=== PATIENT | male | born 1970 | race Caucasian/White ===

== ENCOUNTER 2021-07-30 01:37 | Day surgery (SDC) | payer OTHER, SELFPAY ==
[2021-07-29 14:03] VITALS: BMI 30.5
[2021-07-30 09:37] VITALS: BP 119/86; PULSE 75; RESP 18; TEMP 36.1; O2SAT 94; BMI 30.9
[2021-07-30 09:46] LABS: Basophils Absolute Auto 0.1 K/mm3 (0.0-0.1); Basophils Percent Auto 0.4 % (0.2-1.2); Eosinophils Absolute Auto 0.2 K/mm3 (0-0.3); Hematocrit 49.7 % (42.0-52.0); Hemoglobin 16.5 g/dL (14.0-18.0); Immature Granulocyte Absolute 0.06 K/mm3 (0.00-0.031); Immature Granulocyte Percent A 0.4 % (0-0.5); Lymphocytes Absolute Auto 2.46 K/mm3 (0.9-3.2); Lymphocytes Percent Auto 15.3 % (18.3-44.2); Mean Corpuscular HGB Conc 33.2 g/dl (32-36); Mean Corpuscular Hemoglobin 31.3 pg (26-34); Mean Corpuscular Volume 94.1 fl (80-100); Mean Platelet Volume 9.3 fl (7.4-10.4); Monocytes Absolute Auto 0.8 K/mm3 (0.1-0.6); Neutrophils Absolute Auto 12.5 K/mm3 (1.3-6.7); Neutrophils Percent Auto 77.9 % (45.5-73.1); Platelet Count Result 327 k/mm3 (150-375); Red Blood Count 5.28 M/mm3 (4.6-6.20); White Blood Count 16.1 K/mm3 (4.5-10.0)
[2021-07-30 10:17] LABS: Anion Gap 7 mmol/L (8-16); Blood Urea Nitrogen 12 mg/dL (9-20); Calcium 9.3 mg/dL (8.4-10.2); Carbon Dioxide 28 mmol/L (22-30); Chloride 106 mmol/L (98-107); Estimated CRCL calculation 108 ml/min; Estimated Glomerular Filt Rate > 60; Glucose 95 mg/dL (65-110); Potassium 4.7 mmol/L (3.4-5.0); Sodium 141 mmol/L (137-145)
--- NOTE | 2021-07-30 10:38 | WPDMODSED ---
Moderate Sedation Note-Pt Data Patient Data Diagnosis: permanent pacemaker at [facility] Present Complaint: none Procedure to be performed/Plan: pacemaker generator change Allergies Allergy/AdvReac Type Severity Reaction Status Date / Time No Known Allergies Allergy Verified 07/29/21 13:55 Home Medications Medication Instructions Recorded Confirmed Type aspirin 81 mg chewable tablet 81 mg PO DAILY 11/26/19 07/29/21 History cyclobenzaprine 10 mg tablet 10 mg PO BID PRN tablet 11/26/19 07/29/21 History hydrocodone 10 mg-acetaminophen 1 tablet PO Q8H PRN 11/26/19 07/29/21 History 325 mg tablet duloxetine 60 mg PO DAILY 07/29/21 07/30/21 History folic acid 0.8 mg PO EVERY OTHER DAY 07/29/21 07/29/21 History pregabalin 150 mg PO BID 07/29/21 07/29/21 History ropinirole 0.5 mg PO HS 07/29/21 07/29/21 History rosuvastatin 20 mg PO DAILY 07/29/21 07/29/21 History diclofenac sodium 75 mg PO DAILY 07/30/21 07/30/21 History Sedation/Anesthesia: No previous sedation/anesthesia problems (including family history). [facility] Past Medical History Medical History (Updated 11/26/19 @ 15:43 by Hannah Davis CMA) Arthritis Chronic mental illness Myocardial infarct Family History Family History (Updated 05/01/19 @ 14:12 by DOCTOR UNKNOWN) Father Malignant neoplasm of prostate Sibling Family history of malignant neoplasm of breast Mother Family history of malignant neoplasm of breast in first degree relative Family history of type 2 diabetes mellitus Social History Social History Smoking status: Current every day smoker Tobacco type: cigarettes Additional smoking assessment comments: has smoked for 38 years 2PPD Alcohol intake: never Living arrangements: alone Spiritual care concerns: No Mod Sed Physical Exam Physical Exam Pre Procedural Exam: Normal: Nose, Neck, Throat, Airway, Lungs, Heart Size, Heart Rate, Heart Rhythm, Neuro Exam and Extremities and Variation: Appearance ( overweight white male no apparent distress) Hours since solid foods: 12 Hours since liquid intake: 12 Mallampati Classification: class II Internal Medicine - PN: Obj Da Vital Signs Vital Signs: Vital Signs - 24 hr 07/30/21 09:37 Temperature 36.1 C L Pulse Rate 75 Respiratory Rate 18 Blood Pressure 119/86 Pulse Oximetry 94 Labs CBC & Chem 7: 07/30/21 09:28 07/30/21 09:25 Labs: Laboratory Results - last 24 hr 07/30/21 07/30/21 09:25 09:28 WBC 16.1 H RBC 5.28 Hgb 16.5 Hct 49.7 MCV 94.1 MCH 31.3 MCHC 33.2 RDW 13.0 Plt Count 327 MPV 9.3 Immature Gran % (Auto) 0.4 Neut % (Auto) 77.9 H Lymph % (Auto) 15.3 L [place] % (Auto) 5.0 Eos % (Auto) 1.0 Baso % (Auto) 0.4 Lymph # (Auto) 2.46 [place] # (Auto) 0.8 H Eos # (Auto) 0.2 Baso # (Auto) 0.1 Abs Immat Gran (auto) 0.06 H Absolute Neuts (auto) 12.5 H Absolute Nucleated RBC 0.0 Nucleated RBC % 0.0 Sodium 141 Potassium 4.7 Chloride 106 Carbon Dioxide 28 Anion Gap 7 L BUN 12 Creatinine 0.90 Estim Creat Clear Calc 108 Estimated GFR > 60 Glucose 95 Calcium 9.3 ASA Classification/Sedation ASA Classification/Sedation ASA Class: II Emergent: No Risks: Risks, benefits and alternatives explained and patient/family accepted plan for sedation. Patient re-evaluated immediately prior to sedation.
--- NOTE | 2021-07-30 11:22 | P.PCNCC_ITS ---
Cardiac Cath Procedure Note Date of procedure:: 07/30/21 Performing physician:: Maxim Plascencia MD Indication:: Permanently implanted pacemaker at [facility] Brief clinical history:: this is a 51-year-old man with coronary disease who had evidence of high-grade AV block 11 years ago following myocardial infarction. A permanent dual-chamber pacemaker was placed at that time which is now at [facility]. Admitted electively for generator change procedure Procedure Procedure performed:: explant depleted pulse generator implant new pacemaker pulse generator Sedation/Medication given:: fentanyl 50 mg Versed 2 mg case start time 10:55 a.m. case end time 11:19 a.m. sedation provided by Anisa Reinoso RN, trained observer Access site:: chronic left subclavian pocket Estimated blood loss:: minimal Procedure note:: patient was brought to the cardiac catheterization lab in the postabsorptive state the left anterior chest wall was prepped and draped in the sterile fashion in the region of the chronically implanted pacemaker device. He received intravenous Ancef prior to the procedure for antibiotic prophylaxis. 1% lidocaine was infiltrated above the pocket and his plasma blade was then used to incise the skin and provide cutaneous hemostasis. The PlasmaBlade was used to dissect the subcutaneous tissue down to the level of the fibrous pocket. This fibrous pocket was then opened with the Metzenbaum scissors and the pacemaker device was removed was visually intact and unremarkable in appearance along with the attached leads. The pacemaker device was disconnected from leads using the torque wrench and the new device detailed below was connected to the chronically implanted leads. The pocket was irrigated with Ancef infused saline. After this the new device in the chronic leads were placed back into the pocket. The pocket was closed in layers using 3-0 Vicryl in interrupted fashion for the subcutaneous tissue and 4-0 Vicryl in a running subcuticular fashion for the skin. The wound was dressed with an Aquacel dressing. The procedure was uncomplicated and well tolerated. Patient was brought to the holding area for recovery were postop analgesic and antibiotics will be ordered. Findings:: The explanted device is a Next 1 [employer] dual-chamber pacemaker [id number] serial number [id number]. device was originally implanted June 02, 2010 the new implanted device is pleasant time to pick dual-chamber pacemaker model ACCOLADE EMELINA PHAN IS-1. serial number [id number]. device is programmed in DDDR mode lower rate limit 60 upper rate limit 130 av delay 220/390 milliseconds. The chronically implanted atrial is a Guidant DEXTRUS IS-1 Bi Positive Fix 53cm , serial number [id number]. originally implanted June 02, 2010. P-waves sensed at 1.0 mV threshold 1.5 volts at 0.4 millisecond pacing impedance 656. The chronically implanted ventricular lead is a Guidant DEXTRUS IS-1 Bi Positive Fix 60cm. serial number [id number]. originally implanted June 02, 2010. R-waves are sensed at 7.8 mV threshold 1.0 volt at 0.4 millisecond pacing impedance 584. Conclusion:: 1. Successful uncomplicated explantation of permanent dual- chamber depleted pulse generator 2. successful implantation of new permanent dual-chamber pulse generator Maxim Plascencia MD [facility]
[2021-07-30 11:35] VITALS: BP 120/78; PULSE 72; RESP 19; TEMP 36.2; O2SAT 99
[2021-07-30 11:45] VITALS: BP 112/76; PULSE 63; RESP 14; O2SAT 96
[2021-07-30 12:00] VITALS: BP 107/65; PULSE 69; RESP 14; O2SAT 100
[2021-07-30 12:15] VITALS: BP 113/78; PULSE 63; RESP 12; O2SAT 100
[2021-07-30 12:45] VITALS: BP 121/73; PULSE 70; RESP 16; O2SAT 100
--- NOTE | 2021-07-30 13:06 | SUR.PHASEII ---
1300 D/C instructions reviewed with patient, questions answered and he verbalizes understanding. IV d/c'd, cath intact, pressure applied, no bleeding noted. Pts prescription called into his pharmacy d/t RX transmission unavailable and f/u 1 week office visit made with office. Pt transported to [facility] via wheelchair where his girlfriend drove him home in private vehicle.
== END 2021-07-30 13:05 | disposition home or self-care (01) ==
PROVIDERS: PCP Emergency Medicine; Visit Provider Specialist
PROC: 0JPT0PZ Removal of Cardiac Rhythm Related Device from Trunk Subcutaneous Tissue and Fascia, Open Approach (ICD-10-PCS; CPT 33228; principal; 2021-07-30 10:00)
DX: Z45.010 Encounter for checking and testing of cardiac pacemaker pulse generator [battery] (principal); I25.2 Old myocardial infarction; F17.210 Nicotine dependence, cigarettes, uncomplicated
CPT/HCPCS: 33228; 36415; 80048; 85025; C1785; J0690; J1644; J2250; J3010; J7040

== ENCOUNTER 2021-11-15 06:44 | Emergency (ER) | payer OTHER, SELFPAY ==
--- NOTE | ~2021-11-15 | XR_ITS ---
EXAMINATION: XR hip LT 2V w AP pelvis DATE: 11/15/2021 08:58 INDICATION: Pelvic pain. TECHNIQUE: An anteroposterior view of the pelvis and 2 views of left hip were obtained. COMPARISON: Pelvis radiograph 06/05/2014 FINDINGS: There are old healed fractures of the right superior and inferior pubic rami and left sacra l ala. There is plate and screw fixation of the sacrum and left sacroiliac joint. No acute fracture. There is mild osteoarthritis of the hips. There is severe lumbar spondylosis. IMPRESSION: 1. Mild osteoarthritis of the hips. Reviewed, dictated and finalized at location A. R MAKE UP CLERK
--- NOTE | ~2021-11-15 | XR_ITS ---
EXAMINATION: XR lumbar spine 2-3V DATE: 11/15/2021 08:58 INDICATION: Nontraumatic low back pain. TECHNIQUE: 3 views of lumbar spine were obtained. COMPARISON: Lumbar spine radiographs 06/05/2014 FINDINGS: There is 8 degrees dextrocurvature of thoracolumbar spine. L5 is a transitional segment. Th ere is 3 mm anterolisthesis of L3 on L4. Vertebral body heights are normal. There is mildly decreased disc height at L1-L2, moderately decreased disc height at L2-L3, and severely decreased disc height at L3-L4 and L4-L5 with endplate remodeling. There is severe facet joint osteoarthritis in lower lumb ar spine. There is plate and screw fixation of sacrum and left sacroiliac joint. IMPRESSION: 1. Severe lumbar spondylosis, worsened from 06/05/2014. Reviewed, dictated and finalized at location A. NG TRIMMER
[2021-11-15 07:27] VITALS: BP 166/144; PULSE 72; RESP 23; TEMP 36.6; O2SAT 98
--- NOTE | 2021-11-15 08:56 | ED.BACK ---
HPI - Back Pain/Injury General Chief Complaint: Back Pain/Injury Stated Complaint: left hip and back pain x 4 days. Time Seen by Provider: 11/15/21 08:02 Source: patient Mode of arrival: ambulatory History of Present Illness HPI Narrative: Patient drove himself to the emergency room complaining of left lower back pain and left hip pain that started on the last few days patient on hydrocodone without any significant improvement. History of lower back surgery 2001. Patient denies any trauma or new physical activity. Patient denies patient denies bowel dysfunction, bladder dysfunction, altered sensation, focal weakness, or saddle numbness, patient denies any fever, chills, or urinary symptoms Related Data Home Medications Medication Instructions Recorded Confirmed aspirin 81 mg chewable tablet 81 mg PO DAILY 11/26/19 07/29/21 cyclobenzaprine 10 mg tablet 10 mg PO BID PRN tablet 11/26/19 07/29/21 duloxetine 60 mg PO DAILY 07/29/21 07/30/21 folic acid 0.8 mg PO EVERY OTHER DAY 07/29/21 07/29/21 pregabalin 150 mg PO BID 07/29/21 07/29/21 ropinirole 0.5 mg PO HS 07/29/21 07/29/21 rosuvastatin 20 mg PO DAILY 07/29/21 07/29/21 diclofenac sodium 75 mg PO DAILY 07/30/21 07/30/21 hydrocodone-acetaminophen 1 tablet PO TID PRN 11/15/21 Allergies Allergy/AdvReac Type Severity Reaction Status Date / Time No Known Allergies Allergy Verified 11/15/21 06:49 Review of Systems Review of Systems: CONSTITUTIONAL: Denies fever, chills, or sweats. EYES: Denies visual changes, redness, or discharge. ENT: Denies rhinorrhea, congestion, sore throat, or otalgia. CARDIOVASCULAR: Denies chest pain, palpitations, or edema. RESPIRATORY: Denies cough or dyspnea. GASTROINTESTINAL: Denies abdominal pain, nausea, vomiting, or diarrhea. GENITOURINARY: Denies dysuria or hematuria. SKIN: Denies rash or itching. MUSCULOSKELETAL: Denies back pain, joint pain, or myalgia. NEUROLOGIC: Denies headache, numbness, or weakness. PSYCHIATRIC: Denies anxiety or depression. [facility] Past Medical History Medical History Arthritis Chronic mental illness Myocardial infarct Family History Family History Father Malignant neoplasm of prostate Sibling Family history of malignant neoplasm of breast Mother Family history of malignant neoplasm of breast in first degree relative Family history of type 2 diabetes mellitus Social History Social History Smoking status: Current every day smoker Tobacco type: cigarettes Additional smoking assessment comments: has smoked for 38 years 2PPD Alcohol intake: never Spiritual care concerns: No Exam Narrative: General appearance: Well-developed, well-nourished Skin: Normal color Head: Normocephalic, nontraumatic Eyes: Clear conjunctiva ENT: Oropharynx normal, ears normal, nose normal Neck: Supple, nontender Chest and respiratory: Airway patent, no respiratory distress, no accessory muscle use Heart: Regular rate/rhythm Abdomen: Soft, nontender, no organomegaly, quiet bowel sounds Vascular: Normal peripheral pulses, normal capillary refill. Musculoskeletal: Diffuse tenderness across lower back, slight limited range of motion of left hip because of pain, old surgical scar on the left lower back Neurologic: Alert and oriented ?3, CUSTOMER QUALITY ENGINEER is normal as tested, no gross motor deficit Course Course Emergency Course: Stable Vital Signs Vital signs: Vital Signs Temperature 36.6 C 11/15/21 07:27 Pulse Rate 72 11/15/21 07:27 Respiratory Rate 23 H 11/15/21 07:27 Blood Pressure 166/14
[2021-11-15 09:12] VITALS: BP 136/97; PULSE 76; RESP 18; O2SAT 100
[2021-11-15] MEDS: diazePAM (*CRX) 5 MG TABLET PO (09:18)
[2021-11-15] MEDS: ONDANSETRON HCL ODT 4 MG TABLET PO (09:18)
[2021-11-15] MEDS: HYDROmorphone HCL INJ (*CRX) 1 MG/ML SYR IM (09:19)
[2021-11-15 09:30] VITALS: BP 136/87; PULSE 87; RESP 18; O2SAT 100
== END 2021-11-15 09:30 | disposition home or self-care (01) ==
PROVIDERS: Emergency Provider Emergency Medicine; PCP Emergency Medicine
DX: M54.50 Low back pain, unspecified (principal); I25.2 Old myocardial infarction; F17.210 Nicotine dependence, cigarettes, uncomplicated; M47.816 Spondylosis without myelopathy or radiculopathy, lumbar region; M16.0 Bilateral primary osteoarthritis of hip; Z79.82 Long term (current) use of aspirin
CPT/HCPCS: 72100; 73502; 96372; 99284; A9270; J1170

== ENCOUNTER 2022-11-11 00:03 | Day surgery (SDC) | payer OTHER, SELFPAY ==
[2022-11-03 08:59] VITALS: BMI 29.7
[2022-11-11 09:41] VITALS: BP 139/84; PULSE 97; RESP 22; TEMP 36.4; O2SAT 98
[2022-11-11] MEDS: LACTATED RINGERS 1,000 ML 150 ML IV CONT (09:50)
--- NOTE | 2022-11-11 09:56 | WPDANESEPPF ---
Anes - Initial Pre Proc Eval Procedure: Operation Date: 11/11/22 10:45 Proposed Procedures p Esophagogastroduodenoscopy EGD - Ravinder Goodman MD Date/Time: 11/11/22 09:56 Surgeon: Ravinder Goodman MD Pre Op Diagnosis: esophagitis Patient Data Age: 52 Gender: M Height: 1.85 m Weight: 100.4 kg Last Vital Signs Temp 97.6 F 11/11/22 09:41 Pulse 97 11/11/22 09:41 Resp 22 H 11/11/22 09:41 BP 139/84 11/11/22 09:41 Pulse Ox 98 11/11/22 09:41 O2 Del Method Room Air 11/11/22 09:41 Allergies Allergy/AdvReac Type Severity Reaction Status Date / Time No Known Allergies Allergy Verified 11/11/22 09:39 Home Medications Medication Instructions Recorded Confirmed Type aspirin 81 mg chewable tablet 81 mg PO DAILY 11/26/19 11/11/22 History (Elba Chewable Low Dose Aspirin) cyclobenzaprine 10 mg tablet 10 mg PO BID PRN Muscle Spasm 11/26/19 11/11/22 History pregabalin 150 mg capsule 150 mg PO BID 07/29/21 11/11/22 History rosuvastatin 20 mg tablet 20 mg PO DAILY 07/29/21 11/11/22 History diclofenac sodium 75 mg 75 mg PO DAILY 07/30/21 11/11/22 History tablet,delayed release hydrocodone 10 mg-acetaminophen 1 tablet PO TID PRN Back Pain 11/15/21 11/11/22 History 325 mg tablet omeprazole 20 mg capsule,delayed 20 mg PO DAILY 11/03/22 11/11/22 History release Patient hx anesthesia problems: none Family hx anesthesia problems: none Results Review: All pre-operative results and documents have been reviewed as part of the pre-operative evaluation. [facility] Past Medical History Medical History Arthritis Chronic mental illness Myocardial infarct Family History Family History Father Malignant neoplasm of prostate Sibling Family history of malignant neoplasm of breast Mother Family history of malignant neoplasm of breast in first degree relative Family history of type 2 diabetes mellitus Social History Social History Smoking packs per day: 1.5 Smoking cigarettes per day: 30.0 Years smoked: 39 Smoking pack-years: 58.50 Smoking status: Current every day smoker Tobacco type: cigarettes Additional smoking assessment comments: has smoked for 38 years 2PPD Alcohol intake: never Substance use: current Substance use type: marijuana Last use: Daily Living arrangements: alone Spiritual care concerns: No Anes - Eval Final PreProcedure Day of Procedure 11/11/22 09:56 Patient weight: obese Heart: regular rate and rhythm Lungs: clear to auscultation Airway: Mallampati scale class II Neurological: alert and oriented Last oral intake: >/= 8 hours ASA classification: III Emergent: no Anesthetic plan: proceed Anesthesia type and monitoring: general GIVS and standard monitoring Results Review: All pre-operative results and documents have been reviewed as part of the pre-operative evaluation. Informed Consent: The patient's anesthetic plan and its attendant risks and benefits were discussed with the patient/family/POA. Questions were solicited and answers provided to the satisfaction of the patient/family/POA.
--- NOTE | 2022-11-11 10:12 | PM.HPGS ---
History of Present Illness History of Present Illness Consent: Risks, benefits, and alternatives have been discussed and questions answered. Patient agrees to proceed with procedure. Chief complaint: esophagitis Narrative: Arash Bernardo is a 52 year old male with gerd symptom, CT Scan showed distal esophagitis then started on omeprazole and doing quite well now, never had egd Review of Systems Constitutional: Constitutional: Denies headache(s) and Denies weakness Eyes: Eyes: Denies blurry vision ENT: Reports Normal hearing present, Denies headache(s) and Denies neck pain Cardiovascular: Cardiovascular: Denies chest pain and Denies dyspnea Respiratory: Respiratory: Denies dyspnea Gastrointestinal: Gastrointestinal: Reports no additional gastrointestinal complaints Genitourinary: Genitourinary: Denies dysuria Musculoskeletal: Musculoskeletal: Denies neck pain Integumentary/Breasts: Skin/Breast: Denies dry skin Neurologic: Reports Normal hearing present, Denies headache(s) and Denies weakness Psychiatric: Psychiatric: Denies anxiety Endocrine: Endocrine: Denies change in body appearance Hematologic/Lymphatic: Hematologic/Lymphatic: Denies easy bleeding Allergic/Immunologic: Allergic/Immunologic: Denies urticaria PMFSH Past Medical History Medical History (Updated 11/11/22 @ 10:13 by Ravinder Goodman MD) Arthritis Chronic mental illness GERD (gastroesophageal reflux disease) Myocardial infarct Family History Family History Father Malignant neoplasm of prostate Sibling Family history of malignant neoplasm of breast Mother Family history of malignant neoplasm of breast in first degree relative Family history of type 2 diabetes mellitus Social History Social History Smoking packs per day: 1.5 Smoking cigarettes per day: 30.0 Years smoked: 39 Smoking pack-years: 58.50 Smoking status: Current every day smoker Tobacco type: cigarettes Additional smoking assessment comments: has smoked for 38 years 2PPD Alcohol intake: never Substance use: current Substance use type: marijuana Last use: Daily Living arrangements: alone Spiritual care concerns: No Meds Home Medications and Allergies Home Medications Medication Instructions Recorded Confirmed Type aspirin 81 mg chewable tablet 81 mg PO DAILY 11/26/19 11/11/22 History (Elba Chewable Low Dose Aspirin) cyclobenzaprine 10 mg tablet 10 mg PO BID PRN Muscle Spasm 11/26/19 11/11/22 History pregabalin 150 mg capsule 150 mg PO BID 07/29/21 11/11/22 History rosuvastatin 20 mg tablet 20 mg PO DAILY 07/29/21 11/11/22 History diclofenac sodium 75 mg 75 mg PO DAILY 07/30/21 11/11/22 History tablet,delayed release hydrocodone 10 mg-acetaminophen 1 tablet PO TID PRN Back Pain 11/15/21 11/11/22 History 325 mg tablet omeprazole 20 mg capsule,delayed 20 mg PO DAILY 11/03/22 11/11/22 History release Allergies Allergy/AdvReac Type Severity Reaction Status Date / Time No Known Allergies Allergy Verified 11/11/22 09:39 Vital Signs Vital Signs - 24 hr 11/11/22 09:41 Temperature 97.6 F Pulse Rate 97 Respiratory Rate 22 H Blood Pressure 139/84 Pulse Oximetry 98 Oxygen Delivery Room Air Exam Const: General: comfortable and no acute distress HENMT: Face/Nose/Sinus: Normal nares present Eyes: General: appearance normal, both eyes and all related structures Neck: Neck: no JVD Resp: Auscultation: clear to auscultation bilaterally Cardio: Rate: regular rate Rhythm: regular rhythm GI: Inspection: non-distended GI Palp: Yes Soft to palpation Skin: General skin exam: normal color Neuro: General: gait normal Speech: normal speech Extrem: General: normal to inspection Psych: Mental Status: mental status grossly normal Assessment and Plan Assessment and plan (1) GERD (g
[2022-11-11 10:28] VITALS: BP 116/84; PULSE 87; RESP 19; O2SAT 96
[2022-11-11 10:38] VITALS: BP 114/83; PULSE 90; RESP 19; O2SAT 96
[2022-11-11 10:48] VITALS: BP 122/76; PULSE 78
== END 2022-11-11 11:04 | disposition home or self-care (01) ==
PROVIDERS: PCP Emergency Medicine; Visit Provider Internal Medicine Gastroenterology
PROC: 0DJ08ZZ Inspection of Upper Intestinal Tract, Via Natural or Artificial Opening Endoscopic (ICD-10-PCS; CPT 43235; principal; 2022-11-11 10:45)
DX: K21.9 Gastro-esophageal reflux disease without esophagitis (principal); D13.0 Benign neoplasm of esophagus; I25.2 Old myocardial infarction; F17.210 Nicotine dependence, cigarettes, uncomplicated
CPT/HCPCS: 43239; 43251; 88305; J2704; J7120

== ENCOUNTER 2023-01-14 12:31 | Observation (INO) | payer OTHER, SELFPAY ==
[2023-01-14] VITALS (13 sets, daily range): BP systolic 94–126; BP diastolic 59–79; PULSE 78–97; RESP 14–22; TEMP 36.3–36.9; O2SAT 90–100
--- NOTE | ~2023-01-14 | CT_ITS ---
EXAMINATION: CTA chest PE protocol DATE: 01/14/2023 13:54 ZIGZAG STITCHER INDICATION: Rule out pulmonary embolism. TECHNIQUE: Computed tomographic angiography (CTA) of the chest was performed with 100 mL Omnipaque-35 0 intravenous contrast. The dose-length product was 803.45 mGy-cm. Maximum intensity projection 3D-re constructions of the aorta and other arteries were constructed by the technologist on a separate work station. Automated exposure control and iterative reconstruction technique were employed. COMPARISON: Chest dated 01/14/2023. FINDINGS: Study is technically adequate. There is a weblike filling defect in right lower lobe subseg mental pulmonary artery, consistent with pulmonary embolism, likely chronic. There is mediastinal and bilateral hilar lymphadenopathy. No significant pleural or pericardial effusion. Cardiomegaly. The u pper abdomen is unremarkable. No evidence for aortic aneurysm or dissection. There is emphysema. Ther e are patchy groundglass opacities in both lungs, suspicious for pneumonia. No endobronchial lesions. IMPRESSION: 1. Weblike filling defect in right lower lobe subsegmental pulmonary artery,, consistent with pulmona ry embolism, possibly chronic. 2: Patchy bilateral groundglass opacities, suspicious for pneumonia. 3: Mediastinal and bilateral hilar lymphadenopathy, likely reactive. 4: Emphysema. Reviewed, dictated and finalized at location A. AG STITCHER IMPRESSION: 1. Weblike filling defect in right lower lobe subsegmental pulmonary artery,, c onsistent with pulmonary embolism, possibly chronic. 2: Patchy bilateral groundglass opacities, suspicious for pneumonia. 3: Mediastinal and bilateral hilar lymphadenopathy, likely reactive. 4: Emphysema.
--- NOTE | ~2023-01-14 | XR_ITS ---
XR chest 1V portable 01/14/2023 12:58 Indication: Weakness Procedure: AP portable chest Comparison: 01/06/2011 Findings: Heart size upper normal. There is mild interstitial edema. No pleural effusion or pneumotho rax. Pacemaker leads in expected position. Impression: 1: Mild interstitial edema. Reviewed, dictated and finalized at location A. CE AUTOMATION TECHNICIAN Impression: 1: Mild interstitial edema.
--- NOTE | ~2023-01-14 | US_ITS ---
EXAMINATION:US venous doppler LE BI INDICATION:Pulmonary embolism TECHNIQUE: Multiple grayscale, color flow and Doppler images of the right and left lower extremity de ep venous systems were obtained and reviewed. COMPARISON:No prior studies for comparison. FINDINGS: The common femoral, superficial femoral and popliteal veins demonstrate normal respiratory variation, augmentation and compressibility. Color flow is also seen within the posterior tibial, pe roneal, greater saphenous and profunda veins. IMPRESSION: 1: No lower extremity deep venous thrombosis. Reviewed, dictated and finalized at location A. RANCE CLAIMS SPECIALIST
--- NOTE | 2023-01-14 12:33 | ECG_ITS ---
Measurements Intervals [place] Rate: 83 P: 47 MA: 179 QRS: 35 QRSD: 84 T: 61 QT: 375 QTc: 443 Interpretive Statements SINUS RHYTHM BASELINE ARTIFACT LOW QRS VOLTAGE IN PRECORDIAL LEADS BORDERLINE ECG NO PREVIOUS ECG AVAILABLE FOR COMPARISON Electronically Signed On 01-14-2023 16:56:35 SCREW CUTTER by Clayton Acuna M.D.
--- NOTE | 2023-01-14 12:39 | ED.WEAKNESS ---
HPI - Weakness General Chief complaint: Weakness Stated complaint: weakness Time Seen by Provider: 01/14/23 12:36 Source: patient and EMS Mode of arrival: EMS Limitations: no limitations History of Present Illness HPI Narrative: 52 years old white male was working in the garage, went inside the house suddenly developed shortness of breath, chest pain, lightheadedness, feeling like going to pass out, burning sensation in the epigastric and chest area, did not feel well lasted for 20 minutes, called 911, patient had his morning meds , did not eat his breakfast prior to arrival, history of coronary stents on aspirin and hyperlipidemia, history of tobacco use and marijuana use. Currently patient feeling pain-free, initially chest pain was 4 out of 10. He denies any aggravating or relieving factors. Related Data Home Medications Medication Instructions Recorded Confirmed aspirin 81 mg chewable tablet 81 mg PO DAILY 11/26/19 11/11/22 (Elba Chewable Low Dose Aspirin) cyclobenzaprine 10 mg tablet 10 mg PO BID PRN Muscle Spasm 11/26/19 11/11/22 pregabalin 150 mg capsule 150 mg PO BID 07/29/21 11/11/22 rosuvastatin 20 mg tablet 20 mg PO DAILY 07/29/21 11/11/22 diclofenac sodium 75 mg 75 mg PO DAILY 07/30/21 11/11/22 tablet,delayed release hydrocodone 10 mg-acetaminophen 1 tablet PO TID PRN Back Pain 11/15/21 11/11/22 325 mg tablet omeprazole 20 mg capsule,delayed 20 mg PO DAILY 11/03/22 11/11/22 release Allergies Allergy/AdvReac Type Severity Reaction Status Date / Time No Known Allergies Allergy Verified 12/21/22 14:52 Review of Systems Review of Systems: All systems reviewed & are unremarkable except as noted in HPI and below PMFSH Past Medical History Medical History (Updated 01/14/23 @ 14:40 by Yoel Springer MD) Arthritis Chronic back pain Chronic mental illness Depression GERD (gastroesophageal reflux disease) Hyperlipidemia Myocardial infarct Pacemaker Surgical History Surgical History (Updated 01/14/23 @ 14:29 by Jennifer Gerber NP) H/O heart artery stent H/O knee surgery H/O pelvic surgery History of back surgery History of hip surgery Family History Family History Father Malignant neoplasm of prostate Sibling Family history of malignant neoplasm of breast Mother Family history of malignant neoplasm of breast in first degree relative Family history of type 2 diabetes mellitus Social History Social History (Updated 01/14/23 @ 14:31 by Jennifer Gerber NP) Social History: no children. no alcohol. unemployed Smoking packs per day: 1.5 Smoking cigarettes per day: 30.0 Years smoked: 39 Smoking pack-years: 58.50 Smoking status: Current every day smoker Tobacco type: cigarettes Additional smoking assessment comments: has smoked for 38 years 2PPD Alcohol intake: never Substance use: current Substance use type: marijuana Last use: Daily Living arrangements: alone Spiritual care concerns: No Exam Narrative: General appearance: Well-developed, well-nourished Skin: Normal color Head: Normocephalic, nontraumatic Eyes: Clear conjunctiva ENT: Oropharynx normal, ears normal, nose normal Neck: Supple, nontender Chest and respiratory: Airway patent, no respiratory distress, no accessory muscle use Heart: Regular rate/rhythm Abdomen: Soft, nontender, no organomegaly, quiet bowel sounds Vascular: Normal peripheral pulses, normal capillary refill. Musculoskeletal: Normal range of motion, nontender back Neurologic: Alert and oriented ?3, MANAGER LANDSCAPE is normal as tested, no gross motor deficit Course Reevaluation(s) Reeval
[2023-01-14 12:45] LABS: Basophils Percent Auto 0.3 % (0.2-1.2); Eosinophils Absolute Auto 0.1 K/mm3 (0-0.3); Hematocrit 43.3 % (42.0-52.0); Hemoglobin 14.4 g/dL (14.0-18.0); Immature Granulocyte Absolute 0.05 K/mm3 (0.00-0.031); Immature Granulocyte Percent A 0.4 % (0-0.5); Lymphocytes Absolute Auto 1.79 K/mm3 (0.9-3.2); Lymphocytes Percent Auto 14.3 % (18.3-44.2); Mean Corpuscular HGB Conc 33.3 g/dl (32-36); Mean Corpuscular Hemoglobin 31.8 pg (26-34); Mean Corpuscular Volume 95.6 fl (80-100); Mean Platelet Volume 9.5 fl (7.4-10.4); Monocytes Absolute Auto 0.5 K/mm3 (0.1-0.6); Monocytes Percent Auto 3.7 % (2.6-8.5); Neutrophils Absolute Auto 10.1 K/mm3 (1.3-6.7); Neutrophils Percent Auto 80.3 % (45.5-73.1); Platelet Count Result 267 k/mm3 (150-375); Red Blood Count 4.53 M/mm3 (4.6-6.20); Red Cell Distribution Width 13.1 % (11.5-14.5); White Blood Count 12.6 K/mm3 (4.5-10.0)
[2023-01-14 12:58] LABS: Alanine Aminotransferase 24 U/L (6-50); Albumin Level 3.8 g/dL (3.5-5.1); Alkaline Phosphatase 60 U/L (38-126); Anion Gap 5 mmol/L (8-16); Aspartate Amino Transferase 27 U/L (17-59); Bilirubin,Total 0.5 mg/dL (0.2-1.3); Blood Urea Nitrogen 16 mg/dL (9-20); Calcium 7.8 mg/dL (8.4-10.2); Carbon Dioxide 25 mmol/L (22-30); Chloride 107 mmol/L (98-107); Estimated CRCL calculation 116 ml/min; Estimated Glomerular Filt Rate > 60; Glucose 124 mg/dL (65-110); Lipase 294 U/L (23-300); Potassium 4.3 mmol/L (3.4-5.0); Sodium 137 mmol/L (137-145)
[2023-01-14 12:59] LABS: Partial Thromboplastin Time 20.3 SECONDS (22.3-36.8); Prothrombin Time 12.8 Seconds (11.1-14.7)
[2023-01-14 13:02] LABS: Magnesium 1.9 mg/dL (1.6-2.3)
[2023-01-14 13:09] LABS: NT Pro B Type Natriuretic Pept < 20 pg/mL (19.9-100); Troponin I < 0.012 ng/mL (0.000-0.034)
[2023-01-14 13:14] LABS: D Dimer 0.52 ug/mL (<0.48)
[2023-01-14] MEDS: SODIUM CHLORIDE 0.9% IV 1,000 ML 999 ML IV CONT (13:27)
[2023-01-14 14:11] LABS: SARS-CoV-2 RNA PCR Negative
--- NOTE | 2023-01-14 14:26 | PM.IMHP ---
H&P: HPI History of Present Illness Date/Time: 01/14/23 14:26 Chief Complaint: Weakness Narrative: This is a 52-year-old male patient who has had a history of a coronary artery disease with a stent. The patient stated he is been unemployed and living a sedentary life. However today he had been working out in his garage and went inside of his home and suddenly developed a deep chest pain, lightheadedness, shortness of breath and presyncopal episode. The patient stated he felt a burning cessation is epigastric and chest area. This lasted approximately 20 minutes and then he called 911. It the patient stated that he did take his morning medications and he had not eaten his breakfast. He has a history of marijuana use and smoking tobacco. The patient was pain-free upon arrival to the emergency room. The patient stated that he also felt nauseated. He also felt some tingling to the left side of his hand dizzy lightheaded nauseated felt like passing out . EKG was sinus rhythm. White count 12.6. D-dimer 0.52 troponin nonreactive x2. Chest x-ray mild interstitial edema. Chest CTA read as the following1. Weblike filling defect in right lower lobe subsegmental pulmonary artery,, consistent with pulmonary embolism, possibly chronic. 2:? Patchy bilateral groundglass opacities, suspicious for pneumonia. 3:? Mediastinal and bilateral hilar lymphadenopathy, likely reactive. 4:? Emphysema. The patient was given IV fluids, subcu Lovenox, Rocephin, and azithromycin. The patient is being admitted to observation status on the date of service of 01/14/2020 Review of Systems Review of Systems: See HPI All systems reviewed & are unremarkable except as noted in HPI and below Constitutional: Constitutional: Reports as per HPI and Reports no additional constitutional complaints Eyes: Eyes: Reports as per HPI and Reports no additional eye complaints ENT: Reports system reviewed and no additional complaints, except as documented and Reports Normal hearing present Cardiovascular: Cardiovascular: Reports no additional cardiovascular complaints Respiratory: Respiratory: Reports no additional respiratory complaints and Reports no additional respiratory complaints Gastrointestinal: Gastrointestinal: Reports as per HPI and Reports no additional gastrointestinal complaints Musculoskeletal: Musculoskeletal: Reports no additional musculoskeletal complaints Integumentary/Breasts: Skin/Breast: Reports system reviewed and no additional complaints, except as docu and Reports as per HPI Neurologic: Reports system reviewed and no additional complaints, except as documented, Reports as per HPI and Reports Normal hearing present Psychiatric: Psychiatric: Reports no additional psychiatric complaints and Reports as per HPI Endocrine: Endocrine: Reports no additional endocrine complaints Hematologic/Lymphatic: Hematologic/Lymphatic: Reports no additional hematologic/lymphatic complaints Allergic/Immunologic: Allergic/Immunologic: Reports no additional allergic/immunologic complaints [facility] Past Medical History Medical History Arthritis Chronic back pain Chronic mental illness Depression GERD (gastroesophageal reflux disease) Hyperlipidemia Myocardial infarct Pacemaker Surgical History Surgical History H/O heart artery stent H/O knee surgery H/O pelvic surgery History of back surgery History of hip surgery Family History Family History Father Malignant neoplasm of prostate Sibling Family history of malignant neoplasm of breast Mother Family history of malignant neoplasm of breast in first degree relative Family history of type 2 diabetes mellitus Social History Social History (Updated 01/14/23 @ 20:47 by Jennfier Gerber NP) Social History: He is and has no children. He denie
[2023-01-14] MEDS: ENOXAPARIN 100 MG/ML SYRINGE SUB-Q (15:15)
--- NOTE | 2023-01-14 16:02 | ADMGEN ---
This patient, Arash Bernardo, was admitted to IMU Room 232-01 at 1601. Patient/family oriented to hospital policies and general routines including ID bracelet, bed and alarms, visiting hours, pain management, procedures, bathroom and other care routines, personal items, smoking policy, room service/diet, and visiting hours. Information on how to activate the Rapid Response Team has been discussed. Patient/Family are encouraged to report perceived risks to care and to ask questions if they do not understand what they are told or what they should do.
[2023-01-14 17:50] LABS: Troponin I < 0.012 ng/mL (0.000-0.034)
[2023-01-14] MEDS: ACETAMINOPHEN 325 MG TABLET 650 MG PO (20:50)
[2023-01-14 20:56] LABS: Troponin I < 0.012 ng/mL (0.000-0.034)
[2023-01-14] MEDS: HYDROcodone/acetaminophen (*CRX) 10-325 MG TABLET 1 TAB PO (20:58)
[2023-01-14] MEDS: PREGABALIN (*CRX) 75 MG CAPSULE 150 MG PO (21:58)
[2023-01-15] VITALS (8 sets, daily range): BP systolic 105–117; BP diastolic 60–71; PULSE 62–86; RESP 20; TEMP 36.4–36.7; O2SAT 98–100
[2023-01-15 05:23] LABS: Basophils Percent Auto 0.2 % (0.2-1.2); Eosinophils Absolute Auto 0.2 K/mm3 (0-0.3); Eosinophils Percent Auto 1.6 % (0-4.4); Hematocrit 41.3 % (42.0-52.0); Hemoglobin 13.8 g/dL (14.0-18.0); Immature Granulocyte Absolute 0.02 K/mm3 (0.00-0.031); Immature Granulocyte Percent A 0.2 % (0-0.5); Lymphocytes Absolute Auto 2.42 K/mm3 (0.9-3.2); Lymphocytes Percent Auto 26.5 % (18.3-44.2); Mean Corpuscular HGB Conc 33.4 g/dl (32-36); Mean Corpuscular Hemoglobin 31.9 pg (26-34); Mean Corpuscular Volume 95.4 fl (80-100); Mean Platelet Volume 9.5 fl (7.4-10.4); Monocytes Absolute Auto 0.5 K/mm3 (0.1-0.6); Monocytes Percent Auto 5.2 % (2.6-8.5); Neutrophils Percent Auto 66.3 % (45.5-73.1); Platelet Count Result 251 k/mm3 (150-375); Red Blood Count 4.33 M/mm3 (4.6-6.20); Red Cell Distribution Width 13.2 % (11.5-14.5); White Blood Count 9.1 K/mm3 (4.5-10.0)
[2023-01-15 05:33] LABS: Alanine Aminotransferase 21 U/L (6-50); Albumin Level 3.5 g/dL (3.5-5.1); Alkaline Phosphatase 61 U/L (38-126); Anion Gap 2 mmol/L (8-16); Aspartate Amino Transferase 22 U/L (17-59); Bilirubin,Total 0.3 mg/dL (0.2-1.3); Blood Urea Nitrogen 14 mg/dL (9-20); Calcium 7.9 mg/dL (8.4-10.2); Carbon Dioxide 27 mmol/L (22-30); Chloride 110 mmol/L (98-107); Estimated CRCL calculation 104 ml/min; Estimated Glomerular Filt Rate > 60; Glucose 101 mg/dL (65-110); Potassium 4.2 mmol/L (3.4-5.0); Sodium 139 mmol/L (137-145)
[2023-01-15 05:40] LABS: Lactic Acid Reflex 0.9 mmol/L (0.7-2.0)
[2023-01-15] MEDS: ENOXAPARIN 120 MG/0.8 ML SYRINGE 105 MG SUB-Q (06:46)
[2023-01-15] MEDS: HYDROcodone/acetaminophen (*CRX) 10-325 MG TABLET 1 TAB PO (06:54)
[2023-01-15] MEDS: CYCLOBENZAPRINE HCL 10 MG TABLET PO (06:57)
--- NOTE | 2023-01-15 09:09 | PM.IMPN ---
Progress Note: A&P Assessment and Plan (1) Pulmonary embolism: Code(s): I26.99 - Other pulmonary embolism without acute cor pulmonale Status: Acute Assessment and Plan: -the patient is on subcu Lovenox. -will do an echo that is not done yet and venous Dopplers shows no DVT. The patient states that he lives a pretty sedentary life. patient wishes to go home today against medical advice. riskes of AMA are explained to patient, including but not limited to sudden , acute reparatory failure and heart failure change to Eliquis po (2) Pneumonia: Code(s): J18.9 - Pneumonia, unspecified organism Status: Acute Assessment and Plan: Sputum and blood cultures are pending -the patient was stated on azithromycin and Rocephin as per community-acquired antibiotic stewardship (3) Chest pain: Code(s): R07.9 - Chest pain, unspecified Status: Acute Assessment and Plan: -troponin levels are nonreactive x2. -the patient was found have pneumonia and also PE. Continue to trend cardiac enzymes echo pending He has a history of coronary artery disease and continue with aspirin Continue with Crestor (4) Depression: Code(s): F32.A - Depression, unspecified Status: Acute Assessment and Plan: Continue with current treatment (5) Chronic back pain: Code(s): M54.9 - Dorsalgia, unspecified; G89.29 - Other chronic pain Status: Acute Assessment and Plan: Continue with muscle relaxant Holding diclofenac is the patient is on Lovenox now. (6) Hyperlipidemia: Code(s): E78.5 - Hyperlipidemia, unspecified Status: Acute Assessment and Plan: Continue with Crestor (7) GERD (gastroesophageal reflux disease): Code(s): K21.9 - Gastro-esophageal reflux disease without esophagitis Status: Acute Assessment and Plan: Pepcid IV Subjective Date/time seen: 01/15/23 09:09 Interval history: I saw and examined patient today. Patient denies chest pain, shortness of breath. Venous Doppler shows no DVT, echocardiogram is pending. Patient is afebrile, hemodynamically stable. Exam Narrative: GENERAL: Pleasant, in no acute distress. Well-nourished. - EYES: EOMI. Anicteric. - HENT: Moist mucous membranes. - LUNGS: Clear to auscultation bilaterally, no wheezing, rhonchi, or rales. - CARDIOVASCULAR: Regular rate and rhythm. No murmur. No JVD. - ABDOMEN: Soft, non-tender and non-distended. No palpable masses. - EXTREMITIES: No edema. Peripheral pulses 2+. Non-tender. - NEUROLOGIC: No focal neurological deficits. CN II-XII grossly intact. - PSYCHIATRIC: Awake, Alert and oriented x 3. Appropriate mood and affect. - SKIN: No rashes or lesions. Warm. - LYMPH: No cervical lymphadenopathy. Objective Data Vital Signs Vital Signs: Vital Signs - 24 hr 01/14/23 12:29 01/14/23 12:59 01/14/23 12:41 Temperature 98.3 F 98.4 F Pulse Rate 84 81 Respiratory Rate 22 H Blood Pressure 97/66 L Pulse Oximetry 100 Oxygen Delivery 01/14/23 12:42 01/14/23 12:45 01/14/23 12:46 Temperature Pulse Rate 84 84 84 Respiratory Rate 14 17 Blood Pressure 101/66 Pulse Oximetry 97 95 90 Oxygen Delivery 01/14/23 13:27 01/14/23 14:55 01/14/23 15:47 Temperature Pulse Rate 81 86 81 Respiratory Rate 15 18 18 Blood Pressure 94/79 L 99/70 L 104/64 Pulse Oximetry 94 97 97 Oxygen Delivery 01/14/23 18:00 01/14/23 16:00 01/14/23 20:00 Temperature 97.4 F L Pulse Rate 95 81 Respiratory Rate 20 Blood Pressure 126/61 Pulse Oximetry 100 Oxygen Delivery Room Air 01/14/23 20:00 01/14/23 22:00 01/14/23 20:00 Temperature Pulse Rate 82 78 97 Respiratory Rate Blood Pressure Pulse Oximetry Oxygen Delivery Room Air 01/14/23 23:35 01/15/23 00:00 01/15/23 00:00 Temperature 97.8 F Pulse Rate 90 86 Respiratory Rate 20 Blood Pressure 109/59 L Pulse Oximetry 99 Oxygen Del
--- NOTE | 2023-01-15 10:24 | PM.DS ---
DS: Admitting Diagnosis Discharge Date today Admitting Diagnosis chest pain DS: Discharge Diagnosis Discharge Diagnosis (1) Pulmonary embolism: Code(s): I26.99 - Other pulmonary embolism without acute cor pulmonale Status: Acute (2) Chest pain: Code(s): R07.9 - Chest pain, unspecified Status: Acute (3) Pneumonia: Code(s): J18.9 - Pneumonia, unspecified organism Status: Acute DS: Summary Hospital Course Reason for hospitalization: acute PE Hospital Course: This is a 52-year-old male patient who has had a history of a coronary artery disease with a stent.? The patient stated he is been unemployed and living a sedentary life.? However today he had been working out in his garage and went inside of his home and suddenly developed a deep chest pain, lightheadedness, shortness of breath and presyncopal episode.? The patient stated he felt a burning cessation is epigastric and chest area.? This lasted approximately 20 minutes and then he called 911.? It the patient stated that he did take his morning medications and he had not eaten his breakfast.? He has a history of marijuana use and smoking tobacco.? The patient was pain-free upon arrival to the emergency room.? The patient stated that he also felt nauseated.? He also felt some tingling to the left side of his hand dizzy lightheaded nauseated felt like passing out .? EKG was sinus rhythm.? White count 12.6.? D-dimer 0.52 troponin nonreactive x2.? Chest x-ray mild interstitial edema.? Chest CTA read as the following1. Weblike filling defect in right lower lobe subsegmental pulmonary artery,, consistent with pulmonary embolism, possibly chronic. 2:? Patchy bilateral groundglass opacities, suspicious for pneumonia. 3:? Mediastinal and bilateral hilar lymphadenopathy, likely reactive. 4:? Emphysema. during hospitalization, patient received Lovenox at therapeutic dose, azithromycin ceftriaxone for pneumonia. venous Doppler shows no DVT, echocardiogram as ordered, not done. patient wishes to go home today against the medical advice. I have explained the risks of AMA to the patients, including but not limited to sudden , respiratory failure, heart failure. patient understands the risk, still wan to home AMA. I have requested patient to see cc primary care doctor tomorrow Monday. will give patient one dose of Lovenox, I prescribe Eliquis po with 3 month supply, and ask pt to get the med today and take one tab in the evening. I also advice pt not return to work before see his PCP for evaluation now pt is afeb, hemodynamically stable Time Spent with Patient Time attestation: Total time spent providing and/or coordinating discharge services: DS: Data Data Completed and Pending Labs on day of discharge: Labs from last 24 hours 01/15/23 01/15/23 01/15/23 05:02 05:02 05:02 WBC RBC Hgb Hct MCV MCH MCHC RDW Plt Count MPV Immature Gran % (Auto) Neut % (Auto) Lymph % (Auto) [place] % (Auto) Eos % (Auto) Baso % (Auto) Lymph # (Auto) [place] # (Auto) Eos # (Auto) Baso # (Auto) Abs Immat Gran (auto) Absolute Neuts (auto) Absolute Nucleated RBC Nucleated RBC % PT INR APTT D-Dimer Sodium 139 Potassium 4.2 Chloride 110 H Carbon Dioxide 27 Anion Gap 2 L BUN 14 Creatinine 0.90 Estim Creat Clear Calc 104 Estimated GFR > 60 Glucose 101 Lactic Acid 0.9 Calcium 7.9 L Magnesium 2.0 Total Bilirubin 0.3 AST 22 ALT 21 Alkaline Phosphatase 61 Troponin I NT-Pro-B Natriuret Pep Total Protein 6.0 L Albumin 3.5 Lipase TSH (Reflex) 1.430 SARS-CoV-2 RNA (RT-PCR) 01/15/23 01/14/23 01/14/23 05:02 20:27 17:12 WBC 9.1 RBC 4.33 L Hgb 13.8 L Hct 41.3 L MCV 95.4 MCH 31.9 MCHC 33.4 RDW 13.2 Plt Count 251 MPV 9.5 Immature Gran % (Auto) 0.2 Abby
[2023-01-15] MEDS: FOLIC ACID 0.4 MG TABLET PO (10:56)
[2023-01-15] MEDS: ROSUVASTATIN 10 MG TABLET 20 MG PO (10:56)
[2023-01-15] MEDS: FAMOTIDINE 20 MG/2 ML VIAL IV PUSH (10:56)
[2023-01-15] MEDS: ASPIRIN 81 MG CHEWABLE TABLET PO (11:02)
[2023-01-15] MEDS: PREGABALIN (*CRX) 75 MG CAPSULE 150 MG PO (11:02)
== END 2023-01-15 14:50 | disposition left against medical advice (07) ==
LOC: ANHED 14:40 → ANHIMU 15:27
PROVIDERS: Nurse Practitioner; Admitting Provider Hospitalist; Emergency Provider Emergency Medicine; PCP Emergency Medicine; Visit Provider Hospitalist
DX: I26.99 Other pulmonary embolism without acute cor pulmonale (principal); J18.9 Pneumonia, unspecified organism; R07.9 Chest pain, unspecified; R06.02 Shortness of breath; R42 Dizziness and giddiness; Z79.82 Long term (current) use of aspirin; E78.5 Hyperlipidemia, unspecified; K21.9 Gastro-esophageal reflux disease without esophagitis; Z95.0 Presence of cardiac pacemaker; F17.210 Nicotine dependence, cigarettes, uncomplicated; I25.10 Atherosclerotic heart disease of native coronary artery without angina pectoris; F32.A Depression, unspecified; M54.9 Dorsalgia, unspecified; G89.29 Other chronic pain; Z20.822 Contact with and (suspected) exposure to COVID-19
CPT/HCPCS: 36415; 71045; 71275; 80053; 83605; 83690; 83735; 83880; 84443; 84484; 85025; 85380; 85610; 85730; 87040; 93005; 93970; 96360; 96361; 96365; 96366; 96367; 96372; 96375; 99284; 99291; A9270; G0378; G0379; J0456; J0696; J1650; J7030; Q9967; U0003; U0005

== ENCOUNTER 2023-01-24 12:12 | Outpatient (CLI) | payer OTHER, SELFPAY ==
--- NOTE | ~2023-01-24 | XR_ITS ---
XR chest 2V 01/24/2023 12:29 Indication: Pneumonia. History of blood clots. Procedure: PA and lateral views of the chest Comparison: Comparison to multiple prior studies sequentially, with oldest reviewed study dated 05/2010. Findings: Heart size normal. Pacemaker leads in expected position. No focal air space disease, pulmon anh edema, pleural effusion or suspected pneumothorax. Impression: 1: No acute cardiopulmonary disease. Reviewed, dictated and finalized at location L. UM TESTER CANS Impression: 1: No acute cardiopulmonary disease.
== END 2023-01-24 12:13 | disposition home or self-care (01) ==
PROVIDERS: PCP Emergency Medicine; Visit Provider Emergency Medicine
DX: J18.9 Pneumonia, unspecified organism (principal)
CPT/HCPCS: 71046

== ENCOUNTER 2023-08-19 12:07 | Emergency (ER) | payer OTHER, SELFPAY ==
[2023-08-19] VITALS (29 sets, daily range): BP systolic 91–151; BP diastolic 61–120; PULSE 74–100; RESP 16–23; TEMP 35.6–37.1; O2SAT 90–99
--- NOTE | ~2023-08-19 | XR_ITS ---
XR chest 1V portable 08/19/2023 12:48 Indication: Near syncope and dizziness Procedure: AP portable chest Comparison: Comparison to multiple prior studies sequentially, with oldest reviewed study dated 01/24. Findings: Heart size normal. Pacemaker leads in expected position. No focal air space disease, pulmon anh edema, pleural effusion or suspected pneumothorax. No acute osseous abnormality. Impression: 1: No acute cardiopulmonary disease. Reviewed, dictated and finalized at location A. Impression: 1: No acute cardiopulmonary disease.
--- NOTE | ~2023-08-19 | CT_ITS ---
EXAMINATION: CT BRAIN W/O DATE: 08/19/2023 12:48 INDICATION: Near syncope TECHNIQUE: Computed tomography (CT) of the head was performed without intravenous contrast. The dose- length product was 681.00 mGy-cm. Automated exposure control and iterative reconstruction technique w ere employed. COMPARISON: CT dated 10/31/2015 FINDINGS: Normal brain parenchymal volume for age. Normal kebede-white differentiation. No acute intrac ranial hemorrhage, infarction, mass or mass effect. No ventriculomegaly or midline shift. Midline sagittal images demonstrate a normal corpus callosum, c raniovertebral junction and sella turcica. Basilar cisterns are patent. The left maxillary sinus is not well-developed with mucosal thickening. Mastoids are pneumatized. IMPRESSION: 1. No acute intracranial abnormality. Reviewed, dictated and finalized at location A.
--- NOTE | 2023-08-19 12:10 | ECG_ITS ---
Measurements Intervals [place] Rate: 82 P: 40 NC: 171 QRS: 33 QRSD: 102 T: 59 QT: 378 QTc: 443 Interpretive Statements SINUS RHYTHM INCOMPLETE RIGHT BUNDLE BRANCH BLOCK LOW QRS VOLTAGE IN PRECORDIAL LEADS BORDERLINE ECG COMPARISON TO PRIOR ECG 01-14-23 12:39 NO SIGNIFICANT CHANGES Electronically Signed On 08-21-2023 6:37:57 CDT by Willam Ronquillo D.O.
--- NOTE | 2023-08-19 12:23 | ED.DIZZY ---
HPI - Dizziness General Chief Complaint: Syncope Stated Complaint: feeling faint Time Seen by Provider: 08/19/23 12:10 Source: patient Mode of arrival: ambulatory History of Present Illness HPI Narrative: 53-year-old male with history of CAD, s/p stent on Eliquis presents to the emergency room due to feeling dizzy, like he is going to pass out. This has happened before a couple months ago. Today, patient was sitting outside on a porch talking with friends when he experienced sudden sensation of lightheadedness, feeling like he is going to pass out, sweating profusely. He denied any spinning sensation. Smokes 1 and half pack cigarettes a day and some marijuana but no other drugs. No alcohol. Denied chest pain or shortness of breath. MD elicited complaint: lightheadedness and near syncope Pertinent past history: other (CAD) Onset (ago): minute(s) Timing: sudden onset Severity: moderate Description: lightheadedness and near-syncope Context: at rest History of similar symptoms: Yes Exacerbating factors: nothing Relieving factors: nothing Associated symptoms: diaphoresis Related Data Home Medications Medication Instructions Recorded Confirmed aspirin 81 mg chewable tablet 81 mg PO DAILY 11/26/19 01/14/23 ([place] Chewable Low Dose Aspirin) cyclobenzaprine 10 mg tablet 10 mg PO BID PRN Muscle Spasm 11/26/19 01/14/23 pregabalin 150 mg capsule 150 mg PO BID 07/29/21 01/14/23 rosuvastatin 20 mg tablet 20 mg PO DAILY 07/29/21 01/14/23 diclofenac sodium 75 mg 75 mg PO DAILY 07/30/21 01/14/23 tablet,delayed release hydrocodone 10 mg-acetaminophen 1 tablet PO TID PRN Back Pain 11/15/21 01/14/23 325 mg tablet folic acid 400 mcg tablet 0.4 mg PO DAILY 01/14/23 01/14/23 Allergies Allergy/AdvReac Type Severity Reaction Status Date / Time No Known Allergies Allergy Verified 01/14/23 14:56 Review of Systems Constitutional: Constitutional: Reports as per HPI and Reports no additional constitutional complaints Eyes: Eyes: Reports as per HPI and Reports no additional eye complaints ENT: Reports system reviewed and no additional complaints, except as documented and Reports as per HPI Cardiovascular: Cardiovascular: Reports as per HPI and Reports no additional cardiovascular complaints Respiratory: Respiratory: Reports as per HPI and Reports no additional respiratory complaints Gastrointestinal: Gastrointestinal: Reports as per HPI and Reports no additional gastrointestinal complaints Genitourinary: Genitourinary: Reports as per HPI Musculoskeletal: Musculoskeletal: Reports no additional musculoskeletal complaints and Reports as per HPI Integumentary/Breasts: Skin/Breast: Reports system reviewed and no additional complaints, except as docu and Reports as per HPI Neurologic: Reports system reviewed and no additional complaints, except as documented and Reports as per HPI Psychiatric: Psychiatric: Reports no additional psychiatric complaints and Reports as per HPI Endocrine: Endocrine: Reports no additional endocrine complaints and Reports as per HPI Hematologic/Lymphatic: Hematologic/Lymphatic: Reports no additional hematologic/lymphatic complaints and Reports as per HPI Allergic/Immunologic: Allergic/Immunologic: Reports no additional allergic/immunologic complaints and Reports as per HPI PMFSH Past Medical History Medical History Arthritis Chronic back pain Chronic mental illness Depression GERD (gastroesophageal reflux disease) Hyperlipidemia Myocardial infarct Pacemaker Surgical History Surgical History H/O heart artery stent H/O knee surgery H/O pelvic surgery History of back surgery History of hip surgery Family History Family History Father Malignant neoplasm of prostate Sibling Family history of malignant neoplasm of breast Mother
[2023-08-19 12:30] LABS: Basophils Absolute Auto 0.06 K/mm3 (0.00-0.10); Basophils Percent Auto 0.4 % (0.0-1.0); Eosinophils Absolute Auto 0.16 K/mm3 (0.02-0.50); Hemoglobin 14.4 g/dL (14.0-18.0); Immature Granulocyte Percent A 0.6 % (0.0-0.0); Lymphocytes Percent Auto 13.1 % (18.0-42.0); Mean Corpuscular HGB Conc 33.5 g/dL (32.0-36.0); Mean Corpuscular Hemoglobin 31.4 pg (27.0-31.0); Mean Corpuscular Volume 93.7 fL (78.0-102.0); Mean Platelet Volume 9.3 fl (8.7-11.0); Monocytes Absolute Auto 0.61 K/mm3 (0.10-0.90); Monocytes Percent Auto 3.8 % (2.0-11.0); Neutrophils Percent Auto 81.1 % (50.0-70.0); Platelet Count Result 311 K/mm3 (150-420); Red Blood Count 4.59 M/mm3 (4.70-6.10); Red Cell Distribution Width 12.3 % (11.6-14.4)
[2023-08-19 12:43] LABS: Alanine Aminotransferase 28 U/L (16-63); Albumin Level 3.6 g/dL (3.4-5.0); Alkaline Phosphatase 82 U/L (46-116); Anion Gap 12 mmol/L (8-16); Aspartate Amino Transferase 14 U/L (15-37); Bilirubin,Total 0.2 mg/dL (0.00-1.00); Blood Urea Nitrogen 16 mg/dL (7-18); Calcium 8.8 mg/dL (8.5-10.1); Carbon Dioxide 25 mmol/L (21-32); Chloride 106 mmol/L (98-108); Estimated CRCL calculation 80 ml/min; Estimated Glomerular Filt Rate > 60; Glucose 129 mg/dL (70-99); Osmolality Calculated 299 mOsm/kg (285-295); Potassium 3.5 mmol/L (3.5-5.1); Sodium 143 mmol/L (136-145); Total Protein 6.3 g/dL (6.4-8.2)
[2023-08-19 12:47] LABS: Ethanol < 3 mg/dL (0-6)
[2023-08-19 12:52] LABS: NT Pro B Type Natriuretic Pept 16 pg/mL (0-125); Troponin I 4.9 ng/L (0.00-60.4)
[2023-08-19] MEDS: SODIUM CHLORIDE 0.9% IV 1,000 ML 999 ML IV CONT (14:50)
[2023-08-19 15:47] LABS: Influenza A QL RT-PCR Negative (Negative); Influenza B QL RT-PCR Negative (Negative); RSV RNA, RT-PCR Negative (Negative); SARS-CoV-2 RNA PCR Negative (Negative)
[2023-08-19 15:55] LABS: Appearance Urine Clear (Clear); Bilirubin Urine Negative (Negative); Blood Urine Negative (Negative); Color Urine Yellow (Yellow); Glucose Urine UA Negative (Negative); Ketones Urine Negative (Negative); Leukocyte Esterase Ur Negative LEU/UL (Negative); Nitrate Urine Negative (Negative); Protein Urine Negative (Negative); Specific Grav Ur 1.025 (1.010-1.020); Urobilinogen Urine 0.2 mg/dL (0.2-1.0)
[2023-08-19 16:00] LABS: Add Urine Microscopic? NO
[2023-08-19 16:02] LABS: Amphetamine Screen Urine Negative (Negative); Barbiturate Screen Urine Negative (Negative); Benzodiazepines Screen Urine Negative (Negative); Cannabinoid Screen Urine Positive (Negative); Cocaine Screen Urine Negative (Negative); Methadone Screen Urine Negative (Negative); Opiate Screen Urine Positive (Negative); Phencyclidine Screen Urine Negative (Negative)
== END 2023-08-19 16:19 | disposition home or self-care (01) ==
PROVIDERS: Emergency Provider Emergency Medicine; PCP Emergency Medicine
DX: R55 Syncope and collapse (principal); E86.0 Dehydration; I25.10 Atherosclerotic heart disease of native coronary artery without angina pectoris; I25.2 Old myocardial infarction; E78.5 Hyperlipidemia, unspecified; F17.210 Nicotine dependence, cigarettes, uncomplicated; Z79.01 Long term (current) use of anticoagulants; Z20.822 Contact with and (suspected) exposure to COVID-19
CPT/HCPCS: 36415; 70450; 71045; 80053; 80307; 81003; 83880; 84484; 85025; 87637; 93005; 96360; 99284; J7030

== ENCOUNTER 2024-01-03 08:22 | Outpatient (CLI) | payer OTHER, SELFPAY ==
--- NOTE | ~2024-01-03 | CT_ITS ---
CT Scan of the Chest without Contrast: Clinical Indication: Lung cancer screening, personal history of nicotine dependence Technique: Contiguous sections were acquired throughout the chest without intravenous contrast. Dose reduction technique was used on this scan by utilizing automated exposure control and iterative recon struction technique. The dose-length product (DLP) was 201.65 mGy-cm. Findings: There is no evidence of any significant mediastinal, hilar or axillary lymphadenopathy. The mediastin al soft tissues appear normal. There is no evidence of pleural or pericardial effusion. The lungs are clear. No pulmonary nodules or infiltrates are noted. Images through the upper abdomen reveal no abnormalities. Impression: Lung RADS 1: Negative. 12 month follow-up screening CT advised. Reviewed, dictated and finalized at location . HOUSE OPERATOR Impression: Lung RADS 1: Negative. 12 month follow-up screening CT advised.
== END 2024-01-03 08:23 | disposition home or self-care (01) ==
PROVIDERS: PCP Emergency Medicine; Visit Provider Emergency Medicine
DX: Z12.2 Encounter for screening for malignant neoplasm of respiratory organs (principal); Z87.891 Personal history of nicotine dependence
CPT/HCPCS: 71271

== ENCOUNTER 2024-03-20 20:41 | Emergency (ER) | payer OTHER, SELFPAY ==
[2024-03-20 20:43] VITALS: BP 122/77; PULSE 72; RESP 15; TEMP 36.8; O2SAT 100
--- NOTE | 2024-03-20 21:28 | PC.NURSE ---
Pt ambulated to the desk and stated hey I'm feeling better I'm gonna get out of here Pt then ambulated out of the ED.
== END 2024-03-20 21:44 | disposition left against medical advice (07) ==
LOC: ANHED 21:35
PROVIDERS: PCP Emergency Medicine
DX: R10.9 Unspecified abdominal pain (principal)
CPT/HCPCS: 99199

== ENCOUNTER 2024-07-09 10:48 | Emergency (ER) | payer OTHER, SELFPAY ==
--- NOTE | ~2024-07-09 | CT_ITS ---
CT abdomen pelvis wo con Ordering provider: Dustin Rodriguez MD History: 54 years Male with . R back/flank pain w/ dark urine. . Comparison: None. Technique: CT abdomen and pelvis without IV and without oral contrast. Automated exposure control and iterative reconstruction technique were employed. The dose-length product was 754.65 mGy-cm. Findings: VISUALIZED LOWER CHEST: Dependent atelectatic changes. UPPER ABDOMINAL ORGANS: Liver: Normal. Gallbladder: Normal. Spleen: Normal. Stomach/duodenum: Normal. Pancreas: Normal. Adrenals: Normal. Kidneys: 3 mm stone is seen in the right upper ureter with mild right hydronephrotic changes. PELVIC ORGANS: The bladder is normal. BOWEL AND MESENTERY: Colon: Mild sigmoid diverticulosis without diverticulitis. Fecal material is seen in the right side o f the colon. Normal appendix. Small Bowel: Normal. No obstruction. Peritoneum/mesentery: No free air or free fluid. No mesenteric lymphadenopathy. RETROPERITONEUM: Mild atheromatous disease of the abdominal aorta. No retroperitoneal lymphadenopat hy. MUSCULOSKELETAL: Superficial soft tissues: Bilateral fat containing inguinal hernias. Small fat-containing umbilical h ernia. Otherwise, The superficial soft tissues are normal. Bones: Age appropriate degenerative changes of the spine. Postoperative changes in the sacrum. Old no nhealed fracture in the right superior and inferior pubic rami. Mild S-shaped scoliosis. IMPRESSION: 1. Stone in the right upper ureter with mild right hydronephrotic changes. 2. Constipation. 3. Bilateral fat containing inguinal hernias. Small fat-containing umbilical hernia. 4. Old nonhealed fractures in the right superior and inferior pubic rami. Reviewed, dictated and finalized at location [facility]. IMPRESSION: 1. Stone in the right upper ureter with mild right hydronephrotic changes. 2. Constipation. 3. Bilateral fat containing inguinal hernias. Small fat-containing umbilical h ernia. 4. Old nonhealed fractures in the right superior and inferior pubic rami.
[2024-07-09 10:50] VITALS: BP 126/74; PULSE 87; RESP 14; TEMP 36.5; O2SAT 98
[2024-07-09 11:32] VITALS: BP 105/76; PULSE 81; RESP 16; O2SAT 96
[2024-07-09 11:45] LABS: Basophils Percent Auto 0.4 % (0.2-1.2); Eosinophils Absolute Auto 0.2 K/mm3 (0-0.3); Eosinophils Percent Auto 1.8 % (0-4.4); Hematocrit 44.1 % (42.0-52.0); Immature Granulocyte Absolute 0.02 K/mm3 (0.00-0.031); Immature Granulocyte Percent A 0.2 % (0-0.5); Lymphocytes Absolute Auto 1.95 K/mm3 (0.9-3.2); Lymphocytes Percent Auto 19.8 % (18.3-44.2); Mean Corpuscular Hemoglobin 31.8 pg (26-34); Mean Corpuscular Volume 93.6 fl (80-100); Mean Platelet Volume 9.5 fl (7.4-10.4); Monocytes Absolute Auto 0.5 K/mm3 (0.1-0.6); Monocytes Percent Auto 5.2 % (2.6-8.5); Neutrophils Absolute Auto 7.2 K/mm3 (1.3-6.7); Neutrophils Percent Auto 72.6 % (45.5-73.1); Platelet Count Result 294 k/mm3 (150-375); Red Blood Count 4.71 M/mm3 (4.6-6.20); Red Cell Distribution Width 12.5 % (11.5-14.5); White Blood Count 9.9 K/mm3 (4.5-10.0)
[2024-07-09 12:00] LABS: Alanine Aminotransferase 25 U/L (6-50); Albumin Level 4.1 g/dL (3.5-5.1); Alkaline Phosphatase 61 U/L (38-126); Anion Gap 7 mmol/L (4-12); Aspartate Amino Transferase 42 U/L (17-59); Bilirubin,Total 0.4 mg/dL (0.2-1.3); Blood Urea Nitrogen 13 mg/dL (9-20); Calcium 8.7 mg/dL (8.4-10.2); Carbon Dioxide 26 mmol/L (22-30); Chloride 105 mmol/L (98-107); Estimated CRCL calculation 106 ml/min; Estimated Glomerular Filt Rate > 60; Glucose 117 mg/dL (65-110); Lipase 820 U/L (23-300); Potassium 3.7 mmol/L (3.4-5.0); Sodium 138 mmol/L (137-145)
--- NOTE | 2024-07-09 12:20 | ED.GENADULT ---
HPI - General Adult General Chief complaint: Urogenital-Male Stated complaint: hematuria Time Seen by Provider: 07/09/24 11:57 History of Present Illness HPI narrative: 54-year-old male on Eliquis presenting dark urine. Patient said he woke up and used the bathroom and thought that his urine was darker than usual. However he did not turn the lights on in the bathroom he was unsure. He then came in today because he developed some pain in his right lower back. Patient has a history of chronic back pain although he says this is different because i hurts when he pushes on the paralumbar muscles. The back pain has since resolved. patient was then told to come to the emergency room by his boss. Patient is denying dysuria urgency or frequency. No history of kidney stones. No lower extremity weakness. No fevers chills nausea vomiting diarrhea. Last bowel movement was earlier today. Patient is on Eliquis for a PE. Related Data Home Medications Medication Instructions Recorded Confirmed aspirin 81 mg chewable tablet 81 mg PO DAILY 11/26/19 01/14/23 (Elba Chewable Low Dose Aspirin) cyclobenzaprine 10 mg tablet 10 mg PO BID PRN Muscle Spasm 11/26/19 01/14/23 pregabalin 150 mg capsule 150 mg PO BID 07/29/21 01/14/23 rosuvastatin 20 mg tablet 20 mg PO DAILY 07/29/21 01/14/23 diclofenac sodium 75 mg 75 mg PO DAILY 07/30/21 01/14/23 tablet,delayed release hydrocodone 10 mg-acetaminophen 1 tablet PO TID PRN Back Pain 11/15/21 01/14/23 325 mg tablet folic acid 400 mcg tablet 0.4 mg PO DAILY 01/14/23 01/14/23 Allergies Allergy/AdvReac Type Severity Reaction Status Date / Time No Known Allergies Allergy Verified 01/14/23 14:56 [facility] Past Medical History Medical History Arthritis Chronic back pain Chronic mental illness Depression GERD (gastroesophageal reflux disease) Hyperlipidemia Myocardial infarct Pacemaker Surgical History Surgical History H/O heart artery stent H/O knee surgery H/O pelvic surgery History of back surgery History of hip surgery Family History Family History Father Malignant neoplasm of prostate Sibling Family history of malignant neoplasm of breast Mother Family history of malignant neoplasm of breast in first degree relative Family history of type 2 diabetes mellitus Social History Social History (Updated 01/14/23 @ 20:47 by Jennifer Gerber NP) Social History: He is and has no children. He denies alcohol. He is unemployed. He continues to smoke daily. -code status full code Smoking packs per day: 2 Smoking cigarettes per day: 40.0 Years smoked: 40 Smoking pack-years: 80.00 Smoking status: Current every day smoker Tobacco type: cigarettes Additional smoking assessment comments: has smoked for 38 years 2PPD Alcohol intake: current Substance use: never Substance use type: marijuana Last use: Daily Lack of Transportation: No Lack of Food: Never True Current Housing: I Have Housing Concerned About Future Housing: Decline to Answer Difficulty Paying Gas/Electric Bills: Decline to Answer Difficulty Paying for Meds: Decline to Answer Currently Unemployed: Decline to Answer Education: Decline to Answer Difficulty w/ Childcare or Family Care: Decline to Answer Living arrangements: alone Spiritual care concerns: No Exam Narrative: APPEARANCE: No apparent distress. Patient is lying comfortably in bed Head: atraumatic. EYES: EOMI, NOSE: Atraumatic NECK: Trachea midline RESPIRATORY: No increased rate of breathing clear to auscultation CARDIOVASCULAR: RRR, ABDOMINAL: Non-distended soft nontender no guarding rebound no CVA tenderness MUSCULOSKELETAl: No obvious deformities no tenderness along the spine or paraspinal muscles. NEURO: Alert. Moving 4/4 extremities
[2024-07-09] MEDS: SODIUM CHLORIDE 0.9% IV 2,000 ML 999 ML IV CONT (12:58)
[2024-07-09 13:02] VITALS: BP 108/76; PULSE 73; RESP 16; O2SAT 97
[2024-07-09 14:00] LABS: Bacteria Urine None Seen /hpf; Need Manual Microscopic Reviewed; Non Pathogenic Casts 0-2; RBC Urine >100 /hpf (0-2); Squamous Epithelial Cell Urine None Seen /hpf (Few)
[2024-07-09 14:01] LABS: Add Urine Microscopic? YES; Amorphous Sediment Urine Moderate; Appearance Urine Turbid (Clear); Bilirubin Urine 1+ (Negative); Blood Urine 3+ (Negative); Color Urine Orange (Yellow); Glucose Urine UA Negative (Negative); Ketones Urine Negative (Negative); Leukocyte Esterase Ur 1+ LEU/UL (Negative); Nitrate Urine Negative (Negative); Protein Urine 2+ mg/dL (Negative); Specific Grav Ur 1.019 (1.001-1.035); pH Urine 5.5 (5.0-9.0)
[2024-07-09 14:23] VITALS: BP 131/75; PULSE 63; RESP 16; TEMP 36.8; O2SAT 100
[2024-07-09 14:41] VITALS: BP 114/89; PULSE 66; RESP 19; O2SAT 100
== END 2024-07-09 14:42 | disposition home or self-care (01) ==
PROVIDERS: Emergency Medicine; Emergency Provider Emergency Medicine; PCP Emergency Medicine
DX: N20.0 Calculus of kidney (principal); I25.2 Old myocardial infarction; E78.5 Hyperlipidemia, unspecified; K21.9 Gastro-esophageal reflux disease without esophagitis; M19.90 Unspecified osteoarthritis, unspecified site; F17.210 Nicotine dependence, cigarettes, uncomplicated; Z95.0 Presence of cardiac pacemaker; Z95.5 Presence of coronary angioplasty implant and graft; Z86.711 Personal history of pulmonary embolism; Z79.01 Long term (current) use of anticoagulants; Z79.82 Long term (current) use of aspirin; K59.00 Constipation, unspecified; K40.20 Bilateral inguinal hernia, without obstruction or gangrene, not specified as recurrent
CPT/HCPCS: 36415; 74176; 80053; 81001; 83690; 85025; 87086; 96361; 96365; 99284; J0696; J7030

== ENCOUNTER 2024-08-07 01:21 | Day surgery (SDC) | payer OTHER, SELFPAY ==
[2024-07-31 12:06] VITALS: BMI 30.1
--- NOTE | 2024-08-02 13:00 | PC.NURSE ---
Spoke with patient regarding medication ELIQUIS. Pt. verbalizes understanding that the last dose of ELIQUIS is to be taken on 08/04/2024 and the Endoscopist will instruct them when to restart after the procedure.
[2024-08-07 06:08] VITALS: BP 139/75; PULSE 97; RESP 18; TEMP 36.5; O2SAT 98; BMI 27.9
[2024-08-07] MEDS: LACTATED RINGERS 1,000 ML 150 ML IV CONT (06:39)
--- NOTE | 2024-08-07 07:22 | PM.HPGS ---
History of Present Illness History of Present Illness Consent: Risks, benefits, and alternatives have been discussed and questions answered. Patient agrees to proceed with procedure. Chief complaint: Colon Polyp Narrative: Arash Bernardo is a 54 year old male with colon polyp 5 years ago Review of Systems Review of Systems: All systems reviewed & are unremarkable except as noted in HPI and below PMFSH Past Medical History Medical History (Updated 08/07/24 @ 07:22 by Ravinder Goodman MD) Arthritis Chronic back pain Chronic mental illness Colon polyp Depression GERD (gastroesophageal reflux disease) Hyperlipidemia Myocardial infarct Pacemaker Surgical History Surgical History H/O heart artery stent H/O knee surgery H/O pelvic surgery History of back surgery History of hip surgery Family History Family History Father Malignant neoplasm of prostate Sibling Family history of malignant neoplasm of breast Mother Family history of malignant neoplasm of breast in first degree relative Family history of type 2 diabetes mellitus Social History Social History (Updated 01/14/23 @ 20:47 by Jennifer Gerber NP) Social History: He is and has no children. He denies alcohol. He is unemployed. He continues to smoke daily. -code status full code Smoking packs per day: 2 Smoking cigarettes per day: 40.0 Years smoked: 40 Smoking pack-years: 80.00 Smoking status: Current every day smoker Tobacco type: cigarettes Additional smoking assessment comments: has smoked for 38 years 2PPD Alcohol intake: current Substance use: current Substance use type: marijuana Other substance usage details: SOCIALLY Last use: Daily Lack of Transportation: No Lack of Food: Never True Current Housing: I Have Housing Concerned About Future Housing: Decline to Answer Difficulty Paying Gas/Electric Bills: Decline to Answer Difficulty Paying for Meds: Decline to Answer Currently Unemployed: Decline to Answer Education: Decline to Answer Difficulty w/ Childcare or Family Care: Decline to Answer Living arrangements: with family Spiritual care concerns: No Meds Home Medications and Allergies Home Medications Medication Instructions Recorded Confirmed Type aspirin 81 mg chewable tablet 81 mg PO DAILY 11/26/19 08/07/24 History (Elba Chewable Low Dose Aspirin) cyclobenzaprine 10 mg tablet 10 mg PO BID PRN Muscle Spasm 11/26/19 08/07/24 History pregabalin 150 mg capsule 150 mg PO BID 07/29/21 08/07/24 History rosuvastatin 20 mg tablet 20 mg PO DAILY 07/29/21 08/07/24 History diclofenac sodium 75 mg 75 mg PO DAILY 07/30/21 08/07/24 History tablet,delayed release hydrocodone 10 mg-acetaminophen 1 tablet PO TID PRN Back Pain 11/15/21 08/07/24 History 325 mg tablet apixaban 5 mg (74 tabs) tablets in 5 mg PO BID #60 ea 01/15/23 08/07/24 Rx a dose pack (Blume Distillation DVT-PE Treat 30D Start) ferrous sulfate 325 mg (65 mg 325 mg PO DAILY 07/31/24 08/07/24 History iron) tablet (iron) Allergies Allergy/AdvReac Type Severity Reaction Status Date / Time No Known Allergies Allergy Verified 08/07/24 06:26 Vital Signs Vital Signs - 24 hr 08/07/24 06:08 Temperature 97.7 F Pulse Rate 97 Respiratory Rate 18 Blood Pressure 139/75 Pulse Oximetry 98 Oxygen Delivery Room Air Exam Const: General: comfortable and no acute distress HENMT: Face/Nose/Sinus: Normal nares present Eyes: General: appearance normal, both eyes and all related structures Neck: Neck: no JVD Resp: Auscultation: clear to auscultation bilaterally Cardio: Rate: regular rate Rhythm: regular rhythm GI: Inspection: non-distended GI Palp: Yes Soft to palpation Skin: General skin exam: normal color Neuro: General: gait normal Speech: normal speech Extrem: Ge
--- NOTE | 2024-08-07 07:25 | WPDANESEPPF ---
Anes - Initial Pre Proc Eval Procedure: Operation Date: 08/07/24 07:30 Proposed Procedures p Colonoscopy - Ravinder Goodman MD Date/Time: 08/07/24 07:25 Surgeon: Ravinder Goodman MD Pre Op Diagnosis: Colon Polyp Patient Data Age: 54 Gender: M Height: 1.85 m Weight: 96 kg Last Vital Signs Temp 97.7 F 08/07/24 06:08 Pulse 97 08/07/24 06:08 Resp 18 08/07/24 06:08 BP 139/75 08/07/24 06:08 Pulse Ox 98 08/07/24 06:08 O2 Del Method Room Air 08/07/24 06:08 Allergies Allergy/AdvReac Type Severity Reaction Status Date / Time No Known Allergies Allergy Verified 08/07/24 06:26 Home Medications Medication Instructions Recorded Confirmed Type aspirin 81 mg chewable tablet 81 mg PO DAILY 11/26/19 08/07/24 History (Elba Chewable Low Dose Aspirin) cyclobenzaprine 10 mg tablet 10 mg PO BID PRN Muscle Spasm 11/26/19 08/07/24 History pregabalin 150 mg capsule 150 mg PO BID 07/29/21 08/07/24 History rosuvastatin 20 mg tablet 20 mg PO DAILY 07/29/21 08/07/24 History diclofenac sodium 75 mg 75 mg PO DAILY 07/30/21 08/07/24 History tablet,delayed release hydrocodone 10 mg-acetaminophen 1 tablet PO TID PRN Back Pain 11/15/21 08/07/24 History 325 mg tablet apixaban 5 mg (74 tabs) tablets in 5 mg PO BID #60 ea 01/15/23 08/07/24 Rx a dose pack (Eliquis DVT-PE Treat 30D Start) ferrous sulfate 325 mg (65 mg 325 mg PO DAILY 07/31/24 08/07/24 History iron) tablet (iron) Patient hx anesthesia problems: none Family hx anesthesia problems: none Results Review: All pre-operative results and documents have been reviewed as part of the pre-operative evaluation. [facility] Past Medical History Medical History (Updated 08/07/24 @ 07:22 by Ravinder Goodman MD) Arthritis Chronic back pain Chronic mental illness Colon polyp Depression GERD (gastroesophageal reflux disease) Hyperlipidemia Myocardial infarct Pacemaker Surgical History Surgical History H/O heart artery stent H/O knee surgery H/O pelvic surgery History of back surgery History of hip surgery Family History Family History Father Malignant neoplasm of prostate Sibling Family history of malignant neoplasm of breast Mother Family history of malignant neoplasm of breast in first degree relative Family history of type 2 diabetes mellitus Social History Social History (Updated 01/14/23 @ 20:47 by Jennifer Gerber NP) Social History: He is and has no children. He denies alcohol. He is unemployed. He continues to smoke daily. -code status full code Smoking packs per day: 2 Smoking cigarettes per day: 40.0 Years smoked: 40 Smoking pack-years: 80.00 Smoking status: Current every day smoker Tobacco type: cigarettes Additional smoking assessment comments: has smoked for 38 years 2PPD Alcohol intake: current Substance use: current Substance use type: marijuana Other substance usage details: SOCIALLY Last use: Daily Lack of Transportation: No Lack of Food: Never True Current Housing: I Have Housing Concerned About Future Housing: Decline to Answer Difficulty Paying Gas/Electric Bills: Decline to Answer Difficulty Paying for Meds: Decline to Answer Currently Unemployed: Decline to Answer Education: Decline to Answer Difficulty w/ Childcare or Family Care: Decline to Answer Living arrangements: with family Spiritual care concerns: No Anes - Eval Final PreProcedure Day of Procedure 08/07/24 07:25 Patient weight: normal Heart: regular rate and rhythm Lungs: clear to auscultation Airway: Mallampati scale class II Neurological: alert and oriented Last oral intake: >/= 8 hours ASA classification: III Emergent: no Anesthetic plan: proceed Anesthesia type and monitoring: general GIVS and standard monitoring Res
[2024-08-07 07:42] VITALS: BP 103/67; PULSE 90; RESP 19; O2SAT 92
[2024-08-07 07:52] VITALS: BP 108/71; PULSE 78; RESP 19; O2SAT 92
[2024-08-07 08:02] VITALS: BP 109/74; PULSE 75; RESP 22; O2SAT 98
== END 2024-08-07 08:12 | disposition home or self-care (01) ==
PROVIDERS: PCP Emergency Medicine; Visit Provider Internal Medicine Gastroenterology
PROC: 0DJD8ZZ Inspection of Lower Intestinal Tract, Via Natural or Artificial Opening Endoscopic (ICD-10-PCS; CPT 45378; principal; 2024-08-07 07:30)
DX: Z12.11 Encounter for screening for malignant neoplasm of colon (principal); K57.30 Diverticulosis of large intestine without perforation or abscess without bleeding; K64.8 Other hemorrhoids; Z86.010 Personal history of colon polyps; E78.5 Hyperlipidemia, unspecified; I25.2 Old myocardial infarction; F32.A Depression, unspecified; Z95.0 Presence of cardiac pacemaker; Z95.5 Presence of coronary angioplasty implant and graft; F17.210 Nicotine dependence, cigarettes, uncomplicated; F12.90 Cannabis use, unspecified, uncomplicated; Z79.82 Long term (current) use of aspirin; Z79.01 Long term (current) use of anticoagulants
CPT/HCPCS: 45378; J2001; J2704; J7120

== ENCOUNTER 2024-09-15 09:04 | Emergency (ER) | payer OTHER, SELFPAY ==
--- NOTE | ~2024-09-15 | CT_ITS ---
Non-contrast CT scan of the Abdomen and Pelvis Clinical indication: Elevated lipase, hematuria Technique: 2.5 mm axial scans were obtained through the abdomen and pelvis without intravenous or or al contrast. Dose reduction technique was used on this scan by utilizing automated exposure control a nd iterative reconstruction technique. The dose-length product (DLP) was 694.73 mGy-cm. COMPARISON: 07/09/2024 Findings: Images through the lung bases reveal no abnormalities. 3 mm nonobstructing right renal stone noted. No left renal stones seen. The liver, spleen, pancreas, gallbladder, and adrenals appear normal. There is no aortic aneurysm. There is no evidence of bowel obstruction. Images through the pelvis were performed. There is no evidence of ascites or lymphadenopathy. Urinary bladder unremarkable. No pelvic mass seen. Degenerative spondylosis of lumbar spine noted. Small fat -containing right inguinal hernia noted. Impression: 3 mm nonobstructing right renal stone. Small fat-containing right inguinal hernia. Reviewed, dictated and finalized at [facility]. Impression: 3 mm nonobstructing right renal stone. Small fat-containing right inguinal hernia.
[2024-09-15 09:06] VITALS: BP 138/90; PULSE 76; RESP 16; TEMP 36.8; O2SAT 100
--- NOTE | 2024-09-15 09:13 | ED.GENADULT ---
HPI - General Adult General Chief complaint: Abdominal Pain Stated complaint: RIGHT flank Time Seen by Provider: 09/15/24 09:05 History of Present Illness HPI narrative: 54-year-old male presents emergency department for evaluation for right flank pain. Patient does have prior history of kidney stones and states this pain does feel similar. Present 1 month ago patient did have a 3 mm stone on the right side, patient is unsure if he actually passed the stone on his own. Pain had gone away but did restart yesterday. Patient did take some medication for pain control at home. Patient declined any additional medications for pain control here. Related Data Home Medications Medication Instructions Recorded Confirmed aspirin 81 mg chewable tablet 81 mg PO DAILY 11/26/19 08/07/24 (Elba Chewable Low Dose Aspirin) cyclobenzaprine 10 mg tablet 10 mg PO BID PRN Muscle Spasm 11/26/19 08/07/24 pregabalin 150 mg capsule 150 mg PO BID 07/29/21 08/07/24 rosuvastatin 20 mg tablet 20 mg PO DAILY 07/29/21 08/07/24 diclofenac sodium 75 mg 75 mg PO DAILY 07/30/21 08/07/24 tablet,delayed release hydrocodone 10 mg-acetaminophen 1 tablet PO TID PRN Back Pain 11/15/21 08/07/24 325 mg tablet ferrous sulfate 325 mg (65 mg 325 mg PO DAILY 07/31/24 08/07/24 iron) tablet (iron) Allergies Allergy/AdvReac Type Severity Reaction Status Date / Time No Known Allergies Allergy Verified 09/15/24 09:16 Review of Systems Review of Systems: All systems reviewed & are unremarkable except as noted in HPI and below PMFSH Past Medical History Medical History (Updated 09/15/24 @ 12:25 by Kip Hurt MD) Arthritis Chronic back pain Chronic mental illness Colon polyp Depression GERD (gastroesophageal reflux disease) Hyperlipidemia Myocardial infarct Pacemaker Surgical History Surgical History H/O heart artery stent H/O knee surgery H/O pelvic surgery History of back surgery History of hip surgery Family History Family History Father Malignant neoplasm of prostate Sibling Family history of malignant neoplasm of breast Mother Family history of malignant neoplasm of breast in first degree relative Family history of type 2 diabetes mellitus Social History Social History (Updated 01/14/23 @ 20:47 by Jennifer Gerber NP) Social History: He is and has no children. He denies alcohol. He is unemployed. He continues to smoke daily. -code status full code Smoking packs per day: 2 Smoking cigarettes per day: 40.0 Years smoked: 40 Smoking pack-years: 80.00 Smoking status: Current every day smoker Tobacco type: cigarettes Additional smoking assessment comments: has smoked for 38 years 2PPD Alcohol intake: current Substance use: current Substance use type: marijuana Other substance usage details: SOCIALLY Last use: Daily Lack of Transportation: No Lack of Food: Never True Current Housing: I Have Housing Concerned About Future Housing: Decline to Answer Difficulty Paying Gas/Electric Bills: Decline to Answer Difficulty Paying for Meds: Decline to Answer Currently Unemployed: Decline to Answer Education: Decline to Answer Difficulty w/ Childcare or Family Care: Decline to Answer Living arrangements: with family Spiritual care concerns: No Exam Narrative: APPEARANCE: Comfortable-appearing HEAD: normocephalic, atraumatic. EYES: PERRLA/EOMI, conjunctivae clear. NOSE: Normal no drainage EARS:TMS clear with good light reflex. THROAT: Pharynx clear, no exudate. NECK: Supple. No adenopathy, no masses. RESPIRATORY: Airway patent, respirations nonlabored. Clear to auscultation bilaterally, no rales, rhonchi, wheezing. CARDIOVASCULAR: Regular rate and rhythm without murmurs rubs or gallops. ABDOMINAL: Right CVA tenderness to palpation MUSCULOSKELETAL: Moves all ext
[2024-09-15 09:19] LABS: Basophils Absolute Auto 0.1 K/mm3 (0.0-0.1); Basophils Percent Auto 0.5 % (0.2-1.2); Eosinophils Absolute Auto 0.2 K/mm3 (0-0.3); Eosinophils Percent Auto 1.4 % (0-4.4); Hemoglobin 16.1 g/dL (14.0-18.0); Immature Granulocyte Absolute 0.03 K/mm3 (0.00-0.031); Immature Granulocyte Percent A 0.3 % (0-0.5); Lymphocytes Absolute Auto 2.77 K/mm3 (0.9-3.2); Lymphocytes Percent Auto 26.4 % (18.3-44.2); Mean Corpuscular HGB Conc 33.5 g/dl (32-36); Mean Corpuscular Hemoglobin 32.1 pg (26-34); Mean Corpuscular Volume 95.6 fl (80-100); Mean Platelet Volume 9.5 fl (7.4-10.4); Monocytes Absolute Auto 0.6 K/mm3 (0.1-0.6); Monocytes Percent Auto 5.8 % (2.6-8.5); Neutrophils Absolute Auto 6.9 K/mm3 (1.3-6.7); Neutrophils Percent Auto 65.6 % (45.5-73.1); Platelet Count Result 322 k/mm3 (150-375); Red Blood Count 5.02 M/mm3 (4.6-6.20); Red Cell Distribution Width 12.7 % (11.5-14.5); White Blood Count 10.5 K/mm3 (4.5-10.0)
[2024-09-15 09:32] LABS: Alanine Aminotransferase 25 U/L (6-50); Albumin Level 4.6 g/dL (3.5-5.1); Alkaline Phosphatase 77 U/L (38-126); Anion Gap 8 mmol/L (4-12); Aspartate Amino Transferase 34 U/L (17-59); Bilirubin,Total 0.4 mg/dL (0.2-1.3); Blood Urea Nitrogen 11 mg/dL (9-20); Calcium 9.2 mg/dL (8.4-10.2); Carbon Dioxide 30 mmol/L (22-30); Chloride 105 mmol/L (98-107); Estimated CRCL calculation 83 ml/min; Estimated Glomerular Filt Rate > 60; Glucose 100 mg/dL (65-110); Lipase 1085 U/L (23-300); Potassium 3.9 mmol/L (3.4-5.0); Sodium 143 mmol/L (137-145)
[2024-09-15 09:57] VITALS: BP 107/53; PULSE 77; RESP 15; O2SAT 100
[2024-09-15 10:01] LABS: Add Urine Microscopic? NO; Appearance Urine Clear (Clear); Bacteria Urine None Seen /hpf; Bilirubin Urine Negative (Negative); Blood Urine Non-Hemolyzed Trace (Negative); Color Urine Yellow (Yellow); Glucose Urine UA Negative (Negative); Ketones Urine Trace mg/dL (Negative); Leukocyte Esterase Ur Negative LEU/UL (Negative); Nitrate Urine Negative (Negative); Non Pathogenic Casts 0-2; Protein Urine Negative (Negative); Squamous Epithelial Cell Urine None Seen /hpf (Few); WBC Urine 0-5 /hpf (0-3); pH Urine 5.5 (5.0-9.0)
[2024-09-15] MEDS: HYDROmorphone HCL INJ (*CRX) 1 MG/ML SYR 0.5 MG IV PUSH (10:15)
== END 2024-09-15 12:40 | disposition home or self-care (01) ==
PROVIDERS: Emergency Provider Emergency Medicine; PCP Emergency Medicine
DX: K85.90 Acute pancreatitis without necrosis or infection, unspecified (principal); I25.2 Old myocardial infarction; E78.5 Hyperlipidemia, unspecified; K21.9 Gastro-esophageal reflux disease without esophagitis; M19.90 Unspecified osteoarthritis, unspecified site; F17.210 Nicotine dependence, cigarettes, uncomplicated; Z95.0 Presence of cardiac pacemaker; Z95.5 Presence of coronary angioplasty implant and graft; Z86.0100 Personal history of colon polyps, unspecified; Z87.442 Personal history of urinary calculi; Z79.82 Long term (current) use of aspirin; Z79.899 Other long term (current) drug therapy; Z79.01 Long term (current) use of anticoagulants; K40.90 Unilateral inguinal hernia, without obstruction or gangrene, not specified as recurrent; N20.0 Calculus of kidney
CPT/HCPCS: 36415; 74176; 80053; 81003; 83690; 85025; 96374; 99284; J1171

== ENCOUNTER 2025-01-23 09:49 | Outpatient (CLI) | payer OTHER, SELFPAY | END 2025-01-23 09:50 | disposition home or self-care (01) | PROVIDERS: PCP Emergency Medicine; Visit Provider Emergency Medicine | DX: Z12.2 Encounter for screening for malignant neoplasm of respiratory organs (principal); Z87.891 Personal history of nicotine dependence | CPT/HCPCS: 71271 ==

== ENCOUNTER 2025-02-21 11:41 | Emergency (ER) | payer OTHER, SELFPAY ==
--- NOTE | ~2025-02-21 | CT_ITS ---
EXAMINATION: CT abdomen pelvis wo con DATE: 02/21/2025 14:12 INDICATION: Ureteral stone TECHNIQUE: Computed tomography (CT) of the abdomen and pelvis was performed without intravenous contr ast. The dose-length product was 323.12 mGy-cm. Automated exposure control and iterative reconstructi on technique were employed. Automated exposure control and iterative reconstruction technique were em ployed. COMPARISON: CT dated 09/15/2024. FINDINGS: There is patchy bilateral lower lobe groundglass opacification, atelectasis versus pneumoni a. Heart size normal. Small hiatal hernia. There are chronic fracture deformities of the right superi or and inferior pubic rami with incomplete osseous union. There are bilateral hydroceles. Colonic div erticulosis without evidence for diverticulitis. Normal appendix. Gallbladder is present. The liver, spleen, pancreas, adrenal glands and kidneys are unremarkable. Gallbladder is present. No hydronephrosis. No renal stones. There is a proximal right ureteral stone measuring 5 mm. Gallbladder is present. Nonobstructive bowel gas pattern. There are surgical changes consistent with fusion haris g the posterior aspect of the left sacroiliac joint. IMPRESSION: 1. Proximal right ureteral stone at the L3 level without significant hydronephrosis. 2: Patchy bilateral lower lobe groundglass opacification, atelectasis versus pneumonia. Reviewed, dictated and finalized at location A. IMPRESSION: 1. Proximal right ureteral stone at the L3 level without significant hydronephr osis. 2: Patchy bilateral lower lobe groundglass opacification, atelectasis versus p neumonia.
[2025-02-21 11:47] VITALS: BP 122/79; PULSE 91; RESP 20; TEMP 36.4; O2SAT 97
--- OUTSIDE RECORDS SUMMARY | 2025-02-21 12:30 | XMS_ITS | Clinical Summary ---
Author Organization [facility] [address] Address [address] [place] [address] Care Team Providers Care Prison Officer Name Role Phone Sachin Jefferson MD Primary Care Provider [phone] Allergies No known active allergies Medications HYDROcodone-iris taminophen (NORCO) 10-325 mg per tabletIndicatio ns:Pain Take 1 tablet by mouth every 6 (six) hours as needed for pain Active cyclobenzaprine (FLEXERIL) 10 mg tablet Take 1 tablet (10 mg total) by mouth 2 (two) times a day as needed 12/17/[address] (VOLTAREN) 75 mg EC tablet Take 1 tablet (75 mg total) by mouth 2 (two) times a day 12/11/2019 Active pregabalin (LYRICA) 150 mg capsule Take 1 capsule (150 mg total) by mouth 2 (two) times a day 07/15/2021 Active rosuvastatin (CRESTOR) 20 mg tablet Take 1 tablet (20 mg total) by mouth daily 07/16/2021 Active folic acid (FOLVITE) 400 mcg tablet Take 1 tablet (400 mcg total) by mouth every other day 09/11/2020 Active aspirin 81 mg enteric coated tablet Take 1 tablet (81 mg total) by mouth daily Active nitroglycerin (Nitrostat) 0.[address] 1 tablet (0.4 mg total) under the tongue every 5 (five) minutes as needed for chest pain 25 tablet 3 07/20/2021 Active apixaban (ELIQUIS) 5 mg tablet Take 1 tablet (5 mg total) by mouth 01/17/2023 Active Active Problems Problem Noted Date Diagnosed Date Ganglion cyst of wrist, left 08/08/2022 Ganglion cyst of volar aspect of left wrist 07/28 Visit for wound check 08/06/2021 Mixed hyperlipidemia 11/17/2017 Sick sinus syndrome 11/17/2017 Tobacco use 11/17/2017 Sleep apnea 11/17/2017 Hyperlipidemia 11/17/2017 Coronary artery disease invo lving [place] coronary artery of [place]al[place] heart without angina pectoris 11/08/2017 History of coronary artery stent placement 11/08 Presence of cardiac pacemaker 11/08/2017 Overview (07/30/2021): [employer] Live Shuttle Dual Pacemaker-Accolade. Dx; SSS, AVB. Gen change 07/30/2021-Thais, chronic leads 06/02/2010. Latitude remote monitoring. Cervicalgia 11/02/2016 Pain in shoulder 11/02/2016 Arthralgia of hip 11/02/2016 Anaclitic depression 11/02/2016 Chronic pain due to trauma 11/02/2016 Chronic low back pain 11/02/2016 Muscle pain 11/02/2016 Joint pain 11/02/2016 Pain of lower extremity 08/17/2016 Osteoarthritis of cervical spine 04/13/2016 Thoracic back pain 04/13/2016 Pain of left lower extremity 04/13/2016 Notalgia 04/13/2016 Lumbago 04/13/2016 Resolved Problems Problem Noted Date Diagnosed Date Resolved Date Complete heart block (CMS/HCC) 11/08/2017 07/20/2021 Encounters Date Type Department Care Team Description 02/12/2025 7:30 AM CDT Ancillary Procedure [facility] Card[facility] [address] [facility] [address] [place] [phone] Presence of cardiac pacemaker; Sick sinus syndrome (HCC); Complete heart block (HCC) 12/30/2024 8:15 AM INTERVENTION ANALYST Office Visit [facility] Cardiology [address] [facility] [address] [place] [phone] Maxim Plascencia MD History of coronary artery stent placement (Primary Dx); Coronary artery disease involving nondalton coronary artery of nondalton heart without angina pectoris; Presence of cardiac pacemaker; Sick sinus syndrome (HCC) from Last 3 Months Immunizations Immunization Administration Dates Next Due Influenza, Trivalent, Preservative Free, Intramu scular 07/28/2015 Surgical History Surgery Date Site/Laterality Comments OTHER SURGICAL HISTORY Bck OR's OTHER SURGICAL HISTORY Pelvic Fx - Pinning Medical History Medical History Date Comments AV block Coronary artery disease Social History Tobacco Use Types Packs/Day Years Used Date Smoking Tobacco: Every Day Cigarettes Smokeless Tobacco: Never Tobacco Cessation:Ready to Q uit: Not Asked; Counseling Given: Not Answered Comments:Smoking History Packs/day: 1 Packs Alcohol Use Standard Drinks/Week Comments No 0 (1 standard drink = 0.6 oz pur e alcohol) Sex and Gender Information Value Date Recorded Sex Assigned at Not on file Legal Sex Male 1:56 AM INTERVENTION ANALYST Gender Identity Not on file Sexual Orientation Not on file Obstetrics History Last Filed Vital Signs Vital Sign Reading Time Taken Comments Blood Pressure 112/78 12/30/2024 8:07 AM INTERVENTION ANALYST Pulse 83 12/30/2024 8:07 AM INTERVENTION ANALYST Temperature - - Respiratory Rate - - Oxygen Saturation 96% 12/30/2024 8:07 AM INTERVENTION ANALYST Inhaled Oxygen Concentration - - Weight 101.2 kg (223 lb) 12/30/2024 8:07 AM INTERVENTION ANALYST Height 185.4 cm (6' 1 ) 12/30/2024 8:07 AM INTERVENTION ANALYST Body Mass Index 29.42 12/30/2024 8:07 AM INTERVENTION ANALYST Plan of Treatment Health Maintenance Due Date Last Done Comments Colon Cancer Screening-Colonoscopy 1969 Depression Screening 1969 Hepatitis C Screening 1969 Prostate Cancer Screening-PSA 1969 DTaP/Tdap/Td Vaccine (1 - Tdap) 1980 Hepatitis B Screening 1987 Regular Well Visit/Exam 18-64 1987 Zoster Vaccine (1 of 2) 2019 Pneumococcal vaccine <65 (2 of 2 - PPSV23) 12/17/2019 10/22/2019 Covid-19 Vaccine (3 - 2023-2 5 season) 2024 03/01/2021, 02/07/2021 Influenza Vaccine (#1) 2024 , 10/22/2019, 09/07/2018, Additional history exists Medical Devices Implanted Type Area Database Reporting Consultant Device Identifier Shelf Expiration Date Model / Serial / Lot Pacemaker-2009 Implanted:0 05/2010 (Quantity not on file) Pacemaker Chest [employer]ear [employer] SSS, AVB ALTRUA [id number] / [id number] / Procedures Procedure Name Priority Date/Time Associated Diagnosis Comments DEVICE CHECK - REMOTE Routine 02/12/2025 11:48 AM CDT Presence of cardiac pacemaker Sick sinus syndrome (HCC) Complete heart block (HCC) from Last 3 Months Results * DEVICE CHECK - REMOTE (02/12/2025 11:48 AM CDT) Anatomical Region Laterality Modality Other Narrative 02/14/2025 8:40 AM CDT Puryear Live Shuttle Dual Pacemaker. Dx; SSS, AVB. Gen change 07/30/2021-Thais, chronic leads 06/02/2010. Latitude remote monitoring. Routine DDD Pacemaker Remote. Transmission attached. Battery status: Ok, 5.5 years remaining battery life to SHANNAN. Stable lead impedances, pacing and sensing thresholds. Presenting rhythm: AP-VS. AP-3%, CARE TEAM COORDINATOR SCHEDULER-0 %. 65 AT/AF episodes noted since 05/09/2025, longest episode was 2 minutes in duration, IEGM's demonstrates far field over sensing of the ventricular channel. AF [place] 0 %. 86 Ventricular high rate episodes detected since 05/09/2024, IEGM's demonstrates ST-SVT, longest episode 5 minutes, at 160-170 bpm. Medications: Eliquis, aspirin 81 mg. See scanned report. Office pacemaker follow up: 6 months. Latitude remote f/u 05/14/2025. Mayra Marrero, STEPHIE Maxim Plascencia MD CV CARDIAC SERVICES PROC EDURES Final Result from Last 3 Months Insurance [facility] [address] WORKERS COMPENSATION GENERIC Care Teams Prison Officer Relationship Specialty Start Date End Date Sachin Jefferson MD PCP - General 02/24/17
--- OUTSIDE RECORDS SUMMARY | 2025-02-21 12:30 | XMS_ITS | Referral Summary ---
Author Organization [facility] [address] [place] [address] Address [address] [facility] [address] [place] [address] Care Team Providers Care Perch Machine Inspector Name Role Phone Sachin Jefferson MD Primary Care Provider [phone] Encounters Date Type Department Care Team Description 02/12/2025 7:30 AM CDT Ancillary Procedure [facility] Cardiology [address] [place] [address] [place] [phone] Presence of cardiac pacemaker; Sick sinus syndrome (HCC); Complete heart block (HCC) 12/30/2024 8:15 AM COMMUNITY DEVELOPMENT COORDINATOR Office Visit [facility] Medical [facility] Cardiology [address] [place] [address] [address] [place] [address] Maxim Plascencia MD History of coronary artery stent placement (Primary Dx); Coronary artery disease involving [place] coronary artery of [place] heart without angina pectoris; Presence of cardiac pacemaker; Sick sinus syndrome (HCC) from Last 3 Months Allergies No known active allergies Medications HYDROcodone-iris [...] Hyperlipidemia 11/17/2017 Coronary artery disease invo lving [place] coronary artery of [place] heart without angina pectoris 11/08/2017 History of coronary artery stent placement 11/08 Presence of cardiac pacemaker 11/08/2017 Overview (07/30/2021): [employer] Sci Dual Pacemaker-Accolade. Dx; SSS, AVB. Gen change 07/30/2021-Fleissner, chronic leads 06/02/2010. Latitude remote monitoring. Cervicalgia [...] Date Complete heart block (CMS/HCC) 11/08/2017 07/20/2021 Immunizations Immunization Administration Dates Next Due Influenza, Trivalent, Preservative Free, Intramu scular 07/28/2015 Social History Tobacco Use Types Packs/Day Years [...] on file Legal Sex Male 1:56 AM COMMUNITY DEVELOPMENT COORDINATOR Gender Identity Not on file Sexual Orientation Not on file Last Filed Vital Signs Vital Sign Reading Time Taken Comments Blood Pressure 112/78 12/30/2024 8:07 AM COMMUNITY DEVELOPMENT COORDINATOR Pulse 83 12/30/2024 8:07 AM COMMUNITY DEVELOPMENT COORDINATOR Temperature - - Respiratory Rate - - Oxygen Saturation 96% 12/30/2024 8:07 AM COMMUNITY DEVELOPMENT COORDINATOR Inhaled Oxygen Concentration - - Weight 101.2 kg (223 lb) 12/30/2024 8:07 AM COMMUNITY DEVELOPMENT COORDINATOR Height 185.4 cm (6' 1 ) 12/30/2024 8:07 AM COMMUNITY DEVELOPMENT COORDINATOR Body Mass Index 29.42 12/30/2024 8:07 AM COMMUNITY DEVELOPMENT COORDINATOR Plan of Treatment Not on file Medical Devices Implanted Type Area Property Management Intern Device Identifier Shelf Expiration Date Model / Serial / Lot Pacemaker-2009 Implanted:0 05/2010 (Quantity not on file) Pacemaker Chest [employer] SSS, AVB ALTRUA [id number] / [id number] / Procedures Procedure Name Priority Date/Time Associated Diagnosis Comments DEVICE CHECK - REMOTE Routine 02/12/2025 11:48 AM CDT Presence of cardiac pacemaker Sick sinus syndrome (HCC) Complete heart block (HCC) from Last 3 Months Results * DEVICE CHECK - REMOTE (02/12/2025 11:48 AM CDT) Anatomical Region Laterality Modality Other Narrative 02/14/2025 8:40 AM CDT ClariFI Dual Pacemaker. Dx; SSS, AVB. Gen change 07/30/2021-Thais, chronic leads 06/02/2010. Latitude remote monitoring. Routine DDD Pacemaker Remote. Transmission attached. Battery status: Ok, 5.5 years remaining battery life to SHANNAN. Stable lead impedances, pacing and sensing thresholds. Presenting rhythm: AP-VS. AP-3%, COCOA MILLING MACHINE OPERATOR-0 %. 65 AT/AF episodes noted since 05/09/2025, longest episode was 2 minutes in duration, IEGM's demonstrates far field over sensing of the ventricular channel. AF [place] 0 %. 86 Ventricular high rate episodes detected since 05/09/2024, IEGM's demonstrates ST-SVT, longest episode 5 minutes, at 160-170 bpm. Medications: Eliquis, aspirin 81 mg. See scanned report. Office pacemaker follow up: 6 months. Latitude remote f/u 05/14/2025. Mayra Marrero RN Maxim Plascencia MD CV CARDIAC SERVICES PROC EDURES Final Result from Last [address] [place] [id number] WORKERS COMPENSATION GENERIC Care Teams Perch Machine Inspector Relationship Specialty Start Date End Date Sachin Jefferson MD PCP - General 02/24/17
--- OUTSIDE RECORDS SUMMARY | 2025-02-21 12:30 | XMS_ITS | Encounter Summary ---
Author Organization [facility] Address [address] [place] [address] Phone Care Team Providers Care Lathe Operator Contact Lens Name Role Phone Sachin Jefferson Primary Care Provider [phone] Bals Levy MD Unavailable [phone] Kayden Louie PAC Unavailable [phone] Encounter Details Date Type Department Care Team (Late st Contact Info) Description 11/01/2024 Telephone [facility] [address] [place] [address] Blas Levy MD [address] [address] Social History Tobacco Use Types Packs/Day Years Used Date Smoking Tobacco: Every Day Cigarettes 1.5 35 Smokeless Tobacco: Never Comments:1-2 packes per day Alcohol Use Standard Drinks/Week Comments Not Currently 0 (1 standard drink = 0.6 oz pur e alcohol) PHQ-2 Answer Date Recorded Total Score - Questions 1-9 0 05/28 Sex and Gender Information Value Date Recorded Sex Assigned at Not on file Legal Sex Male 9:12 AM CDT Gender Identity Not on file Sexual Orientation Not on file documented as of this encounter Functional Status * Question Answer Date of Assessment Author Little interest or pleasure in doing things Not at all 11/01/2024 10:02 AM Rianna Emery LPN Feeling down, depressed, or hopeless Not at all 11/01/2024 10:02 AM Rianna Emery LPN * Over the past 2 weeks, how often have you been bothered by any of the following problems? Question Answer Date of Assessment Author Patient Health Questionnaire-2 Score 0 11/01/2024 10:02 AM HEALTH INSPECTOR FOOD Divine Conley LPN documented as of this encounter Miscellaneous Notes * Telephone Encounter - Amina Sanches - 11/01/2024 10:49 AM CST FYI: Patient came to the window after his 11/01/24 visit and told me to cancel his lab today and future appts and walked away with no reason/explanation. TH INSPECTOR FOOD documented in this encounter Plan of Treatment Not on file documented as of this encounter Visit Diagnoses Not on filedocumented in this encounter Additional Health Concerns Assessment Noted Time PHQ-9 Depression Total Score: 19 08/20/ 021 10:44 AM CDT documented as of this encounter Care Teams Lathe Operator Contact Lens Relationship Specialty Start Date End Date Sachin Jefferson [address] [place] [address] PCP - General Family Medicine 05/13/21 Blas Levy MD [address] [place] [phone] Consulting Physician Oncology 05/13/21 Kayden Louie PAC #[address] [address] Physician Family Practice Doctor Orthopaedic Surgery 01/30/25 documented as of this encounter
--- OUTSIDE RECORDS SUMMARY | 2025-02-21 12:30 | XMS_ITS | Clinical Summary ---
Author Organization [facility] Address [address] [address] Care Team Providers Care Steam Pan Sponger Name Role Phone Sachin Jefferson MD Primary Care Provider Source Comments [facility],non-owned Affiliates and Associated Physician Practices is amultiple site organization consisting of ambulatory clinics and hospital sitesin [place]. This disclosure is being madepursuant to the Care Everywhere program and may not contain all information available regarding this patient. Last updated 18.[facility] Allergies No known active allergies Medications * Be aware that medications may not be up to date on this document. Alwaysverify current medications with the patient. Medication Sig Dispensed Refills Start Date End Date Status HYDROcodone-acetamino phen (NORCO) 10-325 MG tablet Take 1 (one) tablet by mouth as directed Active rOPINIRole (REQUIP) 0.5 MG tablet Take 1 (one) tablet by mouth at bedtime 11/25/2018 Active aspirin EC (ECOTRIN) 81 MG tablet Take 1 (one) tablet by mouth once daily Active folic acid 400 MCG tablet Take 1 (one) tablet by mouth every 2 days 09/11/2020 Active nitroGLYCERIN (NITROSTAT) 0.4 MG tablet Dissolve 1 (one) tablet under the tongue every 5 minutes as needed for Angina (x3) 07/20/2021 Active rosuvastatin (CRESTOR) 20 MG tablet Take 1 (one) tablet by mouth once daily 07/16/2021 Active omeprazole (PriLOSEC) 20 MG capsule Take 1 (one) capsule by mouth daily before breakfast 09/29/2022 Active Eliquis 5 MG tablet Take 1 (one) tablet by mouth 2 times daily 01/17/2023 Active cyclobenzaprine (Flexeril) 10 MG tablet Take 1 (one) tablet by mouth 07/28/2022 Active DULoxetine (Cymbalta) 60 MG capsule Take 1 (one) capsule by mouth every 24 hours 05/26/2022 Active famotidine (Pepcid) 40 MG tablet Take 1 (one) tablet by mouth once daily 11/24/2022 Active pregabalin (Lyrica) 150 MG capsule Take 1 (one) capsule by mouth every 12 hours 05/26/2022 Active sildenafil (Viagra) 50 MG tablet Take 1 (one) tablet by mouth once daily 03/01/2022 Active diclofenac sodium EC (Voltaren) 75 MG tablet Take 1 (one) tablet by mouth once daily 11/24/2022 Active famotidine (Pepcid) 40 MG tablet Take 1 (one) tablet by mouth once daily 11/24/2022 Active sildenafil (Viagra) 100 MG tablet TAKE 1 TABLET BY MOUTH ONCE DAILY NEEDED ABOUT 1 HOUR BEFORE SEXUAL ACTIVITY MAX 1/24 HOURS 08/17/2023 Active Active Problems Problem Noted Date Diagnosed Date 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 Dx; SSS, AVB. DOI 06/02/2010. Declines remote monitoring. Office pacemaker checks Q6 mo. Presence of cardiac pacemaker 11/08/2017 Overview (09/03/2021): [place] Sci Dual Pacemaker-Accolade. Dx; SSS, AVB. Gen change 07/30/2021-Fleissner, chronic leads 06/02/2010. Latitude remote monitoring. Anaclitic depression 11/02/2016 Arthralgia of hip 11/02/2016 Cervicalgia 11/02/2016 Chronic pain due to trauma 11/02/2016 Joint pain 11/02/2016 Muscle pain 11/02/2016 Pain in shoulder 11/02/2016 Chronic low back pain 11/02/2016 Osteoarthritis of cervical spine 04/13/2016 Pain of left lower extremity 04/13/2016 Lumbago 04/13/2016 Notalgia 04/13/2016 Thoracic back pain 04/13/2016 Chronic pain disorder 12/29/2015 Mixed hyperlipidemia 12/29/2015 Immunizations Name Administration Dates Next Due FLU VACCINE QUAD IIV4 SPLIT 0.25 ML IM 5 FLU VACCINE TRI IIV3 SPLIT PF IM (FLUVIRIN) 11/28,07/28/2015 INFLUENZA VACCINE, CELL CULT URE, QUADR. (FLUCELVAX QUADRIVALENT; 6MO+) (CCIIV4) 10/04/2016 INFLUENZA VACCINE, QUADR. (F LUZONE; FLULAVAL; FLUARIX; AFLURIA QUADRIVALENT; 6MO+), 0.5 ML (IIV4) 10/22/2019,09/07/2018 Pneumococcal Pcv13 Conj 10/22/2019 iNFLUENZA VACCINE, RECOM-REYES, QUADR. (FLUBLOCK QUADRIVALENT; 18Y+) (RIV4) 09/28/2020 Social History Tobacco Use Types Packs/Day Years Used Date Smoking Tobacco: Every Day Cigarettes 2 42.2 Started: 1982 Smokeless Tobacco: Never Sex and Gender Information Value Date Recorded Sex Assigned at Not on file Gender Identity Not on file Sexual Orientation Not on file Last Filed Vital Signs Vital Sign Reading Time Taken Comments Blood Pressure 107/84 01/24/2023 10:25 AM TESTER ROCKET ENGINE Pulse 96 01/24/2023 10:25 AM TESTER ROCKET ENGINE Temperature - - Respiratory Rate 16 09/11/2023 3:16 PM CDT Oxygen Saturation 96% 09/11/2023 3:16 PM CDT Inhaled Oxygen Concentration - - Weight 103.9 kg (229 lb) 12/20/2018 11:56 AM TESTER ROCKET ENGINE Height 185.4 cm (6' 1 ) 12/20/2018 11:56 AM TESTER ROCKET ENGINE Body Mass Index 30.21 12/20/2018 11:56 AM TESTER ROCKET ENGINE Plan of Treatment Health Maintenance Due Date Last Done Comments COLOGUARD (AGES 45-75) - COLON CA SCREENING 1969 COLON MONITORING 1969 COLONOSCOPY - COLON CA SCREENING 1969 CT COLONOGRAPHY - COLON CA SCREENING 1969 Colorectal Cancer Screening 1969 FIT - COLON CA SCREENING 1969 FLEX SIG - COLON CA SCREENING 1969 HIV SCREENING 1984 HEPATITIS C SCREENING 05/03/1987 DTAP/TDAP/TD VACCINES (1 - Tdap) 1988 HEPATITIS B VACCINE (1 of 3 - 19+ 3-dose series) 1988 ZOSTER VACCINE (1 of 2) 2019 PNEUMOCOCCAL VACCINE 50+ (2 of 2 - PPSV23) 12/17/2019 10/22/2019 PNEUMOCOCCAL VACCINE (2 of 2 - PPSV23) 12/17/2019 10/22/2019 COVID-19 VACCINE (3 - season) 2024 03/01/2021, 02/07/2021 INFLUENZA VACCINE (#1) 2024 , 10/22/2019, 09/07/2018, Additional history exists DEPRESSION SCREENING 11/27/2024 HIB VACCINE Aged Out No longer eligi ble based on patient's age to complete this topic HPV VACCINE Aged Out No longer eligi ble based on patient's age to complete this topic MENINGOCOCCAL (Group B) VACCINE SHARED DECISION-MAKING Aged Out No longer eligible based on patient's age to complete this topic MENINGOCOCCAL GROUPS A/C/Y/W VACCINE Aged Out No longer eligible based on patient's age to complete this topic Care Teams Steam Pan Sponger Relationship Specialty Start Date End Date Sachin Jefferson MD PCP - General 12/20/18
--- OUTSIDE RECORDS SUMMARY | 2025-02-21 12:30 | XMS_ITS | Continuity of Care Document ---
Author Organization [facility] Address [address] [place] [address] Phone Care Team Providers Care Supervisor [employer] Name Role Phone Sachin Jefferson MD Unavailable Unavailable Allergies, Adverse Reactions, Alerts Substance Reaction Status Criticality No Known Allergies Active No Inform ation Medications Medication Instructions Dosage Effective Dates (start - stop) Status Comments hydrocodone 10 mg-acetaminophen 325 mg tablet take 1 by Oral route 3 times every day as needed 1 - Active PRN for pain ,avoid driving or operate machines Lyrica 150 mg capsule take 1 capsule by oral route 2 times every day 150 MG - Active avoid driving or operate machines diclofenac sodium 75 mg tablet,delayed release take 1 tablet by oral route every day as needed 75 MG - Active PRN for pain Eliquis 5 mg tablet take 1 tablet by oral route 2 times every day 5 MG - Active sildenafil 100 mg tablet take 1 tablet by oral route every day as needed approximately 1 hour before sexual activity as needed 100 MG - Active take one orally about one hour before activity, max 1/24 hours cyclobenzaprine 10 mg tablet take 1 tablet by oral route 2 times every day as needed 10 MG - Active avoid drivin g or oeprate machines rosuvastatin 20 mg tablet take 1 tablet by oral route every day 20 MG - Active Procedures Procedure Date OFFICE/OUTPATIENT VISIT, EST OFFICE/OUTPATIENT VISIT, EST OFFICE/OUTPATIENT VISIT, EST OFFICE/OUTPATIENT VISIT, EST OFFICE/OUTPATIENT VISIT, EST OFFICE/OUTPATIENT VISIT, EST OFFICE/OUTPATIENT VISIT, EST OFFICE/OUTPATIENT VISIT, EST OFFICE/OUTPATIENT VISIT, EST OFFICE/OUTPATIENT VISIT, EST OFFICE/OUTPATIENT VISIT, EST OFFICE/OUTPATIENT VISIT, EST OFFICE/OUTPATIENT VISIT, EST OFFICE/OUTPATIENT VISIT, EST OFFICE/OUTPATIENT VISIT, EST OFFICE/OUTPATIENT VISIT, EST OFFICE/OUTPATIENT VISIT, EST OFFICE/OUTPATIENT VISIT, EST OFFICE/OUTPATIENT VISIT, EST PREV VISIT, EST, AGE 40-64 OFFICE/OUTPATIENT VISIT, EST OFFICE/OUTPATIENT VISIT, EST OFFICE/OUTPATIENT VISIT, EST OFFICE/OUTPATIENT VISIT, EST OFFICE/OUTPATIENT VISIT, EST OFFICE/OUTPATIENT VISIT, EST OFFICE/OUTPATIENT VISIT, EST OFFICE/OUTPATIENT VISIT, EST OFFICE/OUTPATIENT VISIT, EST OFFICE/OUTPATIENT VISIT, EST OFFICE/OUTPATIENT VISIT, EST OFFICE/OUTPATIENT VISIT, EST OFFICE/OUTPATIENT VISIT, EST OFFICE/OUTPATIENT VISIT, EST PREV VISIT, EST, AGE 40-64 OFFICE/OUTPATIENT VISIT, EST OFFICE/OUTPATIENT VISIT, EST OFFICE/OUTPATIENT VISIT, EST OFFICE/OUTPATIENT VISIT, EST OFFICE/OUTPATIENT VISIT, EST OFFICE/OUTPATIENT VISIT, EST OFFICE/OUTPATIENT VISIT, EST OFFICE/OUTPATIENT VISIT, EST OFFICE/OUTPATIENT VISIT, EST OFFICE/OUTPATIENT VISIT, EST OFFICE/OUTPATIENT VISIT, EST OFFICE/OUTPATIENT VISIT, EST PREV VISIT, EST, AGE 40-64 OFFICE/OUTPATIENT VISIT, EST OFFICE/OUTPATIENT VISIT, EST OFFICE/OUTPATIENT VISIT, EST OFFICE/OUTPATIENT VISIT, EST OFFICE/OUTPATIENT VISIT, EST OFFICE/OUTPATIENT VISIT, EST OFFICE/OUTPATIENT VISIT, EST OFFICE/OUTPATIENT VISIT, EST OFFICE/OUTPATIENT VISIT, EST OFFICE/OUTPATIENT VISIT, EST OFFICE/OUTPATIENT VISIT, EST OFFICE/OUTPATIENT VISIT, EST OFFICE/OUTPATIENT VISIT, EST OFFICE/OUTPATIENT VISIT, EST PREV VISIT, EST, AGE 40-64 OFFICE/OUTPATIENT VISIT, EST OFFICE/OUTPATIENT VISIT, EST OFFICE/OUTPATIENT VISIT, EST OFFICE/OUTPATIENT VISIT, EST OFFICE/OUTPATIENT VISIT, EST OFFICE/OUTPATIENT VISIT, EST OFFICE/OUTPATIENT VISIT, EST OFFICE/OUTPATIENT VISIT, EST OFFICE/OUTPATIENT VISIT, EST OFFICE/OUTPATIENT VISIT, EST OFFICE/OUTPATIENT VISIT, EST OFFICE/OUTPATIENT VISIT, EST OFFICE/OUTPATIENT VISIT, EST OFFICE/OUTPATIENT VISIT, EST PREV VISIT, EST, AGE 40-64 OFFICE/OUTPATIENT VISIT, EST OFFICE/OUTPATIENT VISIT, EST OFFICE/OUTPATIENT VISIT, EST OFFICE/OUTPATIENT VISIT, EST OFFICE/OUTPATIENT VISIT, EST OFFICE/OUTPATIENT VISIT, EST OFFICE/OUTPATIENT VISIT, EST OFFICE/OUTPATIENT VISIT, EST OFFICE/OUTPATIENT VISIT, EST OFFICE/OUTPATIENT VISIT, EST OFFICE/OUTPATIENT VISIT, EST OFFICE/OUTPATIENT VISIT, EST OFFICE/OUTPATIENT VISIT, EST PREV VISIT, EST, AGE 40-64 OFFICE/OUTPATIENT VISIT, EST OFFICE/OUTPATIENT VISIT, EST OFFICE/OUTPATIENT VISIT, EST OFFICE/OUTPATIENT VISIT, EST OFFICE/OUTPATIENT VISIT, EST OFFICE/OUTPATIENT VISIT, EST OFFICE/OUTPATIENT VISIT, EST OFFICE/OUTPATIENT VISIT, EST OFFICE/OUTPATIENT VISIT, EST OFFICE/OUTPATIENT VISIT, EST OFFICE/OUTPATIENT VISIT, EST OFFICE/OUTPATIENT VISIT, EST OFFICE/OUTPATIENT VISIT, EST OFFICE/OUTPATIENT VISIT, EST PREV VISIT, EST, AGE 40-64 OFFICE/OUTPATIENT VISIT, EST OFFICE/OUTPATIENT VISIT, EST OFFICE/OUTPATIENT VISIT, EST OFFICE/OUTPATIENT VISIT, EST OFFICE/OUTPATIENT VISIT, EST OFFICE/OUTPATIENT VISIT, EST OFFICE/OUTPATIENT VISIT, EST OFFICE/OUTPATIENT VISIT, EST OFFICE/OUTPATIENT VISIT, EST OFFICE/OUTPATIENT VISIT, EST OFFICE/OUTPATIENT VISIT, EST OFFICE/OUTPATIENT VISIT, EST OFFICE/OUTPATIENT VISIT, EST OFFICE/OUTPATIENT VISIT, EST PREV VISIT, NEW, AGE 40-64 Advance Directives Directive Yes / No Effective Date File Name No Information Encounters Encounter Description Practice Location Reason(s) For Visit Diagnoses Date Provider Providers Copied on Encounter OFFICE/OUTPA TIENT VISIT, [facility], [address], [address], [place] tel:[phone] [facility] Medicine pain (chief complaint) bruising1 (chief complaint) Chronic pain syndromePain in right kneePersonal history of nicotine dependenceSpontaneo us ecchymoses Jan- 5 Ronny Stephenson. [address], [place], [place], [address] , [place]. tel:[phone] OFFICE/OUTPA TIENT VISIT, EST [facility], [address], [place], [place], [address], [place] [phone] [facility] pain (chief complaint) hematurai1 (chief complaint) knee pain1 (chief complaint) Asymptomatic microscopic hematuriaChronic pain syndromePersonal history of nicotine dependencePain in right knee 5 Jefferson Sachin. [address], [place], [place], [address] , [place]. tel:[phone] OFFICE/OUTPA TIENT VISIT, [facility], [address], [place], [place], [address], [place] [phone] [facility] PE (chief complaint) pain (chief complaint) hematuria1 (chief complaint) Asymptomatic microscopic hematuriaChronic pain syndromeAcute lung embolism 5 Ronny Stephenson. [address], [place], [place], [address] , [place]. [phone] OFFICE/OUTPA TIENT VISIT, [facility], [address], [place], [place], [address], [place] tel:[phone] [facility] kcl (chief complaint) hematuria1 (chief complaint) pancreatit is1 (chief complaint) pain (chief complaint) ED (chief complaint) HLP (chief complaint) Acute pancreatitis without necrosisAsymptomati c microscopic hematuriaChronic pain syndromeHyperkalemi aMixed hyperlipidemiaMale erectile dysfunction, unspecified 4 Jefferson Sachin. [address], [place], [place], [address] , [place]. tel:[phone] OFFICE/OUTPA TIENT VISIT, [facility], [address], [place], [place], [address], [place] tel:[phone] [facility] flank pain1 (chief complaint) hematuria1 (chief complaint) back pain1 (chief complaint) Asymptomatic microscopic hematuriaChronic pain syndromeAcute pancreatitis without necrosisKidney stoneInguinal hernia 4 Ronny Stephenson. [address], [place], [place], [address] , [place]. tel:[phone] OFFICE/OUTPA TIENT VISIT, [facility], [address], [place], [place], [address], [place] tel:[phone] [facility] pain (chief complaint) Chronic pain syndrome 4 Ronny Turner [address], [place], [place], [address] , [place]. tel:[phone] OFFICE/OUTPA TIENT VISIT, [facility], [address], [place], [place], [address], [place] tel:[phone] [facility] pain (chief complaint) colon (chief complaint) Chronic pain syndromeDiverticulo sis of large intestine w/o perforation w/o bleeding 4 Ronny Turner [address], [place], [place], [address] , [place]. tel:[phone] OFFICE/OUTPA TIENT VISIT, [facility], [address], [place], [place], [address], [place] tel:[phone] [facility] renal stone1 (chief complaint) pain (chief complaint) HLP (chief complaint) Chronic pain syndromeMixed hyperlipidemiaCalcu amanda of kidneyAsymptomatic microscopic hematuria 4 Ronny Turner [address], [place], [place], [address] , [place]. tel:[phone] OFFICE/OUTPA TIENT VISIT, [facility], [address], [place], [place], [address], [place] tel:[phone] [facility] pain (chief complaint) Chronic pain syndrome 4 Ronny Stephenson. [address], [place], [place], [address] , [place]. tel:[phone] OFFICE/OUTPA TIENT VISIT, [facility], [address], [place], [place], [address], [place] tel:[phone] [facility] back pain1 (chief complaint) blood (chief complaint) PE (chief complaint) Occult blood in stoolAcute lung embolismChronic pain syndrome 4 Ronny Stephenson. [address], [place], [place], [address] , [place]. tel:[phone] OFFICE/OUTPA TIENT VISIT, [facility], [address], [place], [place], [address], [place] tel:[phone] [facility] blood in stool1 (chief complaint) pain (chief complaint) Occult blood in stoolPolyp of colonLumbago with sciatica, left side March- 4 Ronny Stephenson. [address], [place], [place], [address] , [place]. tel:[phone] OFFICE/OUTPA TIENT VISIT, [facility], [address], [place], [place], [address], [place] tel:[phone] [facility] pain (chief complaint) right flank pain1 (chief complaint) Lumbago with sciatica, left sideAbdominal pain 4 Ronny Stephenson. [address], [place], [place], [address] , [place]. tel:[phone] OFFICE/OUTPA TIENT VISIT, [facility], [address], [place], [place], [address], [place] tel:[phone] [facility] PE (chief complaint) pain (chief complaint) polyp1 (chief complaint) Chronic pain syndromeAcute lung embolismPolyp of colon Jan- 4 Ronny Stephenson. [address], [place], [place], [address] , [place]. tel:[phone] OFFICE/OUTPA TIENT VISIT, [facility], [address], [place], [place], [address], [place] tel:[phone] [facility] pain (chief complaint) tobacco1 (chief complaint) knee pain1 (chief complaint) Chronic pain syndromeTobacco usePain in right knee Fe 4 Jefferson Sachin. [address], [place], [place], [address] , [place]. tel:[phone] OFFICE/OUTPA TIENT VISIT, [facility], [address], [place], [place], [address], [place] tel:[phone] [facility] pain (chief complaint) PE (chief complaint) tobacco1 (chief complaint) Chronic pain syndromeAcute lung embolismTobacco use 4 Jefferson Sachin. [address], [place], [place], [address] , [place]. tel:[phone] OFFICE/OUTPA TIENT VISIT, [facility], [address], [place], [place], [address], [place] tel:[phone] [facility] pain (chief complaint) Chronic pain syndrome 3 Jefferson Sachin. [address], [place], [place], [address] , [place]. tel:[phone] OFFICE/OUTPA TIENT VISIT, [facility], [address], [place], [place], [address], [place] tel:[phone] [facility] pain (chief complaint) Chronic pain syndrome 3 Ronny Stephenson. [address], [place], [place], [address] , [place]. tel:[phone] OFFICE/OUTPA TIENT VISIT, [facility], [address], [place], [place], [address], [place] tel:[phone] [facility] HLP (chief complaint) pain1 (chief complaint) Chronic pain syndromeMixed hyperlipidemia 3 Jefferson Sachin. [address], [place], [place], [address] , [place]. tel:[phone] OFFICE/OUTPA TIENT VISIT, [facility], [address], [place], [place], [address], [place] tel:[phone] [facility] Medicine presyncope 1 (chief complaint) Syncope and collapseLeukocytosi sHypotension Jul- 3 Ronny Turner [address], [place], [place], [address] , [place]. tel:[phone] PREV VISIT, EST, AGE 40-64 [facility], [address], [place], [place], [address], [place] tel:[phone] [facility] physical (chief complaint) Encounter for general adult medical examination without abnormal findings Jul- 3 Ronny Stephenson. [address], [place], [place], [address] , [place]. tel:[phone] OFFICE/OUTPA TIENT VISIT, [facility], [address], [place], [place], [address], [place] tel:[phone] [facility] pain (chief complaint) syncope1 (chief complaint) ear1 (chief complaint) Chronic pain syndromeSyncope and collapseOtalgia, left ear 3 Ronny Turner [address], [place], [place], [address] , [place]. tel:[phone] OFFICE/OUTPA TIENT VISIT, EST [facility], [address], [place], [place], [address], [place] tel:[phone] [facility] pain (chief complaint) Chronic pain syndrome 3 Ronny Turner [address], [place], [place], [address] , [place]. tel:[phone] OFFICE/OUTPA TIENT VISIT, EST [facility], [address], [place], [place], [address], [place] tel:[phone] [facility] Medicine pain (chief complaint) anxiety1 (chief complaint) PE (chief complaint) allergy1 (chief complaint) Generalized Anxiety DisorderChronic pain syndromeAcute lung embolismAllergic rhinitis due to pollen 3 Ronny Stephenson. [address], [place], [place], [address] , [place]. tel:[phone] OFFICE/OUTPA TIENT VISIT, [facility], [address], [place], [place], [address], [place] tel:[phone] [facility] pain (chief complaint) anxiety1 (chief complaint) Chronic pain syndromeGeneralized Anxiety Disorder 3 Ronny Stephenson. [address], [place], [place], [address] , [place]. tel:[phone] OFFICE/OUTPA TIENT VISIT, [facility], [address], [place], [place], [address], [place] tel:[phone] [facility] pain (chief complaint) GERD1 (chief complaint) colon polyp1 (chief complaint) GERD w/o esophagitisPolyp of colonChronic pain syndrome 3 Ronny Stephenson. [address], [place], [place], [address] , [place]. tel:[phone] OFFICE/OUTPA TIENT VISIT, [facility], [address], [place], [place], [address], [place] tel:[phone] [facility] PE (chief complaint) pneumonia1 (chief complaint) pain (chief complaint) ear1 (chief complaint) PneumoniaAcute lung embolismChronic pain syndromeOtitis media, unspecified, left ear 3 Ronny Stephenson. [address], [place], [place], [address] , [place]. tel:[phone] OFFICE/OUTPA TIENT VISIT, [facility], [address], [place], [place], [address], [place] tel:[phone] [facility] garrett (chief complaint) PE (chief complaint) pneumonia1 (chief complaint) Acute lung embolismPneumoniaCh ronic pain syndrome Feb 3 Ronny Stephenson. [address], [place], [place], [address] , [place]. tel:[phone] OFFICE/OUTPA TIENT VISIT, [facility], [address], [place], [place], [address], [place] tel:[phone] [facility] PE (chief complaint) Acute lung embolism 3 Ronny Stephenson. [address], [place], [place], [address] , [place]. tel:[phone] OFFICE/OUTPA TIENT VISIT, [facility], [address], [place], [place], [address], [place] tel:[phone] [facility] pain (chief complaint) GERD1 (chief complaint) Chronic pain syndromeGERD w/o esophagitis 3 Ronny Stephenson. [address], [place], [place], [address] , [place]. [phone] OFFICE/OUTPA TIENT VISIT, [facility], [address], [place], [place], [address], [place] tel:[phone] [facility] COVID (chief complaint) Viral infection 3 Ronny Stephenson. [address], [place], [place], [address] , [place]. tel:[phone] OFFICE/OUTPA TIENT VISIT, [facility], [address], [place], [place], [address], [place] tel:[phone] [facility] pain (chief complaint) GERD1 (chief complaint) ED (chief complaint) GERD w/o esophagitisMale erectile dysfunction, unspecifiedChronic pain syndrome 2 Ronny Stephenson. [address], [place], [place], [address] , [place]. [phone] OFFICE/OUTPA TIENT VISIT, [facility], [address], [place], [place], [address], [place] tel:[phone] [facility] GERD1 (chief complaint) pain (chief complaint) HLP (chief complaint) anxiety1 (chief complaint) Chronic pain syndromeEsophagitis Mixed hyperlipidemiaGener alized Anxiety DisorderLateral epicondylitis, left elbow Oct- 2 Ronny Stephenson. [address], [place], [place], [address] , [place]. tel:[phone] OFFICE/OUTPA TIENT VISIT, EST [facility], [address], [place], [place], [address], [place] tel:[phone] [facility] Medicine pain (chief complaint) GERD1 (chief complaint) elbow pain1 (chief complaint) Chronic pain syndromeEsophagitis Lateral epicondylitis, left elbow Sep- 2 Ronny Stephenson. [address], [place], [place], [address] , [place]. tel:[phone] OFFICE/OUTPA TIENT VISIT, EST [facility], [address], [place], [place], [address], [place] tel:[phone] [facility] Medicine pain (chief complaint) ganglion cyst1 (chief complaint) GERD1 (chief complaint) GERD w/o esophagitisChronic pain syndromeGanglion, left wristTobacco use 2 Ronny Stephenson. [address], [place], [place], [address] , [place]. tel:[phone] PREV VISIT, EST, AGE 40-64 [facility], [address], [place], [place], [address], [place] tel:[phone] [facility] Medicine physical (chief complaint) Encounter for general adult medical examination without abnormal findings Jul-0 2 Ronny Stephenson. [address], [place], [place], [address] , [place]. tel:[phone] OFFICE/OUTPA TIENT VISIT, EST [facility], [address], [place], [place], [address], [place] tel:[phone] [facility] Medicine ganglion cyst1 (chief complaint) pain (chief complaint) Ganglion, left wristChronic pain syndrome 2 Ronny Stephenson. [address], [place], [place], [address] , [place]. tel:[phone] OFFICE/OUTPA TIENT VISIT, [facility], [address], [place], [place], [address], [place] tel:[phone] [facility] pain (chief complaint) anxiety1 (chief complaint) Chronic pain syndromeGeneralized Anxiety Disorder 2 Ronny Stephenson. [address], [place], [place], [address] , [place]. tel:[phone] OFFICE/OUTPA TIENT VISIT, [facility], [address], [place], [place], [address], [place] tel:[phone] [facility] pain (chief complaint) HLP (chief complaint) Chronic pain syndromeHyperlipide js 2 Ronny Stephenson. [address], [place], [place], [address] , [place]. tel:[phone] OFFICE/OUTPA TIENT VISIT, [facility], [address], [place], [place], [address], [place] tel:[phone] [facility] pain (chief complaint) Chronic pain syndrome 2 Ronny Stephenson. [address], [place], [place], [address] , [place]. tel:[phone] OFFICE/OUTPA TIENT VISIT, [facility], [address], [place], [place], [address], [place] tel:[phone] [facility] pain (chief complaint) lung nodule1 (chief complaint) ED (chief complaint) Chronic pain syndromePain in right kneeMale erectile dysfunction, unspecifiedSolitary lung nodule 2 Ronny Stephenson. [address], [place], [place], [address] , [place]. tel:[phone] OFFICE/OUTPA TIENT VISIT, [facility], [address], [place], [place], [address], [place] tel:[phone] [facility] pain (chief complaint) tobacco1 (chief complaint) tobacco1 (chief complaint) Chronic pain syndromeTobacco use 2 Ronny Stephenson. [address], [place], [place], [address] , [place]. tel:[phone] OFFICE/OUTPA TIENT VISIT, [facility], [address], [place], [place], [address], [place] tel:[phone] [facility] pain (chief complaint) RLS (chief complaint) Chronic pain syndromeRestless legs syndrome 2 Jefferson Sachin. [address], [place], [place], [address] , [place]. tel:[phone] OFFICE/OUTPA TIENT VISIT, [facility], [address], [place], [place], [address], [place] tel:[phone] [facility] pain1 (chief complaint) Chronic pain syndromeOther spondylosis, lumbar region 2 Jefferson Sachin. [address], [place], [address] , [place]. tel:[phone] OFFICE/OUTPA TIENT VISIT, [facility], [address], [place], [place], [address], [place] tel:[phone] [facility] pain (chief complaint) Chronic pain syndrome 1 Ronny Stephenson. [address], [place], [place], [address] , [place]. tel:[phone] OFFICE/OUTPA TIENT VISIT, [facility], [address], [place], [place], [address], [place] tel:[phone] [facility] pain (chief complaint) folate1 (chief complaint) Folate deficiencyChronic pain syndrome 1 Ronny Sachin. [address], [place], [place], [address] , [place]. tel:[phone] OFFICE/OUTPA TIENT VISIT, [facility], [address], [place], [place], [address], tel:[phone] [facility] pain (chief complaint) Chronic pain syndromePain in right knee 1 Ronny Turner [address], [place], [place], [address] , [place]. [phone] OFFICE/OUTPA TIENT VISIT, EST [facility], [address], [place], [place], [address], [place] tel:[phone] [facility] pain (chief complaint) HLP (chief complaint) M protein (chief complaint) Chronic pain syndromeMonoclonal gammopathyHyperlipi demiaPain in right knee Jul- 1 Ronny Turner [address], [place], [place], [address] , [place]. tel:[phone] PREV VISIT, EST, AGE 40-64 [facility], [address] [place], [address], [place] tel:[phone] [facility] physical (chief complaint) Encounter for general adult medical examination without abnormal findings 1 Ronny Turner [address], [place], [place], [address] , [place]. tel:[phone] OFFICE/OUTPA TIENT VISIT, [facility], [address] [place], [address], [place] tel:[phone] [facility] pain (chief complaint) M protein1 (chief complaint) Chronic pain syndromeMonoclonal gammopathy 1 oRnny Turner [address], [place], [place], [address] , [place]. tel:[phone] OFFICE/OUTPA TIENT VISIT, [facility], [address] [place], [address], [place] tel:[phone] [facility] HLP (chief complaint) pain (chief complaint) glucose1 (chief complaint) M spike1 (chief complaint) Monoclonal gammopathyChronic pain syndromeHyperlipide miaTobacco useHyperglycemia Julio- 0-202 1 Ronny Stephenson. [address], [place], [place], [address] , [place]. tel:[phone] OFFICE/OUTPA TIENT VISIT, [facility], [address], [place], [place], [address], [place] tel:[phone] [facility] pain (chief complaint) globulin1 (chief complaint) HLP (chief complaint) BPH1 (chief complaint) Chronic pain syndromeTobacco useAbnormality of globulinBPH w/o lower urinary tract symptomHyperlipidem ia 1 Ronny Stephenson. [address], [place], [place], [address] , [place]. tel:[phone] OFFICE/OUTPA TIENT VISIT, [facility], [address], [place], [place], [address], [place] tel:[phone] [facility] pain (chief complaint) HLP (chief complaint) anxiety1 (chief complaint) tobacco1 (chief complaint) Chronic pain syndromeGeneralized Anxiety DisorderHyperlipide miaTobacco use 1 Ronny Stephenson. [address], [place], [place], [address] , [place]. tel:[phone] OFFICE/OUTPA TIENT VISIT, [facility], [address] [address], [place], [place], [address], [place] tel:[phone] [facility] pain (chief complaint) Lumbago with sciatica, left sideNeuropathy 1 Ronny Stephenson. [address], [address], [place], [place], [address] , [place]. tel:[phone] OFFICE/OUTPA TIENT VISIT, [facility], [address], [place], [place], [address], [place] tel:[phone] [facility] pain (chief complaint) Lumbago with sciatica, left side Fe 1 Ronny Stephenson. [address], [address], [place], [place], [address] , [place]. tel:[phone] OFFICE/OUTPA TIENT VISIT, [facility], [address], [place], [place], [address], [place] tel:[phone] [facility] anxiety1 (chief complaint) pain (chief complaint) RLS (chief complaint) Chronic pain syndromeGeneralized Anxiety DisorderRestless legs syndrome 1 Ronny Stephenson. [address], [place], [place], [address] , [place]. tel:[phone] OFFICE/OUTPA TIENT VISIT, [facility], [address], [place], [address], [place] tel:[phone] [facility] pain (chief complaint) Chronic pain syndrome 0 Ronny Stephenson. [address], [address], [place], [place], [address] , [place]. tel:[phone] OFFICE/OUTPA TIENT VISIT, [facility], [address], [place], [place], [address], [place] tel:[phone] [facility] pain (chief complaint) ED (chief complaint) Chronic pain syndromeMale erectile dysfunction, unspecified 0 Ronny Stephenson. [address], [address], [place], [place], [address] , [place]. tel:[phone] OFFICE/OUTPA TIENT VISIT, [facility], [address], [place], [place], [address], [place] tel:[phone] [facility] folate1 (chief complaint) globulin1 (chief complaint) HLP (chief complaint) anxiety1 (chief complaint) Generalized Anxiety DisorderFolate deficiencyHyperlipi demiaAbnormality of globulinChronic pain syndrome 0 Ronny Stephenson. [address], [address], [place], [place], [address] , [place]. [phone] OFFICE/OUTPA TIENT VISIT, [facility], [address], [place], [place], [address], [place] tel:[phone] [facility] HLP (chief complaint) folate (chief complaint) Anxiety 1 (chief complaint) Chronic pain (chief complaint) HyperlipidemiaFolat e deficiencyChronic pain syndromeGeneralized Anxiety Disorder 0 Ronny Turner [address], [place], [place], [address] , [place]. tel:[phone] OFFICE/OUTPA TIENT VISIT, [facility], [address], [place], [place], [address], [place] tel:[phone] [facility] pain (chief complaint) Chronic pain syndrome 0 Ronny Turner [address], [place], [place], [address] , [place]. tel:[phone] OFFICE/OUTPA TIENT VISIT, [facility], [address], [place], [place], [address], [place] tel:[phone] [facility] HLP (chief complaint) pain (chief complaint) HyperlipidemiaChron ic pain syndrome 0 Ronny Turner [address], [place], [place], [address] , [place]. tel:[phone] OFFICE/OUTPA TIENT VISIT, [facility], [address], [place], [place], [address], [place] tel:[phone] [facility] folate1 (chief complaint) HLP (chief complaint) a1c (chief complaint) pain (chief complaint) Folate deficiencyHyperlipi demiaHyperglycemiaC hronic pain syndromeFamily history of malignant neoplasm of prostate 0 Ronny Turner [address], [place], [place], [address] , [place]. tel:[phone] PREV VISIT, EST, AGE 40-64 [facility], [address], [place], [place], [address], [place] tel:[phone] [facility] physical (chief complaint) Encntr for general adult medical exam w/o abnormal findings 0 Ronny Stephenson. [address], [place], [place], [address] , [place]. tel:[phone] OFFICE/OUTPA TIENT VISIT, [facility], [address], [place], [place], [address], [place] tel:[phone] [facility] pain (chief complaint) anxiety1 (chief complaint) Chronic pain syndromeGeneralized Anxiety Disorder 0 Ronny Stephenson. [address], [place], [place], [address] , [place]. [phone] OFFICE/OUTPA TIENT VISIT, [facility], [address], [place], [place], [address], [place] tel:[phone] [facility] physical (chief complaint) Chronic pain syndrome 0 Ronny Stephenson. [address], [place], [place], [address] , [place]. tel:[phone] Referring Provider: Renetta Stokes [address], [place], [place], [address]. tel:[phone] OFFICE/OUTPA TIENT VISIT, [facility], [address], [place], [place], [address], [place] tel:[phone] [facility] pain (chief complaint) anxiety1 (chief complaint) ED (chief complaint) RLS (chief complaint) Generalized Anxiety DisorderMale erectile dysfunction, unspecifiedChronic pain syndromeRestless legs syndrome Fe 0 Ronny Stephenson. [address], [place], [place], [address] , [place]. tel:[phone] Referring Provider: Renetta Stokes [address], [place], [place], [address]. tel:[phone] OFFICE/OUTPA TIENT VISIT, [facility], [address], [place], [place], [address], [place] tel:[phone] [facility] pain1 (chief complaint) polyp1 (chief complaint) anxiety1 (chief complaint) Polyp of colonChronic pain syndromeGeneralized Anxiety DisorderPresence of cardiac pacemaker 0 Ronny Stephenson. [address], [place], [place], [address] , [place]. [phone] Referring Provider: Renetta Stokes [address], [place], [place], [address]. tel:[phone] OFFICE/OUTPA TIENT VISIT, [facility], [address], [place], [place], [address], [place] tel:[phone] [facility] chronic pain (chief complaint) polyp (chief complaint) Chronic pain syndromePolyp of colon 9 Ronny Stephenson. [address], [place], [place], [address] , [place]. [phone] Referring Provider: Renetta Stokes [address], [place], [place], [address]. tel:[phone] OFFICE/OUTPA TIENT VISIT, [facility], [address], [place], [place], [address], [place] tel:[phone] [facility] chronic pain1 (chief complaint) Chronic pain syndrome 9 Ronny Stephenson. [address], [place], [place], [address] , [place]. [phone] Referring Provider: Renetat Stokes [address], [place], [place], [address]. tel:[phone] OFFICE/OUTPA TIENT VISIT, [facility], [address], [place], [place], [address], [place] tel:[phone] [facility] chronic pain1 (chief complaint) ED (chief complaint) Chronic pain syndromeMale erectile dysfunction, unspecified 9 Ronny Stephenson. [address], [place], [place], [address] , [place]. [phone] Referring Provider: Renetta Stokes [address], [place], [place], [address]. tel:[phone] OFFICE/OUTPA TIENT VISIT, [facility], [address], [place], [place], [address], [place] tel:[phone] [facility] pain1 (chief complaint) Chronic pain syndrome Sep- 9 Ronny Turner [address], [place], [place], [address] , [place]. tel:[phone] OFFICE/OUTPA TIENT VISIT, [facility], [address], [place], [place], [address], [place] tel:[phone] [facility] chronic pain (chief complaint) PAD (chief complaint) screening1 (chief complaint) Chronic pain syndromePeripheral vascular disease, unspecifiedEncounte r for screening for malignant neoplasm of prostateEncounter for screening for malignant neoplasm of colon 9 Ronny Turner [address], [place], [place], [address] , [place]. tel:[phone] OFFICE/OUTPA TIENT VISIT, [facility], [address], [place], [place], [address], [place] tel:[phone] [facility] chronic pain1 (chief complaint) PAD (chief complaint) nevus1 (chief complaint) anxiety1 (chief complaint) Nevus, non-neoplasticPerip heral vascular disease, unspecifiedChronic pain syndromeGeneralized Anxiety Disorder 9 Ronny Turner [address], [place], [place], [address] , [place]. tel:[phone] Referring Provider: Renetta [address], [place], [place], [address]. tel:[phone] OFFICE/OUTPA TIENT VISIT, [facility], [address], [place], [place], [address], [place] tel:[phone] [facility] chronic pain (chief complaint) tobacco (chief complaint) Peripheral vascular disease, unspecifiedChronic pain syndrome 9 Ronny Turner [address], [place], [place], [address] , [place]. [phone] OFFICE/OUTPA TIENT VISIT, EST [facility], [address], [place], [place], [address], [place] [phone] [facility] leg pain1 (chief complaint) chronic pain1 (chief complaint) tobacco1 (chief complaint) Lumbago with sciatica, left sidePeripheral vascular disease, unspecifiedTobacco use Julio-0 9 Ronny Stpehenson. [address], [place], [place], [address] , [place]. tel:[phone] Referring Provider: Renetta Stokes [address], [place], [place], [address]. tel:[phone] OFFICE/OUTPA TIENT VISIT, [facility], [address], [place], [place], [address], [place] [phone] [facility] back pain1 (chief complaint) ed (chief complaint) chronic pain1 (chief complaint) Chronic pain syndromeMale erectile dysfunction, unspecifiedTobacco useSpinal stenosis, lumbar region with neurogenic claudication March-0 9 Ronny Turner [address], [place], [place], [address] , [place]. tel:[phone] OFFICE/OUTPA TIENT VISIT, [facility], [address], [place], [place], [address], [place] tel:[phone] [facility] glucose1 (chief complaint) folate (chief complaint) chronic pain1 (chief complaint) HyperglycemiaFolate deficiencyHyperlipi demiaChronic pain syndrome Feb-0 9 Ronny Turner [address], [place], [place], [address] , [place]. [phone] Referring Provider: Renetta Stokes [address], [place], [place], [address]. tel:[phone] PREV VISIT, EST, AGE 40-64 [facility], [address], [place], [place], [address], [place] tel:[phone] [facility] Physical (chief complaint) Encounter for general adult medical exam w abnormal findingsRestless legs syndromeChronic pain syndrome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Hyperlipide js 9 Ronny Stephenson. [address], [place], [place], [address] , [place]. [phone] OFFICE/OUTPA TIENT VISIT, [facility], [address], [place], [place], [address], [place] tel:[phone] [facility] chronic pain1 (chief complaint) restless (chief complaint) Chronic pain syndromeRestless legs syndrome 9 Ronny Stephenson. [address], [place], [place], [address] , [place]. [phone] OFFICE/OUTPA TIENT VISIT, [facility], [address], [place], [place], [address], [place] tel:[phone] [facility] chronic pain1 (chief complaint) Chronic pain syndrome 9 Ronny Stephenson. [address], [place], [place], [address] , [place]. [phone] OFFICE/OUTPA TIENT VISIT, [facility], [address], [place], [place], [address], [place] tel:[phone] [facility] chronic pain (chief complaint) knee pain1 (chief complaint) ED (chief complaint) Chronic pain syndromePain in right kneeMale erectile dysfunction, unspecified 8 Ronny Stephenson. [address], [place], [place], [address] , [place]. [phone] Referring Provider: Sachin Jefferson, [address], [place], [place], [address]. tel:[phone] OFFICE/OUTPA TIENT VISIT, [facility], [address], [place], [place], [address], [place] tel:[phone] [facility] chronic pain (chief complaint) thumb1 (chief complaint) Chronic pain syndromeParesthesia of skin 8 Ronny Stephenson. [address], [place], [place], [address] , [place]. tel:[phone] Referring Provider: Renetta Stokes [address], [place], [place], [address]. tel:[phone] OFFICE/OUTPA TIENT VISIT, [facility], [address], [place], [place], [address], [place] tel:[phone] [facility] chronic pain1 (chief complaint) thumb numbness1 (chief complaint) Chronic pain syndromeParesthesia of skin 8 Ronny Stephenson. [address], [place], [place], [address] , [place]. [phone] Referring Provider: Renetta Stokes [address], [place], [place], [address]. tel:[phone] OFFICE/OUTPA TIENT VISIT, [facility], [address], [place], [place], [address], [place] tel:[phone] [facility] RLS (chief complaint) chronic pain (chief complaint) Chronic pain syndromeRestless legs syndrome 8 Ronny Stephenson. [address], [place], [place], [address] , [place]. [phone] Referring Provider: Renetta Stokes [address], [place], [place], [address]. tel:[phone] OFFICE/OUTPA TIENT VISIT, [facility], [address], [place], [place], [address], [place] tel:[phone] [facility] chronic pain (chief complaint) tobacco1 (chief complaint) Chronic pain syndromeTobacco use 8 Ronny Stephenson. [address], [place], [place], [address] , [place]. [phone] Referring Provider: Sachin Jefferson, [address], [place], [place], [address]. tel:[phone] OFFICE/OUTPA TIENT VISIT, [facility], [address], [place], [place], [address], [place] tel:[phone] [facility] chronic pain (chief complaint) ED1 (chief complaint) anxiety1 (chief complaint) tobacco1 (chief complaint) Chronic pain syndromeMale erectile dysfunction, unspecifiedGenerali zed Anxiety DisorderTobacco useFamily history of malignant neoplasm of prostate 8 Ronny Stephenson. [address], [place], [place], [address] , [place]. tel:[phone] Referring Provider: Sachin Jefferson [address], [place], [place], [address]. tel:[phone] OFFICE/OUTPA TIENT VISIT, [facility], [address], [place], [place], [address], [place] tel:[phone] [facility] HLP (chief complaint) leukocytos is1 (chief complaint) chronic pain (chief complaint) HyperlipidemiaLeuko cytosisChronic pain syndromePain in right knee 8 Ronny Turner [address], [place], [place], [address] , [place]. tel:[phone] Referring Provider: Renetta [address], [place], [place], [address]. tel:[phone] OFFICE/OUTPA TIENT VISIT, [facility], [address], [place], [place], [address], [place] tel:[phone] [facility] chronic pain1 (chief complaint) wbc1 (chief complaint) HLP (chief complaint) Body mass index (BMI) 29.0-29.9, adultChronic pain syndromeLeukocytosi sHyperlipidemia 8 Ronny Turner [address], [place], [place], [address] , [place]. tel:[phone] Referring Provider: Renetta Stokes [address], [place], [place], [address]. tel:[phone] OFFICE/OUTPA TIENT VISIT, EST [facility], [address], [place], [place], [address], [place] tel:[phone] [facility] chronic pain1 (chief complaint) knee pain1 (chief complaint) Chronic pain syndromePain in right knee Feb- 8 Ronny Stephenson. [address], [place], [place], [address] , [place]. tel:[phone] Referring Provider: Renetta Stokes [address], [place], [place], [address]. tel:[phone] OFFICE/OUTPA TIENT VISIT, [facility], [address], [place], [place], [address], [place] tel:[phone] [facility] chronic pain (chief complaint) knee pain1 (chief complaint) Pain in right kneeChronic pain syndrome 8 Ronny Stephenson. [address], [place], [place], [address] , [place]. tel:[phone] Referring Provider: Renetta [address], [place], [place], [address]. tel:[phone] PREV VISIT, EST, AGE 40-64 [facility], [address], [place], [place], [address], [place] tel:[phone] [facility] physical (chief complaint) Encounter for general adult medical exam w abnormal findings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Pain in right kneeRestless legs syndrome 8 Ronny Stephenson. [address], [place], [place], [address] , [place]. tel:[phone] Referring Provider: Renetta Stokes [address], [place], [place], [address]. tel:[phone] OFFICE/OUTPA TIENT VISIT, [facility], [address], [place], [place], [address], [place] tel:[phone] [facility] sick (chief complaint) Acute pharyngitis, unspecifiedAcute upper respiratory infection, unspecified 8 Ronny Turner [address], [place], [place], [address] , [place]. tel:[phone] OFFICE/OUTPA TIENT VISIT, [facility], [address], [place], [place], [address], [place] tel:[phone] [facility] ED (chief complaint) HLP (chief complaint) chrnoic pain1 (chief complaint) knee pani1 (chief complaint) 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Chronic pain syndromePain in right kneeMale erectile dysfunction, unspecified 8 Ronny Jackson [address], [place], [place], [address] , [place]. tel:[phone] Referring Provider: Renetta Stokes [address], [place], [place], [address]. tel:[phone] OFFICE/OUTPA TIENT VISIT, [facility], [address], [place], [place], [address], [place] tel:[phone] [facility] CAD (chief complaint) back pain1 (chief complaint) 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Chronic pain syndrome 7 Ronny Jackson [address], [place], [place], [address] , [place]. tel:[phone] Referring Provider: Renetta Stokes [address], [place], [place], [address]. tel:[phone] OFFICE/OUTPA TIENT VISIT, [facility], [address], [place], [place], [address], [place] tel:[phone] [facility] restless leg1 (chief complaint) chronic pain1 (chief complaint) insomnia1 (chief complaint) knee pain1 (chief complaint) Periodic limb movement disorderInsomniaChr onic pain syndromePain in right knee 7 Jefferson Sachin. [address], [place], [place], [address] , [place]. tel:[phone] Referring Provider: Renetta Stokes [address], [place], [place], [address]. tel:[phone] OFFICE/OUTPA TIENT VISIT, [facility], [address], [place], [place], [address], [place] tel:[phone] [facility] insomnia1 (chief complaint) chronic pain (chief complaint) depression 1 (chief complaint) Periodic limb movement disorderGeneralized Anxiety DisorderChronic pain syndromeInsomnia Aug- 7 Ronny Stephenson. [address], [place], [place], [address] , [place]. tel:[phone] OFFICE/OUTPA TIENT VISIT, [facility], [address], [place], [place], [address], [place] tel:[phone] [facility] chornic pain (chief complaint) Chronic pain syndrome Jul- 7 Ronny Stephenson. [address], [place], [place], [address] , [place]. tel:[phone] Referring Provider: Renetta [address], [place], [place], [address]. tel:[phone] OFFICE/OUTPA TIENT VISIT, [facility], [address], [place], [place], [address], [place] tel:[phone] [facility] HLP (chief complaint) wbc (chief complaint) ED (chief complaint) chronic pain (chief complaint) HyperlipidemiaMale erectile dysfunction, unspecifiedChronic pain syndromeLeukocytosi s 7 Ronny Stephenson. [address], [place], [place], [address] , [place]. tel:[phone] Referring Provider: Renetta Stokes [address], [place], [place], [address]. tel:[phone] OFFICE/OUTPA TIENT VISIT, [facility], [address], [place], [place], [address], [place] tel:[phone] [facility] limb (chief complaint) chronic pain1 (chief complaint) HLP (chief complaint) anxiety1 (chief complaint) Periodic limb movement disorderHyperlipide miaChronic pain syndromeGeneralized Anxiety Disorder 7 Ronny Stephenson. [address], [place], [place], [address] , [place]. [phone] Referring Provider: Sachin Jefferson, [address], [place], [place], [address]. tel:[phone] OFFICE/OUTPA TIENT VISIT, [facility], [address], [place], [place], [address], [place] tel:[phone] [facility] back pain1 (chief complaint) eD1 (chief complaint) HLP (chief complaint) insomani1 (chief complaint) HyperlipidemiaMale erectile dysfunction, unspecifiedSleep apneaChronic pain syndrome 7 Ronny Stephenson. [address], [place], [place], [address] , [place]. tel:[phone] Referring Provider: Renetta Stokes [address], [place], [place], [address]. tel:[phone] OFFICE/OUTPA TIENT VISIT, [facility], [address], [place], [place], [address], [place] [phone] [facility] HLP (chief complaint) back pain1 (chief complaint) ED (chief complaint) Mixed hyperlipidemiaChron ic pain syndromeMale erectile dysfunction, unspecified 7 Ronny Stephenson. [address], [place], [place], [address] , [place]. [phone] Referring Provider: Renetta Stokes [address], [place], [place], [address]. tel:[phone] OFFICE/OUTPA TIENT VISIT, [facility], [address], [place], [place], [address], [place] tel:[phone] [facility] chronic pain (chief complaint) ED1 (chief complaint) blood in stool (chief complaint) HLP (chief complaint) Male erectile dysfunction, unspecifiedChronic pain syndromeMixed hyperlipidemia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 7 Ronny Stephenson. [address], [place], [address] , [place]. [phone] Referring Provider: Renetta Stokes [address], [place], [place], [address]. tel:[phone] OFFICE/OUTPA TIENT VISIT, [facility], [address], [place], [place], [address], [place] tel:[phone] [facility] Medicine chronic pain1 (chief complaint) ED1 (chief complaint) ear pain1 (chief complaint) Actinic keratosisChronic pain syndromeMale erectile dysfunction, unspecifiedSick sinus syndrome 0 7 Ronny Turner [address], [place], [place], [address] , [place]. tel:[phone] Referring Provider: Renetta Stokes [address], [place], [place], [address]. tel:[phone] OFFICE/OUTPA TIENT VISIT, [facility], [address], [place], [place], [address], [place] tel:[phone] [facility] Medicine HLP (chief complaint) chronic pain1 (chief complaint) ED1 (chief complaint) tobacco1 (chief complaint) 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Chronic pain syndromeHyperlipide miaTobacco use 7 Ronny Turner [address], [place], [address] , [place]. [phone] Referring Provider: Renetta [address], [place], [place], [address]. tel:[phone] PREV VISIT, EST, AGE 40-64 [facility], [address], [place], [place], [address], [place] tel:[phone] [facility] Medicine Physical (chief complaint) Encounter for general adult medical exam w abnormal findingsHyperlipide miaChronic pain syndrome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 7 Ronny Stephenson. [address], [place], [place], [address] , [place]. [phone] Referring Provider: Renetta Stokes [address], [place], [place], [address]. tel:[phone] OFFICE/OUTPA TIENT VISIT, [facility], [address], [place], [place], [address], [place] [phone] [facility] chronic pain (chief complaint) Chronic pain syndrome 7 Ronny Turner [address], [place], [place], [address] , [place]. [phone] Referring Provider: Renetta [address], [place], [place], [address]. tel:[phone] OFFICE/OUTPA TIENT VISIT, [facility], [address], [place], [place], [address], [place] tel:[phone] [facility] chronic pain (chief complaint) HLP (chief complaint) tobacco (chief complaint) anxiety1 (chief complaint) Mixed hyperlipidemiaChron ic pain syndromeTobacco useGeneralized Anxiety Disorder 6 Ronny Turner [address], [place], [place], [address] , [place]. [phone] Referring Provider: Renetta Stokes [address], [place], [place], [address]. tel:[phone] OFFICE/OUTPA TIENT VISIT, [facility], [address] A, [place], [place], [address], [place] tel:[phone] [facility] chronic pain1 (chief complaint) HLP (chief complaint) HyperlipidemiaChron ic pain syndrome 6 Ronny Stephenson. [address], [address], [place], [place], [address] , [place]. tel:[phone] Referring Provider: Sachin Jefferson, [address], [place], [place], [address]. tel:[phone] OFFICE/OUTPA TIENT VISIT, [facility], [address], [place], [place], [address], [place] tel:[phone] [facility] chronic pain (chief complaint) anxiety1 (chief complaint) Chronic pain syndromeDepression Aug-2 0-201 6 Ronny Stephenson. [address], [address], [place], [place], [address] , [place]. tel:[phone] Referring Provider: Renetta Stokes [address], [place], [place], [address]. tel:[phone] OFFICE/OUTPA TIENT VISIT, [facility], [address], [place], [place], [address], [place] tel:[phone] [facility] chronic pain (chief complaint) HLP (chief complaint) marijauna (chief complaint) HyperlipidemiaCanna bis abuse, uncomplicatedChroni c pain syndrome Sep-2 2-201 6 Ronny Stephenson. [address], [address], [place], [place], [address] , [place]. tel:[phone] Referring Provider: Renetta Stokes [address], [place], [place], [address]. tel:[phone] OFFICE/OUTPA TIENT VISIT, [facility], [address], [place], [address], [place] tel:[phone] [facility] chronic pain (chief complaint) anxiety1 (chief complaint) Chronic pain syndromeDepression Jun-2 4201 6 Ronny Stephenson. [address], [address], [place], [place], [address] , [place]. tel:[phone] Referring Provider: Sachin Jefferson, [address], [place], [place], [address]. tel:[phone] OFFICE/OUTPA TIENT VISIT, [facility], [address], [place], [address], [place] tel:[phone] [facility] chronic pain (chief complaint) depression 1 (chief complaint) DepressionChronic pain syndromeCannabis abuse, uncomplicated 6 Ronny Stephenson. [address], [place], [place], [address] , [place]. tel:[phone] Referring Provider: Renetta Stokes [address], [place], [place], [address]. tel:[phone] OFFICE/OUTPA TIENT VISIT, [facility], [address], [place], [address], [place] tel:[phone] [facility] chronic pain (chief complaint) HLP (chief complaint) depression (chief complaint) depression 1 (chief complaint) HyperlipidemiaChron ic pain syndromeDepression 6 Ronny Turner [address], [place], [address] , [place]. tel:[phone] Referring Provider: Ren[address], [place], [address]. tel:[phone] OFFICE/OUTPA TIENT VISIT, [facility], [address], [place], [address], [place] tel:[phone] [facility] chronic pain1 (chief complaint) CervicalgiaChronic pain syndrome 6 Ronny Turner [address], [address], [place], [place], [address] , [place]. tel:[phone] Referring Provider: Renetta [address], [place], [place], [address]. tel:[phone] OFFICE/OUTPA TIENT VISIT, [facility], [address], [place], [place], [address], [place] tel:[phone] [facility] chronic pain (chief complaint) HLP (chief complaint) Chronic pain syndromeHyperlipide js 6 Ronny Turner [address], [place], [place], [address] , [place]. tel:[phone] Referring Provider: Renetta Stokes [address], [place], [place], [address]. tel:[phone] OFFICE/OUTPA TIENT VISIT, [facility], [address], [place], [address], [place] tel:[phone] [facility] neck pain1 (chief complaint) HLP (chief complaint) back pain1 (chief complaint) Mixed hyperlipidemiaCervi calgiaLumbago with sciatica, left side Jan-2 6 Ronny Stephenson. [address], [place], [place], [address] , [place]. tel:[phone] Referring Provider: Renetta Stokes [address], [place], [place], [address]. tel:[phone] OFFICE/OUTPA TIENT VISIT, [facility], [address], [place], [place], [address], [place] tel:[phone] [facility] chronic pain (chief complaint) HLP (chief complaint) Chronic pain syndromeMixed hyperlipidemia Jan-0 6 Ronny Stephenson. [address], [place], [place], [address] , [place]. [phone] Referring Provider: Renetta Stokes [address], [place], [address]. tel:[phone] OFFICE/OUTPA TIENT VISIT, [facility], [address], [place], [address], [place] tel:[phone] [facility] chronic pain (chief complaint) HLP1 (chief complaint) low D (chief complaint) CAD1 (chief complaint) Mixed hyperlipidemiaChron ic pain syndromeVitamin D deficiency, unspecified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 0 6 Ronny Stephenson. [address], [place], [place], [address] , [place]. [phone] Referring Provider: Renetta Stokes [address], [place], [place], [address]. tel:[phone] PREV VISIT, NEW, AGE 40-64 [facility], [address], [place], [place], [address], [place] tel:[phone] [facility] Physical1 (chief complaint) Encntr for general adult medical exam w/o abnormal findings 6 Ronny Stephenson. [address], [place], [place], [address] , [place]. tel:[phone] Referring Provider: Sachin Jefferson, [address], [place], [place], [address]. tel:[phone] Family History Family Member Type Diagnosis Age At Onset Mother Problem (finding) Cancer, breast Sister Problem (finding) Cancer, breast Father Problem (finding) Cancer, prostate Mother Problem (finding) Diabetes mellitus type 2 Payers Payer name Insurance type Covered green party ID Yary alcala(s) [facility] [id number] Social History Type Description Quantity Date Captured Comments Alcohol Use Details Caffeine Use Details Unknown Tobacco Use Status Heavy cigarette smok er (20-39 cigs/day) Smoking Status Heavy tobacco smoker Sex Male Vital Signs Date / Time: Height Weight BMI Pulse Rate Blood Pressure Temperature Respiratory Rate Body Surface Area Head Circumference BMI percentile Pulse Ox Inhaled Ox 9:16 AM 73.00 in 223.20 lbs 29.4 5 kg/m eter (2) 76 /min 120/60 mm[Hg] 97.6 F 16 /min Chief Complaint And Reason For Visit From encounter dated '02/03/2025 09:05'. pain (chief complaint). Description: Pt has chronic neck and back and knee pain. Pt denies any lossof bladder control. Pt c/o persistent left sciatica and left leg burning and paresthesia. Pt is on norco and diclofenac and lyrica which is helping . Pt denies any saddle area paresthesia. Pt also saw knee doctor and he received injections. Pt was told that he needs knee replacement. bruising1 (chief complaint). Description: Pt notices some bruising plantar surface of left big and 4th toe for several weeks. Pt denies any numbness and tingling or any pain. he denies any claudication or swelling or trauma Plan Of Treatment Date Type Action Status Goal Tobacco cessation counseling completed Goal Tobacco cessation counseling completed Goal Special diet education compl eted Goal Tobacco cessation counseling completed Goal Special diet education compl eted Goal Tobacco cessation counseling completed Goal Special diet education compl eted Goal Special diet education compl eted Goal Tobacco cessation counseling completed Goal Tobacco cessation counseling completed Goal Special diet education compl eted Goal Tobacco cessation counseling completed Goal Special diet education compl eted Goal Special diet education compl eted Goal Tobacco cessation counseling completed Goal Tobacco cessation counseling completed Goal Special diet education compl eted Goal Tobacco cessation counseling completed Goal Special diet education compl eted Goal Tobacco cessation counseling completed Goal Special diet education compl eted Goal Tobacco cessation counseling completed Goal Special diet education compl eted Goal Special diet education compl eted Goal Tobacco cessation counseling completed Goal Tobacco cessation counseling completed Goal Special diet education compl eted Goal Special diet education compl eted Goal Tobacco cessation counseling completed Goal Special diet education compl eted Goal Special diet education compl eted Goal Prescribed dietary intake co mpleted Goal Prescribed dietary intake co mpleted Goal Special diet education compl eted Goal Special diet education compl eted Goal Prescribed dietary intake co mpleted Goal Special diet education compl eted Goal Special diet education compl eted Referral Ordered: Orthopedic Surgery (related to Pain in right knee) ordered Referral Ordered: Referrals: Orthopedic Surgery. Evaluate and treat ordered Referral Ordered: MRI LUMBAR SPINE W/O DYE ordered Referral Ordered: Physical Therapy (related to Lumbago with sciatica, left side) ordered Referral Ordered: Hematology (related to Acute lung embolism) ordered Referral Referred To: Maxwell HARPER, Jose Goff S [facility]
[address] [place], [place], [address] Ordered: Referrals: Jose Arreola MD. Evaluate and treat ordered Referral Ordered: UPPER GI ENDOSCOPY, BIOPSY ordered Referral Referred To: Xiao Webb MD [facility]
[address] [place], [place], [address] Ordered: Referrals: Xiao Webb MD. Evaluate and treat ordered Referral Ordered: Dontrell Fowler -[facility] : Orthopaedic Surgery (related to Pain in right knee) ordered Referral Ordered: Dontrell Fowler -[facility] : Orthopaedic Surgery (related to Pain in right knee) ordered Referral Ordered: Hematology (related to Monoclonal gammopathy) ordered Referral Ordered: Referrals: Hematology. Evaluate and treat ordered Referral Ordered: CT THORAX W/O DYE ordered Referral Ordered: COLONOSCOPY AND BIOPSY ordered Referral Ordered: Jed Kennedy -[facility] : Surgery (related to Nevus, non-neoplastic) ordered Referral Referred To: Jed Kennedy [address] [place], [place] [id number] Ordered: Referrals: [facility] : Surgery. Jed Kennedy. Evaluate and treat ordered Referral Ordered: Physical Therapy (related to Lumbago with sciatica, left side) ordered Referral Ordered: Willam Godfrey -[facility] : Internal Medicine : Cardiovascular Disease (related to Peripheral vascular disease, unspecified) ordered Referral Referred To: Willam Godfrey [address] [place], [place] [id number] Ordered: Referrals: [facility] : Internal Medicine : Cardiovascular Disease. Willam Godfrey. Evaluate and treat ordered Referral Referred To: Physical Therapy Ordered: Referrals: Physical Therapy. Evaluate and treat ordered Referral Ordered: US ARTERIAL DOPPLER ordered Referral Ordered: Dontrell Fowler -[facility] : Orthopaedic Surgery (related to Pain in right knee) ordered Referral Referred To: Dontrell Fowler [address] [place] [phone] Ordered: Referrals: [facility] : Orthopaedic Surgery. Dontrell Fowler. Evaluate and treat ordered Referral Ordered: CHEST X-RAY PA/LAT TWO-VIEWS ordered Referral Ordered: Dontrell Fowler (related to Pain in right knee) ordered Referral Referred To: Dontrell Fowler [address] [place] [phone] Ordered: Referrals: Dontrell Fowler. Evaluate and treat ordered Referral Ordered: XIAO CHAU (related to 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) ordered Referral Referred To: XIAO CHAU [id number] [facility] [address], [place], [phone] Ordered: Referrals: XIAO CHAU. Evaluate and treat ordered Referral Ordered: KNEE XRAY, 3 VIEW Right ordered Referral Ordered: Mayo Allison (related to Pain in right knee) ordered Referral Referred To: Mayo Allison 4 [facility] [address] [place], [place] [id number] Ordered: Referrals: Mayo Allison. Evaluate and treat ordered Referral Ordered: SLEEP STUDY, ATTENDED ordered Referral Ordered: Jed Kennedy (related to Actinic keratosis) ordered Referral Referred To: Jed Kennedy [address] [place], [id number] Ordered: Referrals: Jed Kennedy. Evaluate and treat ordered Referral Ordered: Pain Medicine (related to Chronic pain syndrome) ordered Referral Ordered: Referrals: Pain Medicine. Evaluate and treat ordered Referral Ordered: Neurosurgery (related to Cervicalgia) ordered Referral Ordered: CT LUMBAR SPINE W/O DYE ordered Referral Ordered: Referrals: Neurosurgery. Evaluate and treat ordered Referral Ordered: CT NECK SPINE W/O DYE ordered Appointment Arash Bernardo BOOKED History Of Present Illness Encounter Date Complaint History Of Prese nt Illness pain Pt has chronic n tirso and back and knee pain. Pt denies any loss of bladder control. Pt c/o persistent left sciatica and left leg burning and paresthesia. Pt is on norco and diclofenac and lyrica which is helping . Pt denies any saddle area paresthesia. Pt also saw knee doctor and he received injections. Pt was told that he needs knee replacement. bruising1 Pt notices some bruising plantar surface of left big and 4th toe for several weeks. Pt denies any numbness and tingling or any pain. he denies any claudication or swelling or trauma pain Pt has chronic n tirso and back and knee pain. Pt denies any loss of bladder control. Pt c/o persistent left sciatica and left leg burning and paresthesia. Pt is on norco and diclofenac and lyrica which is helping . Pt denies any saddle area paresthesia. hematurai1 Pt denies any bl ood in urine or any flank pain. His repeat UA is normal knee pain1 Pt has chronic r ight knee pain due to degenerative change .Pt had steroid injection right knee in the past. [place] Pt denies any recent injury Pt denies any knee swelling Pt c/o persistent right knee pain PE Pt has history o f PE and he is on eliquis and he needs refill He denies any bleeding hematuria1 Pt has persisten t hematuria with right flank pain Pt has right side renal stone Pt denies any urinary symptoms. Pt has not seen blood in urine. Pt denies any urinary symptoms. Pt denies any flank pain. pain Pt has chronic n tirso and back and knee pain. Pt denies any loss of bladder control. Pt c/o persistent left sciatica and left leg burning and paresthesia. Pt is on norco and diclofenac and lyrica which is helping . Pt denies any saddle area paresthesia. pain Pt has chronic n tirso and back and knee pain. Pt denies any loss of bladder control. Pt c/o persistent left sciatica and left leg burning and paresthesia. Pt is on norco and diclofenac and lyrica which is helping . Pt denies any saddle area paresthesia. HLP Pt has HLP Pt ta kes crestor and his lipid profile is ok Pt denies any myalgia kcl Pt has mildly el evated KCL Pt denies any chest pain or sob hematuria1 Pt has persisten t hematuria with right flank pain Pt has right side renal stone Pt denies any urinary symptoms pancreatitis1 Pt has history o f mild pancreatitis even though without any left upper quadrant pain or nausea, vomiting his lipase is down to 200s from over 1000. ED Pt has ED pt jyotsna es sildenafil PRn and doing ok. hematuria1 Pt has asymptoma tic hematuria. Pt denies any urinary symptoms flank pain1 Pt c/o acute rig ht flank pain for several weeks and he went to ER 4 weeks ago and he had CT done which showed 3 mm nonobstructive right renal stone and small fat containing right inguinal hernia. Pt denies any fever, chill, nausea, vomiting, diarrhea, right inguinal pain or bulge. Interestingly his lipase was elevated. Pt denies any abdominal pain. Pt does have persistent right flank pain back pain1 Pt has chronic n tirso and back and knee pain. Pt denies any loss of bladder control. Pt c/o persistent left sciatica and left leg burning and paresthesia. Pt is on norco and diclofenac and lyrica which is helping . Pt denies any saddle area paresthesia. pain Pt has chronic n tirso and back and knee pain. Pt denies any loss of bladder control. Pt c/o persistent left sciatica and left leg burning and paresthesia. Pt is on norco and diclofenac and lyrica which is helping . Pt denies any saddle area paresthesia. pain Pt has chronic n tirso and back and knee pain. Pt denies any loss of bladder control. Pt c/o persistent left sciatica and left leg burning and paresthesia. Pt is on norco and diclofenac and lyrica which is helping . Pt denies any saddle area paresthesia. Pt states that he notices worsening low back pain with sciatica and leg neuropathy for two months Pt denies any injury. Pt c/o left thigh burning which has been worse as well, especially after he stand for a while Pt denies any leg weakness. Pt does have foraminal stenosis and DDD on previous CT. Pt failed recent PT which did help some. MRI denied by insurance. He restarted diclofenac which is helping somewhat colon pt had colonosco py done recently which showed diverticulosis and internal hemorrhoid. Pt denies any Gi bleeding renal stone1 Pt has right nghia al stone with hematuria. Pt went to ER due to flank pain. Pt had CT which showed right ureter renal stone. Pt was given flomax and his right flank pain resolved. pt no longer notices blood in urine . HLP Pt has HLP Pt ariane schmid. Pt needs refilled. pain Pt has chronic n tirso and back and knee pain. Pt denies any loss of bladder control. Pt c/o persistent left sciatica and left leg burning and paresthesia. Pt is on norco and diclofenac and lyrica which is helping . Pt denies any saddle area paresthesia. Pt states that he notices worsening low back pain with sciatica and leg neuropathy for two months Pt denies any injury. Pt c/o left thigh burning which has been worse as well, especially after he stand for a while Pt denies any leg weakness. Pt does have foraminal stenosis and DDD on previous CT. Pt failed recent PT which did help some. MRI denied by insurance. He restarted diclofenac which is helping somewhat pain Pt has chronic n tirso and back and knee pain. Pt denies any loss of bladder control. Pt c/o persistent left sciatica and left leg burning and paresthesia. Pt is on norco and diclofenac and lyrica which is helping . Pt denies any saddle area paresthesia. Pt states that he notices worsening low back pain with sciatica and leg neuropathy for two months Pt denies any injury. Pt c/o left thigh burning which has been worse as well, especially after he stand for a while Pt denies any leg weakness. Pt does have foraminal stenosis and DDD on previous CT. Pt failed recent PT which did help some. MRI denied by insurance. He restarted diclofenac which is helping somewhat PE Pt has history o f PE and he was seen by hematology and was told that he needs eliquis indefinitely Pt needs eliquis refilled. Pt denies any chest pain or sob back pain1 Pt has chronic n tirso and back and knee pain. Pt denies any loss of bladder control. Pt c/o persistent left sciatica and left leg burning and paresthesia. Pt is on norco and diclofenac and lyrica which is helping . Pt denies any saddle area paresthesia. Pt states that he notices worsening low back pain with sciatica and leg neuropathy for two months Pt denies any injury. Pt c/o left thigh burning which has been worse as well, especially after he stand for a while Pt denies any leg weakness. Pt does have foraminal stenosis and DDD on previous CT. Pt failed recent PT which did help some. MRI denied by insurance. he has not been taking diclofenac and his pain is worse blood Pt states that b lood in stool resolved. pt does have colonoscopy scheduled in 2 months blood in stool1 Pt c/o intermitt ent bright red blood mixed with stool x 4 days. Pt denies any abd pain. Pt had colonoscopy 2018 with hyperplastic polyp and he was recommended for repeat colonoscopy 2023. Pt denies any dark stool. pt denies any GERD. Pt pain Pt has chronic n tirso and back and knee pain. Pt denies any loss of bladder control. Pt c/o persistent left sciatica and left leg burning and paresthesia. Pt is on norco and diclofenac and lyrica which is helping . Pt denies any saddle area paresthesia. Pt states that he notices worsening low back pain with sciatica and leg neuropathy for two months Pt denies any injury. Pt c/o left thigh burning which has been worse as well, especially after he stand for a while Pt denies any leg weakness. Pt does have foraminal stenosis and DDD on previous CT. Pt started physical therapy 4 weeks ago but has not helped so much pain Pt has chronic n tirso and back and knee pain. Pt denies any loss of bladder control. Pt c/o persistent left sciatica and left leg burning and paresthesia. Pt is on norco and diclofenac and lyrica which is helping . Pt denies any saddle area paresthesia. Pt states that he notices worsening low back pain with sciatica and leg neuropathy for one week Pt denies any injury. Pt c/o left thigh burning which has been worse as well, especially after he stand for a while Pt denies any leg weakness. Pt does have foraminal stenosis and DDD on previous CT right flank pain1 Pt also c/o ri ght flank pain for one week. Pt denies any injury Pt denies any urinary symptoms Pt states that it lasted x 3 days then resolved. PE Pt has history o f PE and DVT and his java manager told him that he need to be on eliquis indefinitely. Pt states that he needs eliquis PA again. He has not had eliquis for several days Pt denies any leg pain or sob or chest garrett polyp1 Pt had colonosco py done 2018 which showed hyperplastic polyp Pt denies any Gi issue pain Pt has chronic n tirso and back and knee pain. Pt denies any loss of bladder control. Pt c/o persistent left sciatica and left leg burning and paresthesia. Pt is on norco and diclofenac and lyrica which is helping . Pt denies any saddle area paresthesia. Pt states that he notices worsening low back pain with sciatica and leg neuropathy for one week Pt denies any injury pain Pt has chronic n tirso and back and knee pain. Pt denies any loss of bladder control. Pt c/o persistent left sciatica and left leg burning and paresthesia. Pt is on norco and diclofenac and lyrica which is helping . Pt denies any saddle area paresthesia. Pt states that he notices worsening low back pain with sciatica and leg neuropathy for one week Pt denies any injury knee pain1 Pt has chronic b ilateral knee pain P has arthritis Pt is seeing ortho and he had injection last year which did help until recently Pt denies any knee swelling, redness or warmth tobacco1 Pt has 40 pack y ear tobacco Pt denies any hemoptysis, sob or cough Pt had normal LDCT pain Pt has chronic n tirso and back and knee pain. Pt denies any worsening pain Pt denies any loss of bladder control. Pt c/o persistent left sciatica and left leg burning and paresthesia. Pt is on norco and diclofenac and lyrica which is helping . Pt denies any saddle area paresthesia. PE Pt has history o f PE and he was seen by hematology and was told that he needs eliquis indefinitely Pt needs eliquis refilled. Pt denies any chest pain or sob tobacco1 Pt has 36 pack y ear tobacco pt denies any hemoptysis, sob or cough Pt needs LDCT pain Pt has chronic n tirso and back and knee pain. Pt denies any worsening pain Pt denies any loss of bladder control. Pt c/o persistent left sciatica and left leg burning and paresthesia. Pt is on norco and diclofenac and lyrica which is helping . Pt denies any saddle area paresthesia. pain Pt has chronic n tirso and back and knee pain. Pt denies any worsening pain Pt denies any loss of bladder control. Pt c/o persistent left sciatica and left leg burning and paresthesia. Pt is on norco and diclofenac and lyrica which is helping . Pt denies any saddle area paresthesia. HLP Pt has HLP pt ariane Schmid and his lipid profile is ok .Pt denies any myalgia pain1 Pt has chronic n tirso and back and knee pain. Pt denies any worsening pain Pt denies any loss of bladder control. Pt c/o persistent left sciatica and left leg burning and paresthesia. Pt is on norco and diclofenac and lyrica which is helping . Pt denies any saddle area paresthesia. presyncope1 Pt had another e pisode of presyncope episode 3 days ago. He was sitting around talking to his friend when he felt acute onset of dizziness, about to faint, disoriented, mild nausea, diffuse sweaty. He denies any chest pain or palpitation. Pt states that symptoms lasted 30 mins before he felt better. Pt denies any alcohol consumption Pt denies any dehydration Pt denies any headache .Pt denies any vision issue. Pt had similar episode several months ago. Pt went to Er and he had negative EKG, troponin, chest x ray head Ct, and his lab showed leukocytosis only. Pt denies any chest pain. Pt denies any syncope. Pt denies any chest pain or diaphoresis. His glucose was normal also. physical Pt needs annual physical pt has HLP Pt takes crestor Pt denies any myalgia Pt has chronic back and neck pain Pt takes norco and flexeril and lyrica and diclofenac .Pt doing ok Pt has history of PE and he is on eliquis indefinitely per hematology Pt has pace maker and is being manged by cardiology. Pt has ED Pt takes sildenafil but 50 mg has not helped. Pt denies any other complaints pain Pt has chronic n tirso and back and knee pain. Pt denies any worsening pain Pt denies any loss of bladder control. Pt c/o persistent left sciatica and left leg burning and paresthesia. Pt is on norco and diclofenac and lyrica which is helping . Pt denies any saddle area paresthesia. syncope1 pt was working i n the heat and he notices mild dizziness and pre syncope episodes and mild sweaty recently .Pt had several episodes. pt denies any chest pain or sob Pt denies any headache pt drank some water and got in the shade and he felt better. Pt denies any actual syncope. Pt denies any orthostasis ear1 Pt c/o intermitt ent left ear cleo and stuffy feeling and muffled feeling for several weeks. Pt denies any drainage Pt denies any right ear issue. Pt denies any sinus congestion. Pt denies any sore throat pain Pt has chronic n tirso and back and knee pain. Pt denies any worsening pain Pt denies any loss of bladder control. Pt c/o persistent left sciatica and left leg burning and paresthesia. Pt is on norco and diclofenac and lyrica which is helping . Pt denies any saddle area paresthesia. pain Pt has chronic n tirso and back and knee pain. Pt denies any worsening pain Pt denies any loss of bladder control. Pt c/o persistent left sciatica and left leg burning and paresthesia. Pt is on norco and diclofenac and lyrica which is helping . Pt denies any saddle area paresthesia. anxiety1 Pt has chronic a nxiety and depression Pt states that he tried cymbalta last month and it messes with his head so he has not been taking it. Pt thought cymbalta was a new med from last month? Pt is not sure if he has been taking cymbalta for the past two years Pt states that he does not really feel anxious or depressed. Pt denies any suicidal or homicidal thought pt denies any crying spells PE Pt has history o f PE. Pt is on eliquis Pt saw hematology last month and he was told that he needs to be on eliquis life long. Pt denies any bleeding allergy1 Pt notices some clear phlegm and some sinus congestion for several weeks Pt denies any cough or sob .Pt denies any sneezing. Pt denies any chest pain or sob or fever pain Pt has chronic n tirso and back and knee pain. Pt denies any worsening pain Pt denies any loss of bladder control. Pt c/o persistent left sciatica and left leg burning and paresthesia. Pt is on norco and diclofenac and lyrica which is helping . Pt denies any saddle area paresthesia. Pt needs norco and lyrica refilled anxiety1 Pt has chronic a nxiety nd depression Pt takes cymbalta and doing ok Pt denies any suicidal or homicidal thought Pt denies any crying spells GERD1 Pt has history o f GERD Pt had benign EGD. Pt denies any GERD and he is off pepcid. Pt denies any abd pain colon polyp1 Pt has history o f colon polyp, ,which was hyperplastic. Pt denies any lower gi issue . pain Pt has chronic n tirso and back and knee pain. Pt denies any worsening pain Pt denies any loss of bladder control. Pt c/o persistent left sciatica and left leg burning and paresthesia. Pt is on norco and diclofenac and lyrica which is helping . Pt denies any saddle area paresthesia. Pt needs norco refill pain Pt has chronic n tirso and back and knee pain. Pt denies any worsening pain Pt denies any loss of bladder control. Pt c/o persistent left sciatica and left leg burning and paresthesia. Pt is on norco and diclofenac and lyrica which is helping . Pt denies any saddle area paresthesia. Pt needs norco refill ear1 pt c/o intermitt ent left ear clogging for several weeks. pt denies any pain or drainage Pt notices mild muffling on left side Pt denies any sinus issue or sore throat PE Pt has PE recent ly .Pt denies any chest pain or sob Pt is on eliquis now Pt saw hematology and was told to continue eliquis. pneumonia1 Pt denies any ch est pain or sob or cough He had repeat chest x ray which was normal PE pt has acute PE recently Pt is on eliquis now Pt denies any chest pain or sob. pneumonia1 Pt has pneumonia recently Pt finished [facility]. Pt denies any cough, hemoptysis, sob garrett Pt has chronic n tirso and back and knee pain. Pt denies any worsening pain Pt denies any loss of bladder control. Pt c/o persistent left sciatica and left leg burning and paresthesia. Pt is on norco and diclofenac and lyrica which is helping . Pt denies any saddle area paresthesia. Pt needs norco refill PE Pt felt acute on set of sob, chest pain, about to faint 3 days ago while at home and he went to ER by ambulance Pt had CTA done which showed acute PE and ? pneumonia and COPD Pt had negative venous duplex doppler study Pt was started on lovenox in hospital. Pt supposes to do cardiac echo but he left AMA. Pt has not started eliquis but his insurance does not cover it so he is currently not on any blood thinner Pt denies any chest pain or sob or presyncope now Pt denies any fever, chest pain or sob. Pt denies any calf pain. GERD1 Pt has not had a ny GERD and he had not had the need to use pepcid at all recently pain Pt has chronic n tirso and back and knee pain. Pt denies any worsening pain Pt denies any loss of bladder control. Pt c/o persistent left sciatica and left leg burning and paresthesia. Pt is on norco and diclofenac and lyrica which is helping . Pt denies any saddle area paresthesia. Pt needs norco refill COVID Pt c/o mild sore throat , headache, sinus congestion, dry cough since 3 days ago. Pt tested positive for COVID yesterday. Pt denies any fever or sob. Pt received two COVID vaccine without boosters. Pt overall feels ok. GERD1 Pt had completel y benign EGD and biopsy Pt has mild GERD occasionally Pt is on omeprazole ED Pt has ED. Pt calvin s good libido Pt denies any poor libido. Pt needs sildenafil refilled pain Pt has chronic n tirso and back and knee pain. Pt denies any worsening pain Pt denies any loss of bladder control. Pt c/o persistent left sciatica and left leg burning and paresthesia. Pt is on norco and diclofenac and lyrica which is helping . Pt denies any saddle area paresthesia. Pt needs norco refill GERD1 Pt has GERD with out dysphagia. Pt had abnormal CT imaging about esophagus and he has destinee for EGD in two weeks pain Pt has chronic n tirso and back and knee pain. Pt denies any worsening pain Pt denies any loss of bladder control. Pt c/o persistent left sciatica and left leg burning and paresthesia. Pt is on norco and diclofenac and lyrica which is helping . Pt denies any saddle area paresthesia. Pt needs norco and lyrica refilled HLP Pt has HLP. Pt t eloisa josefinarayray. Pt denies any myalgia. His lipid profile is ok anxiety1 Pt has chronic a nxiety and depression Pt takes cymbalta and doing ok. Pt denies any suicidal or homicidal thought. Pt denies any crying spells pain Pt has chronic n tirso and back and knee pain. Pt denies any worsening pain Pt denies any loss of bladder control. Pt c/o persistent left sciatica and left leg burning and paresthesia. Pt is on norco and diclofenac and lyrica which is helping . Pt denies any saddle area paresthesia. Pt needs norco refilled. elbow pain1 Pt c/o left late ral elbow pain for several months Pt denies any injury. Pt notices mild swelling left lateral elbow Pt denies any radiation to left forearm or any neuropathy symptoms. Pt states that trying to pick things up hurts worse GERD1 pt has chronic G ERD. Ct showed distal esophageal thickening. Pt started omeprazole last month which is helping Pt denies any nausea, vomiting pain Pt has chronic n tirso and back and knee pain. Pt denies any worsening pain Pt denies any loss of bladder control. Pt c/o persistent left sciatica and left leg burning and paresthesia. Pt is on norco and diclofenac and lyrica which is helping . Pt denies any saddle area paresthesia. Pt needs norco refilled. ganglion cyst1 Pt has left radi al wrist ganglion cyst chronically .pt saw hand specialist and he wants to hold off surgery for now. He states that cyst is getting smaller and he denies any pain GERD1 pt had chest CT done recently and showed something wrong with esophagus and he supposes to set up for EGD? Pt denies any dysphagia, nausea, vomiting, appetite loss, weight loss/ pt does have intermittent GERD. Pt denies any abd pain physical Pt needs annual physical. pt has chronic neck and back pain Pt denies any worsening pain Pt denies any loss of bladder control. Pt has mild sciatica and leg numbness. pt denies any saddle area paresthesia. Pt takes norco and lyrica and doing ok Pt failed NSAID and ultram. Pt has RLS. Pt doing ok with requip. Pt has anxiety and depression Pt doing ok with cymbalta Pt denies any suicidal or homicidal thought Pt denies any crying spells. Pt has sick sinus syndrome and CAD with stent and he is seeing cardiology and he has pack maker pt denies any chest pain or palpitation. Pt denies any other complaints ganglion cyst1 Pt notices a swo llen and tender nodule left wrist area for several weeks. Pt denies any injury. Pt denies any numbness or tinging of left hand. pain Pt has chronic n tirso and back and knee pain. Pt denies any worsening pain Pt denies any loss of bladder control. Pt c/o persistent left sciatica and left leg burning and paresthesia. Pt is on norco and diclofenac and lyrica which is helping . Pt denies any saddle area paresthesia. Pt needs norco refilled. pain Pt has chronic n tirso and back and knee pain. Pt denies any worsening pain Pt denies any loss of bladder control. Pt c/o persistent left sciatica and left leg burning and paresthesia. Pt is on norco and diclofenac and lyrica which is helping . Pt denies any saddle area paresthesia. Pt needs norco and diclofenac refilled. anxiety1 Pt has chronic a nxiety and depression Pt takes cymbalta and doing ok Pt denies any suicidal or homicidal thought .Pt denies any crying spells. pain Pt has chronic n tirso and back and knee pain. Pt denies any worsening pain Pt denies any loss of bladder control. Pt c/o persistent left sciatica and left leg burning and paresthesia. Pt is on norco and diclofenac and lyrica which is helping . Pt denies any saddle area paresthesia. Pt needs norco and diclofenac refilled. HLP Pt has HLP Pt ariane schmid .Pt denies any myalgia. His lipid profile is ok pain Pt has chronic n tirso and back and knee pain. Pt denies any worsening pain Pt denies any loss of bladder control. Pt c/o persistent left sciatica and left leg burning and paresthesia. Pt is on norco and diclofenac and lyrica which is helping . Pt denies any saddle area paresthesia. Pt states that his right knee is bothering him more lately and he wants referral to go back to ortho for injection .Pt had right knee injection 3-4 months ago. Pt denies any knee swelling, redness or warmth ,pt denies any injury. Pt states that he has not heard from [facility] yet lung nodule1 Pt had chest CT done which showed benign lung nodule recently by hematology. Pt denies any hemoptysis, sob or cough. Pt still smoking ED Pt has ED. Pt ta kes sildenafil PRN pt needs refill. Pt denies any chest pain with sex Pt denies any prolonged erection. Pt denies any testicular pain or nodule or atrophy. Pt has good libido pain Pt has chronic n tirso and back and knee pain. Pt denies any worsening pain Pt denies any loss of bladder control. Pt c/o persistent left sciatica and left leg burning and paresthesia. Pt is on norco and diclofenac and lyrica which is helping . Pt denies any saddle area paresthesia. Pt states that his right knee is bothering him more lately and he wants referral to go back to ortho for injection .Pt had right knee injection 3-4 months ago. Pt denies any knee swelling, redness or warmth ,pt denies any injury pain Pt has chronic n tirso and back and knee pain. Pt denies any worsening pain Pt denies any loss of bladder control. Pt c/o persistent left sciatica and left leg burning and paresthesia. Pt is on norco and diclofenac and lyrica which is helping . Pt denies any saddle area paresthesia tobacco1 tobacco1 Pt has 35 pack y ear tobacco Pt denies any chest pain or sob or cough or hemoptysis. hematology did a chest CT for him for lung CA screening. RLS Pt has history o f RLS Pt states that his symptoms resolved and he weaned himself requip long time ago and he is doing ok without requip pain Pt has chronic n tirso and back and knee pain. Pt denies any worsening pain Pt denies any loss of bladder control. Pt c/o persistent left sciatica and left leg burning and paresthesia. Pt is on norco and diclofenac and lyrica which is helping . Pt denies any saddle area paresthesia pain1 Pt has chronic n tirso and back and knee pain. Pt denies any worsening pain Pt denies any loss of bladder control. Pt c/o persistent left sciatica and left leg burning and paresthesia. Pt is on norco and diclofenac and lyrica which is helping . Pt saw ortho and he had injection left knee which only helped slightly. Pt denies any redness or warmth. Pt denies any saddle area paresthesia. Pt went to Er for back pain recently and x ray showed severe spondylosis. Pt denies any saddle area paresthesia. Pt also takes lyrica and diclofenac Pt states that back pain has been worse lately. Pt denies any injury. pain Pt has chronic n tirso and back and knee pain. Pt denies any worsening pain Pt denies any loss of bladder control. Pt c/o persistent left sciatica and left leg burning and paresthesia. Pt is on norco and diclofenac and lyrica which is helping . Pt saw ortho and he had injection left knee which only helped slightly. Pt denies any redness or warmth. Pt denies any saddle area paresthesia folate1 Pt has low folat e. Pt has been taking folate OTC . pain Pt has chronic n tirso and back and knee pain pt denies any worsening pain Pt denies any loss of bladder control. Pt c/o persistent left sciatica and left leg burning and paresthesia. Pt is on norco and diclofenac and lyrica which is helping . Pt saw ortho and he had injection left knee which only helped slightly. Pt denies any redness or warmth pain Pt has chronic n tirso and back and knee pain pt denies any worsening pain Pt denies any loss of bladder control. Pt c/o persistent left sciatica and left leg burning and paresthesia. Pt is on norco and diclofenac and lyrica which is helping .Pt states that his right knee pain is getting worse Pt denies any knee redness or warmth. Pt denies any injury. Pt saw ortho and had injections and he is doing better. HLP Pt has HLP Pt ta vazquez crestor .Pt denies any myalgia. his lipid profile is ok pain Pt has chronic n tirso and back and knee pain pt denies any worsening pain Pt denies any loss of bladder control. Pt c/o persistent left sciatica and left leg burning and paresthesia. Pt is on norco and diclofenac and lyrica which is helping .Pt states that his right knee pain is getting worse Pt denies any knee redness or warmth. Pt denies any injury M protein Pt has M spike p rotein. Pt is seeing hematology and he had some lab done and was told ok physical Pt needs annual physical. pt has chronic neck and back pain Pt denies any worsening pain Pt denies any loss of bladder control. Pt has mild sciatica and leg numbness. Pt takes norco and lyrica and doing ok Pt failed NSAID and ultram. Pt has RLS. Pt doing ok with requip. Pt has anxiety and depression Pt doing ok with cymbalta Pt denies any suicidal or homicidal thought Pt denies any crying spells. Pt has sick sinus syndrome and CAD with stent and he is seeing cardiology and he has pack maker pt denies any chest pain or palpitation. Pt denies any other complaints Pt needs sildenafil refilled. Pt denies any chest pain with sex. Pt has HLP. Pt takes crestor .Pt denies any myalgia pain Pt has chronic n tirso and back and knee pain pt denies any worsening pain Pt denies any loss of bladder control. Pt c/o persistent left sciatica and left leg burning and paresthesia. Pt is on norco and diclofenac and lyrica which is helping . Pt also notices bilateral hip pain from his back radiating down his leg as well recently Pt denies any saddle paresthesia M protein1 Pt saw hematolog y and is being worked up for M spike protein. pain Pt has chronic n tirso and back and knee pain pt denies any worsening pain Pt denies any loss of bladder control. Pt c/o persistent left sciatica and left leg burning and paresthesia. Pt is on norco and diclofenac and lyrica which is helping Pt takes flexeril as well. Pt states that his left leg burning feeling are improving with lyrica 150 mg BID M spike1 Pt has history o f low total protein and low globulin, which resolved now but SPEP showed poorly defined band possible M spike on SPEP. glucose1 Pt has borderlin e high glucose Pt denies any polyuria ,polydipsia HLP Pt has HLP Pt ariane schmid. Pt denies any myalgia. His lipid profile is ok globulin Pt has low total protein and low globulin. Pt denies any infection pain Pt has chronic n tirso and back and knee pain pt denies any worsening pain Pt denies any loss of bladder control. Pt c/o persistent left sciatica and left leg burning and paresthesia. Pt is on norco and diclofenac and lyrica which is helping Pt takes flexeril as well. Pt states that his left leg burning feeling are improving with lyrica but still is very bothersome Pt also has right leg paresthesia but not as bad. HLP Pt has HLP .Pt delmy schmid. Pt denies any myalgia BPH Pt has family hi story of prostate CA Pt denies any urinary symptoms. HLP Pt has HLP, Pt t eloisa schmid Pt denies any myalgia anxiety Pt has chronic a nxiety and depression Pt takes cymbalta and doing ok Pt denies any suicidal or homicidal thought Pt denies any crying spells tobacco1 pt has 35 pack y ear tobacco Pt denies any hemoptysis, ,sob or cough. pain Pt has chronic n tirso and back and knee pain pt denies any worsening pain Pt denies any loss of bladder control. Pt c/o persistent left sciatica and left leg burning and paresthesia. Pt is on norco and diclofenac and neurontin. Pt takes flexeril as well. Pt states that his left leg burning feeling are getting worse. Pt also has right leg paresthesia but not as bad. Pt states that insurance did not cover for lyrica. Pt denies any injury pain Pt has chronic n tirso and back and knee pain pt denies any worsening pain Pt denies any loss of bladder control. Pt c/o persistent left sciatica and left leg burning and paresthesia. Pt is on norco and diclofenac and neurontin. Pt takes flexeril as well. pain Pt has chronic n tirso and back and knee pain pt denies any worsening pain Pt denies any loss of bladder control. Pt doing ok with norco and diclofenac and neurontin. Pt takes flexeril and doing ok. Pt notices mild burning sensation lately radiating from his low back area. Pt denies any loss of bladder control RLS Pt has RLS Pt ta kes requip and doing ok Pt denies any worsening symptoms anxiety1 Pt has chronic a nxiety and depression Pt takes cymbalta and doing ok Pt denies any suicidal or homicidal thought .Pt denies any crying spells pain Pt has chronic n tirso and back and knee pain pt denies any worsening pain Pt denies any loss of bladder control. Pt doing ok with norco and diclofenac and neurontin. Pt takes flexeril and doing ok pain Pt has chronic n tirso and back and knee pain pt denies any worsening pain Pt denies any loss of bladder control. Pt doing ok with norco and diclofenac and neurontin ED Pt has ED. Pt de nies any testicular pain or atrophy .Pt doing ok with sildenafil. PRN Pt denies any chest pain with sex pain Pt has chronic n tirso and back and knee pain pt denies any worsening pain Pt denies any loss of bladder control. Pt doing ok with norco and diclofenac and neurontin folate1 Pt has low folat e. Pt denies any neuropathy symptoms. globulin1 Pt has low total protein and low globulin Pt denies any infection HLP Pt has HLP. Pt h as been taking crestor and his lipid profile is at goal now .Pt denies any myalgia anxiety1 Pt has chronic a nxiety and depression Pt takes cymbalta. Pt states that his mom recently and he is having more anxiety and depression Pt denies any suicidal or homicidal thought .Pt denies any crying spells HLP Patient has hype rlipidemia. Patient takes Crestor. Patient denies any myalgia. folate Patient has low folate. Patient has been taking folate supplement and eating more green vegetables. 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 Patient denies any suicidal homicidal thoughts. Patient denies any crying spells. Patient takes Cymbalta and doing okay. Patient noticed more motivation. Patient denies any hopelessness. Chronic pain Pt has chronic n tirso and back pain due to DDD Pt denies any worsening pain. PT failed NSAID and ultram Pt takes norco PRN for pain and doing ok. Pt has mild sciatica and let leg numbness. Pt takes norco PRn and neurontin for pain and doing ok. Pt denies any loss of bladder or bowel control. Pt also takes diclofenac as well. pain Pt has chronic n tirso and back pain due to DDD Pt denies any worsening pain. PT failed NSAID and ultram Pt takes norco PRN for pain and doing ok. Pt has mild sciatica and let leg numbness. Pt denies any worsening symptoms. Pt takes norco PRn and neurontin for pain and doing ok. Pt denies any loss of bladder or bowel control. Pt also takes diclofenac as well HLP Pt has HLP Pt ta kes crestor. Pt denies any myalgia pain Pt has chronic n tirso and back pain due to DDD Pt denies any worsening pain. PT failed NSAID and ultram Pt takes norco PRN for pain and doing ok. Pt has mild sciatica and let leg numbness. Pt denies any worsening symptoms. Pt takes norco PRn and neurontin for pain and doing ok. Pt denies any loss of bladder or bowel control folate1 Patient has low folate acid level. Patient does not eat any green vegetables. HLP Patient has trevor nary artery disease. Patient has stent. Patient take Lipitor 80 mg daily for years. His cholesterol not at goal. Patient denies any chest pain. a1c Patient denies a ny polyuria polydipsia. Patient has history of slightly high glucose. His current glucose is normal. His A1c is very high. pain Pt has chronic n tirso and back pain due to DDD Pt denies any worsening pain. PT failed NSAID and ultram Pt takes norco PRN for pain and doing ok. Pt has mild sciatica and let numbness. Pt denies any worsening symptoms. Pt takes norco PRn for pain and doing ok. Pt denies any loss of bladder or bowel control physical Pt needs annual physical. pt has chronic neck and back pain Pt denies any worsening pain Pt denies any loss of bladder control. Pt has mild sciatica and leg numbness. Pt takes norco and neurontin and doing ok Pt failed NSAID and ultram. Pt has RLS. Pt doing ok with requip. Pt has anxiety and depression Pt doing ok with cymbalta Pt denies any suicidal or homicidal thought Pt denies any crying spells. Pt has sick sinus syndrome and CAD with stent and he is seeing cardiology and he has pack maker pt denies any chest pain or palpitation. Pt denies any other complaints pain Pt has chronic n tirso and back pain due to DDD Pt denies any worsening pain. PT failed NSAID and ultram Pt takes norco PRN for pain and doing ok. Pt has mild sciatica and let numbness. Pt denies any worsening symptoms. Pt takes norco PRn for pain and doing ok. Pt denies any loss of bladder or bowel control anxiety1 Pt has anxiety a nd depression and neuropathy pt doing ok with cymbalta. pt denies any suicidal or homicidal thought. Pt denies any crying spells physical Pt has chronic n tirso and back pain due to DDD Pt denies any worsening pain. PT failed NSAID and ultram Pt takes norco PRN for pain and doing ok. Pt has mild sciatica and let numbness. Pt denies any worsening symptoms. Pt takes norco PRn for pain and doing ok. Pt denies any loss of bladder or bowel control pain Pt has chronic n tirso and back pain due to DDD Pt denies any worsening pain. PT failed NSAID and ultram Pt takes norco PRN for pain and doing ok. Pt has mild sciatica and let numbness. Pt denies any worsening symptoms. Pt takes norco PRn for pain and doing ok. Pt denies any loss of bladder or bowel control anxiety1 Pt has anxiety a nd depression Pt takes Cymbalta and doing ok. pt denies any suicidal or homicidal thought. pt denies any crying spells. ED Pt has ED Pt has good libido pt takes sildenafil and needs refill Pt denies any chest pain with sex RLS Pt has RLs. pt d oing ok with requip Pt has normal iron anxiety1 Pt has chronic a nxiety and depression Pt told me he has not seen psychiatrist for long time and he has not been on cymbalta or wellbutrin for long time Pt states that he has been doing ok until recently. He has been doing through a lot of stress at home Pt feels irritable and anxious again Pt feels mildly depressed Pt denies any suicidal or homicidal thought. kPt denies any crying spells. Pt states that his mom has lung Ca to the bone and he feels stressed. pain1 Pt has chronic n tirso and back pain due to DDD Pt denies any worsening pain. PT failed NSAID and ultram Pt takes norco PRN for pain and doing ok. Pt has mild sciatica and let numbness. Pt denies any worsening symptoms. Pt takes norco PRn for pain and doing ok polyp1 Pt has colon odessa yp Pt just saw his GI and was told to repeat colonoscopy in 5 years Pt not sure about the type of polyp chronic pain Pt has chronic n tirso and back pain due to DDD Pt denies any worsening pain. PT failed NSAID and ultram Pt takes norco PRN for pain and doing ok. Pt has mild sciatica and let numbness. Pt denies any worsening symptoms polyp Pt had colonosco py done which showed colon polyp and ? diverticulosis. Pt has follow up [place] next week to find out about nature of polyp chronic pain1 Pt has chronic n tirso and back pain due to DDD Pt denies any worsening pain. PT failed NSAID and ultram Pt takes norco PRN for pain and doing ok. Pt has mild sciatica and let numbness. Pt denies any worsening symptoms ED Pt takes viagra PRn and doing ok. Pt denies any prolonged erection, chest pain, with viagra during sex chronic pain1 Pt has chronic n tirso and back pain due to DDD Pt denies any worsening pain. PT failed NSAID and ultram Pt takes norco PRN for pain and doing ok. Pt has mild sciatica and let numbness. Pt denies any worsening symptoms pain1 Pt has chronic n tirso and back pain due to DDD Pt denies any worsening pain. PT failed NSAID and ultram Pt takes norco PRN for pain and doing ok. Pt has mild sciatica and let numbness. Pt denies any worsening symptoms chronic pain Pt has chronic n tirso and back pain due to DDD Pt denies any worsening pain. PT failed NSAID and ultram Pt takes norco PRN for pain and doing ok. Pt has mild sciatica and let numbness. Pt denies any worsening symptoms PAD Pt has mild left PAD but no active symptoms. Pt denies any claudication Pt states that the numbness and pain is improving with neurontin Pt also seen cardiology recently. Pt is on ASA and on lipitor screening1 Pt denies any ur inary difficulty or hesitancy. Pt denies any urgency or frequency Pt denies any GI issue chronic pain1 Pt has chronic l ow back pain Pt has knee garrett. Pt sees ortho for injection. Pt denies any worsening pain, Pt has mild sciatica and leg numbness Pt denies any loss of bladder control PAD Pt has mild pad and CAd, Pt jut seen dr godfrey. Pt denies any chest pain. Pt takes ASA daily nevus1 Pt c/o itching a nd scabby lesion right lateral upper arm for one month anxiety1 Pt has chronic a nxiety and depression, pt takes cymbalta and wellbutrin Pt denies any suicidal or homicidal thought Pt denies any crying spells ,Pt sees psychiatry. Pt kinza feeling hopelessness. chronic pain Pt has chronic l ow back pain with left sciatica and mild left leg numbness and tingling .Pt has minimal PAD Pt states that PT and neurontin helped his symptoms. Pt denies any loss of bladder control. tobacco Pt was not able to quit smoking while on patch, Pt stopped the patch Pt denies any hemoptysis, sob or cough chronic pain1 Pt has chronic n tirso and low back pain due to DDD Pt has left sciatica pt denies any loss of bladder control. pt denies any numbness both legs Pt failed NSAID and ultram. Pt does have disc disease L5/S1 tobacco1 Pt smokes about 1.5 PPD. Pt denies any hemoptysis, cough or sob leg pain1 Pt c/o left scia [place] and persistent left leg burning type of pain, worse with ambulation Pt also has left sciatica symptoms Pt denies any loss of bladder control. Pt states that neurontin is not really helping. Arterial doppler showed minimal arterial occlusive disease left lower leg ed Pt has ED Pt wan ts to sildenafil, which is cheaper. Pt doing ok with viagra. Pt denies any chest pain with sex chronic pain1 Pt has chronic n tirso and back pain due to DDD. Pt has chronic low back pain with left side sciatica but the left anterior thigh burning seems worse, especially with physical activity pt denies any loss of bladder control back pain1 Pt has chronic l ow back pain pt notices left sciatica and burning sensation left anterior thigh for several weeks. Pt denies any calf pain or posterior thigh pain Pt notices more pain with walking pt denies any recent travel or bedrest. Pt denies any loss of bladder control. Pt denies any chest pain or sob folate Pt has low folat e. Pt does not eat a lot of green vegetable chronic pain1 Pt has chronic n tirso and back pain pt has mild sciatica pt has mild leg numbness Pt denies any loss of bladder c control pt denies any worsening symptoms glucose1 Pt has mildly hi gh glucose Pt denies any polyuria, polydipsia. pt does drinks soda and eat junk food Physical PT needs annual physical. pt has chronic anxiety and depression. Pt sees psychiatrist Pt is on cymbalta and he just got started on wellbutrin also. Pt denies any suicidal or homicidal thought. Pt denies any crying spells. Pt feels that his mood is better. Pt has chronic neck and back pain Pt takes norco PRN for pain. Pt failed NSAID Pt has RLS. pt takes requip and doing ok Pt has HLP. Pt takes lipitor. Pt denies any myalgia pt has CAD with stent. Pt sees cardiology. Pt just seen cardiology recently and was told everything is fine now. Pt denies any chest pain chronic pain1 Pt has chronic n tirso and back pain due to DDD. Pt denies any worsening pain. Pt denies any loss of bladder control. Pt has mild sciatica and leg numbness. restless Pt has restless leg. Pt takes requip and doing ok. Pt denies any paresthesia chronic pain1 Pt has chronic n tirso and back pain Pt has DDD Pt denies any worsening pain. Pt denies any loss of bladder control. Pt failed NSAID and ultram ED Pt has ED pt jyotsna es viagra. pt doing ok. Pt denies any chest pain with viagra. knee pain1 Pt has chronic r ight knee pain. pt told me he never heard from [facility] ortho. Pt states that he feels that his right knee hurts worse with activity. Pt denies any swelling. pt denies any redness or warmth chronic pain Pt has chronic n tirso and back pain due to DDD. pt denies any worsening pain. Pt denies any loss of bladder control. Pt denies any numbness and he is off neurontin. chronic pain Pt has chronic n tirso and back pain due to severe DDD pt failed NSAID and ultram. Pt takes norco PRN for pain and doing ok. Pt denies any worsening pain thumb1 Patient stated t hat left thumb pain and numbness resolved with steroid splint. thumb numbness1 Pt c/o numbness left thumb for 1-2 months. Pt denies waking up at night with symptoms. Pt c/o tingling feeling left thumb only. Pt denies any weakness. Pt denies any radiation of issue to left elbow and left forearm. Pt denies any injury, Pt takes diclofenac PRN only chronic pain1 Pt has chronic n tirso and low back pain Pt has DDD pt also c/o radiation of pain from left shoulder area. Pt denies any radiculopathy. pt seen neurosurgery and pain management and nobody offered any improvement RLS Pt takes requip only PRn and doing ok at night Pt denies any numbness or tingling or pain chronic pain Pt has chronic n tirso and back pain pt takes norco PRn for pain. Pt failed NSAID and ultram Pt doing ok currently. Pt has mild sciatica and leg numbness but not worse. Pt denies any loss of bladder control. Pt denies any radiculopathy chronic pain Pt has chronic n tirso and back pain Pt has DDD Pt was seen by neurosurgery and pain management in the past but nothing was done due to his insurance and also the nature of his DDD. Pt takes norco and flexeril and diclofenac. Pt states that he still has a lot of neck and back pain. Pt denies any loss of bladder control tobacco1 Pt smokes 1 ppd. pt denies any sob His chest x ray si normal chronic pain Pt has chronic n tirso and back pain due to DDD Pt failed NSAID and pain management pt denies any worsening pain. Pt has mild sciatica and leg numbness. Pt denies any injury Pt has 7/10 pain. Pt takes norco prn for pain ED1 Pt has ED Pt has good libido. Pt doing well with viagra. Pt denies any chest pain with sex. anxiety1 Pt has chronic a nxiety and depression. Pt takes cymbalta and doing ok. pt denies any suicidal or homicidal thought. Pt sees psychiatrist Pt denies any crying spells tobacco1 Pt smokes one pa ck per day for over 30 years. pt denies any sob. pt does not have any plan to quit smoking HLP Pt takes lipitor . His TG is borderline. his lipid is ok pt denies any myalgia leukocytosis1 Resolved on lab Pt denies any fever, chill chronic pain Pt has chronic n tirso and back pain pt has knee pain. pt states that diclofenac helped. Pt still has not heard from ortho chronic pain1 pt has chronic n tirso and back pain due to DDD. Pt states that his neck pain has been worsening. . Pt denies any injury. Pt denies any radiculopathy wbc1 Pt has history o f mild high WBC. Pt denies any fever or recurrent infection HLP Pt takes 80 mg l ipitor. pt does have CAD with stent. pt is seeing cardiology. He denies any myalgia chronic pain1 Pt has chronic n tirso and back pain Pt denies any worsening pain Pt denies any loss of bladder control. pt has 7/10 pain knee pain1 Pt has right kne e pain Pt still has not heard from [facility], Pt denies any injury or knee swelling knee pain1 Pt has not heard from [facility] about his knee pain. Pt denies any swelling or any redness. chronic pain Pt has chronic n tirso and back pain Pt denies any worsening pain. pt denies any loss of bladder control. Pt takes norco and flexeril PRn and doing ok physical Pt needs annual physical pt has chronic neck and back pain pt takes norco and flexeril PRn for pain Pt is nonsurgical. Pt failed NSID. Pt also has chronic right knee pain, which is worse lately. Pt denies any knee injury or any redness or warmth or swelling. Pt has arthritis. Pt supposes to see ortho but they dont take her insruance anymore. Pt has chronic anxziety and depression Pt takes cymbalta and doing ok. Pt denies any suicidal or homicidal thought. Pt denies any cring spells. Pt has restless syndrome. Pt doing ok with requip. sick Pt c/o sore thro at, sinus headache, productive coughing with yellow phlegm for one week. Pt denies any fever. Pt has mild nonblood diarrhea Pt denies any nausea, and vomiting. pt dnies any sick contact. Pt denies any recent travel. pt denies any dysphagia. ED Pt has ED. Pt calvin s been taking viagra PRN which working ok Pt denies any testciular pain or atrophy or nodule HLP Pt has HLP. Pt t akes lipitor Pt just got incrased to 80 mg by cardiology. Pt denies any chest pain. Pt has CAd with stent. Pt has pace maker. His cardiology no longer takes his insurance chrnoic pain1 Pt has chornic n tirso and back pain Pt takes norco PRN for pain and doing ok Pt denies any worsening pain knee pani1 Pt has chronic r ight knee pain Pt supposes to see ortho but they dont take his insurance anymore. Pt denies any injury. Pt has pain daliy CAD Pt has CAD with stent and pace maker. pt sees cardiology. pt was told lipitor is not good enough and he was switched to a different statin but insruance does not cover it. Pt denies any chest apin back pain1 Pt has chronic b ack and neck apin. pt takes norco PRN for pain Pt denies any wrosening pain pt denies any loss of bladder control restless leg1 Pt has restless leg. Pt takes requip and doing ok chronic pain1 Pt has chronic n tirso and low back pain. Pt denies any worsening pain. Pt denies any loss of bladder control. Pt has 7/10 pain daily insomnia1 Pt has insomnia. Pt takse vistaril and doing ok knee pain1 Pt has chronic r ight knee pain. Pt has right knee injury when he was 16. He had right knee surgery back then. pt denies any new injury. Pt has intermittent right knee pain Pt notices mild swelling sometimes. insomnia1 Pt has chronic i nsmonia. Pt recently had inconclusive sleep study. Pt has limb movement disorder. Pt states that he has difficulty keeps his leg steady at night. Pt feels some vague tingling both leg at night chronic pain Pt has chronic n tirso and back pain. Pt denies any worsening pain. Pt denies any loss of bladder control. Pt takes norco for garrett PRN depression1 Pt has chronic a nxiety and depression. Pt is on cymbalta now. Pt is off zoloft. Pt denies any suicidal or homcidial thought. Pt sees psychiatrist. Pt has not noticed much difference with cymbalta. chornic pain Pt has chornic n tirso and low back pain due to DDD. Pt failed NSAID. Pt takes norco PRN for pain and doing ok. Pt takes flexeril PRN also. Pt denies any worsneing pain,. Pt denies any loss of bladder control HLP Pt takes lipitor and his lipid profile is normal. Pt denies any myalgia. Pt is on low fat and low carb diet wbc Pt has mild elev ated WBC Pt denies any fever, or illness ED P states that vi agra doing well. Pt denies any chset pain or any dizziness. chronic pain pt has chronic n tirso and back pain. Pt denies any worsening pain. Pt denies any l oss of bladder control. Pt has 7/10 pain. Pt failed NSAID. Pt failed pain managment and PT anxiety1 Pt has chronic a nxiety and depression Pt is seeing pschiatrist pt is on zoloft now. Pt is off effexor. Pt denies any suicial or homicidal thought limb Pt has insomnia and also extensive limb movement at night Pt states that vistaril does help him sleep but he has diffuse limb movement at night. His sleep study is not conclusive due to poor sleep. Pt feels tired in AM and during the day chronic pain1 Pt has chronic n tirso and back pain. PT denies anyw orsening pain Pt denies any loss of bladder control. Pt denies any worsening pain Pt takes norco and fleeril and doign ok. HLP Pt has been on l ipitor for two months Pt denies any myalgia. Pt is on low fat diet back pain1 Pt has chronic l ow back and neck pain Pt takes norco and flexeril PRN for apin. Pt doing ok with norco. Pt is not surgical candidate Pt has sciatica and leg numbness Pt denies any loss of bladder control eD1 Pt did not get s cript for viagra last time. he needs it printed out again HLP Pt tolerating li pitor ok Pt denies any myalgia insomani1 Pt has insomnia Pt has diffilcuty falling asleep Pt states that he has extensive leg movement at night and he keeps waking up at night. He sometimes snores. Pt states that he wakes up in the morning feelign very tired Pt denies stop breasthing at night back pain1 Pt has chronic n tirso and back pain. Pt denies any worsening pain. Pt denies any loss of bladder control ED Pt states that romario iraheta could not afford viagra from [employer], which cost more than $500 for 9 pills. HLP Pt has been taki ng zocor 40 mg but his cholesterol is still high. Pt denies any myalgia. Pt is on low fat and low carb diet HLP Pt has mild HLP. Pt has pace maker. Pt denies any chest pain. He has CAD .He does not use nitrate. He is on zocor 40 mg daily chronic pain Pt has chronic n tirso and back pain. PT denies any worsening pain. Pt denies any loss of bladder control. Pt takes nroco for pain along with flexeril and doing ok ED1 Pt has ED. Pt calvin s good libido. Pt denies any testicular pain or nodule. Pt is cleared for ED med by cardiology Pt deniies any chest pain blood in stool Additional infor mation: Pt notices bright red blood with stool for one week about 3 weeks ago, and resolved. Pt denies any abd pain or recurrent blood. chronic pain1 Pt has chornic n tirso and back pain Pt has 7-8/10 pain pt was denied by pain management pt has DDD and he is not surgical candidate Pt also seen neurosurgery in the past Pt takes norco and fleeril Pt failed NSAID Pt states that his pain is decently controlled. ED1 Pt has ED Pt has CAD with sick sinus syndrome with AV blocking requiring dual chamber pace maker. Pt denies any chest pain Pt told me cardiology told him it is ok to use ED meds. ear pain1 Pt notices a spo t on right earlobe for several weeks and it is painful pt denies any bleeding HLP Pt has HLP Pt calvin s been taking zocor Pt denies any myalgia. Pt is not very compliant with low fat diet chronic pain1 Pt has chronic n tirso and back pain. Pt denies any worsening pain. Pt deneis any loss of bladder control. Pt has 7/10 pain Pt canot get any help from pain management. Pt was told he is not candidate for injection ED1 Pt c/o ED Pt has good libido. Pt denies any testicular pain or nodule tobacco1 Pt still smokes about one pack per day Pt denies any SOB Physical Pt needs annual physical pt has chronic anxiety and depression Pt takes effexor but he still feels depressed. Pt denies any suicidal or homicdial thought Pt denies anycring spells. Pt feels depressed due to chronic pain and the fact that no specialist willing to do anything for him. Neurosrugery told him no surgery and pain management told him no injections so he is just basically having severe neck and back pain at this point with mild relieve from pain meds. Pt also has HLP and he takes zocor and denies any myalgia Pt has CAD with stent and pace maker and he is on zocor now. Pt is off altace and coreg and plavix per pt. Pt denies any chest pain. Pt denies any other complaints chronic pain Pt has chronic n tirso and back pain Pt denies any worsening pain. Pt denies any loss of bowel or bladder control. pt is seeing pain management but no injection planned and new pain management does not want to see him since he already seeing a pain managemnt. Pt has 7/10 pain daily. Pt does not know what to do chronic pain Pt has chronic n tirso and back pain. pt denies any worsening pain. Pt is taking norco for pain. Pt has 7/10 pain daily. pt is seeing neurosurgery who wanted to do injections but he is getting the run around from his neurosurgery and pain management. He still has not gotten the injection yet. HLP Pt takes zocor a nd he denies any myalgia. Pt is on low fat and low carb diet tobacco Pt has more than 30 pack year history of smoking. Pt denies any chest pain or SOB anxiety1 Pt has chronic a nxiety and depression. Pt takes effeoxr and doing ok. Pit denies any suicidal or homicidal thought. Pt denies any crying spells. Pt is seeing psychiatrist chronic pain1 Pt has chornic l ow back and neck pain. Pt failed PT. Pt is waiting for insurance approval for injection by neurosurgery. Pt has 7/10 pain. Pt denies any worsening pain. Pt denies any loss of bowel or bladder ocntrol HLP Pt has HLP. Pt t akes zocor and doing ok. Pt denies any myalgia. chronic pain Pt has chronic n tirso and back apin. Pt has 7./10 pain. Pt failed PT and NSAID. Pt is on norco for pain. Pt is under the care of neurosurgery who wants to do injection but his insurance denied the procedure. pt is very frustrated and he is working with insurance and neurosurery for appealing the decision. Pt denies any loss of bowel or bladder conrol. Pt states that his pain is not well controlled. anxiety1 Pt has chornic a nxiety and depression. Pt takes effexor and he sees psychiatrist now. Pt is on effoxr. Pt still feels unhappy. Pt is frustrated over his chronic neck and back pain. Pt denies any suicidal or homicidal thought chronic pain Pt has chronic n tirso and back pain pt denies any worsening pain. Pt denies any loss of bowel or bladder control. Pt already had PT and he just saw neurosrugery yesereay and is in the process of getting epidural approved from [employer]. Pt has 8/10 neck and back apin . Pt c/o left sciatica and left leg numbness. HLP Pt has HLP. P ariane kes zocor. Pt denie any myalgia. pt is on on low fat and low carb diet marijauna Pt smokes pancho yaa several times per month to help control his pain and anxiety. 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 pt has anger issue. Pt seen the psychiatrist and he was actually told to increase effexor to 150 mg daily. Pt states that it is helping controlling his anger but he stilll has bad mood allthe time. Pt denies any suicidal or homicidal thought chronic pain Pt has chronic n tirso and ack pain. Pt has 8/10 pain. pt is doing PT now Pt is seeing neurosrugery who wants to do injection for now. Pt still has pain but he is doing decently at this point depression1 Pt has chronic d epression Pt denies any suicidal or homicdialt hought. Cymblata is not coverred by his insurance. Pt has appointment with psychiatrist next month chronic pain Pt has chronic n tirso and back pain Pt notices left radiculopathy intermittently Pt denies any sciatica pT is doing PT now Pt is waiting to get his shot approved by insurance Pt has 7/10 pain daily Pt takes norco and flexeril PRN for pain. Pt failed NSIAD depression depression1 Pt has chronic a nxiety and depression. Pt denies any suicidal or homicidal thought. Pt feels depressed due to his pain. Pt uanbel to work due to pain and he is struggling financially. chronic pain Pt has chornic a nd severe neck and back pain. Pt had myelogram and he seen the neurosurgery and he supposes to get back injections but his insurance denied it and he supposes to do PT first Pt already had PT and failed it. Pt denies any wrosening pain HLP Pt has HLP Pt ariane pierre pt denies any myalgia. Pt is on low fat and low carb diet chronic pain1 Pt has chronic n tirso and back apin. Pt just seen neurosurgery and will have myelogram done soon. Pt failed PT in the past. Pt is taking norco and flexeril for pain and doing ok. Pt denies any worsening pain HLP Pt has been taki ng zocor. Pt denies any myalgia. Pt has been trying low fat and low carb diet. His lipid profile is normal now chronic pain Pt has chronic n tirso and back pain. Pt had lumbar Ct done which showed DDD with stenosis. Pt has DDD around neck. Pt c/o radiculopathy and sciatica. Pt denies any worsening pain. Pt denies any loss of bowel or bladder control. Pt has appointment with neurosurgery next month neck pain1 Pt has chronic n tirso pain. Pt c/o left radiculopathy. pt denies any numnbess. pt has 7/10 pain daily. Pt has sharp pain. takes norco for pain. Pt basically hurts all the time HLP Pt has HLP. Pt t eloisa zocor. Pt denies any myalgia. back pain1 Pt has chronic l ow back pain daily around 8/10. Pt c./o left sciatica and some left leg numnbess. Pt denies any loss of bowel or bladder control. HLP Pt has HLP. Pt t eloisa zocor and doing ok. Pt denies any myalgia chronic pain Pt has chronic n tirso and back apin. Pt takes norco for pain. Pt denies any wrosenign pain. Pt has not done CT of neck yet. Pt has radiculopathy on left side and some left upper arm numbness HLP1 Pt has HLP Pt is not eating healthy low D Pt has low D Pt denies any history of fracture CAD1 Pt has CAD with stent. Pt has pacer maker due to cardiomyopathy. Pt denies any acute chest pain now chronic pain Pt has chronic s evere neck and low back pain. Pt denies any worsening pain. pt states that norco only partially helps. Pt states that he has 6-7/10 pain daily Pt has sharp pain. Pt c/o sciatica. Pt c/o leg numnbess Pt c/o bilateral radiculopathy and hand numbness. . PPt denies any loss of bowel or bladder control Physical1 Pt needs annual physical. Pt has chronic neck and back pain. Pt states that he used to take norco but his previous MD stopped giving to him. Apparently he did not take as much as he was prescibed and urine drug screen did not show hydrocodone so his previous MD will not give to him anymore. Pt was told to find new MD by his previous MD. Pt states that he has chronic neck and low back pain. Pt c/o burning feeling around the neck area. Pt c/o bilateral radiculopathy. Pt also has sciatica and numnbess both legs. Pt denies any other complaitns. Pt needs pain control. Pt has CAD and he has pace maker. Pt sees cardiology. Pt takes baby ASA dailyi. Pt denies any miquel pain Instructions Date Instruction Additional Infor gregor Special diet education Related t o Body mass index (BMI) 30.0-30.9, adult Quit smoking Related to Chron ic pain syndrome Special diet education Related t o Body mass index (BMI) 30.0-30.9, adult Increase physical activity Relat ed to Chronic pain syndrome Weight management Related to Chr onic pain syndrome Special diet education Related t o Body mass index (BMI) 29.0-29.9, adult Increase physical activity Relat ed to Chronic pain syndrome Quit smoking Related to Chron ic pain syndrome Weight management Related to Chr onic pain syndrome Special diet education Related t o Body mass index (BMI) 29.0-29.9, adult Quit smoking Related to Chron ic pain syndrome Special diet education Related t o Body mass index (BMI) 30.0-30.9, adult Special diet education Related t o Body mass index (BMI) 29.0-29.9, adult Quit smoking Related to Nevus , non-neoplastic Special diet education Related t o Body mass index (BMI) 29.0-29.9, adult Take medication as instructed. R elated to Peripheral vascular disease, unspecified Special diet education Related t o Body mass index (BMI) 29.0-29.9, adult Take medication as instructed. R elated to Peripheral vascular disease, unspecified Special diet education Related t o Body mass index (BMI) 30.0-30.9, adult Weight management Related to Lum bago with sciatica, left side Increase physical activity Relat ed to Lumbago with sciatica, left side Quit smoking Related to Lumba go with sciatica, left side Special diet education Related t o Body mass index (BMI) 30.0-30.9, adult Quit smoking Related to Folat e deficiency Special diet education Related t o Body mass index (BMI) 30.0-30.9, adult Quit smoking Related to Encou nter for general adult medical exam w abnormal findings Special diet education Related t o Body mass index (BMI) 30.0-30.9, adult Special diet education Related t o Body mass index (BMI) 30.0-30.9, adult Quit smoking Related to Chron ic pain syndrome Special diet education Related t o Body mass index (BMI) 30.0-30.9, adult Quit smoking Related to Chron ic pain syndrome Follow a low salt diet. Related to Paresthesia of skin Special diet education Related t o Body mass index (BMI) 30.0-30.9, adult Special diet education Related t o Body mass index (BMI) 29.0-29.9, adult Quit smoking Related to Chron ic pain syndrome Quit smoking Related to Chron ic pain syndrome Prescribed dietary intake Relate d to Body mass index (BMI) 29.0-29.9, adult Prescribed dietary intake Relate d to Body mass index (BMI) 29.0-29.9, adult Quit smoking Related to Chron ic pain syndrome Special diet education Related t o Body mass index (BMI) 29.0-29.9, adult Quit smoking Related to Chron ic pain syndrome Quit smoking Related to Chron ic pain syndrome Special diet education Related t o Body mass index (BMI) 28.0-28.9, adult Stop smoking. Related to Hyper lipidemia Prescribed dietary intake Relate d to Body mass index (BMI) 29.0-29.9, adult Quit smoking Related to Chron ic pain syndrome Special diet education Related t o Body mass index (BMI) 30.0-30.9, adult Quit smoking Related to Chron ic pain syndrome Special diet education Related t o Body mass index (BMI) 29.0-29.9, adult Quit smoking Related to Pain in right knee Prescribed Activity and Exercise Education Related to Dietary Surveillance and Counseling Prescribed Diet Educ ation/Lifestyle Education Regarding Diet Related to Dietary Surveillance and Counseling Prescribed Activity and Exercise Education Related to Dietary Surveillance and Counseling Prescribed Diet Educ ation/Lifestyle Education Regarding Diet Related to Dietary Surveillance and Counseling Recommend gargling Related to Ac sienna pharyngitis, unspecified Prescribed Activity and Exercise Education Related to Dietary Surveillance and Counseling Prescribed Diet Educ ation/Lifestyle Education Regarding Diet Related to Dietary Surveillance and Counseling Quit smoking Related to 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 Prescribed Activity and Exercise Education Related to Dietary Surveillance and Counseling Prescribed Diet Educ ation/Lifestyle Education Regarding Diet Related to Dietary Surveillance and Counseling Increase physical activity Relat ed to 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 Quit smoking Related to 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 Weight management Related to 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 Prescribed Activity and Exercise Education Related to Dietary Surveillance and Counseling Prescribed Diet Educ ation/Lifestyle Education Regarding Diet Related to Dietary Surveillance and Counseling Quit smoking Related to Perio dic limb movement disorder Weight management Related to Per iodic limb movement disorder Increase physical activity Relat ed to Periodic limb movement disorder Prescribed Activity and Exercise Education Related to Dietary Surveillance and Counseling Prescribed Diet Educ ation/Lifestyle Education Regarding Diet Related to Dietary Surveillance and Counseling Increase physical activity Relat ed to Chronic pain syndrome Quit smoking Related to Chron ic pain syndrome Weight management Related to Chr onic pain syndrome Prescribed Activity and Exercise Education Related to Dietary Surveillance and Counseling Prescribed Diet Educ ation/Lifestyle Education Regarding Diet Related to Dietary Surveillance and Counseling Prescribed Activity and Exercise Education Related to Dietary Surveillance and Counseling Follow a low sodium diet. Relate d to Hyperlipidemia Stop smoking. Related to Hyper lipidemia Increase activity. Related to Hy perlipidemia Prescribed Diet Educ ation/Lifestyle Education Regarding Diet Related to Dietary Surveillance and Counseling Follow a low sodium diet. Relate d to Hyperlipidemia Increase activity. Related to Hy perlipidemia Prescribed Diet Educ ation/Lifestyle Education Regarding Diet Related to Dietary Surveillance and Counseling Prescribed Activity and Exercise Education Related to Dietary Surveillance and Counseling Prescribed Diet Educ ation/Lifestyle Education Regarding Diet Related to Dietary Surveillance and Counseling Prescribed Activity and Exercise Education Related to Dietary Surveillance and Counseling Prescribed Diet Educ ation/Lifestyle Education Regarding Diet Related to Dietary Surveillance and Counseling Prescribed Activity and Exercise Education Related to Dietary Surveillance and Counseling Prescribed Activity and Exercise Education Related to Dietary Surveillance and Counseling Prescribed Diet Educ ation/Lifestyle Education Regarding Diet Related to Dietary Surveillance and Counseling Prescribed Activity and Exercise Education Related to Dietary Surveillance and Counseling Prescribed Diet Educ ation/Lifestyle Education Regarding Diet Related to Dietary Surveillance and Counseling Prescribed Activity and Exercise Education Related to Dietary Surveillance and Counseling Prescribed Diet Educ ation/Lifestyle Education Regarding Diet Related to Dietary Surveillance and Counseling Assessments Type Assessment Date assessment Chronic pain syndrome assessment Pain in right knee assessment Personal history of nicotine dep endence assessment Spontaneous ecchymoses Mental Status Date Cognitive Assessment Orientation - [place] ed to time, place, person, situation.
--- OUTSIDE RECORDS SUMMARY | 2025-02-21 12:30 | XMS_ITS | Encounter Summary ---
Author Organization [facility] Address [address] [place] [id number] Care Team Providers Care Underwriting Operations Manager Name Role Phone Sachin Jefferson MD Primary Care Provider [phone] Encounter Details Date Type Department Care Team (Late st Contact Info) Description 03/29/2017 Orders Only [facility] ProviderNika MD [address] [place] [id number] Social History Tobacco Use Types Packs/Day Years Used Date Smoking Tobacco: Every Day Comments:Smoking History Pac ks/day: 1 Packs Alcohol Use Standard Drinks/Week Comments No 0 (1 standard drink = 0.6 oz pur e alcohol) Sex and Gender Information Value Date Recorded Sex Assigned at Not on file 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 Historical Provider [facility] Final Result documented in this encounter Visit Diagnoses Not on filedocumented in this encounter Care Teams Underwriting Operations Manager Relationship Specialty Start Date End Date Sachin Jefferson MD PCP - General 02/24/17 documented as of this encounter
--- OUTSIDE RECORDS SUMMARY | 2025-02-21 12:30 | XMS_ITS | Clinical Summary ---
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 Gender Identity Not on file Sexual Orientation Not on file Plan of Treatment Health Maintenance Due Date Last Done Comments Colorectal Cancer Screening Colonoscopy (10 Years) 1969 Annual Physical 1972 Hepatitis C 1987 DTaP, Tdap and Td Vaccines (1 - Tdap) 1988 Hepatitis B Vaccines (1 of 3 - 19+ 3-dose series) 1988 Zoster Vaccines (1 of 2) 2019 COVID-19 Vaccine (3 - season) 2024 03/01/2021, 02/07/2021 Influenza Adult (#1) 2024 09/28/2020, 10/22/2019, 09/07/2018, Additional history exists Pneumococcal Vaccine: Pediatrics (0 to 5 Years) and At-Risk Patients (6 to 64 Years) Aged Out 10/22/2019 No longer eligible based on patient's age to complete this topic Meningococcal B Vaccine Aged Out No l onger eligible based on patient's age to complete this topic Meningococcal Vaccine Aged Out No una shahzad eligible based on patient's age to complete this topic RSV Immunizations Under 20 Months Aged Out No longer eligible based on patient's age to complete this topic Insurance OJEDA Care Teams [place] [employer] Relationship Specialty Start Date End Date Sachin Jefferson MD PCP - General FAMILY PRACTICE 12/29/21
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
[2025-02-21 13:41] LABS: Basophils Percent Auto 0.4 % (0.2-1.2); Eosinophils Absolute Auto 0.2 K/mm3 (0-0.3); Eosinophils Percent Auto 1.5 % (0-4.4); Hematocrit 46.6 % (42.0-52.0); Hemoglobin 15.6 g/dL (14.0-18.0); Immature Granulocyte Absolute 0.02 K/mm3 (0.00-0.031); Immature Granulocyte Percent A 0.2 % (0-0.5); Lymphocytes Absolute Auto 2.54 K/mm3 (0.9-3.2); Lymphocytes Percent Auto 26.1 % (18.3-44.2); Mean Corpuscular HGB Conc 33.5 g/dl (32-36); Mean Corpuscular Hemoglobin 31.6 pg (26-34); Mean Corpuscular Volume 94.3 fl (80-100); Mean Platelet Volume 9.5 fl (7.4-10.4); Monocytes Absolute Auto 0.6 K/mm3 (0.1-0.6); Monocytes Percent Auto 5.7 % (2.6-8.5); Neutrophils Absolute Auto 6.4 K/mm3 (1.3-6.7); Neutrophils Percent Auto 66.1 % (45.5-73.1); Platelet Count Result 310 k/mm3 (150-375); Red Blood Count 4.94 M/mm3 (4.6-6.20); Red Cell Distribution Width 12.7 % (11.5-14.5); White Blood Count 9.8 K/mm3 (4.5-10.0)
[2025-02-21 13:48] LABS: Alanine Aminotransferase 21 U/L (6-50); Albumin Level 4.3 g/dL (3.5-5.1); Alkaline Phosphatase 77 U/L (38-126); Anion Gap 10 mmol/L (4-12); Aspartate Amino Transferase 24 U/L (17-59); Bilirubin,Total 0.3 mg/dL (0.2-1.3); Blood Urea Nitrogen 18 mg/dL (9-20); Calcium 8.9 mg/dL (8.4-10.2); Carbon Dioxide 27 mmol/L (22-30); Chloride 105 mmol/L (98-107); Estimated CRCL calculation 87 ml/min; Estimated Glomerular Filt Rate > 60; Glucose 79 mg/dL (65-110); Sodium 142 mmol/L (137-145)
[2025-02-21 14:04] LABS: Add Urine Microscopic? YES; Appearance Urine Clear (Clear); Bacteria Urine None Seen /hpf; Bilirubin Urine Negative (Negative); Blood Urine 1+ (Negative); Color Urine Yellow (Yellow); Glucose Urine UA Negative (Negative); Ketones Urine Trace mg/dL (Negative); Leukocyte Esterase Ur Negative LEU/UL (Negative); Nitrate Urine Negative (Negative); Non Pathogenic Casts 0-2; Protein Urine Negative (Negative); RBC Urine 21-50 /hpf (0-2); Specific Grav Ur 1.024 (1.001-1.035); Squamous Epithelial Cell Urine None Seen /hpf (Few); WBC Urine 0-5 /hpf (0-3); pH Urine 5.5 (5.0-9.0)
[2025-02-21 15:42] VITALS: BP 121/87; PULSE 85; RESP 18; O2SAT 100
[2025-02-21 16:53] VITALS: BP 117/78; PULSE 82; RESP 18; O2SAT 98
--- NOTE | 2025-02-21 16:54 | ED_ITS ---
HPI - Male Genitourinary General Chief complaint: Urogenital-Male Stated complaint: lower back/R flank pain Time Seen by Provider: 02/21/25 15:57 History of Present Illness HPI Narrative: 54-year-old male with a past medical history including kidney stones, hyperlipidemia, previous PE on Eliquis. Patient presents to the emergency department with a chief complaint of right flank pain. He states is been going on for about 1 month and feels like a previous kidney stone. Denies any urinary complaints denies any blood in the urine or dysuria. No chest pain shortness a breath, no nausea vomiting. Has not followed up with the urologist yet. Related Data Home Medications ?Medication ?Instructions ?Recorded ?Confirmed ?Last Taken ?Type aspirin 81 mg chewable tablet 81 mg PO DAILY 11/26/19 08/07/24 08/07/24 05:00 History (Elba Chewable Low Dose Aspirin) cyclobenzaprine 10 mg tablet 10 mg PO BID PRN Muscle Spasm 11/26/19 08/07/24 08/07/24 05:00 History pregabalin 150 mg capsule 150 mg PO BID 07/29/21 08/07/24 08/07/24 05:00 History rosuvastatin 20 mg tablet 20 mg PO DAILY 07/29/21 08/07/24 08/07/24 05:00 History diclofenac sodium 75 mg 75 mg PO DAILY 07/30/21 08/07/24 08/07/24 05:00 History tablet,delayed release hydrocodone 10 mg-acetaminophen 1 tablet PO TID PRN Back Pain 11/15/21 08/07/24 08/07/24 05:00 History 325 mg tablet ferrous sulfate 325 mg (65 mg 325 mg PO DAILY 07/31/24 08/07/24 08/07/24 05:00 History iron) tablet (iron) Allergies Allergy/AdvReac Type Severity Reaction Status Date / Time No Known Allergies Allergy Verified 02/21/25 11:44 Review of Systems 2 Review of Systems: As reviewed above in HPI [facility] Past Medical History Medical History Colon polyp Depression Chronic back pain Pacemaker Hyperlipidemia GERD (gastroesophageal reflux disease) Arthritis Myocardial infarct Chronic mental illness Surgical History Surgical History H/O knee surgery History of hip surgery H/O pelvic surgery History of back surgery H/O heart artery stent Family History Family History Father Malignant neoplasm of prostate Sibling Family history of malignant neoplasm of breast Mother Family history of malignant neoplasm of breast in first degree relative Family history of type 2 diabetes mellitus Social History Social History Social History: He is and has no children. He denies alcohol. He is unemployed. He continues to smoke daily. -code status full code Smoking packs per day: 2 Smoking cigarettes per day: 40.0 Years smoked: 40 Smoking pack-years: 80.00 Smoking status: Current every day smoker Tobacco type: cigarettes Additional smoking assessment comments: has smoked for 38 years 2PPD Alcohol intake: current Substance use: current Substance use type: marijuana Other substance usage details: SOCIALLY Last use: Daily Lack of Transportation: No Lack of Food: Never True Current Housing: I Have Housing Concerned About Future Housing: Decline to Answer Difficulty Paying Gas/Electric Bills: Decline to Answer Difficulty Paying for Meds: Decline to Answer Currently Unemployed: Decline to Answer Education: Decline to Answer Difficulty w/ Childcare or Family Care: Decline to Answer Living arrangements: with family Spiritual care concerns: No Exam 2 Narrative: GENERAL: [Well-appearing, well-nourished, and in no acute distress.] HEAD: [Normocephalic, atraumatic.] EYES: [PERRLA and EOMI.] ENT: Nares clear, no rhinorrhea or epistaxis. Mucous membranes moist. NECK: Supple. CHEST: [Clear to auscultation. No respiratory distress.] HEART: [Regular rate and rhythm]. No murmur heard. [Normal peripheral pulses.] ABDOMEN: [Soft, nondistended], [nontender], [No rigidity or guarding] EXTREMITIES: Normal range of motion. [No edema.] SKIN: Warm, dry, no rash. NEURO: [No focal deficits]. Alert and oriented [x3.] PSYCH: [Normal mood and affect.] Course Vital Signs Vital signs: Vital Signs Temperature 36.4 C 02/21/25 11:47 Pulse Rate 91 02/21/25 11:47 Respiratory Rate 20 02/21/25 11:47 Blood Pressure 122/79 02/21/25 11:47 Pulse Oximetry 97 02/21/25 11:47 Oxygen Delivery Room Air 02/21/25 11:47 Temperature 36.4 C 02/21/25 11:47 Pulse Rate 82 02/21/25 16:53 Respiratory Rate 18 02/21/25 16:53 Blood Pressure 117/78 02/21/25 16:53 Pulse Oximetry 98 02/21/25 16:53 Oxygen Delivery Room Air 02/21/25 11:47 MDM - Male Genitourinary MDM Narrative Medical decision making narrative: 54-year-old male presenting to the emergency room with flank pain on the right side for about 1 month. Similar to his previous kidney stone pain they had several months prior to that. No chest pain, shortness a breath, nausea, vomiting, abdominal pain, fever, chills. Denies any urinary complaints. Has not seen a urologist. Vital signs reassuring, no tachycardia, fever, hypoxia blood pressure concerns. Unremarkable examination. Suspicion presently is for nephrolithiasis, renal colic, musculoskeletal strain, low suspicion for intra- abdominal process such as appendicitis. Workup was ordered including CBC, CMP, urinalysis, CT scan without contrast. He was given Toradol for analgesia. Workup shows no leukocytosis or anemia. Normal platelet count. Electrolytes are unremarkable, normal renal function, normal glucose, normal LFTs. Urinalysis shows no signs of urinary infection. There is some hematuria microscopic. CT scan shows a proximal right ureteric stone at L3 level without any hydronephrosis. There is some atelectasis seen on the CT findings of the lungs but the patient has no respiratory complaints, no hypoxia or tachycardia. No signs of infection. Given patient's stable kidney stone he likely has colic from this and can be safely discharged home with Flomax, as needed pain medications and referral to urologist. Patient was comfortable with this plan and stable for discharge. He was given return precautions. Medical Records Attestation: I reviewed the patient's medical records. Lab Data Attestation: I reviewed the patient's lab results. 02/21/25 13:26 02/21/25 13:26 Labs: Lab Results 02/21/25 Range/Units 13:26 WBC 9.8 (4.5-10.0) K/mm3 RBC 4.94 (4.6-6.20) M/mm3 Hgb 15.6 (14.0-18.0) g/dL Hct 46.6 (42.0-52.0) % MCV 94.3 (80-100) fl MCH 31.6 (26-34) pg MCHC 33.5 (32-36) g/dl RDW 12.7 (11.5-14.5) % Plt Count 310 (150-375) k/mm3 MPV 9.5 (7.4-10.4) fl Immature Gran % (Auto) 0.2 (0-0.5) % Neut % (Auto) 66.1 (45.5-73.1) % Lymph % (Auto) 26.1 (18.3-44.2) % Mobile % (Auto) 5.7 (2.6-8.5) % Eos % (Auto) 1.5 (0-4.4) % Baso % (Auto) 0.4 (0.2-1.2) % Lymph # (Auto) 2.54 (0.9-3.2) K/mm3 Mobile # (Auto) 0.6 (0.1-0.6) K/mm3 Eos # (Auto) 0.2 (0-0.3) K/mm3 Baso # (Auto) 0.0 (0.0-0.1) K/mm3 Abs Immat Gran (auto) 0.02 (0.00-0.031) K/mm3 Absolute Neuts (auto) 6.4 (1.3-6.7) K/mm3 Absolute Nucleated RBC 0.000 (0.0-0.012) K/mm3 Nucleated RBC % 0.0 (0.0-0.2) % Sodium 142 (137-145) mmol/L Potassium 4.0 (3.4-5.0) mmol/L Chloride 105 (98-107) mmol/L Carbon Dioxide 27 (22-30) mmol/L Anion Gap 10 (4-12) mmol/L BUN 18 (9-20) mg/dL Creatinine 0.96 (0.7-1.3) mg/dL Estim Creat Clear Calc 87 ml/min Estimated GFR > 60 (59 - ) Glucose 79 (65-110) mg/dL Calcium 8.9 (8.4-10.2) mg/dL Total Bilirubin 0.3 (0.2-1.3) mg/dL AST 24 (17-59) U/L ALT 21 (6-50) U/L Alkaline Phosphatase 77 (38-126) U/L Total Protein 7.0 (6.3-8.2) g/dL Albumin 4.3 (3.5-5.1) g/dL Urine Color Yellow (Yellow) Urine Appearance Clear (Clear) Urine pH 5.5 (5.0-9.0) Ur Specific [place] 1.024 (1.001-1.035) Urine Protein Negative (Negative) mg/dL Urine Glucose (UA) Negative (Negative) mg/dL Urine Ketones Trace H (Negative) mg/dL Ur Blood (Man) 1+ H (Negative) Urine Nitrate Negative (Negative) Urine Bilirubin Negative (Negative) Urine Urobilinogen 1.0 (<2.0) mg/dL Leukocyte Esterase Rfl Negative (Negative) GAYLE/UL Urine RBC 21-50 H (0-2) /hpf Urine WBC 0-5 (0-3) /hpf Ur Squamous Epith Cells None seen (Few) /hpf Urine Bacteria None seen /hpf Urine Casts 0-2 Imaging Data Attestation: I personally reviewed and interpreted this imaging study as follows: My impression: Impressions Abdomen/Pelvis CT 02/21/25 14:14 IMPRESSION: 1. Proximal right ureteral stone at the L3 level without significant hydronephrosis. 2: Patchy bilateral lower lobe groundglass opacification, atelectasis versus pneumonia. Discharge Plan Discharge Clinical Impression: Right nephrolithiasis, Renal colic on right side Patient Disposition: Home, Self-Care Condition: Stable Instructions: Antibiotic Form, Kidney Stones (ED), How to Strain Your Urine (ED), Flank Pain (ED) Additional Instructions: You have a proximal right-sided kidney stone approximately 5 mm. Does not seem to have moved since your symptoms have been going on for several months. No signs of urinary obstruction, your laboratory studies are all reassuring. We will send you home with Flomax and as needed pain medications and refer you to our local urologist for evaluation. Call their office for close outpatient visit. Return to the ER with any new or worsening concerns at any time. Patient Language: Italian Prescriptions: New tamsulosin [Flomax] 0.4 mg capsule 0.4 mg PO DAILY Qty: 20 0RF oxycodone 5 mg tablet 5 mg PO Q8H PRN (Reason: pain) Qty: 10 0RF acetaminophen [Tylenol Extra Strength] 500 mg tablet 1,000 mg PO TID PRN (Reason: pain) Qty: 30 0RF No Action rosuvastatin 20 mg Tablet 20 mg PO DAILY pregabalin 150 mg Capsule 150 mg PO BID diclofenac sodium 75 mg tablet,delayed release (DR/EC) 75 mg PO DAILY hydrocodone-acetaminophen 10-325 mg tablet 1 tablet PO TID PRN (Reason: Back Pain) ferrous sulfate [iron] 325 mg (65 mg iron) Tablet 325 mg PO DAILY Eliquis DVT-PE Treat 30D Start 5 mg (74 tabs) tablets,dose pack 5 mg PO BID Qty: 60 2RF ondansetron 4 mg tablet,disintegrating 4 mg PO Q8H PRN (Reason: nausea and vomiting) Qty: 14 0RF oxycodone-acetaminophen [Percocet] 5-325 mg tablet 1 tablet PO Q6H PRN (Reason: pain) Qty: 10 0RF aspirin [Elba Chewable Aspirin] 81 mg tablet,chewable 81 mg PO DAILY cyclobenzaprine 10 mg tablet 10 mg PO BID PRN (Reason: Muscle Spasm) Follow-up/Referrals: Gloria Baez MD [Physician] - 1 Week (Right-sided 5 mm ureteric stone) Sachin Jefferson MD [Primary Care Provider] - Oliver Kwon MD [Physician] - 1 Week (Right-sided 5 mm ureteric stone) Time of Disposition: 17:03
--- OUTSIDE RECORDS SUMMARY | 2025-02-21 17:12 | XMS_ITS | Encounter Summary ---
Author Organization [facility] Address [address] [place] [address] Phone Care Team Providers Care Palletizer Operator Name Role Phone Sachin Jefferson Primary Care Provider [phone] Blas Levy MD Unavailable [phone] Kayden Louie PAC Unavailable [phone] Encounter Details Date Type Department Care Team (Late st Contact Info) Description 11/01/2024 Telephone [facility] [address] [place] [address] Blas Levy MD [address] [address] Social History Tobacco Use Types [...] Health Questionnaire-2 Score 0 11/01/2024 10:02 AM [employer] INTER[employer] Divine Conley LPN documented as of this encounter Miscellaneous Notes * Telephone Encounter - Amina Sanches - 11/01/2024 10:49 AM CST FYI: Patient came to the window after his 11/01/24 visit and told me to cancel his lab today and future appts and walked away with no reason/explanation. [employer] documented in this encounter Plan of Treatment Not on file documented as of this encounter Visit Diagnoses Not on filedocumented in this encounter Additional Health Concerns Assessment Noted Time PHQ-9 Depression Total Score: 19 08/20/ 021 10:44 AM CDT documented as of this encounter Care Teams Palletizer Operator Relationship Specialty Start Date End Date Sachin Jefferson [address] [place] [address] PCP - General Family Medicine 05/13/21 Blas Levy MD [address] [place] [phone] Consulting Physician Oncology 05/13/21 Kayden Louie PAC [address] [address] Physician Diesel Electrician Orthopaedic Surgery 01/30/25 documented as of this encounter
--- OUTSIDE RECORDS SUMMARY | 2025-02-21 17:12 | XMS_ITS | Clinical Summary ---
Author Organization [facility] Address [address] [place] [address] Care Team Providers Care Machinist/Machine Builder Name Role Phone Sachin Jefferson MD Primary Care Provider [phone] Source Comments [facility],non-owned Affiliates and Associated Physician Practices is amultiple site organization consisting of ambulatory clinics and hospital sitesin [place], [place] and [place]. This disclosure is being madepursuant to the Care Everywhere program and may not contain all information available regarding this patient. Last updated 18.[facility] Allergies No known active allergies Medications * [...] block 11/08/2017 Coronary artery disease invo lving [place] coronary artery of [place] heart without angina pectoris 11/08/2017 History of coronary artery stent placement 11/08 Presence of cardiac pacemaker 11/08/2017 Overview (08/19/2021): Overview: [place] [employer] Dual Pacemaker. Dx; SSS, AVB. DOI 06/02/2010. Declines remote monitoring. Office pacemaker checks Q6 mo. Presence of cardiac pacemaker 11/08/2017 Overview (09/03/2021): [place] [employer] Dual Pacemaker-[employer]. Dx; SSS, AVB. Gen [...] Comments Blood Pressure 107/84 01/24/2023 10:25 AM HYBRID POWERTRAIN DEVELOPMENT ENGINEER Pulse 96 01/24/2023 10:25 AM HYBRID POWERTRAIN DEVELOPMENT ENGINEER Temperature - - Respiratory Rate 16 09/11/2023 3:16 PM CDT Oxygen Saturation 96% 09/11/2023 3:16 PM CDT Inhaled Oxygen Concentration - - Weight 103.9 kg (229 lb) 12/20/2018 11:56 AM HYBRID POWERTRAIN DEVELOPMENT ENGINEER Height 185.4 cm (6' 1 ) 12/20/2018 11:56 AM HYBRID POWERTRAIN DEVELOPMENT ENGINEER Body Mass Index 30.21 12/20/2018 11:56 AM HYBRID POWERTRAIN DEVELOPMENT ENGINEER Plan of Treatment Health Maintenance Due Date [...] age to complete this topic Care Teams Machinist/Machine Builder Relationship Specialty Start Date End Date Sachin Jefferson MD PCP - General 12/20/18
--- OUTSIDE RECORDS SUMMARY | 2025-02-21 17:12 | XMS_ITS | Clinical Summary ---
Author Organization [facility] Address [address] [place] [address] Phone Care Team Providers Care Technical Illustrations Map Inker Name Role Phone Jefferson Sachin Primary Care Provider [phone] Blas Levy MD Unavailable [phone] Kayden Louie PAC Unavailable [phone] Allergies No known active allergies Medications rosuvastatin [...] Department Care Team Description 01/28/2025 10:15 AM AEROLOGIST [facility] [address] [place] [address] Kayden Louie, PAC Primary osteoarthritis of right knee (Primary Dx) Discharge Disposition: Discharged to home or Selfcare 01/28/2025 9:00 AM AEROLOGIST - 01/28/2025 11:59 PM AEROLOGIST [facility] [address] [place] [address] Kayden Louie PAC Discharge Disposition: Discharged to home or Selfcare 01/28/2025 Travel 01/20/2025 [facility] [address] [place] [address] Kayden Louie PAC Need Order 01/14/2025 [facility] [address] [place] [address] Kayden Louie PAC from Last 3 Months [...] Comments Blood Pressure 142/98 01/28/2025 10:06 AM AEROLOGIST Pulse 85 01/28/2025 10:06 AM AEROLOGIST Temperature 35.9 C (96.6 F) 01/28/2025 10:06 AM AEROLOGIST Respiratory Rate 18 11/01/2024 10:02 AM AEROLOGIST Oxygen Saturation 98% 01/28/2025 10:06 AM AEROLOGIST Inhaled Oxygen Concentration - - Weight 99.3 kg (219 lb) 01/28/2025 10:06 AM AEROLOGIST Height 185.4 cm (6' 1 ) 01/28/2025 10:06 AM AEROLOGIST Body Mass Index 28.89 01/28/2025 10:06 AM AEROLOGIST Plan of Treatment Health Maintenance Due Date [...] DRAIN/INJECT LARGE JOINT/BURSA Routine 01/28/2025 11:25 AM AEROLOGIST Primary osteoarthritis of right knee XR KNEE MINIMUM 4 VIEWS RIGHT Routine 01/28/2025 9:22 AM AEROLOGIST Right knee pain, unspecified chronicity from Last 3 Months Results * DRAIN/INJECT LARGE JOINT/BURSA (01/28/2025 11:25 AM AEROLOGIST) Narrative Kayden Louie PAC - 01/28/2025 11:25 AM AEROLOGIST Kayden Louie PAC 01/28/2025 11:25 AM Large [...] is no bleeding us Kayden L Liban [facility] OUTPT PROCEDURE ORDERABLE S Final Result * XR KNEE MINIMUM 4 VIEWS RIGHT (01/28/2025 9:22 AM AEROLOGIST) Anatomical Region Laterality Modality LOWER EXTREMITY, knee Right Digital Ra diography 01/28/2025 4:29 PM AEROLOGIST Impressions 01/28/2025 4:31 PM AEROLOGIST IMPRESSION: Severe lateral predominant right knee osteoarthritis with a small effusion. Narrative 01/28/2025 4:31 PM AEROLOGIST EXAM DESCRIPTION: XR KNEE MINIMUM 4 VIEWS [...] Maxim Lara M.D. MF: ADAN Report ID: [id number] Reading Location: [id number] Procedure Note Maxim Lara MD - 01/28/2025 [...] Maxim Lara M.D. MF: ADAN Report ID: [id number] Reading Location: [id number] IMPRESSION: Severe lateral predominant right knee osteoarthritis with a small effusion. Kayden Louie [facility] IMG DIAGNOSTIC ORDERABLES Final Result from Last 3 Months Insurance MEDICAID [place] MED[place] Care Teams Technical Illustrations Map Inker Relationship Specialty Start Date End Date Sachin Jefferson [address] [place] [address] PCP - General Family Medicine 05/13/21 Blas Levy MD [address] [place] [phone] Consulting Physician Oncology 05/13/21 Kayden Louie PAC [address] [address] Physician Forming Machine Upkeep Mechanic Helper Orthopaedic Surgery 01/30/25
--- OUTSIDE RECORDS SUMMARY | 2025-02-21 17:12 | XMS_ITS | Continuity of Care Document ---
Author Organization [facility] Address [address] [place] [address] [place] [address] Phone Care Team Providers Care Cash Application Representative Name Role Phone Sachin Jefferson MD Unavailable Unavailable Allergies, Adverse Reactions, Alerts Substance Reaction Status Criticality No Known Allergies Active No Inform ation Medications Medication Instructions Dosage Effective Dates (start - stop) Status Comments hydrocodone 10 mg-acetaminophen 325 mg tablet take 1 by Oral route 3 times every day as needed 1 - Active PRN for pain ,avoid driving or operate machines diclofenac sodium 75 mg tablet,delayed release take 1 tablet by oral route every day as needed 75 MG - Active PRN for pain Lyrica 150 mg capsule take 1 capsule by oral route 2 times every day 150 MG - Active avoid driving or operate machines Eliquis 5 mg tablet take 1 tablet [...] Providers Copied on Encounter OFFICE/OUTPA TIENT VISIT, [facility], [address] [place], [address], [place] tel:[phone] [facility] Medicine pain (chief complaint) bruising1 (chief complaint) Chronic pain syndromePain in right kneePersonal history of nicotine dependenceSpontaneo us ecchymoses Jan- 5 Ronny Stephenson. [address], [place], [place], [address] , [place]. tel:[phone] OFFICE/OUTPA TIENT VISIT, EST [facility], [address], [place], [place], [address], [place] [phone] [facility] pain (chief complaint) hematurai1 (chief complaint) knee pain1 (chief complaint) Asymptomatic microscopic hematuriaChronic pain syndromePersonal history of nicotine dependencePain in right knee 5 Jefferson Sachin. [address], [place], [place], [address] , [place]. tel:[phone] OFFICE/OUTPA TIENT VISIT, [facility], [address], [place], [place], [address], [place] [phone] [facility] PE (chief complaint) pain (chief complaint) hematuria1 (chief complaint) Asymptomatic microscopic hematuriaChronic pain syndromeAcute lung embolism 5 Ronny Stephenson. [address], [place], [place], [address] , [place]. [phone] OFFICE/OUTPA TIENT VISIT, [facility], [address], [place], [place], [address], [place] tel:[phone] [facility] kcl (chief complaint) hematuria1 (chief complaint) pancreatit is1 (chief complaint) pain (chief complaint) ED (chief complaint) HLP (chief complaint) Acute pancreatitis without necrosisAsymptomati c microscopic hematuriaChronic pain syndromeHyperkalemi aMixed hyperlipidemiaMale erectile dysfunction, unspecified 4 Jefferson Sachin. [address], [place], [place], [address] , [place]. tel:[phone] OFFICE/OUTPA TIENT VISIT, [facility], [address], [place], [place], [address], [place] tel:[phone] [facility] flank pain1 (chief complaint) hematuria1 (chief complaint) back pain1 (chief complaint) Asymptomatic microscopic hematuriaChronic pain syndromeAcute pancreatitis without necrosisKidney stoneInguinal hernia 4 Ronny Stephenson. [address], [place], [place], [address] , [place]. tel:[phone] OFFICE/OUTPA TIENT VISIT, [facility], [address], [place], [place], [address], [place] tel:[phone] [facility] pain (chief complaint) Chronic pain syndrome 4 Ronny Turner [address], [place], [place], [address] , [place]. tel:[phone] OFFICE/OUTPA TIENT VISIT, [facility], [address], [place], [place], [address], [place] tel:[phone] [facility] pain (chief complaint) colon (chief complaint) Chronic pain syndromeDiverticulo sis of large intestine w/o perforation w/o bleeding 4 Ronny Turner [address], [place], [place], [address] , [place]. tel:[phone] OFFICE/OUTPA TIENT VISIT, [facility], [address], [place], [place], [address], [place] tel:[phone] [facility] renal stone1 (chief complaint) pain (chief complaint) HLP (chief complaint) Chronic pain syndromeMixed hyperlipidemiaCalcu amanda of kidneyAsymptomatic microscopic hematuria 4 Ronny Turner [address], [place], [place], [address] , [place]. tel:[phone] OFFICE/OUTPA TIENT VISIT, [facility], [address], [place], [place], [address], [place] tel:[phone] [facility] pain (chief complaint) Chronic pain syndrome 4 Ronny Stephenson. [address], [place], [place], [address] , [place]. tel:[phone] OFFICE/OUTPA TIENT VISIT, [facility], [address], [place], [place], [address], [place] tel:[phone] [facility] back pain1 (chief complaint) blood (chief complaint) PE (chief complaint) Occult blood in stoolAcute lung embolismChronic pain syndrome 4 Ronny Stephenson. [address], [place], [place], [address] , [place]. tel:[phone] OFFICE/OUTPA TIENT VISIT, [facility], [address], [place], [place], [address], [place] tel:[phone] [facility] blood in stool1 (chief complaint) pain (chief complaint) Occult blood in stoolPolyp of colonLumbago with sciatica, left side March- 4 Ronny Stephenson. [address], [place], [place], [address] , [place]. tel:[phone] OFFICE/OUTPA TIENT VISIT, [facility], [address], [place], [place], [address], [place] tel:[phone] [facility] pain (chief complaint) right flank pain1 (chief complaint) Lumbago with sciatica, left sideAbdominal pain 4 Ronny Stephenson. [address], [place], [place], [address] , [place]. tel:[phone] OFFICE/OUTPA TIENT VISIT, [facility], [address], [place], [place], [address], [place] tel:[phone] [facility] PE (chief complaint) pain (chief complaint) polyp1 (chief complaint) Chronic pain syndromeAcute lung embolismPolyp of colon Jan- 4 Ronny Stephenson. [address], [place], [address] , [place]. tel:[phone] OFFICE/OUTPA TIENT VISIT, [facility], [address], [place], [place], [address], [place] tel:[phone] [facility] pain (chief complaint) tobacco1 (chief complaint) knee pain1 (chief complaint) Chronic pain syndromeTobacco usePain in right knee Fe 4 Jefferson Sachin. [address], [place], [place], [address] , [place]. tel:[phone] OFFICE/OUTPA TIENT VISIT, [facility], [address], [place], [place], [address], [place] tel:[phone] [facility] pain (chief complaint) PE (chief complaint) tobacco1 (chief complaint) Chronic pain syndromeAcute lung embolismTobacco use 4 Jefferson Sachin. [address], [place], [place], [address] , [place]. tel:[phone] OFFICE/OUTPA TIENT VISIT, [facility], [address], [place], [place], [address], [place] tel:[phone] [facility] pain (chief complaint) Chronic pain syndrome 3 Jefferson Sachin. [address], [place], [place], [address] , [place]. tel:[phone] OFFICE/OUTPA TIENT VISIT, [facility], [address], [place], [place], [address], [place] tel:[phone] [facility] pain (chief complaint) Chronic pain syndrome 3 Ronny Stephenson. [address], [place], [place], [address] , [place]. tel:[phone] OFFICE/OUTPA TIENT VISIT, [facility], [address], [place], [address], [place] tel:[phone] [facility] HLP (chief complaint) pain1 (chief complaint) Chronic pain syndromeMixed hyperlipidemia 3 Jefferson Sachin. [address], [place], [address] , [place]. tel:[phone] OFFICE/OUTPA TIENT VISIT, [facility], [address], [place], [place], [address], [place] tel:[phone] [facility] Medicine presyncope 1 (chief complaint) Syncope and collapseLeukocytosi sHypotension Jul- 3 Ronny Turner [address], [place], [place], [address] , [place]. tel:[phone] PREV VISIT, EST, AGE 40-64 [facility], [address], [place], [place], [address], [place] tel:[phone] [facility] physical (chief complaint) Encounter for general adult medical examination without abnormal findings Jul- 3 Ronny Stephenson. [address], [place], [place], [address] , [place]. tel:[phone] OFFICE/OUTPA TIENT VISIT, [facility], [address], [place], [place], [address], [place] tel:[phone] [facility] pain (chief complaint) syncope1 (chief complaint) ear1 (chief complaint) Chronic pain syndromeSyncope and collapseOtalgia, left ear 3 Ronny Turner [address], [place], [place], [address] , [place]. tel:[phone] OFFICE/OUTPA TIENT VISIT, EST [facility], [address], [place], [place], [address], [place] tel:[phone] [facility] pain (chief complaint) Chronic pain syndrome 3 Ronny Turner [address], [place], [place], [address] , [place]. tel:[phone] OFFICE/OUTPA TIENT VISIT, EST [facility], [address], [place], [place], [address], [place] tel:[phone] [facility] Medicine pain (chief complaint) anxiety1 (chief complaint) PE (chief complaint) allergy1 (chief complaint) Generalized Anxiety DisorderChronic pain syndromeAcute lung embolismAllergic rhinitis due to pollen 3 Ronny Stephenson. [address], [place], [address] , [place]. tel:[phone] OFFICE/OUTPA TIENT VISIT, [facility], [address], [place], [place], [address], [place] tel:[phone] [facility] pain (chief complaint) anxiety1 (chief complaint) Chronic pain syndromeGeneralized Anxiety Disorder 3 Ronny Stephenson. [address], [place], [place], [address] , [place]. tel:[phone] OFFICE/OUTPA TIENT VISIT, [facility], [address], [place], [place], [address], [place] tel:[phone] [facility] pain (chief complaint) GERD1 (chief complaint) colon polyp1 (chief complaint) GERD w/o esophagitisPolyp of colonChronic pain syndrome 3 Ronny Stephenson. [address], [place], [place], [address] , [place]. tel:[phone] OFFICE/OUTPA TIENT VISIT, [facility], [address], [place], [place], [address], [place] tel:[phone] [facility] PE (chief complaint) pneumonia1 (chief complaint) pain (chief complaint) ear1 (chief complaint) PneumoniaAcute lung embolismChronic pain syndromeOtitis media, unspecified, left ear 3 Ronny Stephenson. [address], [place], [place], [address] , [place]. tel:[phone] OFFICE/OUTPA TIENT VISIT, [facility], [address], [place], [place], [address], [place] tel:[phone] [facility] garrett (chief complaint) PE (chief complaint) pneumonia1 (chief complaint) Acute lung embolismPneumoniaCh ronic pain syndrome Feb 3 Ronny Stephenson. [address], [place], [place], [address] , [place]. tel:[phone] OFFICE/OUTPA TIENT VISIT, [facility], [address], [place], [place], [address], [place] tel:[phone] [facility] PE (chief complaint) Acute lung embolism 3 Ronny Stephenson. [address], [place], [address] , [place]. tel:[phone] OFFICE/OUTPA TIENT VISIT, [facility], [address], [place], [place], [address], [place] tel:[phone] [facility] pain (chief complaint) GERD1 (chief complaint) Chronic pain syndromeGERD w/o esophagitis 3 Ronny Stephenson. [address], [place], [place], [address] , [place]. [phone] OFFICE/OUTPA TIENT VISIT, [facility], [address], [place], [place], [address], [place] tel:[phone] [facility] COVID (chief complaint) Viral infection 3 Ronny Stephenson. [address], [place], [address] , [place]. tel:[phone] OFFICE/OUTPA TIENT VISIT, [facility], [address], [place], [place], [address], [place] tel:[phone] [facility] pain (chief complaint) GERD1 (chief complaint) ED (chief complaint) GERD w/o esophagitisMale erectile dysfunction, unspecifiedChronic pain syndrome 2 Ronny Stephenson. [address], [place], [place], [address] , [place]. [phone] OFFICE/OUTPA TIENT VISIT, [facility], [address], [place], [place], [address], [place] tel:[phone] [facility] GERD1 (chief complaint) pain (chief complaint) HLP (chief complaint) anxiety1 (chief complaint) Chronic pain syndromeEsophagitis Mixed hyperlipidemiaGener alized Anxiety DisorderLateral epicondylitis, left elbow Oct- 2 Ronny Stephenson. [address], [place], [place], [address] , [place]. tel:[phone] OFFICE/OUTPA TIENT VISIT, EST [facility], [address], [place], [place], [address], [place] tel:[phone] [facility] Medicine pain (chief complaint) GERD1 (chief complaint) elbow pain1 (chief complaint) Chronic pain syndromeEsophagitis Lateral epicondylitis, left elbow Sep- 2 Ronny Stephenson. [address], [place], [place], [address] , [place]. tel:[phone] OFFICE/OUTPA TIENT VISIT, EST [facility], [address], [place], [place], [address], [place] tel:[phone] [facility] Medicine pain (chief complaint) ganglion cyst1 (chief complaint) GERD1 (chief complaint) GERD w/o esophagitisChronic pain syndromeGanglion, left wristTobacco use 2 Ronny Stephenson. [address], [place], [place], [address] , [place]. tel:[phone] PREV VISIT, EST, AGE 40-64 [facility], [address], [place], [place], [address], [place] tel:[phone] [facility] Medicine physical (chief complaint) Encounter for general adult medical examination without abnormal findings Jul-0 2 Ronny Stephenson. [address], [place], [address] , [place]. tel:[phone] OFFICE/OUTPA TIENT VISIT, EST [facility], [address], [place], [address], [place] tel:[phone] [facility] Medicine ganglion cyst1 (chief complaint) pain (chief complaint) Ganglion, left wristChronic pain syndrome 2 Ronny Stephenson. [address], [place], [place], [address] , [place]. tel:[phone] OFFICE/OUTPA TIENT VISIT, [facility], [address], [place], [place], [address], [place] tel:[phone] [facility] pain (chief complaint) anxiety1 (chief complaint) Chronic pain syndromeGeneralized Anxiety Disorder 2 Ronny Stephenson. [address], [place], [place], [address] , [place]. tel:[phone] OFFICE/OUTPA TIENT VISIT, [facility], [address], [place], [place], [address], [place] tel:[phone] [facility] pain (chief complaint) HLP (chief complaint) Chronic pain syndromeHyperlipide js 2 Ronny Stephenson. [address], [place], [place], [address] , [place]. tel:[phone] OFFICE/OUTPA TIENT VISIT, [facility], [address], [place], [place], [address], [place] tel:[phone] [facility] pain (chief complaint) Chronic pain syndrome 2 Ronny Stephenson. [address], [place], [place], [address] , [place]. tel:[phone] OFFICE/OUTPA TIENT VISIT, [facility], [address], [place], [place], [address], [place] tel:[phone] [facility] pain (chief complaint) lung nodule1 (chief complaint) ED (chief complaint) Chronic pain syndromePain in right kneeMale erectile dysfunction, unspecifiedSolitary lung nodule 2 Ronny Stephenson. [address], [place], [place], [address] , [place]. tel:[phone] OFFICE/OUTPA TIENT VISIT, [facility], [address], [place], [place], [address], [place] tel:[phone] [facility] pain (chief complaint) tobacco1 (chief complaint) tobacco1 (chief complaint) Chronic pain syndromeTobacco use 2 Ronny Stephenson. [address], [place], [place], [address] , [place]. tel:[phone] OFFICE/OUTPA TIENT VISIT, [facility], [address], [place], [place], [address], [place] tel:[phone] [facility] pain (chief complaint) RLS (chief complaint) Chronic pain syndromeRestless legs syndrome 2 Jefferson Sachin. [address], [place], [place], [address] , [place]. tel:[phone] OFFICE/OUTPA TIENT VISIT, [facility], [address], [place], [place], [address], [place] tel:[phone] [facility] pain1 (chief complaint) Chronic pain syndromeOther spondylosis, lumbar region 2 Jefferson Sachin. [address], [place], [place], [address] , [place]. tel:[phone] OFFICE/OUTPA TIENT VISIT, [facility], [address], [place], [place], [address], [place] tel:[phone] [facility] pain (chief complaint) Chronic pain syndrome 1 Ronny Stephenson. [address], [place], [place], [address] , [place]. tel:[phone] OFFICE/OUTPA TIENT VISIT, [facility], [address], [place], [place], [address], [place] tel:[phone] [facility] pain (chief complaint) folate1 (chief complaint) Folate deficiencyChronic pain syndrome 1 Ronny Sachin. [address], [place], [place], [address] , [place]. tel:[phone] OFFICE/OUTPA TIENT VISIT, [facility], [address], [place], [place], [address], tel:[phone] [facility] pain (chief complaint) Chronic pain syndromePain in right knee 1 Ronny Turner [address], [place], [place], [address] , [place]. [phone] OFFICE/OUTPA TIENT VISIT, EST [facility], [address], [place], [place], [address], [place] tel:[phone] [facility] pain (chief complaint) HLP (chief complaint) M protein (chief complaint) Chronic pain syndromeMonoclonal gammopathyHyperlipi demiaPain in right knee Jul- 1 Ronny Turner [address], [place], [place], [address] , [place]. tel:[phone] PREV VISIT, EST, AGE 40-64 [facility], [address] [place], [address], [place] tel:[phone] [facility] physical (chief complaint) Encounter for general adult medical examination without abnormal findings 1 Ronny Turner [address], [place], [place], [address] , [place]. tel:[phone] OFFICE/OUTPA TIENT VISIT, [facility], [address] [place], [place], [address], [place] tel:[phone] [facility] pain (chief complaint) M protein1 (chief complaint) Chronic pain syndromeMonoclonal gammopathy 1 Ronny Turner [address], [place], [place], [address] , [place]. tel:[phone] OFFICE/OUTPA TIENT VISIT, [facility], [address] [place], [address], [place] tel:[phone] [facility] HLP (chief complaint) pain (chief complaint) glucose1 (chief complaint) M spike1 (chief complaint) Monoclonal gammopathyChronic pain syndromeHyperlipide miaTobacco useHyperglycemia Julio- 0-202 1 Ronny Stephenson. [address], [place], [place], [address] , [place]. tel:[phone] OFFICE/OUTPA TIENT VISIT, [facility], [address], [place], [place], [address], [place] tel:[phone] [facility] pain (chief complaint) globulin1 (chief complaint) HLP (chief complaint) BPH1 (chief complaint) Chronic pain syndromeTobacco useAbnormality of globulinBPH w/o lower urinary tract symptomHyperlipidem ia 1 Ronny Stephenson. [address], [place], [place], [address] , [place]. tel:[phone] OFFICE/OUTPA TIENT VISIT, [facility], [address], [place], [place], [address], [place] tel:[phone] [facility] pain (chief complaint) HLP (chief complaint) anxiety1 (chief complaint) tobacco1 (chief complaint) Chronic pain syndromeGeneralized Anxiety DisorderHyperlipide miaTobacco use 1 Ronny Stephenson. [address], [place], [place], [address] , [place]. tel:[phone] OFFICE/OUTPA TIENT VISIT, [facility], [address], [place], [place], [address], [place] tel:[phone] [facility] pain (chief complaint) Lumbago with sciatica, left sideNeuropathy 1 Ronny Stephenson. [address], [place], [place], [address] , [place]. tel:[phone] OFFICE/OUTPA TIENT VISIT, [facility], [address], [place], [place], [address], [place] tel:[phone] [facility] pain (chief complaint) Lumbago with sciatica, left side Fe 1 Ronny Stephenson. [address], [place], [place], [address] , [place]. tel:[phone] OFFICE/OUTPA TIENT VISIT, [facility], [address], [place], [place], [address], [place] tel:[phone] [facility] anxiety1 (chief complaint) pain (chief complaint) RLS (chief complaint) Chronic pain syndromeGeneralized Anxiety DisorderRestless legs syndrome 1 Ronny Stephenson. [address], [place], [place], [address] , [place]. tel:[phone] OFFICE/OUTPA TIENT VISIT, [facility], [address], [place], [address], [place] tel:[phone] [facility] pain (chief complaint) Chronic pain syndrome 0 Ronny Stephenson. [address], [place], [address] , [place]. tel:[phone] OFFICE/OUTPA TIENT VISIT, [facility], [address], [place], [address], [place] tel:[phone] [facility] pain (chief complaint) ED (chief complaint) Chronic pain syndromeMale erectile dysfunction, unspecified 0 Ronny Stephenson. [address], [place], [place], [address] , [place]. tel:[phone] OFFICE/OUTPA TIENT VISIT, [facility], [address], [place], [place], [address], [place] tel:[phone] [facility] folate1 (chief complaint) globulin1 (chief complaint) HLP (chief complaint) anxiety1 (chief complaint) Generalized Anxiety DisorderFolate deficiencyHyperlipi demiaAbnormality of globulinChronic pain syndrome 0 Ronny Stephenson. [address], [place], [address] , [place]. [phone] OFFICE/OUTPA TIENT VISIT, [facility], [address], [place], [place], [address], [place] tel:[phone] [facility] HLP (chief complaint) folate (chief complaint) Anxiety 1 (chief complaint) Chronic pain (chief complaint) HyperlipidemiaFolat e deficiencyChronic pain syndromeGeneralized Anxiety Disorder 0 Ronny Turner [address], [place], [address] , [place]. tel:[phone] OFFICE/OUTPA TIENT VISIT, [facility], [address], [place], [place], [address], [place] tel:[phone] [facility] pain (chief complaint) Chronic pain syndrome 0 Ronny Turner [address], [place], [place], [address] , [place]. tel:[phone] OFFICE/OUTPA TIENT VISIT, [facility], [address], [place], [place], [address], [place] tel:[phone] [facility] HLP (chief complaint) pain (chief complaint) HyperlipidemiaChron ic pain syndrome 0 Ronny Turner [address], [place], [place], [address] , [place]. tel:[phone] OFFICE/OUTPA TIENT VISIT, [facility], [address], [place], [place], [address], [place] tel:[phone] [facility] folate1 (chief complaint) HLP (chief complaint) a1c (chief complaint) pain (chief complaint) Folate deficiencyHyperlipi demiaHyperglycemiaC hronic pain syndromeFamily history of malignant neoplasm of prostate 0 Ronny Turner [address], [place], [address] , [place]. tel:[phone] PREV VISIT, EST, AGE 40-64 [facility], [address], [place], [place], [address], [place] tel:[phone] [facility] physical (chief complaint) Encntr for general adult medical exam w/o abnormal findings 0 Ronny Stephenson. [address], [place], [address] , [place]. tel:[phone] OFFICE/OUTPA TIENT VISIT, [facility], [address], [place], [place], [address], [place] tel:[phone] [facility] pain (chief complaint) anxiety1 (chief complaint) Chronic pain syndromeGeneralized Anxiety Disorder 0 Ronny Stephenson. [address], [place], [place], [address] , [place]. [phone] OFFICE/OUTPA TIENT VISIT, [facility], [address], [place], [place], [address], [place] tel:[phone] [facility] physical (chief complaint) Chronic pain syndrome 0 Ronny Stephenson. [address], [place], [place], [address] , [place]. tel:[phone] Referring Provider: Renetta Stokes [address] [place], [place], [address]. tel:[phone] OFFICE/OUTPA TIENT VISIT, [facility], [address], [place], [place], [address], [place] tel:[phone] [facility] pain (chief complaint) anxiety1 (chief complaint) ED (chief complaint) RLS (chief complaint) Generalized Anxiety DisorderMale erectile dysfunction, unspecifiedChronic pain syndromeRestless legs syndrome Fe 0 Ronny Stephenson. [address], [place], [place], [address] , [place]. tel:[phone] Referring Provider: Renetta Stokes [address], [place], [place], [address]. tel:[phone] OFFICE/OUTPA TIENT VISIT, [facility], [address], [place], [place], [address], [place] tel:[phone] [facility] pain1 (chief complaint) polyp1 (chief complaint) anxiety1 (chief complaint) Polyp of colonChronic pain syndromeGeneralized Anxiety DisorderPresence of cardiac pacemaker 0 Ronny Stephenson. [address], [place], [place], [address] , [place]. [phone] Referring Provider: Renetta Stokes [address], [place], [place], [address]. tel:[phone] OFFICE/OUTPA TIENT VISIT, [facility], [address], [place], [place], [address], [place] tel:[phone] [facility] chronic pain (chief complaint) polyp (chief complaint) Chronic pain syndromePolyp of colon 9 Ronny Stephenson. [address], [place], [address] , [place]. [phone] Referring Provider: Renetta Stokes [address], [place], [place], [address]. tel:[phone] OFFICE/OUTPA TIENT VISIT, [facility], [address], [place], [place], [address], [place] tel:[phone] [facility] chronic pain1 (chief complaint) Chronic pain syndrome 9 Ronny Stephenson. [address], [place], [place], [address] , [place]. [phone] Referring Provider: Renetta Stokes [address], [place], [place], [address]. tel:[phone] OFFICE/OUTPA TIENT VISIT, [facility], [address], [place], [place], [address], [place] tel:[phone] [facility] chronic pain1 (chief complaint) ED (chief complaint) Chronic pain syndromeMale erectile dysfunction, unspecified 9 Ronny Stephenson. [address], [place], [address] , [place]. [phone] Referring Provider: Renetta Stokes [address], [place], [address]. tel:[phone] OFFICE/OUTPA TIENT VISIT, [facility], [address], [place], [place], [address], [place] tel:[phone] [facility] pain1 (chief complaint) Chronic pain syndrome Sep- 9 Ronny Turner [address], [place], [place], [address] , [place]. tel:[phone] OFFICE/OUTPA TIENT VISIT, [facility], [address], [place], [address], [place] tel:[phone] [facility] chronic pain (chief complaint) PAD (chief complaint) screening1 (chief complaint) Chronic pain syndromePeripheral vascular disease, unspecifiedEncounte r for screening for malignant neoplasm of prostateEncounter for screening for malignant neoplasm of colon 9 Ronny Turner [address], [place], [address] , [place]. tel:[phone] OFFICE/OUTPA TIENT VISIT, [facility], [address], [place], [address], [place] tel:[phone] [facility] chronic pain1 (chief complaint) PAD (chief complaint) nevus1 (chief complaint) anxiety1 (chief complaint) Nevus, non-neoplasticPerip heral vascular disease, unspecifiedChronic pain syndromeGeneralized Anxiety Disorder 9 Ronny Turner [address], [place], [address] , [place]. tel:[phone] Referring Provider: Ren[address], [place], [address]. tel:[phone] OFFICE/OUTPA TIENT VISIT, [facility], [address], [place], [place], [address], [place] tel:[phone] [facility] chronic pain (chief complaint) tobacco (chief complaint) Peripheral vascular disease, unspecifiedChronic pain syndrome 9 Ronny Turner [address], [place], [address] , [place]. [phone] OFFICE/OUTPA TIENT VISIT, EST [facility], [address], [place], [place], [address], [place] [phone] [facility] leg pain1 (chief complaint) chronic pain1 (chief complaint) tobacco1 (chief complaint) Lumbago with sciatica, left sidePeripheral vascular disease, unspecifiedTobacco use Julio-0 9 Ronny Stephenson. [address], [place], [place], [address] , [place]. tel:[phone] Referring Provider: Renetta Stokes [address], [place], [place], [address]. tel:[phone] OFFICE/OUTPA TIENT VISIT, [facility], [address], [place], [place], [address], [place] [phone] [facility] back pain1 (chief complaint) ed (chief complaint) chronic pain1 (chief complaint) Chronic pain syndromeMale erectile dysfunction, unspecifiedTobacco useSpinal stenosis, lumbar region with neurogenic claudication March-0 9 Ronny Turner [address], [place], [address] , [place]. tel:[phone] OFFICE/OUTPA TIENT VISIT, [facility], [address], [place], [place], [address], [place] tel:[phone] [facility] glucose1 (chief complaint) folate (chief complaint) chronic pain1 (chief complaint) HyperglycemiaFolate deficiencyHyperlipi demiaChronic pain syndrome Feb-0 9 Ronny Turner [address], [place], [place], [address] , [place]. [phone] Referring Provider: Renetta Stokes [address], [place], [address]. tel:[phone] PREV VISIT, EST, AGE 40-64 [facility], [address], [place], [place], [address], [place] tel:[phone] [facility] Physical (chief complaint) Encounter for general adult medical exam w abnormal findingsRestless legs syndromeChronic pain syndromeCoronary artery disease of algaaciq coronary artery without angina pectorisHyperlipide js 9 Ronny Stephenson. [address], [place], [place], [address] , [place]. [phone] OFFICE/OUTPA TIENT VISIT, [facility], [address], [place], [place], [address], [place] tel:[phone] [facility] chronic pain1 (chief complaint) restless (chief complaint) Chronic pain syndromeRestless legs syndrome 9 Ronny Stephenson. [address], [place], [place], [address] , [place]. [phone] OFFICE/OUTPA TIENT VISIT, [facility], [address], [place], [place], [address], [place] tel:[phone] [facility] chronic pain1 (chief complaint) Chronic pain syndrome 9 Ronny Stephenson. [address], [place], [place], [address] , [place]. [phone] OFFICE/OUTPA TIENT VISIT, [facility], [address], [place], [place], [address], [place] tel:[phone] [facility] chronic pain (chief complaint) knee pain1 (chief complaint) ED (chief complaint) Chronic pain syndromePain in right kneeMale erectile dysfunction, unspecified 8 Ronny Stephenson. [address], [place], [place], [address] , [place]. [phone] Referring Provider: Sachin Jefferson, [address], [place], [place], [address]. tel:[phone] OFFICE/OUTPA TIENT VISIT, [facility], [address], [place], [place], [address], [place] tel:[phone] [facility] chronic pain (chief complaint) thumb1 (chief complaint) Chronic pain syndromeParesthesia of skin 8 Ronny Stephenson. [address], [place], [place], [address] , [place]. tel:[phone] Referring Provider: Renetta Stokes [address], [place], [place], [address]. tel:[phone] OFFICE/OUTPA TIENT VISIT, [facility], [address], [place], [place], [address], [place] tel:[phone] [facility] chronic pain1 (chief complaint) thumb numbness1 (chief complaint) Chronic pain syndromeParesthesia of skin 8 Ronny Stephenson. [address], [place], [address] , [place]. [phone] Referring Provider: Renetta Stokes [address], [place], [place], [address]. tel:[phone] OFFICE/OUTPA TIENT VISIT, [facility], [address], [place], [place], [address], [place] tel:[phone] [facility] RLS (chief complaint) chronic pain (chief complaint) Chronic pain syndromeRestless legs syndrome 8 Ronny Stephenson. [address], [place], [address] , [place]. [phone] Referring Provider: Renetta Stokes [address], [place], [place], [address]. tel:[phone] OFFICE/OUTPA TIENT VISIT, [facility], [address], [place], [place], [address], [place] tel:[phone] [facility] chronic pain (chief complaint) tobacco1 (chief complaint) Chronic pain syndromeTobacco use 8 Ronny Stephenson. [address], [place], [address] , [place]. [phone] Referring Provider: Sachin Jefferson, [address], [place], [place], [address]. tel:[phone] OFFICE/OUTPA TIENT VISIT, [facility], [address], [place], [address], [place] tel:[phone] [facility] chronic pain (chief complaint) ED1 (chief complaint) anxiety1 (chief complaint) tobacco1 (chief complaint) Chronic pain syndromeMale erectile dysfunction, unspecifiedGenerali zed Anxiety DisorderTobacco useFamily history of malignant neoplasm of prostate 8 Ronny Stephenson. [address], [place], [place], [address] , [place]. tel:[phone] Referring Provider: Sachin Jefferson [address], [place], [place], [address]. tel:[phone] OFFICE/OUTPA TIENT VISIT, [facility], [address], [place], [place], [address], [place] tel:[phone] [facility] HLP (chief complaint) leukocytos is1 (chief complaint) chronic pain (chief complaint) HyperlipidemiaLeuko cytosisChronic pain syndromePain in right knee 8 Ronny Turner [address], [place], [place], [address] , [place]. tel:[phone] Referring Provider: Renetta [address], [place], [place], [address]. tel:[phone] OFFICE/OUTPA TIENT VISIT, [facility], [address], [place], [place], [address], [place] tel:[phone] [facility] chronic pain1 (chief complaint) wbc1 (chief complaint) HLP (chief complaint) Body mass index (BMI) 29.0-29.9, adultChronic pain syndromeLeukocytosi sHyperlipidemia 8 Ronny Turner [address], [place], [place], [address] , [place]. tel:[phone] Referring Provider: Renetta Stokes [address], [place], [place], [address]. tel:[phone] OFFICE/OUTPA TIENT VISIT, EST [facility], [address], [place], [place], [address], [place] tel:[phone] [facility] chronic pain1 (chief complaint) knee pain1 (chief complaint) Chronic pain syndromePain in right knee Feb- 8 Ronny Stephenson. [address], [place], [place], [address] , [place]. tel:[phone] Referring Provider: Renetta Stokes [address], [place], [place], [address]. tel:[phone] OFFICE/OUTPA TIENT VISIT, [facility], [address], [place], [place], [address], [place] tel:[phone] [facility] chronic pain (chief complaint) knee pain1 (chief complaint) Pain in right kneeChronic pain syndrome 8 Ronny Stephenson. [address], [place], [place], [address] , [place]. tel:[phone] Referring Provider: Renetta [address], [place], [place], [address]. tel:[phone] PREV VISIT, EST, AGE 40-64 [facility], [address], [place], [place], [address], [place] tel:[phone] [facility] physical (chief complaint) Encounter for general adult medical exam w abnormal findingsCoronary artery disease of algaaciq coronary artery without angina pectorisPain in right kneeRestless legs syndrome 8 Ronny Stephenson. [address], [place], [place], [address] , [place]. tel:[phone] Referring Provider: Renetta Stokes [address], [place], [place], [address]. tel:[phone] OFFICE/OUTPA TIENT VISIT, [facility], [address], [place], [place], [address], [place] tel:[phone] [facility] sick (chief complaint) Acute pharyngitis, unspecifiedAcute upper respiratory infection, unspecified 8 Ronny Turner [address], [place], [place], [address] , [place]. tel:[phone] OFFICE/OUTPA TIENT VISIT, [facility], [address], [place], [place], [address], [place] tel:[phone] [facility] ED (chief complaint) HLP (chief complaint) chrnoic pain1 (chief complaint) knee pani1 (chief complaint) Coronary artery disease of algaaciq coronary artery without angina pectorisChronic pain syndromePain in right kneeMale erectile dysfunction, unspecified 8 Ronny Jackson [address], [place], [place], [address] , [place]. tel:[phone] Referring Provider: Renetta Stokes [address], [place], [address]. tel:[phone] OFFICE/OUTPA TIENT VISIT, [facility], [address], [place], [place], [address], [place] tel:[phone] [facility] CAD (chief complaint) back pain1 (chief complaint) Coronary artery disease of algaaciq coronary artery without angina pectorisChronic pain syndrome 7 Ronny Jackson [address], [place], [address] , [place]. tel:[phone] Referring Provider: Renetta Stokes [address], [place], [place], [address]. tel:[phone] OFFICE/OUTPA TIENT VISIT, [facility], [address], [place], [address], [place] tel:[phone] [facility] restless leg1 (chief complaint) chronic pain1 (chief complaint) insomnia1 (chief complaint) knee pain1 (chief complaint) Periodic limb movement disorderInsomniaChr onic pain syndromePain in right knee 7 Jefferson Sachin. [address], [place], [place], [address] , [place]. tel:[phone] Referring Provider: Renetta Stokes [address], [place], [place], [address]. tel:[phone] OFFICE/OUTPA TIENT VISIT, [facility], [address], [place], [place], [address], [place] tel:[phone] [facility] insomnia1 (chief complaint) chronic pain (chief complaint) depression 1 (chief complaint) Periodic limb movement disorderGeneralized Anxiety DisorderChronic pain syndromeInsomnia Aug- 7 Ronny Stephenson. [address], [place], [place], [address] , [place]. tel:[phone] OFFICE/OUTPA TIENT VISIT, [facility], [address], [place], [place], [address], [place] tel:[phone] [facility] chornic pain (chief complaint) Chronic pain syndrome Jul- 7 Ronny Stephenson. [address], [place], [place], [address] , [place]. tel:[phone] Referring Provider: Renetta [address], [place], [place], [address]. tel:[phone] OFFICE/OUTPA TIENT VISIT, [facility], [address], [place], [place], [address], [place] tel:[phone] [facility] HLP (chief complaint) wbc (chief complaint) ED (chief complaint) chronic pain (chief complaint) HyperlipidemiaMale erectile dysfunction, unspecifiedChronic pain syndromeLeukocytosi s 7 Ronny Stephenson. [address], [place], [place], [address] , [place]. tel:[phone] Referring Provider: Renetta Stokes [address], [place], [place], [address]. tel:[phone] OFFICE/OUTPA TIENT VISIT, [facility], [address], [place], [place], [address], [place] tel:[phone] [facility] limb (chief complaint) chronic pain1 (chief complaint) HLP (chief complaint) anxiety1 (chief complaint) Periodic limb movement disorderHyperlipide miaChronic pain syndromeGeneralized Anxiety Disorder 7 Ronny Stephenson. [address], [place], [place], [address] , [place]. [phone] Referring Provider: Sachin Jefferson, [address], [place], [place], [address]. tel:[phone] OFFICE/OUTPA TIENT VISIT, [facility], [address], [place], [place], [address], [place] tel:[phone] [facility] back pain1 (chief complaint) eD1 (chief complaint) HLP (chief complaint) insomani1 (chief complaint) HyperlipidemiaMale erectile dysfunction, unspecifiedSleep apneaChronic pain syndrome 7 Ronny Stephenson. [address], [place], [place], [address] , [place]. tel:[phone] Referring Provider: Renetta Stokes [address], [place], [place], [address]. tel:[phone] OFFICE/OUTPA TIENT VISIT, [facility], [address], [place], [place], [address], [place] [phone] [facility] HLP (chief complaint) back pain1 (chief complaint) ED (chief complaint) Mixed hyperlipidemiaChron ic pain syndromeMale erectile dysfunction, unspecified 7 Ronny Stephenson. [address], [place], [place], [address] , [place]. [phone] Referring Provider: Renetta Stokes [address], [place], [place], [address]. tel:[phone] OFFICE/OUTPA TIENT VISIT, [facility], [address], [place], [place], [address], [place] tel:[phone] [facility] chronic pain (chief complaint) ED1 (chief complaint) blood in stool (chief complaint) HLP (chief complaint) Male erectile dysfunction, unspecifiedChronic pain syndromeMixed hyperlipidemiaCoron anh artery disease of algaaciq coronary artery without angina pectoris 7 Ronny Stephenson. [address], [place], [place], [address] , [place]. [phone] Referring Provider: Renetta Stokes [address], [place], [place], [address]. tel:[phone] OFFICE/OUTPA TIENT VISIT, [facility], [address], [place], [place], [address], [place] tel:[phone] [facility] chronic pain1 (chief complaint) ED1 (chief complaint) ear pain1 (chief complaint) Actinic keratosisChronic pain syndromeMale erectile dysfunction, unspecifiedSick sinus syndrome 0 7 Ronny Turner [address], [place], [place], [address] , [place]. tel:[phone] Referring Provider: Renetta Stokes [address], [place], [place], [address]. tel:[phone] OFFICE/OUTPA TIENT VISIT, [facility], [address], [place], [place], [address], [place] tel:[phone] [facility] HLP (chief complaint) chronic pain1 (chief complaint) ED1 (chief complaint) tobacco1 (chief complaint) Coronary artery disease of algaaciq coronary artery without angina pectorisChronic pain syndromeHyperlipide miaTobacco use 7 Ronny Turner [address], [place], [place], [address] , [place]. [phone] Referring Provider: [address], [place], [place], [address]. tel:[phone] PREV VISIT, EST, AGE 40-64 [facility], [address], [place], [address], [place] tel:[phone] [facility] Physical (chief complaint) Encounter for general adult medical exam w abnormal findingsHyperlipide miaChronic pain syndromeCoronary artery disease of algaaciq coronary artery without angina pectoris 7 Ronny Stephenson. [address], [place], [address] , [place]. [phone] Referring Provider: Renetta Stokes [address], [place], [place], [address]. tel:[phone] OFFICE/OUTPA TIENT VISIT, [facility], [address], [place], [address], [place] [phone] [facility] chronic pain (chief complaint) Chronic pain syndrome 7 Ronny Turner [address], [place], [place], [address] , [place]. [phone] Referring Provider: [address], [place], [place], [address]. tel:[phone] OFFICE/OUTPA TIENT VISIT, [facility], [address], [place], [place], [address], [place] tel:[phone] [facility] chronic pain (chief complaint) HLP (chief complaint) tobacco (chief complaint) anxiety1 (chief complaint) Mixed hyperlipidemiaChron ic pain syndromeTobacco useGeneralized Anxiety Disorder 6 Ronny Turner [address], [place], [address] , [place]. [phone] Referring Provider: Renetta Stokes [address], [place], [place], [address]. tel:[phone] OFFICE/OUTPA TIENT VISIT, [facility], [address], [place], [place], [address], [place] tel:[phone] [facility] chronic pain1 (chief complaint) HLP (chief complaint) HyperlipidemiaChron ic pain syndrome 6 Ronny Stephenson. [address], [place], [place], [address] , [place]. tel:[phone] Referring Provider: Sachin Jefferson, [address], [place], [place], [address]. tel:[phone] OFFICE/OUTPA TIENT VISIT, [facility], [address], [place], [place], [address], [place] tel:[phone] [facility] chronic pain (chief complaint) anxiety1 (chief complaint) Chronic pain syndromeDepression Aug-2 0-201 6 Ronny Stephenson. [address], [place], [place], [address] , [place]. tel:[phone] Referring Provider: Renetta Stokes [address], [place], [place], [address]. tel:[phone] OFFICE/OUTPA TIENT VISIT, [facility], [address], [place], [place], [address], [place] tel:[phone] [facility] chronic pain (chief complaint) HLP (chief complaint) marijauna (chief complaint) HyperlipidemiaCanna bis abuse, uncomplicatedChroni c pain syndrome Sep-2 2-201 6 Ronny Stephenson. [address], [place], [place], [address] , [place]. tel:[phone] Referring Provider: Renetta Stokes [address], [place], [place], [address]. tel:[phone] OFFICE/OUTPA TIENT VISIT, [facility], [address], [place], [place], [address], [place] tel:[phone] [facility] chronic pain (chief complaint) anxiety1 (chief complaint) Chronic pain syndromeDepression Jun-2 4201 6 Ronny Stephenson. [address], [place], [address] , [place]. tel:[phone] Referring Provider: Sachin Jefferson, [address], [place], [place], [address]. tel:[phone] OFFICE/OUTPA TIENT VISIT, [facility], [address], [place], [place], [address], [place] tel:[phone] [facility] chronic pain (chief complaint) depression 1 (chief complaint) DepressionChronic pain syndromeCannabis abuse, uncomplicated 6 Ronny Stephenson. [address], [place], [address] , [place]. tel:[phone] Referring Provider: Renetta Stokes [address], [place], [place], [address]. tel:[phone] OFFICE/OUTPA TIENT VISIT, [facility], [address], [place], [place], [address], [place] tel:[phone] [facility] chronic pain (chief complaint) HLP (chief complaint) depression (chief complaint) depression 1 (chief complaint) HyperlipidemiaChron ic pain syndromeDepression 6 Ronny Turner [address], [place], [address] , [place]. tel:[phone] Referring Provider: [address], [place], [place], [address]. tel:[phone] OFFICE/OUTPA TIENT VISIT, [facility], [address], [place], [place], [address], [place] tel:[phone] [facility] chronic pain1 (chief complaint) CervicalgiaChronic pain syndrome 6 Ronny Turner [address], [place], [address] , [place]. tel:[phone] Referring Provider: [address], [place], [place], [address]. tel:[phone] OFFICE/OUTPA TIENT VISIT, [facility], [address], [place], [place], [address], [place] tel:[phone] [facility] chronic pain (chief complaint) HLP (chief complaint) Chronic pain syndromeHyperlipide js 6 Ronny Turner [address], [place], [place], [address] , [place]. tel:[phone] Referring Provider: Renetta Stokes [address], [place], [place], [address]. tel:[phone] OFFICE/OUTPA TIENT VISIT, [facility], [address], [place], [place], [address], [place] tel:[phone] [facility] neck pain1 (chief complaint) HLP (chief complaint) back pain1 (chief complaint) Mixed hyperlipidemiaCervi calgiaLumbago with sciatica, left side Jan-2 6 Ronny Stephenson. [address], [place], [place], [address] , [place]. tel:[phone] Referring Provider: Renetta Stokes [address], [place], [place], [address]. tel:[phone] OFFICE/OUTPA TIENT VISIT, [facility], [address], [place], [address], [place] tel:[phone] [facility] chronic pain (chief complaint) HLP (chief complaint) Chronic pain syndromeMixed hyperlipidemia Jan-0 6 Ronny Stephenson. [address], [place], [address] , [place]. [phone] Referring Provider: Renetta Stokes [address], [place], [place], [address]. tel:[phone] OFFICE/OUTPA TIENT VISIT, [facility], [address], [place], [address], [place] tel:[phone] [facility] chronic pain (chief complaint) HLP1 (chief complaint) low D (chief complaint) CAD1 (chief complaint) Mixed hyperlipidemiaChron ic pain syndromeVitamin D deficiency, unspecifiedCoronary artery disease of algaaciq coronary artery without angina pectoris 0 6 Ronny Stephenson. [address], [address], [place], [place], [id number] , [place]. [phone] Referring Provider: Renetta Stokes [address], [place], [place], [id number]. tel:[phone] PREV VISIT, NEW, AGE 40-64 [facility], [address], [place], [place], [id number], [place] tel:[phone] [facility] Physical1 (chief complaint) Encntr for general adult medical exam w/o abnormal findings 6 Ronny Stephenson. [address], [address], [place], [place], [address] , [place]. tel:[phone] Referring Provider: Sachin Jefferson, [address], [place], [place], [address]. tel:[phone] Family History Family Member Type Diagnosis Age At Onset Mother Problem (finding) Cancer, breast Sister Problem (finding) Cancer, breast Father Problem (finding) Cancer, prostate Mother Problem (finding) Diabetes mellitus type 2 Payers Payer name Insurance type Covered republican ID Yary alcala(s) [facility] [id number] Social History Type Description Quantity Date Captured [...] Jose Goff S Harlan Butcher [facility]
[place] [address] [place], [place], [id number] Ordered: Referrals: Jose Arreola MD. Evaluate and treat ordered Referral Ordered: UPPER GI ENDOSCOPY, BIOPSY ordered Referral Referred To: Xiao Webb MD [facility]
[address] [place], [place], [id number] Ordered: Referrals: Xiao Webb MD. Evaluate and [...] non-neoplastic) ordered Referral Referred To: Jed Kennedy [address] [place], [place] [id number] Ordered: Referrals: Allopathic & Osteopathic Physicians : Surgery. Jed Kennedy. Evaluate and treat ordered Referral Ordered: Physical Therapy (related to Lumbago with sciatica, left side) ordered Referral Ordered: Willam Godfrey -Allopathic & Osteopathic Physicians : Internal Medicine : Cardiovascular Disease (related to Peripheral vascular disease, unspecified) ordered Referral Referred To: Willam Godfrey [address] [place], [place] [id number] Ordered: Referrals: Allopathic & Osteopathic Physicians : Internal Medicine : Cardiovascular Disease. Willam Godfrey. Evaluate and treat ordered Referral Referred To: Physical Therapy Ordered: Referrals: Physical Therapy. Evaluate and treat ordered Referral Ordered: US ARTERIAL DOPPLER ordered Referral Ordered: Dontrell Fowler -Allopathic & Osteopathic Physicians : Orthopaedic Surgery (related to Pain in right knee) ordered Referral Referred To: Dontrell Fowler [address] [place] [phone] Ordered: Referrals: Allopathic & Osteopathic Physicians : Orthopaedic Surgery. Dontrell Fowler. Evaluate and treat ordered Referral Ordered: CHEST X-RAY PA/LAT TWO-VIEWS ordered Referral Ordered: Dontrell Fowler (related to Pain in right knee) ordered Referral Referred To: Dontrell Fowler [address] [place] [phone] Ordered: Referrals: Dontrell Fowler. Evaluate and treat ordered Referral Ordered: XIAO CHAU (related to Coronary artery disease of algaaciq coronary artery without angina pectoris) ordered Referral Referred To: XIAO CHAU [id number] [facility] [address], [place], [phone] Ordered: Referrals: XIAO CHAU. Evaluate and treat ordered Referral Ordered: KNEE XRAY, 3 VIEW Right ordered Referral Ordered: Mayo Allison (related to Pain in right knee) ordered Referral Referred To: Mayo Allison 4 [facility] [address] [place], [place] [id number] Ordered: Referrals: Mayo Allison. Evaluate and treat ordered Referral Ordered: SLEEP STUDY, ATTENDED ordered Referral Ordered: Jed Kennedy (related to Actinic keratosis) ordered Referral Referred To: Jed Kennedy [address] [place], [phone] Ordered: Referrals: Jed Kennedy. Evaluate and treat [...] paresthesia. HLP Pt has HLP Pt ta vazquez crestor and his lipid profile is ok [...] jyotsna es sildenafil PRn and doing ok. flank pain1 Pt c/o acute rig ht [...] Pt does have persistent right flank pain hematuria1 Pt has asymptoma tic hematuria. Pt denies any urinary symptoms back pain1 Pt has chronic n tirso [...] needs refilled. pain Pt has chronic n tisro and back and knee pain. Pt denies [...] He restarted diclofenac which is helping somewhat back pain1 Pt has chronic n tirso [...] does have colonoscopy scheduled in 2 months PE Pt has history o f PE and he was seen by hematology and was told that he needs eliquis indefinitely Pt needs eliquis refilled. Pt denies any chest pain or sob blood in stool1 Pt c/o intermitt ent [...] so much pain Pt has chronic n tiros and back and knee pain. Pt denies [...] o f PE and DVT and his image archivist told him that he need to be [...] for one week Pt denies any injury tobacco1 Pt has 40 pack y ear tobacco Pt denies any hemoptysis, sob or cough Pt had normal LDCT knee pain1 Pt has chronic b ilateral knee pain P has arthritis Pt is seeing ortho and he had injection last year which did help until recently Pt denies any knee swelling, redness or warmth pain Pt has chronic [...] norco refill pain Pt has chronic n triso and back and knee pain. Pt denies [...] are improving with lyrica 150 mg BID HLP Pt has HLP Pt ta vazquez schmid. Pt denies any myalgia. His lipid profile is ok glucose1 Pt has borderlin e high glucose Pt denies any polyuria ,polydipsia M spike Pt has history o f low total protein and low globulin, which resolved now but SPEP showed poorly defined band possible M spike on SPEP. globulin Pt has low total protein and [...] prostate CA Pt denies any urinary symptoms. pain Pt has chronic n tirso and [...] cover for lyrica. Pt denies any injury HLP Pt has HLP, Pt t eloisa schmid Pt denies any myalgia anxiety1 Pt has chronic [...] more green vegetables. 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 Patient denies any [...] ok with requip Pt has normal iron pain1 Pt has chronic n tirso and back pain due to DDD Pt denies any worsening pain. PT failed NSAID and ultram Pt takes norco PRN for pain and doing ok. Pt has mild sciatica and let numbness. Pt denies any worsening symptoms. Pt takes norco PRn for pain and doing ok anxiety1 Pt has chronic a nxiety [...] to the bone and he feels stressed. polyp1 Pt has colon odessa yp Pt [...] Pt denies any chest pain or sob glucose1 Pt has mildly hi gh glucose Pt denies any polyuria, polydipsia. pt does drinks soda and eat junk food folate Pt has low folat e. Pt does not eat a lot of green vegetable chronic pain1 Pt has chronic n tirso and back pain pt has mild sciatica pt has mild leg numbness Pt denies any loss of bladder c control pt denies any worsening symptoms Physical PT needs annual physical. pt has [...] bladder control. Pt failed NSAID and ultram chronic pain Pt has chronic n tirso and back pain due to DDD. pt denies any worsening pain. Pt denies any loss of bladder control. Pt denies any numbness and he is off neurontin. knee pain1 Pt has chronic r ight knee pain. pt told me he never heard from [facility] ortho. Pt states that he feels that his right knee hurts worse with activity. Pt denies any swelling. pt denies any redness or warmth ED Pt has ED pt jyotsna es viagra. pt doing ok. Pt denies any chest pain with viagra. chronic pain Pt has chronic n tirso [...] Pt denies any injury or knee swelling chronic pain Pt has chronic n tirso and back pain Pt denies any worsening pain. pt denies any loss of bladder control. Pt takes norco and flexeril PRn and doing ok knee pain1 Pt has not heard from [facility] about his knee pain. Pt denies any swelling or any redness. physical Pt needs annual physical pt has [...] any dysphagia. ED Pt has ED. Pt cavlin s been taking viagra PRN which working [...] NSAID. Pt failed pain managment and PT limb Pt has insomnia and also extensive [...] myalgia. Pt is on low fat diet anxiety1 Pt has chronic a nxiety and depression Pt is seeing pschiatrist pt is on zoloft now. Pt is off effexor. Pt denies any suicial or homicidal thought back pain1 Pt has chronic l ow [...] romario iraheta could not afford viagra from [employer], which cost more than $500 for 9 pills. HLP Pt has been taki ng zocor 40 mg but his cholesterol is still high. Pt denies any myalgia. Pt is on low fat and low carb diet chronic pain Pt has chronic n tirso [...] denies any abd pain or recurrent blood. HLP Pt has mild HLP. Pt has pace maker. Pt denies any chest pain. He has CAD .He does not use nitrate. He is on zocor 40 mg daily chronic pain1 Pt has chornic n tirso [...] the process of getting epidural approved from [employer]. Pt has 8/10 neck and back apin . Pt c/o left sciatica and left leg numbness. HLP Pt has HLP. P ta kes zocor. Pt denie any myalgia. pt is on on low fat and low carb diet marijauna Pt smokes pancho yaa several times per month to help control his pain and anxiety. Pt denies any other illicit drug use chronic pain Pt has chronic n tirso and ack pain. Pt has 8/10 pain. pt is doing PT now Pt is seeing neurosrugery who wants to do injection for now. Pt still has pain but he is doing decently at this point anxiety1 Pt has anxiety a nd depression and personality disorder. pt has anger issue. Pt seen the psychiatrist and he was actually told to increase effexor to 150 mg daily. Pt states that it is helping controlling his anger but he stilll has bad mood allthe time. Pt denies any suicidal or homicidal thought depression1 Pt has chronic d epression Pt [...] flexeril PRN for pain. Pt failed NSIAD chronic pain Pt has chornic a nd severe neck and back pain. Pt had myelogram and he seen the neurosurgery and he supposes to get back injections but his insurance denied it and he supposes to do PT first Pt already had PT and failed it. Pt denies any wrosening pain HLP Pt has HLP Pt ta kes zocor pt denies any myalgia. Pt is on low fat and low carb diet depression depression1 Pt has chronic a nxiety and depression. Pt denies any suicidal or homicidal thought. Pt feels depressed due to his pain. Pt uanbel to work due to pain and he is struggling financially. chronic pain1 Pt has chronic n tirso and back apin. Pt just seen neurosurgery and will have myelogram done soon. Pt failed PT in the past. Pt is taking norco and flexeril for pain and doing ok. Pt denies any worsening pain HLP Pt has been taki dimple zocor. Pt denies any myalgia. Pt has [...] time HLP Pt has HLP. Pt t akes zocor. Pt denies any myalgia. back pain1 Pt has chronic l ow back pain daily around 8/10. Pt c./o left sciatica and some left leg numnbess. Pt denies any loss of bowel or bladder control. chronic pain Pt has chronic n tirso and back apin. Pt takes norco for pain. Pt denies any wrosenign pain. Pt has not done CT of neck yet. Pt has radiculopathy on left side and some left upper arm numbness HLP Pt has HLP. Pt t akes zocor and doing ok. Pt denies any myalgia HLP1 Pt has HLP Pt is not [...] R elated to Peripheral vascular disease, unspecified Increase physical activity Relat ed to Lumbago with sciatica, left side Quit smoking Related to Lumba go with sciatica, left side Weight management Related to Lum bago with sciatica, left side Special diet education [...] o Body mass index (BMI) 30.0-30.9, adult Follow a low salt diet. Related to [...] Related to Coron anh artery disease of algaaciq coronary artery without angina pectoris Prescribed Activity and Exercise Education Related to Dietary Surveillance and Counseling Prescribed Diet Educ ation/Lifestyle Education Regarding Diet Related to Dietary Surveillance and Counseling Increase physical activity Relat ed to Coronary artery disease of algaaciq coronary artery without angina pectoris Quit smoking Related to Coron anh artery disease of algaaciq coronary artery without angina pectoris Weight management Related to Cor onary artery disease of algaaciq coronary artery without angina pectoris Prescribed Activity and Exercise Education Related to Dietary Surveillance and Counseling Prescribed Diet Educ ation/Lifestyle Education Regarding Diet Related to Dietary Surveillance and Counseling Increase physical activity Relat ed to Periodic limb movement disorder Quit smoking Related to Perio dic limb movement disorder Weight management Related to Per iodic limb movement disorder Prescribed Activity and Exercise [...] Related to Chr onic pain syndrome Prescribed Diet Educ ation/Lifestyle Education Regarding Diet Related to Dietary Surveillance and Counseling Increase activity. Related to Hy perlipidemia Stop smoking. Related to Hyper lipidemia Follow a low sodium diet. Relate d to Hyperlipidemia Prescribed Activity and Exercise Education Related to Dietary Surveillance and Counseling Prescribed Activity and Exercise Education Related to Dietary Surveillance and Counseling Prescribed Diet Educ ation/Lifestyle Education Regarding Diet Related to Dietary Surveillance and Counseling Increase activity. Related to Hy perlipidemia Follow a low sodium diet. Relate d to Hyperlipidemia Prescribed Activity and Exercise Education Related to [...] Mental Status Date Cognitive Assessment Orientation - Gardner ed to time, place, person, situation.
--- OUTSIDE RECORDS SUMMARY | 2025-02-21 17:12 | XMS_ITS | Clinical Summary ---
Author Organization [facility] [address] Address [address] [place] [address] Care Team Providers Care Language Specialist Name Role Phone Sachin Jefferson MD Primary Care Provider Allergies No known active allergies Medications HYDROcodone-iris [...] Hyperlipidemia 11/17/2017 Coronary artery disease invo lving [place] coronary artery of [place] heart without angina pectoris 11/08/2017 History of coronary artery stent placement 11/08 Presence of cardiac pacemaker 11/08/2017 Overview (07/30/2021): [place] Lvmae Dual Pacemaker-Accolade. Dx; SSS, AVB. Gen change [...] Description 02/12/2025 7:30 AM CDT Ancillary Procedure [facility] Cardiology [address] [facility] [address] [place] [phone] Presence of cardiac pacemaker; Sick sinus syndrome (HCC); Complete heart block (HCC) 12/30/2024 8:15 AM BAGGAGE SMASHER Office Visit [facility] Cardiology [address] [facility] [address] [place] [phone] Maxim Plascencia MD History of coronary artery stent placement (Primary Dx); Coronary artery disease involving [place] coronary artery of [place] heart without angina pectoris; Presence of cardiac [...] on file Legal Sex Male 1:56 AM BAGGAGE SMASHER Gender Identity Not on file Sexual Orientation Not on file Obstetrics History Last Filed Vital Signs Vital Sign Reading Time Taken Comments Blood Pressure 112/78 12/30/2024 8:07 AM BAGGAGE SMASHER Pulse 83 12/30/2024 8:07 AM BAGGAGE SMASHER Temperature - - Respiratory Rate - - Oxygen Saturation 96% 12/30/2024 8:07 AM BAGGAGE SMASHER Inhaled Oxygen Concentration - - Weight 101.2 kg (223 lb) 12/30/2024 8:07 AM BAGGAGE SMASHER Height 185.4 cm (6' 1 ) 12/30/2024 8:07 AM BAGGAGE SMASHER Body Mass Index 29.42 12/30/2024 8:07 AM BAGGAGE SMASHER Plan of Treatment Health Maintenance Due Date [...] history exists Medical Devices Implanted Type Area Pin Chaser Device Identifier Shelf Expiration Date Model / Serial / Lot Pacemaker-2009 Implanted:0 05/2010 (Quantity not on file) Pacemaker Chest [place] [employer] SSS, AVB ALTRUA [id number] / [id number] / Procedures Procedure Name Priority Date/Time Associated Diagnosis Comments DEVICE CHECK - REMOTE Routine 02/12/2025 11:48 AM CDT Presence of cardiac pacemaker Sick sinus syndrome (HCC) Complete heart block (HCC) from Last 3 Months Results * DEVICE CHECK - REMOTE (02/12/2025 11:48 AM CDT) Anatomical Region Laterality Modality Other Narrative 02/14/2025 8:40 AM CDT [place] Lvmae Dual Pacemaker. Dx; SSS, AVB. Gen change 07/30/2021-Thais, chronic leads 06/02/2010. Latitude remote monitoring. Routine DDD Pacemaker Remote. Transmission attached. Battery status: Ok, 5.5 years remaining battery life to SHANNAN. Stable lead impedances, pacing and sensing thresholds. Presenting rhythm: AP-VS. AP-3%, RESISTOR COATER-0 %. 65 AT/AF episodes noted since 05/09/2025, longest episode was 2 minutes in duration, IEGM's demonstrates far field over sensing of the ventricular channel. AF [place] 0 %. 86 Ventricular high rate episodes detected since 05/09/2024, IEGM's demonstrates ST-SVT, longest episode 5 minutes, at 160-170 bpm. Medications: Eliquis, aspirin 81 mg. See scanned report. Office pacemaker follow up: 6 months. Latitude remote f/u 05/14/2025. Mayra Marrero, STEPHIE Maxim Plascencia MD CV CARDIAC SERVICES PROC EDURES Final Result from Last 3 Months Insurance [facility] [address] WORKERS COMPENSATION GENERIC Care Teams Language Specialist Relationship Specialty Start Date End Date Sachin Jefferson MD PCP - General 02/24/17
--- OUTSIDE RECORDS SUMMARY | 2025-02-21 17:12 | XMS_ITS | Clinical Summary ---
Author Organization 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
--- OUTSIDE RECORDS SUMMARY | 2025-02-21 17:12 | XMS_ITS | Encounter Summary ---
Author Organization [facility] Address [address] [place] [address] Care Team Providers Care Gym Instructor Name Role Phone Sachin Jefferson MD Primary Care Provider [phone] Encounter Details Date Type Department Care Team (Late st Contact Info) Description 03/29/2017 Orders Only [facility] ProviderNika MD [address] [place] [phone] Social History Tobacco Use Types Packs/Day Years Used Date Smoking Tobacco: Every Day Comments:Smoking History Pac ks/day: 1 Packs Alcohol Use Standard Drinks/Week Comments No 0 (1 standard drink = 0.6 oz pur e alcohol) Sex and Gender Information Value Date Recorded Sex Assigned at Not on file Legal Sex Male 1:56 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
--- OUTSIDE RECORDS SUMMARY | 2025-02-21 17:12 | XMS_ITS | Referral Summary ---
Author Organization [facility] [address] [place] [address] Address [address] [facility] [address] [place] [address] Care Team Providers Care Scientific Publications Editor Name Role Phone Sachin Jefferson MD Primary Care Provider Encounters Date Type Department Care Team Description 02/12/2025 7:30 AM CDT Ancillary Procedure [facility] Cardiology [address] [place] [address] [place] [phone] Presence of cardiac pacemaker; Sick sinus syndrome (HCC); Complete heart block (HCC) 12/30/2024 8:15 AM SWITCHBOX ASSEMBLER Office Visit [facility] Medical [facility] Cardiology [address] [place] [address] [address] [place] [address] Maxim Plascencia MD History of coronary artery stent placement (Primary Dx); Coronary artery disease involving [place] coronary artery of [place] heart without angina pectoris; Presence of cardiac [...] Hyperlipidemia 11/17/2017 Coronary artery disease invo lving [place] coronary artery of [place] heart without angina pectoris 11/08/2017 History of coronary artery stent placement 11/08 Presence of cardiac pacemaker 11/08/2017 Overview (07/30/2021): [employer] Dual Pacemaker-Accolade. Dx; SSS, AVB. Gen [...] on file Legal Sex Male 1:56 AM SWITCHBOX ASSEMBLER Gender Identity Not on file Sexual Orientation Not on file Last Filed Vital Signs Vital Sign Reading Time Taken Comments Blood Pressure 112/78 12/30/2024 8:07 AM SWITCHBOX ASSEMBLER Pulse 83 12/30/2024 8:07 AM SWITCHBOX ASSEMBLER Temperature - - Respiratory Rate - - Oxygen Saturation 96% 12/30/2024 8:07 AM SWITCHBOX ASSEMBLER Inhaled Oxygen Concentration - - Weight 101.2 kg (223 lb) 12/30/2024 8:07 AM SWITCHBOX ASSEMBLER Height 185.4 cm (6' 1 ) 12/30/2024 8:07 AM SWITCHBOX ASSEMBLER Body Mass Index 29.42 12/30/2024 8:07 AM SWITCHBOX ASSEMBLER Plan of Treatment Not on file Medical Devices Implanted Type Area Continuous Dryout Operator Device Identifier Shelf Expiration Date Model / Serial / Lot Pacemaker-2009 Implanted:0 05/2010 (Quantity not on file) Pacemaker Chest [employer] SSS, AVB ALTRUA [id number] / [id number] / Procedures Procedure Name Priority Date/Time Associated Diagnosis Comments DEVICE CHECK - REMOTE Routine 02/12/2025 11:48 AM CDT Presence of cardiac pacemaker Sick sinus syndrome (HCC) Complete heart block (HCC) from Last 3 Months Results * DEVICE CHECK - REMOTE (02/12/2025 11:48 AM CDT) Anatomical Region Laterality Modality Other Narrative 02/14/2025 8:40 AM CDT Compliance Ass[employer] Dual Pacemaker. Dx; SSS, AVB. Gen change 07/30/2021-Thais, chronic leads 06/02/2010. Latitude remote monitoring. Routine DDD Pacemaker Remote. Transmission attached. Battery status: Ok, 5.5 years remaining battery life to SHANNAN. Stable lead impedances, pacing and sensing thresholds. Presenting rhythm: AP-VS. AP-3%, NETWORKING ENGINEER-0 %. 65 AT/AF episodes noted since 05/09/2025, longest episode was 2 minutes in duration, IEGM's demonstrates far field over sensing of the ventricular channel. AF [place] 0 %. 86 Ventricular high rate episodes detected since 05/09/2024, IEGM's demonstrates ST-SVT, longest episode 5 minutes, at 160-170 bpm. Medications: Eliquis, aspirin 81 mg. See scanned report. Office pacemaker follow up: 6 months. Latitude remote f/u 05/14/2025. Mayra Marrero RN Maxim Plascencia MD CV CARDIAC SERVICES PROC EDURES Final Result from Last [address] [place] [address] [address] WORKERS COMPENSATION GENERIC Care Teams Scientific Publications Editor Relationship Specialty Start Date End Date Sachin Jefferson MD PCP - General 02/24/17
[2025-02-21] MEDS: KETOROLAC 15 MG/ML VIAL (*BKC) IV PUSH (17:18)
== END 2025-02-21 17:24 | disposition home or self-care (01) ==
LOC: ANHED 17:10
PROVIDERS: Family Medicine; Physician Assistant; Emergency Provider Student in an Organized Health Care Education/Training Program; PCP Emergency Medicine
DX: N20.0 Calculus of kidney (principal); E78.5 Hyperlipidemia, unspecified; I25.2 Old myocardial infarction; F17.210 Nicotine dependence, cigarettes, uncomplicated; Z79.01 Long term (current) use of anticoagulants; Z86.711 Personal history of pulmonary embolism
CPT/HCPCS: 36415; 74176; 80053; 81001; 85025; 96374; 99284; J1885

== ENCOUNTER 2025-07-10 13:31 | Emergency (ER) | payer OTHER, SELFPAY ==
--- NOTE | ~2025-07-10 | XR_ITS ---
EXAM: XR lumbar spine 2-3V DATE: 07/10/2025 15:05 HISTORY: low back pain . COMPARISON: 11/15/2021. FINDINGS: Moderate thoracolumbar scoliosis. Screw and plate fixation of the left sacrum. Multiple scr ews have backed out slightly. 5 nonrib-bearing lumbar-type vertebral bodies. Partial L5 sacralization on the left. Pedicles intact. 5 mm anterolisthesis at L3-4. 4 mm retrolisthesis at L4-5. Vertebral b [place] preserved. Severe degenerative disc disease at T12-L1 through L4-5. Severe facet hypertro phy and sclerosis in the mid and lower lumbar spine. Posterior displacement of the coccygeal elements which is a chronic and stable finding. No fracture or dislocation. IMPRESSION: Screw and plate fixation of the left sacrum. Multiple screws have backed out slightly, wh ich is a chronic and stable finding. Stable multilevel grade 1 listheses. Severe multilevel lumbar de generative disc disease. Lumbar scoliosis. Severe multilevel lumbar facet arthropathy. Reviewed, dictated and finalized at location K. IMPRESSION: Screw and plate fixation of the left sacrum. Multiple screws have b acked out slightly, which is a chronic and stable finding. Stable multilevel gr ren 1 listheses. Severe multilevel lumbar degenerative disc disease. Lumbar sco liosis. Severe multilevel lumbar facet arthropathy.
[2025-07-10 13:34] VITALS: BP 123/66; PULSE 87; RESP 16; TEMP 36.5; O2SAT 100
--- OUTSIDE RECORDS SUMMARY | 2025-07-10 13:34 | XMS_ITS | Clinical Summary ---
Author Organization [facility] [employer] Address [address] [facility] [place] [address] Care Team Providers Care Assembler Metal Building Name Role Phone Sachin Jefferson MD Primary Care Provider [phone] Source Comments [facility] [employer],non-owned Affiliates and Associated Physician Practices is amultiple site organization consisting of ambulatory clinics and hospital sitesin [place], [place], [place] and [place]. This disclosure is being madepursuant to the Care Everywhere program and may not contain all information available regarding this patient. Last updated 18.[facility] [employer] Allergies No known active allergies Medications * Be aware that medications may not be up to date on this document. Alwaysverify current medications with the patient. HYDROcodone-iris taminophen (NORCO) 10-325 MG tablet Take 1 (one) tablet by mouth as directed Active rOPINIRole (REQUIP) 0.5 MG tablet Take 1 (one) tablet by mouth at bedtime 8 Active aspirin EC (ECOTRIN) 81 MG tablet Take 1 (one) tablet by mouth once daily Active folic acid 400 MCG tablet Take 1 (one) tablet by mouth every 2 days 0 Active nitroGLYCERIN (NITROSTAT) 0.4 MG tablet Dissolve 1 (one) tablet under the tongue every 5 minutes as needed for Angina (x3) 1 Active rosuvastatin (CRESTOR) 20 MG tablet Take 1 (one) tablet by mouth once daily 1 Active omeprazole (PriLOSEC) 20 MG capsule Take 1 (one) capsule by mouth daily before breakfast 2 Active Eliquis 5 MG tablet Take 1 (one) tablet by mouth 2 times daily 3 Active cyclobenzaprine (Flexeril) 10 MG tablet Take 1 (one) tablet by mouth 2 Active DULoxetine (Cymbalta) 60 MG capsule Take 1 (one) capsule by mouth every 24 hours 2 Active famotidine (Pepcid) 40 MG tablet Take 1 (one) tablet by mouth once daily 2 Active pregabalin (Lyrica) 150 MG capsule Take 1 (one) capsule by mouth every 12 hours 2 Active sildenafil (Viagra) 50 MG tablet Take 1 (one) tablet by mouth once daily 2 Active diclofenac sodium EC (Voltaren) 75 MG tablet Take 1 (one) tablet by mouth once daily 2 Active famotidine (Pepcid) 40 MG tablet Take 1 (one) tablet by mouth once daily 2 Active sildenafil (Viagra) 100 MG tablet TAKE 1 TABLET BY MOUTH ONCE DAILY NEEDED ABOUT 1 HOUR BEFORE SEXUAL ACTIVITY MAX 1/24 HOURS 3 Active Active Problems Problem Noted Date Diagnosed Date 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 Dx; SSS, AVB. DOI 06/02/2010. Declines remote monitoring. Office pacemaker checks Q6 mo. Presence of cardiac pacemaker 11/08/2017 Overview (09/03/2021): [employer] Dual Pacemaker-Accolade. Dx; SSS, AVB. Gen [...] pain disorder 12/29/2015 Mixed hyperlipidemia 12/29/2015 Immunizations Immunization Administration Dates Next Due FLU VACCINE QUAD [...] Date Smoking Tobacco: Every Day Cigarettes 2 42.6 Started: 1982 Smokeless Tobacco: Never Sex and Gender Information Value Date Recorded Sex Assigned at Not on file Legal Sex Male 4:34 PM CDT Gender Identity Not on file Sexual Orientation Not on file Last Filed Vital Signs Vital Sign Reading Time Taken Comments Blood Pressure 107/84 01/24/2023 10:25 AM METER TESTER Pulse 96 01/24/2023 10:25 AM METER TESTER Temperature - - Respiratory Rate 16 09/11/2023 3:16 PM CDT Oxygen Saturation 96% 09/11/2023 3:16 PM CDT Inhaled Oxygen Concentration - - Weight 103.9 kg (229 lb) 12/20/2018 11:56 AM METER TESTER Height 185.4 cm (6' 1) 12/20/2018 11:56 AM METER TESTER Body Mass Index 30.21 12/20/2018 11:56 AM METER TESTER Plan of Treatment Health Maintenance Due Date [...] PNEUMOCOCCAL VACCINE 50+ (2 of 2 - PPSV23, PCV20, or PCV21) 12/17/2019 10/22/2019 COVID-19 VACCINE (3 - 2023- season) 2024 03/01/2021, 02/07/2021 DEPRESSION SCREENING 11/27/2024 INFLUENZA VACCINE (#1) 2025 0, 10/22/2019, 09/07/2018, Additional history exists HIB VACCINE Aged Out No longer eligi [...] patient's age to complete this topic Insurance [facility] Care Teams Assembler Metal Building Relationship Specialty Start Date End Date Sachin Jefferson MD PCP - General 12/20/18
--- OUTSIDE RECORDS SUMMARY | 2025-07-10 13:34 | XMS_ITS | Clinical Summary ---
Author Organization [facility] [address] Address [address] [place] [address] Care Team Providers Care Embryology Professor Name Role Phone Sachin Jefferson MD Primary [...] Hyperlipidemia 11/17/2017 Coronary artery disease invo lving [place] coronary artery of [place] heart without angina pectoris 11/08/2017 History of coronary artery stent placement 11/08 Presence of cardiac pacemaker 11/08/2017 Overview (07/30/2021): [employer] Dual Pacemaker-Accolade. Dx; SSS, AVB. 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 Gender Identity Not on file Sexual Orientation Not on file Obstetrics History Last Filed Vital Signs Vital Sign Reading Time Taken Comments Blood Pressure 112/78 12/30/2024 8:07 AM LAST MARKER Pulse 83 12/30/2024 8:07 AM LAST MARKER Temperature - - Respiratory Rate - - Oxygen Saturation 96% 12/30/2024 8:07 AM LAST MARKER Inhaled Oxygen Concentration - - Weight 101.2 kg (223 lb) 12/30/2024 8:07 AM LAST MARKER Height 185.4 cm (6' 1) 12/30/2024 8:07 AM LAST MARKER Body Mass Index 29.42 12/30/2024 8:07 AM LAST MARKER Plan of Treatment Health Maintenance Due Date Last Done Comments Colon Cancer Screening-Colonoscopy 1969 Depression Screening 1969 Hepatitis C Screening 1969 Prostate Cancer Screening-PSA 1969 DTaP/Tdap/Td Vaccine (1 - Tdap) 1980 Hepatitis B Screening 1987 Regular Well Visit/Exam 18-64 1987 Zoster Vaccine (1 of 2) 2019 Pneumococcal vaccine <65 (2 of 2 - PPSV23, PCV20, or PCV21) 12/17/2019 10/22/2019 Covid-19 Vaccine (3 - 2023-2 5 season) 2024 03/01/2021, 02/07/2021 Influenza Vaccine (#1) 2025 , 10/22/2019, 09/07/2018, Additional history exists Medical Devices Implanted Type Area Slot Operations Director Device Identifier Shelf Expiration Date Model / Serial / Lot Pacemaker-2009 Implanted:0 05/2010 (Quantity not on file) Pacemaker Chest [employer] SSS, AVB ALTRUA [id number] / [id number] / Procedures Procedure Name Priority Date/Time Associated Diagnosis Comments DEVICE CHECK - REMOTE Routine 05/15/2025 12:23 PM CDT Presence of cardiac pacemaker Sick sinus syndrome (HCC) Complete heart block (HCC) from Last 3 Months Results * DEVICE CHECK - REMOTE (05/15/2025 12:23 PM CDT) Anatomical Region Laterality Modality Other Narrative 07/07/2025 7:35 AM CDT [employer] Dual Pacemaker-Accolade. Dx; SSS, AVB. Gen change 07/30/2021-Candacener, chronic leads 06/02/2010. Latitude remote monitoring. Routine DDDR Pacemaker Remote. Transmission attached. Battery status: OK , 5.5 years remaining battery life to SHANNAN. Stable lead impedances, pacing and sensing thresholds. Presenting rhythm: /VS AP-2 %, TRADE MANAGER-0% 160 AT/AF episodes noted, longest episode was 2 minutes and 33 seconds in duration, available IEGMs demonstrate SVT with 1 short episode of AFib. AF [place] < 1%. 41 Ventricular high rate episodes detected, available IEGMs demonstrate SVT. Medications: Eliquis 5 mg, ASA 81 mg See scanned report. Office pacemaker follow up: 09/30/25 Latitude remote f/u 08/13/25. Jose Sanchez RN Maxim Plascencia MD [facility] PROC EDURES Final Result from Last 3 Months Insurance [facility] [employer] GENERIC Care Teams Embryology Professor Relationship Specialty Start Date End Date Sachin Jefferson MD PCP - General 02/24/17
--- OUTSIDE RECORDS SUMMARY | 2025-07-10 13:34 | XMS_ITS | Encounter Summary ---
Author Organization [facility] Address [address] [place] [address] Care Team Providers Care Gleason Gear Generator Name Role Phone Sachin Jefferson MD Primary Care Provider [phone] Encounter Details Date Type Department Care Team (Late st Contact Info) Description 03/29/2017 Orders Only [facility] ProviderNika MD [address] [place] [id number] Social History Tobacco Use Types Packs/Day Years Used Date Smoking Tobacco: Every Day Comments:Smoking History Pac ks/day: 1 Packs Alcohol Use Standard Drinks/Week Comments No 0 (1 standard drink = 0.6 oz pur e alcohol) Sex and Gender Information Value Date Recorded Sex Assigned at Not on file 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
--- OUTSIDE RECORDS SUMMARY | 2025-07-10 13:34 | XMS_ITS | Encounter Summary ---
Author Organization [facility] Address [address] [place] [address] Phone Care Team Providers Care Gun Stocker Name Role Phone Ronny Sachin Primary Care Provider [phone] Blas Levy MD Unavailable [phone] Kayden Louie PAC Unavailable [phone] Giovani Boykin MD Unavailable [phone] Markie Alston MD Unavailable [phone] Encounter Details Date Type Department Care Team (Late Contact Info) Description 06/10/2025 Results Follow-Up [facility] [address] [place] [phone] UROGRAPHY WO/W CONTRAST Social History Tobacco Use Types Packs/Day Years Used Date Smoking Tobacco: Every Day Cigarettes 1.5 35.6 Started: 1989 Smokeless Tobacco: Never Comments:1-2 packes per day Alcohol Use Standard Drinks/Week Comments Not Currently 0 (1 standard drink = 0.6 oz pur e alcohol) PHQ-2 Answer Date Recorded Total Score - Questions 1-9 0 05/28 Sexually Active Control Partners Comments Not Currently Sex and Gender Information Value Date Recorded Sex Assigned at Not on file Legal Sex Male 9:12 AM CDT Gender Identity Not on file Sexual Orientation Not on file documented as of this encounter Plan of Treatment Upcoming Encounters Date Type Department Care Team (Late Contact Info) Description 08/04/2025 8:30 AM CDT Office Visit [facility] - Orthopedic Surgery - [place] [address] [place] [phone] Terrie Hsu MD [address] [facility] [address] [place] [address] 07/10/2026 10:30 AM CDT Office Visit [facility] [address] [place] [address] Markie Alston MD [address] [id number] documented as of this encounter Visit Diagnoses Not on filedocumented in this encounter Additional Health Concerns Assessment Noted Time PHQ-9 Depression Total Score: 19 021 10:44 AM CDT documented as of this encounter Care Teams Gun Stocker Relationship Specialty Start Date End Date Sachin Jefferson [address] [place] [address] PCP - General Family Medicine 05/13/21 Blas Levy MD [address] [place] [phone] Consulting Physician Oncology 05/13/21 Kayden Louie PAC [address] [facility] [address] [facility] [address] [place] [address] Physician Personal Lines Appraiser Orthopaedic Surgery 01/30/25 Giovani Boykin MD [address] [address] Consulting Physician Urology 02/27/25 Markie Alston MD [address] [address] Consulting Physician Urology 06/03/25 documented as of this encounter
--- OUTSIDE RECORDS SUMMARY | 2025-07-10 13:34 | XMS_ITS | Clinical Summary ---
Author Organization [facility] Address [address], [facility] [address] [place] [address] Phone Care Team Providers Care Manager Small Business Name Role Phone Sachin Jefferson Primary Care Provider [phone] Blas Levy MD Unavailable [phone] Kayden Louie PAC Unavailable [phone] Giovani Boykin MD Unavailable [phone] Markie Alston MD Unavailable [phone] Allergies No known active allergies Medications rosuvastatin (CRESTOR) 20 MG Tablet Take 1 Tablet by mouth every morning. 0 Active sildenafil citrate (VIAGRA) 50 MG Tablet Take 1 Tablet by mouth as needed. 0 Active HYDROcodone-iris taminophen (NORCO) 10-325 MG Tablet Take by mouth every 6 hours as needed. 1 Active cyclobenzaprine (FLEXERIL) 10 MG Tablet Take 10 mg by mouth as needed. 0 Active pregabalin (LYRICA) 150 MG Capsule Take 1 Capsule by mouth 2 times daily. 1 Active nitroGLYCERIN (NITROSTAT) 0.4 MG SL Tablet 0.4 mg by Sublingual route. 0 Active aspirin EC 81 MG Tablet Delayed Response Take 81 mg by mouth daily. INSTRUCTED TO HOLD FOR 7 DAYS PRIOR TO PROCEDURE ON 03/17/2025 Active folic acid (FOLVITE) 400 MCG Tablet Take 0.4 mg by mouth daily. 0 Active apixaban (ELIQUIS) 5 MG Tablet Take 5 mg by mouth 2 times daily. INSTRUCTED TO STOP TAKING FOR 2 DAYS PRIOR TO PROCEDURE ON 03/17/2025 3 Active tamsulosin (FLOMAX) 0.4 MG Capsule Take 1 Capsule by mouth every evening. 5 Active diclofenac (VOLTAREN) 75 MG Tablet Delayed Response Take 75 mg by mouth daily. Per Dr. Boykin, patient does NOT need to stop taking prior to procedure on 03/17/2025 Active ketorolac (TORADOL) 10 MG Tablet Take 1 Tablet by mouth every 4 hours as needed for Moderate or more severe pain. 10 Tablet 5 Active HYDROcodone-iris taminophen (NORCO) 10-325 MG TabletIndicatio ns:Kidney stone Take 1 Tablet by mouth every 6 hours as needed for Severe pain. 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 04/28/2023 MGUS (monoclonal gammopathy of unknown significa nce) 05/21/2021 Encounters Date Type Department Care Team Description 07/04/2025 9:15 AM CDT Office Visit [facility] [place] [address] Markie Alston MD Screening PSA (prostate specific antigen) (Primary Dx) Discharge Disposition: Discharged to home or Selfcare 07/04/2025 Results Follow-Up [facility] [address] [place] [address] Markie Alston MD PSA DIAGNOSTIC,TOTAL 07/04/2025 Travel 06/10/2025 Results Follow-Up [facility] [address] [place] [address] UROGRAPHY WO/W CONTRAST 06/06/2025 Telephone [facility] [place] [address] Markie Alston MD 05/22/2025 7:39 AM CDT - 05/22/2025 11:59 PM CDT Hospital Encounter [facility] [address] [place] [address] Markie Alston MD Discharge Disposition: Discharged to home or Selfcare 05/22/2025 Travel 05/05/2025 Results Follow-Up [facility] [address] [place] [address] Markie Alston MD US RENAL COMPLETE 04/24/2025 10:11 AM CDT - 04/24/2025 11:59 PM CDT Hospital Encounter [facility] Ultrasound [address] [place] [address] Markie Alston MD Discharge Disposition: Discharged to home or Selfcare 04/24/2025 Travel 04/11/2025 Telephone [facility] [address] [place] [address] Markie Alston MD from Last 3 Months Immunizations Immunization Administration [...] 1.5 35.6 Started: 1989 Smokeless Tobacco: Never Tobacco Cessation:Ready [...] Sign Reading Time Taken Comments Blood Pressure 111/73 07/04/2025 9:16 AM CDT Pulse 82 07/04/2025 9:16 AM CDT Temperature 36 C (96.8 F) 03/18/2025 3:48 PM CDT Respiratory Rate 18 07/04/2025 9:16 AM CDT Oxygen Saturation 96% 07/04/2025 9:16 AM CDT Inhaled Oxygen Concentration - - Weight 97.5 kg (215 lb) 07/04/2025 9:16 AM CDT Height 185.4 cm (6' 1) 07/04/2025 9:16 AM CDT Body Mass Index 28.37 07/04/2025 9:16 AM CDT Plan of Treatment Upcoming Encounters Date Type Department Care Team (Late st Contact Info) Description 08/04/2025 8:30 AM CDT [facility] [place] [address] [place] [phone] Terrie Hsu MD #2 [facility] [address] [place] [address] 07/10/2026 10:30 AM CDT Office Visit [facility] [address] [place] [phone] Markie Alston MD [address], [address] [address] Health Maintenance Due Date Last Done Comments Hepatitis C Virus (HCV) Screening 1969 TdaP Immunization 1969 Hepatitis B Immunization (1 of 3 - 19+ 3-dose series) 1988 Cologuard 2014 Colonoscopy 2014 Colorectal Cancer Screening 2014 Immunochemical Fecal Occult Blood 2014 Lung Cancer Screening 2019 Zoster Immunization (1 of 2) 2019 Pneumococcal Immunization (50+ years) (2 of 2 - PPSV23, PCV20, or PCV21) 12/17/2019 10/22/2019 SARS-COV-2 Immunization (3 - season) 2024 03/01/2021, 02/07/2021 Influenza Immunization (#1) 07/28/202512/2019, 10/22/2019, 09/07/2018, Additional history exists Respiratory Syncytial Virus (RSV) Immunization (Adult) (1 - 1-dose 75+ series) 2044 Pneumococcal Immunization Combined Discontinued 10/22/2019 PSA Discussion Completed 07/04/2025 Human Papillomavirus (HPV) Immunization Aged Out No longer eligible based on patient's age to complete this topic Meningococcal Immunization (ACWY) Aged Out No longer eligible based on patient's age to complete this topic Rotavirus Immunization Aged Out No lo nger eligible based on patient's age to complete this topic Medical Devices Implanted Type Area Exchange Floor Manager Device Identifier Shelf Expiration Date Model / Serial / Lot Stent Ureteral 6fr 2.1fr 28cm 2 Pigtail Curve 2 Durometer Taper Tip Loprfl Graduated Polaris Ultra - [id number] Implanted:Qty : 1 on 03/18/2025 by Markie Alston MD at [facility] IMPLANT Right: U[employer] Formula 01/02/2028 [id number] / [id number] / [id number] Description:NO STRINGS Procedures Procedure Name Priority Date/Time Associated Diagnosis Comments PSA DIAGNOSTIC,TOTAL Routine 07/04/2025 9:40 AM CDT Screening PSA (prostate specific antigen) CT UROGRAPHY WO/W CONTRAST Routine 05/22/2025 8:23 AM CDT Calculus of kidney POCT CREATININE Routine 05/22/2025 7:57 AM CDT US RENAL COMPLETE Routine 04/24/2025 10: 32 AM CDT Calculus of upper urinary tract from Last 3 Months Results * PSA DIAGNOSTIC,TOTAL (07/04/2025 9:40 AM CDT) PSA, TOTAL (PROSTATIC SPECIFIC ANTIGEN) 1.96 <4.00 ng/mL 07/04/2025 11:02 AM CDT [facility] Blood Venipuncture / Unknown 07/04/2025 9:40 AM CDT 07/04/2025 10:13 AM CDT Narrative [facility] - 07/04/2025 11:02 AM CDT PSA NOTE: The PSA value should be used in conjunction with information available from clinical evaluation and other diagnostic procedures. The [employer] Total PSA assay is a Chemiluminescent Microparticle Immunoassay (CMIA) for the quantitative determination of total PSA (both free PSA and PSA complexed to [id number]) in human serum. Total PSA values obtained with different assay methods, including Gilbert PSA assays, cannot be used interchangeably. us khadijah Herrera MD CHEMISTRY ORDERABLES Final Res ult [facility] [place] [address] * CT UROGRAPHY WO/W CONTRAST (05/22/2025 8:23 AM CDT) Anatomical Region Laterality Modality , Abdomen N/A Computed Tomogra phy 06/08/2025 10:3 4 AM CDT Impressions 06/08/2025 10:37 AM CDT IMPRESSION: 1. No definite evidence of filling defect within the opacified portions of the bilateral renal collecting systems. Portions of the mid to distal bilateral ureters are not well opacified contrast, therefore not adequately evaluated. 2. Punctate nonobstructing right renal calculus measuring 0.3 cm. No definite evidence of obstructive uropathy. 3. Circumferential mucosal thickening of the urinary bladder, which may be related to underdistention versus cystitis. Clinical correlation with urinary analysis is recommended as clinically indicated. 4. No definite evidence of bowel obstruction. 5. Mild mucosal thickening of the small bowel, which is most significant proximally, and may be related to underdistention versus mild enteritis of infectious or inflammatory etiology. 6. Mild mucosal thickening of the descending colon and sigmoid colon, which may be related to underdistention versus a component of mild colitis of infectious or inflammatory etiology. 7. Mucosal thickening of the visualized distal esophagus, which raises the concern for esophagitis. This may be further evaluated with endoscopy as clinically indicated. 8. Scattered colonic diverticula without definite evidence of diverticulitis. 9. Normal appendix. Narrative 06/08/2025 10:37 AM CDT EXAM DESCRIPTION: CT UROGRAPHY WO/W CONTRAST REASON FOR STUDY: F/U kidney stone with cysto on 03/18/25 + US on 04/24/25 being normal. Kidney pain since stent removal on 03/31/25 x 2 months. TECHNIQUE: Precontrast images of the abdomen. Abdomen and pelvis images with intravenous and without oral contrast using helical scanning technique with dynamic intravenous contrast injection. Corticomedullary, nephrographic, excretory phase images were acquired. Reconstructed coronal and sagittal MPR images reviewed. All images stored on PACS. Automated exposure control was used as a dose optimization technique for this examination. CONTRAST TYPE/DOSE: 100mL of IOPAMIDOL 76 % IV SOLN injected via Intravenous COMPARISON: 04/24/2025 FINDINGS: URINARY TRACT: KIDNEYS, URETERS, AND BLADDER: On the noncontrast sequence, there is punctate nonobstructing right renal calculus measuring 0.3 cm. The bilateral kidneys enhance symmetrically. There is no definite evidence of a suspicious enhancing renal lesion. There is no definite evidence of hydronephrosis or hydroureter. On the excretory sequence, there is no definite evidence of a filling defect within the opacified portions of the bilateral renal collecting systems. Portions of the mid to distal bilateral ureters are not well opacified contrast, and therefore not adequately evaluated. There is circumferential mucosal thickening of the urinary bladder. The prostate gland measures 4.3 cm. ABDOMEN/PELVIS: LOWER CHEST: The heart size is upper limits of normal. There is no definite evidence of pericardial effusion. There are minimal atherosclerotic changes of the aorta. There is bibasilar subsegmental atelectasis and scarring. There is mucosal thickening of the visualized distal esophagus. There is a small hiatal hernia. LIVER: The liver is grossly normal in size and contour. There is a too small to characterize hypoattenuating lesion in the posterior right hepatic lobe measuring 0.3 cm, which does not require follow-up imaging. The hepatic and portal veins are grossly patent. GALLBLADDER: Grossly unremarkable. BILE DUCTS: No intrahepatic or extrahepatic ductal dilatation. SPLEEN: The spleen is grossly normal in size and unremarkable. PANCREAS: The pancreas appears grossly unremarkable without definite evidence of pancreatic ductal dilatation, peripancreatic inflammatory changes, or peripancreatic fluid collection. ADRENALS: The bilateral adrenal glands are grossly symmetrical and unremarkable. GI: There is no definite evidence of bowel obstruction. There is mild mucosal thickening of the small bowel, which is most significant proximally. The appendix is visualized without definite evidence of pericecal or periappendiceal inflammatory changes to suggest appendicitis. There is mild submucosal fatty deposition noted in the distal small bowel and colon, which is nonspecific, and can be seen in the setting of prior infection, chronic inflammation such as inflammatory bowel disease, or chronic steroid use amongst of the etiologies. There are scattered colonic diverticula without definite evidence of diverticulitis. There is mild mucosal thickening of the descending colon and sigmoid colon. There is a periumbilical hernia containing a nonobstructed loop of small bowel. There is a small fat containing left inguinal hernia. There is no definite evidence of free air or fluid in the abdomen and pelvis. There is no definite evidence of lymphadenopathy in the abdomen and pelvis. MUSCULOSKELETAL: There is mild osteopenia. There is a dextroscoliotic curvature of the spine with degenerative changes. There are degenerative changes bilateral sacroiliac joints and bilateral hips. OTHER: No other abnormality. THIS IS AN ELECTRONICALLY VERIFIED FINAL REPORT 06/08/2025 10:34 AM - Electronically signed by Kristin Marion D.O. PS: BARRERA Report ID: [id number] Reading Location: [id number] Procedure Note Kristin Marion, DO - 06/08/2025 EXAM DESCRIPTION: CT UROGRAPHY WO/W CONTRAST REASON FOR STUDY: F/U kidney stone with cysto on 03/18/25 + US on 04/24/25 being normal. Kidney pain since stent removal on 03/31/25 x 2 months. TECHNIQUE: Precontrast images of the abdomen. Abdomen and pelvis images with intravenous and without oral contrast using helical scanning technique with dynamic intravenous contrast injection. Corticomedullary, nephrographic, excretory phase images were acquired. Reconstructed coronal and sagittal MPR images reviewed. All images stored on PACS. Automated exposure control was used as a dose optimization technique for this examination. CONTRAST TYPE/DOSE: 100mL of IOPAMIDOL 76 % IV SOLN injected via Intravenous COMPARISON: 04/24/2025 FINDINGS: URINARY TRACT: KIDNEYS, URETERS, AND BLADDER: On the noncontrast sequence, there is punctate nonobstructing right renal calculus measuring 0.3 cm. The bilateral kidneys enhance symmetrically. There is no definite evidence of a suspicious enhancing renal lesion. There is no definite evidence of hydronephrosis or hydroureter. On the excretory sequence, there is no definite evidence of a filling defect within the opacified portions of the bilateral renal collecting systems. Portions of the mid to distal bilateral ureters are not well opacified contrast, and therefore not adequately evaluated. There is circumferential mucosal thickening of the urinary bladder. The prostate gland measures 4.3 cm. ABDOMEN/PELVIS: LOWER CHEST: The heart size is upper limits of normal. There is no definite evidence of pericardial effusion. There are minimal atherosclerotic changes of the aorta. There is bibasilar subsegmental atelectasis and scarring. There is mucosal thickening of the visualized distal esophagus. There is a small hiatal hernia. LIVER: The liver is grossly normal in size and contour. There is a too small to characterize hypoattenuating lesion in the posterior right hepatic lobe measuring 0.3 cm, which does not require follow-up imaging. The hepatic and portal veins are grossly patent. GALLBLADDER: Grossly unremarkable. BILE DUCTS: No intrahepatic or extrahepatic ductal dilatation. SPLEEN: The spleen is grossly normal in size and unremarkable. PANCREAS: The pancreas appears grossly unremarkable without definite evidence of pancreatic ductal dilatation, peripancreatic inflammatory changes, or peripancreatic fluid collection. ADRENALS: The bilateral adrenal glands are grossly symmetrical and unremarkable. GI: There is no definite evidence of bowel obstruction. There is mild mucosal thickening of the small bowel, which is most significant proximally. The appendix is visualized without definite evidence of pericecal or periappendiceal inflammatory changes to suggest appendicitis. There is mild submucosal fatty deposition noted in the distal small bowel and colon, which is nonspecific, and can be seen in the setting of prior infection, chronic inflammation such as inflammatory bowel disease, or chronic steroid use amongst of the etiologies. There are scattered colonic diverticula without definite evidence of diverticulitis. There is mild mucosal thickening of the descending colon and sigmoid colon. There is a periumbilical hernia containing a nonobstructed loop of small bowel. There is a small fat containing left inguinal hernia. There is no definite evidence of free air or fluid in the abdomen and pelvis. There is no definite evidence of lymphadenopathy in the abdomen and pelvis. MUSCULOSKELETAL: There is mild osteopenia. There is a dextroscoliotic curvature of the spine with degenerative changes. There are degenerative changes bilateral sacroiliac joints and bilateral hips. OTHER: No other abnormality. THIS IS AN ELECTRONICALLY VERIFIED FINAL REPORT 06/08/2025 10:34 AM - Electronically signed by Kristin Marion D.O. PS: BARRERA Report ID: [id number] Reading Location: [place] [address] IMPRESSION: 1. No definite evidence of filling defect within the opacified portions of the bilateral renal collecting systems. Portions of the mid to distal bilateral ureters are not well opacified contrast, therefore not adequately evaluated. 2. Punctate nonobstructing right renal calculus measuring 0.3 cm. No definite evidence of obstructive uropathy. 3. Circumferential mucosal thickening of the urinary bladder, which may be related to underdistention versus cystitis. Clinical correlation with urinary analysis is recommended as clinically indicated. 4. No definite evidence of bowel obstruction. 5. Mild mucosal thickening of the small bowel, which is most significant proximally, and may be related to underdistention versus mild enteritis of infectious or inflammatory etiology. 6. Mild mucosal thickening of the descending colon and sigmoid colon, which may be related to underdistention versus a component of mild colitis of infectious or inflammatory etiology. 7. Mucosal thickening of the visualized distal esophagus, which raises the concern for esophagitis. This may be further evaluated with endoscopy as clinically indicated. 8. Scattered colonic diverticula without definite evidence of diverticulitis. 9. Normal appendix. us Markie Herrera MD IMG CT ORDERABLES Final Result * POCT CREATININE (05/22/2025 7:57 AM CDT) CREATININE - POCT 1.1 0.6 - 1.3 mg/dL 05/22/2025 8:00 AM CDT [facility] Blood 05/22/2025 7:57 AM CDT 05/22/2025 8:00 AM CDT None Provider POINT OF CARE TESTING Final Resu lt [facility] [place] [address] * US RENAL COMPLETE (04/24/2025 10:32 AM CDT) Anatomical Region Laterality Modality , Abdomen N/A Ultrasound 05/04/2025 9:14 PM CDT Impressions 05/04/2025 9:16 PM CDT IMPRESSION: No hydronephrosis of either kidney. Nonvisualization of left ureteral jet. Normal visualization of right ureteral jet. Scattered echogenic foci in the left kidney suggesting renal calculi. Narrative 05/04/2025 9:16 PM CDT EXAM DESCRIPTION: US RENAL COMPLETE REASON FOR STUDY: Eval for hydro TECHNIQUE: Ultrasound of the kidneys and urinary bladder was performed with grayscale imaging. COMPARISON: Retrograde pyelogram from 03/18/2025. FINDINGS: RIGHT KIDNEY: The right kidney measures 10.9 x 5.1 x 5.7 cm in length. There is no hydronephrosis. Somewhat limited evaluation due to bowel gas. Within limitation, there is normal cortical thickness and echogenicity. LEFT KIDNEY: The left kidney measures 10.9 x 6.0 x 5.0 cm in length. There is no hydronephrosis. There are scattered echogenic foci measuring up to 4 mm in the midportion of the left kidney suggesting renal calculi. There is normal cortical thickness and echogenicity. URINARY BLADDER: The urinary bladder, as visualized, appears unremarkable. Ureteral jet visualized on the right. No ureteral jet visualized on the left.. OTHER: No other additional findings. THIS IS AN ELECTRONICALLY VERIFIED FINAL REPORT 05/04/2025 9:14 PM - Electronically signed by Gavin Pham M.D. LC: GHAZALA Report ID: [id number] Reading Location: [place] [address] Procedure Note Janet Pham MD - 05/04/2025 EXAM DESCRIPTION: US RENAL COMPLETE REASON FOR STUDY: Eval for hydro TECHNIQUE: Ultrasound of the kidneys and urinary bladder was performed with grayscale imaging. COMPARISON: Retrograde pyelogram from 03/18/2025. FINDINGS: RIGHT KIDNEY: The right kidney measures 10.9 x 5.1 x 5.7 cm in length. There is no hydronephrosis. Somewhat limited evaluation due to bowel gas. Within limitation, there is normal cortical thickness and echogenicity. LEFT KIDNEY: The left kidney measures 10.9 x 6.0 x 5.0 cm in length. There is no hydronephrosis. There are scattered echogenic foci measuring up to 4 mm in the midportion of the left kidney suggesting renal calculi. There is normal cortical thickness and echogenicity. URINARY BLADDER: The urinary bladder, as visualized, appears unremarkable. Ureteral jet visualized on the right. No ureteral jet visualized on the left.. OTHER: No other additional findings. THIS IS AN ELECTRONICALLY VERIFIED FINAL REPORT 05/04/2025 9:14 PM - Electronically signed by Gavin VIVAR: GHAZALA Report ID: [id number] Reading Location: [place] [address] IMPRESSION: No hydronephrosis of either kidney. Nonvisualization of left ureteral jet. Normal visualization of right ureteral jet. Scattered echogenic foci in the left kidney suggesting renal calculi. Markie Herrera MD [facility] ORDERABLES Final Result from Last 3 Months Insurance MEDICAID [place] Care Teams Manager Small Business Relationship Specialty Start Date End Date Sachin Jefferson [address] [place] [address] PCP - General Family Medicine 05/13/21 Blas Levy MD [address] [place] [phone] Consulting Physician Oncology 05/13/21 Kayden Louie PAC #2 [facility]. [address] [place] [address] Physician Wreath Machine Operator Orthopaedic Surgery 01/30/25 Giovani Boykin MD #2 [facility] [address] [place] [address] Consulting Physician Urology 02/27/25 Markie Alston MD #2 [facility] [address] [place] [address] Consulting Physician Urology 06/03/25
--- OUTSIDE RECORDS SUMMARY | 2025-07-10 13:34 | XMS_ITS | Encounter Summary ---
Author Organization [facility] [[email or web address]] Address [address] [place] [address] Phone Care Team Providers Care Components Engineer Name Role Phone Sachin Jefferson Primary Care Provider [phone] Blas Levy MD Unavailable [phone] Kayden Louie PAC Unavailable [phone] Giovani Boykin MD Unavailable [phone] Markie Alstno MD Unavailable [phone] Encounter Details Date Type Department Care Team (Late st Contact Info) Description 11/01/2024 Telephone [facility] [address] [address] Blas Levy MD [address] [address] Social History Tobacco Use Types [...] Health Questionnaire-2 Score 0 11/01/2024 10:02 AM Divine Emery LPN documented as of this encounter Miscellaneous Notes * Telephone Encounter - Amina Sanches - 11/01/2024 10:49 AM CST FYI: Patient came to the window after his 11/01/24 visit and told me to cancel his lab today and future appts and walked away with no reason/explanation. [facility] documented in this encounter Plan of Treatment Upcoming Encounters Date Type Department Care Team (Late st Contact Info) Description 08/04/2025 8:30 AM CDT Office Visit [facility] - [place] [address] [place] [address] Terrie Hsu MD #2 [facility] [address] [place] [address] 07/10/2026 10:30 AM CDT Office Visit [facility] #2 [facility] [place] [address] Markie Alston MD #2 [facility] [address] [place] [address] documented as of this encounter Visit Diagnoses Not on filedocumented in this encounter Additional Health Concerns Assessment Noted Time PHQ-9 Depression Total Score: 19 08/20/ 021 10:44 AM CDT documented as of this encounter Care Teams Components Engineer Relationship Specialty Start Date End Date Sachin Jefferson [address] [place] [address] PCP - General Family Medicine 05/13/21 Blas Levy MD [address] [place] [phone] Consulting Physician Oncology 05/13/21 Kayden Louie PAC #2 [facility] [address] [place] [address] Physician Director Pharmaceutical Orthopaedic Surgery 01/30/25 Giovani Boykin MD #2 [facility] [address] [place] [address] Consulting Physician Urology 02/27/25 Markie Alston MD #2 [facility] [address] [place] [address] Consulting Physician Urology 06/03/25 documented as of this encounter
--- OUTSIDE RECORDS SUMMARY | 2025-07-10 13:34 | XMS_ITS | Encounter Summary ---
Author Organization [facility] Address [address] [place] [address] Phone Care Team Providers Care Director Regulatory Affairs Name Role Phone Ronny Sachin Primary Care Provider [phone] Blas Levy MD Unavailable [phone] Kayden Louie PAC Unavailable [phone] Giovani Boykin MD Unavailable [phone] Markie Alston MD Unavailable [phone] Reason for Referral * Radiology Services (Routine) - Authorized Specialty Diagnoses / Procedures Referred By Contjeannette t Referred To Contact Radiology Diagnoses Calculus of upper urinary tract Procedures US RENAL COMPLETE Markie Alston MD [address] [address] Phone: tel: fax: Referral ID Status Reason Start Date Expiration Date V isits Requested Visits Authorized [id number] Authorized 04/01/2025 1 1 Encounter Details Date Type Department Care Team (Late st Contact Info) Description 04/01/2025 Telephone [facility] #[address] [place] [address] Markie Alston MD #[address] [address] Social History Tobacco Use Types Packs/Day Years [...] Visit [facility] #2 [place] [address] Terrie Hsu MD #2 [facility] [address] [place] [address] 07/10/2026 10:30 AM CDT Office Visit [facility] #2 [place] [address] Markie Alston MD #2 [facility] [address] [place] [address] Scheduled Orders Name Type Priority Associated Diagnoses Orde r Schedule US RENAL COMPLETE Imaging Routine Calculus of upper urinary tract Expected: 05/13/2025, Expires: 10/02/2026 documented as of this encounter Visit Diagnoses Diagnosis Calculus of upper urinary tract- Primary documented in this encounter Additional Health Concerns Assessment Noted Time PHQ-9 Depression Total Score: 19 021 10:44 AM CDT documented as of this encounter Care Teams Director Regulatory Affairs Relationship Specialty Start Date End Date Sachin Jefferson [address] [place] [address] PCP - General Family Medicine 05/13/21 Blas Levy MD [address] [place] [phone] Consulting Physician Oncology 05/13/21 Kayden Louie PAC #[address] [facility] [facility] [address] [place] [address] Physician Certified Histologic Technician Orthopaedic Surgery 01/30/25 Giovani Boykin MD #2 [facility] [address] [place] [address] Consulting Physician Urology 02/27/25 Markie Alston MD #2 [facility] [address] [place] [address] Consulting Physician Urology 06/03/25 documented as of this encounter
--- OUTSIDE RECORDS SUMMARY | 2025-07-10 13:34 | XMS_ITS | Encounter Summary ---
Author Organization [facility] Address [address] [place] [address] Phone Care Team Providers Care Underwater Roboticist Name Role Phone Ronny Sachin Primary Care Provider [phone] Blas Levy MD Unavailable Kayden Louie PAC Unavailable [phone] Giovani Boykin MD Unavailable [phone] Markie Alston MD Unavailable [phone] Encounter Details Date Type Department Care Team (Late st Contact Info) Description 03/18/2025 Telephone [facility] [place] [address] Markie Alston MD #[address] [address] Social History Tobacco Use Types [...] on file documented as of this encounter Miscellaneous Notes * Telephone Encounter - Denny, Kathrine R - 03/20/2025 9:52 AM CDT Pt scheduled for 04/04 * Telephone Encounter - Markie Alston MD - 03/18/2025 3:26 PM CDT Cysto stent pull in 2 weeks documented in this encounter Plan of Treatment Upcoming Encounters Date Type Department Care Team (Late st Contact Info) Description 08/04/2025 8:30 AM CDT Office Visit [facility] - [place] #2 [place] [address] Terrie Hsu MD #2 [facility] [address] [place] [address] 07/10/2026 10:30 AM CDT Office Visit [facility] #2 [place] [address] Markie Alston MD #2 [facility] [address] [place] [address] documented as of this encounter Visit Diagnoses Not on filedocumented in this encounter Additional Health Concerns Assessment Noted Time PHQ-9 Depression Total Score: 19 021 10:44 AM CDT documented as of this encounter Care Teams Underwater Roboticist Relationship Specialty Start Date End Date Sachin Jefferson [address] [place] [address] PCP - General Family Medicine 05/13/21 Blas Levy MD [address] [facility] [place] [phone] Consulting Physician Oncology 05/13/21 Kayden Louie PAC #2 [facility] [address] [place] [address] Physician Production Metal Sprayer Orthopaedic Surgery 01/30/25 Giovani Boykin MD #2 [facility] [address] [place] [address] Consulting Physician Urology 02/27/25 Markie Alston MD #2 [facility] [address] [place] [address] Consulting Physician Urology 06/03/25 documented as of this encounter
--- OUTSIDE RECORDS SUMMARY | 2025-07-10 13:34 | XMS_ITS | Encounter Summary ---
Author Organization [facility] Address [address] [place] [address] Phone Care Team Providers Care Interlocking Machine Operator Name Role Phone Ronny Sachin Primary Care Provider [phone] Blas Levy MD Unavailable Kayden Louie PAC Unavailable [phone] Giovani Boykin MD Unavailable Markie Alston MD Unavailable [phone] Encounter Details Date Type Department Care Team (Late st Contact Info) Description 06/06/2025 Telephone [facility] #[address] [place] [address] Markie Alston MD #[address] [address] Social History Tobacco Use Types [...] encounter Miscellaneous Notes * Telephone Encounter - Markie Alston MD - 06/06/2025 10:[address] still has not resulted- can we call radiology and see what the delay on this is? documented in this encounter Plan of Treatment Upcoming Encounters Date Type Department Care Team (Late st Contact Info) Description 08/04/2025 8:30 AM CDT Office Visit [facility] - [place] #2 [place] [address] Terrie Hsu MD #2 [facility] [address] [place] [address] 07/10/2026 10:30 AM CDT Office Visit [facility] #2 [place] [address] Markie Alston MD #2 [facility] [address] [place] [address] documented as of this encounter Visit Diagnoses Not on filedocumented in this encounter Additional Health Concerns Assessment Noted Time PHQ-9 Depression Total Score: 19 021 10:44 AM CDT documented as of this encounter Care Teams Interlocking Machine Operator Relationship Specialty Start Date End Date Sachin Jefferson [address] [place] [address] PCP - General Family Medicine 05/13/21 Blas Levy MD [address] [place] [phone] Consulting Physician Oncology 05/13/21 Kayden Louie PAC #2 [facility] [place] [facility] [address] Physician Prototype Technician Orthopaedic Surgery 01/30/25 Giovani Boykin MD #2 [facility] [address] [place] [address] Consulting Physician Urology 02/27/25 Markie Alston MD [address] [address] Consulting Physician Urology 06/03/25 documented as of this encounter
--- OUTSIDE RECORDS SUMMARY | 2025-07-10 13:35 | XMS_ITS | Continuity of Care Document ---
Author Organization [facility] Address [address] [place] [address] [place] [address] Phone Care Team Providers Care [employer] Offbearer Name Role Phone Sachin Jefferson MD Unavailable Unavailable Allergies, Adverse Reactions, Alerts Substance Reaction Status Criticality No Known Allergies Active No Inform ation Medications Medication Instructions Dosage Effective Dates (start - stop) Status Comments Lyrica 150 mg capsule take 1 capsule by oral route 2 times every day 150 MG - Active avoid driving or operate machines hydrocodone 10 mg-acetaminophen 325 mg tablet take 1 by Oral route 3 times every day as needed 1 - Active PRN for pain ,avoid driving or operate machines cyclobenzaprine 10 mg tablet take 1 tablet by oral route 2 times every day as needed 10 MG - Active avoid drivin g or oeprate machines Eliquis 5 mg tablet take 1 tablet by oral route 2 times every day 5 MG - Active diclofenac sodium 75 mg tablet,delayed release take 1 tablet by oral route every day as needed 75 MG - Active PRN for pain sildenafil 100 mg tablet take 1 tablet by oral route every day as needed approximately 1 hour before sexual activity as needed 100 MG - Active take one orally about one hour before activity, max 1/24 hours rosuvastatin 20 mg tablet take 1 tablet by oral route every day 20 MG - Active Procedures Procedure Date OFFICE/OUTPATIENT VISIT, EST OFFICE/OUTPATIENT VISIT, EST PREV [...] VISIT, EST PREV VISIT, EST, AGE 40-64 Jul- OFFICE/OUTPATIENT VISIT, EST OFFICE/OUTPATIENT VISIT, EST OFFICE/OUTPATIENT [...] 40-64 OFFICE/OUTPATIENT VISIT, EST OFFICE/OUTPATIENT VISIT, EST -2019 OFFICE/OUTPATIENT VISIT, EST -2019 OFFICE/OUTPATIENT VISIT, EST OFFICE/OUTPATIENT VISIT, EST OFFICE/OUTPATIENT VISIT, EST OFFICE/OUTPATIENT VISIT, EST OFFICE/OUTPATIENT VISIT, EST OFFICE/OUTPATIENT VISIT, EST OFFICE/OUTPATIENT VISIT, EST OFFICE/OUTPATIENT VISIT, EST OFFICE/OUTPATIENT VISIT, EST OFFICE/OUTPATIENT VISIT, EST OFFICE/OUTPATIENT VISIT, EST -2018 PREV VISIT, EST, AGE 40-64 OFFICE/OUTPATIENT VISIT, [...] Providers Copied on Encounter OFFICE/OUTPA TIENT VISIT, [facility], [address], [place], [place], [address], [place] tel:[phone] [facility] pain (chief complaint) Chronic pain syndromeLower abdominal painCalculus of kidney with calculus of ureterWeakness Jun-0 5 Ronny Stephenson. [address], [place], [place], [address] , [place]. tel:[phone] OFFICE/OUTPA TIENT VISIT, EST [facility], [address], [place], [place], [address], [place] tel:[phone] [facility] pain (chief complaint) knee pain1 (chief complaint) flank pain1 (chief complaint) Chronic pain syndromePain in right kneeLower abdominal pain May-0 - 5 Ronny Stephenson. [address], [address], [place], [place], [address] , [place]. tel:[phone] PREV VISIT, EST, AGE 40-64 [facility], [address], [place], [place], [address], [place] tel:[phone] [facility] physical (chief complaint) Encounter for general adult medical examination without abnormal findings 5 Ronny Stephenson. [address], [address], [place], [place], [address] , [place]. tel:[phone] OFFICE/OUTPA TIENT VISIT, EST [facility], [address], [place], [place], [address], [place] tel:[phone] [facility] pain (chief complaint) renal stone1 (chief complaint) Calculus of kidney with calculus of ureterChronic pain syndrome March-0 5 Ronny Stephenson. [address], [place], [place], [address] , [place]. tel:[phone] OFFICE/OUTPA TIENT VISIT, [facility], [address], [place], [place], [address], [place] tel:[phone] [facility] renal stone1 (chief complaint) pain (chief complaint) HLP (chief complaint) Chronic pain syndromeCalculus of kidney with calculus of ureterMixed hyperlipidemia Feb-0 5 Jefferson Sachin. [address], [place], [place], [address] , [place]. tel:[phone] OFFICE/OUTPA TIENT VISIT, [facility], [address], [place], [place], [address], [place] tel:[phone] [facility] renal stone1 (chief complaint) Calculus of kidney with calculus of ureterBenign essential microscopic hematuria Feb-0 5 Ronny Sachin. [address], [address], [place], [place], [address] , [place]. tel:[phone] OFFICE/OUTPA TIENT VISIT, [facility], [address], [place], [place], [address], [place] tel:[phone] [facility] pain (chief complaint) bruising1 (chief complaint) Chronic pain syndromePain in right kneePersonal history of nicotine dependenceSpontaneo us ecchymoses 5 Ronny Sachin. [address], [address], [place], [place], [address] , [place]. tel:[phone] OFFICE/OUTPA TIENT VISIT, [facility], [address], [place], [place], [address], [place] tel:[phone] [facility] pain (chief complaint) hematurai1 (chief complaint) knee pain1 (chief complaint) Asymptomatic microscopic hematuriaChronic pain syndromePersonal history of nicotine dependencePain in right knee 5 Ronny Sachin. [address], [place], [place], [address] , [place]. tel:[phone] OFFICE/OUTPA TIENT VISIT, [facility], [address], [place], [place], [address], [place] tel:[phone] [facility] PE (chief complaint) pain (chief complaint) hematuria1 (chief complaint) Asymptomatic microscopic hematuriaChronic pain syndromeAcute lung embolism 5 Ronny Sachin. [address], [place], [place], [address] , [place]. tel:[phone] OFFICE/OUTPA TIENT VISIT, [facility], [address], [place], [place], [address], [place] tel:[phone] [facility] kcl (chief complaint) hematuria1 (chief complaint) pancreatit is1 (chief complaint) pain (chief complaint) ED (chief complaint) HLP (chief complaint) Acute pancreatitis without necrosisAsymptomati c microscopic hematuriaChronic pain syndromeHyperkalemi aMixed hyperlipidemiaMale erectile dysfunction, unspecified 4 Ronny Stephenson. [address], [place], [place], [address] , [place]. tel:[phone] OFFICE/OUTPA TIENT VISIT, [facility], [address], [place], [place], [address], [place] tel:[phone] [facility] flank pain1 (chief complaint) hematuria1 (chief complaint) back pain1 (chief complaint) Asymptomatic microscopic hematuriaChronic pain syndromeAcute pancreatitis without necrosisKidney stoneInguinal hernia 4 Ronny Stephenson. [address], [place], [place], [address] , [place]. tel:[phone] OFFICE/OUTPA TIENT VISIT, [facility], [address], [place], [place], [address], [place] tel:[phone] [facility] pain (chief complaint) Chronic pain syndrome 4 Ronny Stephenson. [address], [place], [place], [address] , [place]. tel:[phone] OFFICE/OUTPA TIENT VISIT, [facility], [address], [place], [place], [address], [place] tel:[phone] [facility] pain (chief complaint) colon (chief complaint) Chronic pain syndromeDiverticulo sis of large intestine w/o perforation w/o bleeding 4 Ronny Stephenson. [address], [place], [place], [address] , [place]. tel:[phone] OFFICE/OUTPA TIENT VISIT, [facility], [address], [place], [place], [address], [place] tel:[phone] [facility] renal stone1 (chief complaint) pain (chief complaint) HLP (chief complaint) Chronic pain syndromeMixed hyperlipidemiaCalcu amanda of kidneyAsymptomatic microscopic hematuria 4 Ronny Stephenson. [address], [place], [place], [address] , [place]. tel:[phone] OFFICE/OUTPA TIENT VISIT, [facility], [address], [place], [place], [address], [place] tel:[phone] [facility] pain (chief complaint) Chronic pain syndrome 4 Ronny Stephenson. [address], [place], [place], [address] , [place]. tel:[phone] OFFICE/OUTPA TIENT VISIT, [facility], [address], [place], [place], [address], [place] tel:[phone] [facility] back pain1 (chief complaint) blood (chief complaint) PE (chief complaint) Occult blood in stoolAcute lung embolismChronic pain syndrome 4 Ronny Stephenson. [address], [place], [place], [address] , [place]. tel:[phone] OFFICE/OUTPA TIENT VISIT, [facility], [address], [place], [place], [address], [place] tel:[phone] [facility] blood in stool1 (chief complaint) pain (chief complaint) Occult blood in stoolPolyp of colonLumbago with sciatica, left side 4 Ronny Stephenson. [address], [place], [place], [address] , [place]. tel:[phone] OFFICE/OUTPA TIENT VISIT, [facility], [address], [place], [place], [address], [place] tel:[phone] [facility] pain (chief complaint) right flank pain1 (chief complaint) Lumbago with sciatica, left sideAbdominal pain 4 Ronny Stephenson. [address], [place], [place], [address] , [place]. tel:[phone] OFFICE/OUTPA TIENT VISIT, [facility], [address], [place], [place], [address], [place] tel:[phone] [facility] PE (chief complaint) pain (chief complaint) polyp1 (chief complaint) Chronic pain syndromeAcute lung embolismPolyp of colon Jan- 4 Ronny Stephenson. [address], [place], [place], [address] , [place]. tel:[phone] OFFICE/OUTPA TIENT VISIT, [facility], [address] [place], [address], [place] tel:[phone] [facility] pain (chief complaint) tobacco1 (chief complaint) knee pain1 (chief complaint) Chronic pain syndromeTobacco usePain in right knee 4 Ronny Stephenson. [address], [place], [place], [address] , [place]. tel:[phone] OFFICE/OUTPA TIENT VISIT, [facility], [address] [place], [address], [place] tel:[phone] [facility] pain (chief complaint) PE (chief complaint) tobacco1 (chief complaint) Chronic pain syndromeAcute lung embolismTobacco use 4 Ronny Stephenson. [address], [place], [place], [address] , [place]. tel:[phone] OFFICE/OUTPA TIENT VISIT, [facility], [address] [place], [address], [place] tel:[phone] [facility] pain (chief complaint) Chronic pain syndrome 3 Ronny Stephenson. [address], [place], [place], [address] , [place]. tel:[phone] OFFICE/OUTPA TIENT VISIT, [facility], [address], [place], [place], [address], [place] tel:[phone] [facility] pain (chief complaint) Chronic pain syndrome 3 Ronny Stephenson. [address], [place], [place], [address] , [place]. tel:[phone] OFFICE/OUTPA TIENT VISIT, [facility], [address], [place], [place], [address], [place] tel:[phone] [facility] HLP (chief complaint) pain1 (chief complaint) Chronic pain syndromeMixed hyperlipidemia 3 Ronny Stephenson. [address], [place], [place], [address] , [place]. [phone] OFFICE/OUTPA TIENT VISIT, [facility], [address], [place], [place], [address], [place] tel:[phone] [facility] presyncope 1 (chief complaint) Syncope and collapseLeukocytosi sHypotension 3 Ronny Stephenson. [address], [place], [place], [address] , [place]. tel:[phone] PREV VISIT, EST, AGE 40-64 [facility], [address], [place], [place], [address], [place] tel:[phone] [facility] physical (chief complaint) Encounter for general adult medical examination without abnormal findings 3 Ronny Stephenson. [address], [place], [place], [address] , [place]. tel:[phone] OFFICE/OUTPA TIENT VISIT, [facility], [address], [place], [place], [address], [place] tel:[phone] [facility] pain (chief complaint) syncope1 (chief complaint) ear1 (chief complaint) Chronic pain syndromeSyncope and collapseOtalgia, left ear 3 Ronny Stephenson. [address], [place], [place], [address] , [place]. tel:[phone] OFFICE/OUTPA TIENT VISIT, [facility], [address], [place], [place], [address], [place] tel:[phone] [facility] pain (chief complaint) Chronic pain syndrome 3 Ronny Stephenson. [address], [place], [place], [address] , [place]. tel:[phone] OFFICE/OUTPA TIENT VISIT, [facility], [address], [place], [place], [address], [place] tel:[phone] [facility] pain (chief complaint) anxiety1 (chief complaint) PE (chief complaint) allergy1 (chief complaint) Generalized Anxiety DisorderChronic pain syndromeAcute lung embolismAllergic rhinitis due to pollen 3 Ronny Stephenson. [address], [place], [place], [address] , [place]. tel:[phone] OFFICE/OUTPA TIENT VISIT, [facility], [address], [place], [place], [address], [place] tel:[phone] [facility] pain (chief complaint) anxiety1 (chief complaint) Chronic pain syndromeGeneralized Anxiety Disorder 3 Ronny Stephenson. [address], [place], [place], [address] , [place]. tel:[phone] OFFICE/OUTPA TIENT VISIT, [facility], [address], [place], [place], [address], [place] tel:[phone] [facility] pain (chief complaint) GERD1 (chief complaint) colon polyp1 (chief complaint) GERD w/o esophagitisPolyp of colonChronic pain syndrome 3 Ronny Stephenson. [address], [place], [place], [address] , [place]. tel:[phone] OFFICE/OUTPA TIENT VISIT, [facility], [address], [place], [place], [address], [place] tel:[phone] [facility] PE (chief complaint) pneumonia1 (chief complaint) pain (chief complaint) ear1 (chief complaint) PneumoniaAcute lung embolismChronic pain syndromeOtitis media, unspecified, left ear 3 Ronny Turner [address], [place], [place], [address] , [place]. tel:[phone] OFFICE/OUTPA TIENT VISIT, [facility], [address], [place], [place], [address], [place] tel:[phone] [facility] garrett (chief complaint) PE (chief complaint) pneumonia1 (chief complaint) Acute lung embolismPneumoniaCh ronic pain syndrome 3 Ronny Turner [address], [place], [place], [address] , [place]. tel:[phone] OFFICE/OUTPA TIENT VISIT, [facility], [address], [place], [place], [address], [place] tel:[phone] [facility] PE (chief complaint) Acute lung embolism 3 Ronny Turner [address], [place], [place], [address] , [place]. tel:[phone] OFFICE/OUTPA TIENT VISIT, [facility], [address], [place], [place], [address], [place] tel:[phone] [facility] pain (chief complaint) GERD1 (chief complaint) Chronic pain syndromeGERD w/o esophagitis 3 Ronny Turner [address], [place], [place], [address] , [place]. tel:[phone] OFFICE/OUTPA TIENT VISIT, [facility], [address], [place], [place], [address], [place] tel:[phone] [facility] COVID (chief complaint) Viral infection 3 Jefferson Sachin. [address], [place], [place], [address] , [place]. tel:[phone] OFFICE/OUTPA TIENT VISIT, [facility], [address], [place], [place], [address], [place] tel:[phone] [facility] pain (chief complaint) GERD1 (chief complaint) ED (chief complaint) GERD w/o esophagitisMale erectile dysfunction, unspecifiedChronic pain syndrome 2 Jefferson Sachin. [address], [place], [place], [address] , [place]. tel:[phone] OFFICE/OUTPA TIENT VISIT, [facility], [address], [place], [place], [address], [place] tel:[phone] [facility] GERD1 (chief complaint) pain (chief complaint) HLP (chief complaint) anxiety1 (chief complaint) Chronic pain syndromeEsophagitis Mixed hyperlipidemiaGener alized Anxiety DisorderLateral epicondylitis, left elbow 2 Ronny Stephenson. [address], [place], [place], [address] , [place]. tel:[phone] OFFICE/OUTPA TIENT VISIT, [facility], [address], [place], [place], [address], [place] tel:[phone] [facility] pain (chief complaint) GERD1 (chief complaint) elbow pain1 (chief complaint) Chronic pain syndromeEsophagitis Lateral epicondylitis, left elbow 2 Jefferson Sachin. [address], [place], [place], [address] , [place]. tel:[phone] OFFICE/OUTPA TIENT VISIT, [facility], [address], [place], [place], [address], [place] tel:[phone] [facility] pain (chief complaint) ganglion cyst1 (chief complaint) GERD1 (chief complaint) GERD w/o esophagitisChronic pain syndromeGanglion, left wristTobacco use 2 Ronny Stephenson. [address], [place], [place], [address] , [place]. tel:[phone] PREV VISIT, EST, AGE 40-64 [facility], [address], [place], [place], [address], [place] tel:[phone] [facility] physical (chief complaint) Encounter for general adult medical examination without abnormal findings 0 2 Ronny Stephenson. [address], [place], [place], [address] , [place]. tel: [phone] OFFICE/OUTPA TIENT VISIT, [facility], [address], [place], [place], [address], [place] tel:[phone] [facility] ganglion cyst1 (chief complaint) pain (chief complaint) Ganglion, left wristChronic pain syndrome 2 Ronny Stephenson. [address], [place], [place], [address] , [place]. tel: [phone] OFFICE/OUTPA TIENT VISIT, EST [facility], [address], [place], [place], [address], [place] tel:[phone] [facility] pain (chief complaint) anxiety1 (chief complaint) Chronic pain syndromeGeneralized Anxiety Disorder 2 Ronny Stephenson. [address], [place], [place], [address] , [place]. tel:[phone] OFFICE/OUTPA TIENT VISIT, [facility], [address], [place], [place], [address], [place] tel:[phone] [facility] pain (chief complaint) HLP (chief complaint) Chronic pain syndromeHyperlipide js 2 Ronny Stephenson. [address], [place], [place], [address] , [place]. tel:[phone] OFFICE/OUTPA TIENT VISIT, [facility], [address], [place], [place], [address], [place] tel:[phone] [facility] pain (chief complaint) Chronic pain syndrome 2 Ronny Stephenson. [address], [place], [place], [address] , [place]. tel:[phone] OFFICE/OUTPA TIENT VISIT, [facility], [address], [place], [place], [address], [place] tel:[phone] [facility] pain (chief complaint) lung nodule1 (chief complaint) ED (chief complaint) Chronic pain syndromePain in right kneeMale erectile dysfunction, unspecifiedSolitary lung nodule 2 Ronny Stephenson. [address], [place], [place], [address] , [place]. tel:[phone] OFFICE/OUTPA TIENT VISIT, [facility], [address], [place], [place], [address], [place] tel:[phone] [facility] pain (chief complaint) tobacco1 (chief complaint) tobacco1 (chief complaint) Chronic pain syndromeTobacco use 2 Ronny Stephenson. [address], [place], [place], [address] , [place]. tel:[phone] OFFICE/OUTPA TIENT VISIT, [facility], [address], [place], [place], [address], [place] tel:[phone] [facility] pain (chief complaint) RLS (chief complaint) Chronic pain syndromeRestless legs syndrome 2 Ronny Stephenson. [address], [place], [place], [address] , [place]. tel:[phone] OFFICE/OUTPA TIENT VISIT, [facility], [address], [place], [place], [address], [place] tel:[phone] [facility] pain1 (chief complaint) Chronic pain syndromeOther spondylosis, lumbar region 2 Ronny Stephenson. [address], [place], [place], [address] , [place]. tel: [phone] OFFICE/OUTPA TIENT VISIT, [facility], [address], [place], [place], [address], [place] [phone] [facility] pain (chief complaint) Chronic pain syndrome Dec-0 3 1 Ronny Turner [address], [place], [place], [address] , [place]. tel: [phone] OFFICE/OUTPA TIENT VISIT, [facility], [address], [place], [place], [address], [place] tel:[phone] [facility] pain (chief complaint) folate1 (chief complaint) Folate deficiencyChronic pain syndrome Sep-0 1 Ronny Turner [address], [place], [place], [address] , [place]. tel: [phone] OFFICE/OUTPA TIENT VISIT, [facility], [address], [place], [place], [address], [place] tel:[phone] [facility] pain (chief complaint) Chronic pain syndromePain in right knee Aug-0 1 Ronny Turner [address], [place], [place], [address] , [place]. tel: [phone] OFFICE/OUTPA TIENT VISIT, [facility], [address], [place], [place], [address], [place] tel:[phone] [facility] pain (chief complaint) HLP (chief complaint) M protein (chief complaint) Chronic pain syndromeMonoclonal gammopathyHyperlipi demiaPain in right knee Sep-0 1 Ronny Turner [address], [place], [place], [address] , [place]. tel:[phone] PREV VISIT, EST, AGE 40-64 [facility], [address], [place], [place], [address], [place] tel:[phone] [facility] physical (chief complaint) Encounter for general adult medical examination without abnormal findings 1 Ronny Stephenson. [address], [place], [place], [address] , [place]. tel:[phone] OFFICE/OUTPA TIENT VISIT, [facility], [address], [place], [place], [address], [place] tel:[phone] [facility] pain (chief complaint) M protein1 (chief complaint) Chronic pain syndromeMonoclonal gammopathy 1 Ronny Stephenson. [address], [place], [place], [address] , [place]. tel:[phone] OFFICE/OUTPA TIENT VISIT, [facility], [address], [place], [place], [address], [place] tel:[phone] [facility] HLP (chief complaint) pain (chief complaint) glucose1 (chief complaint) M spike1 (chief complaint) Monoclonal gammopathyChronic pain syndromeHyperlipide miaTobacco useHyperglycemia 1 Ronny Stephenson. [address], [place], [place], [address] , [place]. tel:[phone] OFFICE/OUTPA TIENT VISIT, [facility], [address], [place], [place], [address], [place] tel:[phone] [facility] pain (chief complaint) globulin1 (chief complaint) HLP (chief complaint) BPH1 (chief complaint) Chronic pain syndromeTobacco useAbnormality of globulinBPH w/o lower urinary tract symptomHyperlipidem ia 1 Ronny Stephenson. [address], [place], [place], [address] , [place]. tel:[phone] OFFICE/OUTPA TIENT VISIT, [facility], [address], [place], [place], [address], [place] tel:[phone] [facility] pain (chief complaint) HLP (chief complaint) anxiety1 (chief complaint) tobacco1 (chief complaint) Chronic pain syndromeGeneralized Anxiety DisorderHyperlipide miaTobacco use Feb- 1 Ronny Stephenson. [address], [place], [place], [address] , [place]. tel:[phone] OFFICE/OUTPA TIENT VISIT, [facility], [address], [place], [place], [address], [place] tel:[phone] [facility] pain (chief complaint) Lumbago with sciatica, left sideNeuropathy 1 Ronny Stephenson. [address], [place], [place], [address] , [place]. tel:[phone] OFFICE/OUTPA TIENT VISIT, [facility], [address], [place], [place], [address], [place] tel:[phone] [facility] pain (chief complaint) Lumbago with sciatica, left side Fe 1 Ronny Stephenson. [address], [address], [place], [place], [address] , [place]. tel:[phone] OFFICE/OUTPA TIENT VISIT, [facility], [address], [place], [place], [address], [place] tel:[phone] [facility] anxiety1 (chief complaint) pain (chief complaint) RLS (chief complaint) Chronic pain syndromeGeneralized Anxiety DisorderRestless legs syndrome 1 Ronny Stephenson. [address], [address], [place], [place], [address] , [place]. tel:[phone] OFFICE/OUTPA TIENT VISIT, [facility], [address], [place], [place], [address], [place] tel:[phone] [facility] pain (chief complaint) Chronic pain syndrome 0 Ronny Stephenson. [address], [address], [place], [place], [address] , [place]. tel:[phone] OFFICE/OUTPA TIENT VISIT, [facility], [address], [place], [place], [address], [place] tel:[phone] [facility] pain (chief complaint) ED (chief complaint) Chronic pain syndromeMale erectile dysfunction, unspecified 0 Ronny Stephenson. [address], [place], [place], [address] , [place]. [phone] OFFICE/OUTPA TIENT VISIT, [facility], [address], [place], [place], [address], [place] tel:[phone] [facility] folate1 (chief complaint) globulin1 (chief complaint) HLP (chief complaint) anxiety1 (chief complaint) Generalized Anxiety DisorderFolate deficiencyHyperlipi demiaAbnormality of globulinChronic pain syndrome 0 Ronny Stephenson. [address], [place], [place], [address] , [place]. [phone] OFFICE/OUTPA TIENT VISIT, [facility], [address], [place], [place], [address], [place] tel:[phone] [facility] HLP (chief complaint) folate (chief complaint) Anxiety 1 (chief complaint) Chronic pain (chief complaint) HyperlipidemiaFolat e deficiencyChronic pain syndromeGeneralized Anxiety Disorder 0 Ronny Stephenson. [address], [place], [place], [address] , [place]. tel:[phone] OFFICE/OUTPA TIENT VISIT, [facility], [address] [place] [address], [place] tel:[phone] [facility] pain (chief complaint) Chronic pain syndrome 0 Ronny Stephenson. [address], [place], [place], [address] , [place]. tel:[phone] OFFICE/OUTPA TIENT VISIT, [facility], [address], [place], [place], [address], [place] tel:[phone] [facility] HLP (chief complaint) pain (chief complaint) HyperlipidemiaChron ic pain syndrome 0 Ronny Turner [address], [place], [place], [address] , [place]. tel:[phone] OFFICE/OUTPA TIENT VISIT, [facility], [address], [place], [place], [address], [place] tel:[phone] [facility] folate1 (chief complaint) HLP (chief complaint) a1c (chief complaint) pain (chief complaint) Folate deficiencyHyperlipi demiaHyperglycemiaC hronic pain syndromeFamily history of malignant neoplasm of prostate 0 Ronny Turner [address], [address], [place], [place], [address] , [place]. tel:[phone] PREV VISIT, EST, AGE 40-64 [facility], [address], [place], [place], [address], [place] tel:[phone] [facility] physical (chief complaint) Encntr for general adult medical exam w/o abnormal findings 0 Ronny Turner [address], [place], [place], [address] , [place]. tel:[phone] OFFICE/OUTPA TIENT VISIT, EST [facility], [address], [place], [place], [address], [place] tel:[phone] [facility] pain (chief complaint) anxiety1 (chief complaint) Chronic pain syndromeGeneralized Anxiety Disorder 0 Ronny Turner [address], [place], [place], [address] , [place]. tel:[phone] OFFICE/OUTPA TIENT VISIT, [facility], [address], [place], [place], [address], [place] tel:[phone] [facility] physical (chief complaint) Chronic pain syndrome Jan- 0 Ronny Turner [address], [place], [place], [address] , [place]. tel:[phone] Referring Provider: Sachin Jefferson, [address], [place], [place], [address]. tel:[phone] OFFICE/OUTPA TIENT VISIT, [facility], [address], [place], [place], [address], [place] tel:[phone] [facility] pain (chief complaint) anxiety1 (chief complaint) ED (chief complaint) RLS (chief complaint) Generalized Anxiety DisorderMale erectile dysfunction, unspecifiedChronic pain syndromeRestless legs syndrome 0 Ronny Stephenson. [address], [place], [place], [address] , [place]. tel:[phone] Referring Provider: Renetta Stokes [address], [place], [place], [address]. tel:[phone] OFFICE/OUTPA TIENT VISIT, [facility], [address], [place], [place], [address], [place] tel:[phone] [facility] pain1 (chief complaint) polyp1 (chief complaint) anxiety1 (chief complaint) Polyp of colonChronic pain syndromeGeneralized Anxiety DisorderPresence of cardiac pacemaker 0 Ronny Stephenson. [address], [place], [place], [address] , [place]. tel:[phone] Referring Provider: Renetta Stokes [address], [place], [place], [address]. tel:[phone] OFFICE/OUTPA TIENT VISIT, [facility], [address], [place], [place], [address], [place] tel:[phone] [facility] chronic pain (chief complaint) polyp (chief complaint) Chronic pain syndromePolyp of colon 0201 9 Ronny Stephenson. [address], [place], [place], [address] , [place]. tel:[phone] Referring Provider: Renetta Stokes [address], [place], [place], [address]. tel:[phone] OFFICE/OUTPA TIENT VISIT, [facility], [address], [place], [place], [address], [place] tel:[phone] [facility] chronic pain1 (chief complaint) Chronic pain syndrome 9 Ronny Stephenson. [address], [place], [place], [address] , [place]. tel:[phone] Referring Provider: Sachin Jefferson, [address], [place], [place], [address]. tel:[phone] OFFICE/OUTPA TIENT VISIT, [facility], [address], [place], [place], [address], [place] tel:[phone] [facility] chronic pain1 (chief complaint) ED (chief complaint) Chronic pain syndromeMale erectile dysfunction, unspecified 9 Ronny Stephenson. [address], [place], [place], [address] , [place]. tel:[phone] Referring Provider: Sachin Jefferson, [address], [place], [place], [address]. tel:[phone] OFFICE/OUTPA TIENT VISIT, [facility], [address], [place], [place], [address], [place] tel:[phone] [facility] pain1 (chief complaint) Chronic pain syndrome 9 Ronny Stephenson. [address], [place], [place], [address] , [place]. tel:[phone] OFFICE/OUTPA TIENT VISIT, [facility], [address], [place], [place], [address], [place] tel:[phone] [facility] chronic pain (chief complaint) PAD (chief complaint) screening1 (chief complaint) Chronic pain syndromePeripheral vascular disease, unspecifiedEncounte r for screening for malignant neoplasm of prostateEncounter for screening for malignant neoplasm of colon 9 Ronny Stephenson. [address], [place], [place], [address] , [place]. tel:[phone] OFFICE/OUTPA TIENT VISIT, [facility], [address], [place], [place], [address], [place] tel:[phone] [facility] chronic pain1 (chief complaint) PAD (chief complaint) nevus1 (chief complaint) anxiety1 (chief complaint) Nevus, non-neoplasticPerip heral vascular disease, unspecifiedChronic pain syndromeGeneralized Anxiety Disorder 9 Ronny Stephenson. [address], [place], [place], [address] , [place]. tel:[phone] Referring Provider: Sachin Jefferson [address], [place], [place], [address]. tel:[phone] OFFICE/OUTPA TIENT VISIT, [facility], [address], [place], [place], [address], [place] tel:[phone] [facility] chronic pain (chief complaint) tobacco (chief complaint) Peripheral vascular disease, unspecifiedChronic pain syndrome 9 Ronny Stephenson. [address], [place], [place], [address] , [place]. tel:[phone] OFFICE/OUTPA TIENT VISIT, [facility], [address], [place], [place], [address], [place] tel:[phone] [facility] leg pain1 (chief complaint) chronic pain1 (chief complaint) tobacco1 (chief complaint) Lumbago with sciatica, left sidePeripheral vascular disease, unspecifiedTobacco use 0 9 Ronny Stephenson. [address], [place], [place], [address] , [place]. tel:[phone] Referring Provider: Renetta Stokes [address], [place], [place], [address]. tel:[phone] OFFICE/OUTPA TIENT VISIT, [facility], [address], [place], [place], [address], [place] tel:[phone] [facility] back pain1 (chief complaint) ed (chief complaint) chronic pain1 (chief complaint) Chronic pain syndromeMale erectile dysfunction, unspecifiedTobacco useSpinal stenosis, lumbar region with neurogenic claudication 9 Ronny Turner [address], [place], [place], [address] , [place]. [phone] OFFICE/OUTPA TIENT VISIT, EST [facility], [address], [place], [place], [address], [place] tel:[phone] [facility] glucose1 (chief complaint) folate (chief complaint) chronic pain1 (chief complaint) HyperglycemiaFolate deficiencyHyperlipi demiaChronic pain syndrome Feb- 9 Ronny Turner [address], [place], [place], [address] , [place]. tel:[phone] Referring Provider: Renetta [address], [place], [place], [address]. tel:[phone] PREV VISIT, EST, AGE 40-64 [facility], [address], [place], [place], [address], [place] tel:[phone] [facility] Physical (chief complaint) Encounter for general adult medical exam w abnormal findingsRestless legs syndromeChronic pain syndromeCoronary artery disease of three affiliated coronary artery without angina pectorisHyperlipide js 9 Ronny Turner [address], [place], [place], [address] , [place]. tel:[phone] OFFICE/OUTPA TIENT VISIT, EST [facility], [address], [place], [place], [address], [place] [phone] [facility] chronic pain1 (chief complaint) restless (chief complaint) Chronic pain syndromeRestless legs syndrome 9 Ronny Turner [address], [place], [place], [address] , [place]. tel:[phone] OFFICE/OUTPA TIENT VISIT, [facility], [address], [place], [place], [address], [place] tel:[phone] [facility] chronic pain1 (chief complaint) Chronic pain syndrome 9 Ronny Stephenson. [address], [place], [place], [address] , [place]. [phone] OFFICE/OUTPA TIENT VISIT, [facility], [address], [place], [place], [address], [place] tel:[phone] [facility] chronic pain (chief complaint) knee pain1 (chief complaint) ED (chief complaint) Chronic pain syndromePain in right kneeMale erectile dysfunction, unspecified 8 Ronny Stephenson. [address], [place], [place], [address] , [place]. [phone] Referring Provider: Renetta Stokes [address], [place], [place], [address]. tel:[phone] OFFICE/OUTPA TIENT VISIT, [facility], [address], [place], [place], [address], [place] tel:[phone] [facility] chronic pain (chief complaint) thumb1 (chief complaint) Chronic pain syndromeParesthesia of skin 8 Ronny Stephenson. [address], [place], [place], [address] , [place]. tel:[phone] Referring Provider: Renetta [address], [place], [place], [address]. tel:[phone] OFFICE/OUTPA TIENT VISIT, [facility], [address], [place], [place], [address], [place] tel:[phone] [facility] chronic pain1 (chief complaint) thumb numbness1 (chief complaint) Chronic pain syndromeParesthesia of skin 8 Ronny Stephenson. [address], [place], [place], [address] , [place]. tel:[phone] Referring Provider: Renetta Stokes [address], [place], [place], [address]. tel:[phone] OFFICE/OUTPA TIENT VISIT, [facility], [address], [place], [place], [address], [place] tel:[phone] [facility] RLS (chief complaint) chronic pain (chief complaint) Chronic pain syndromeRestless legs syndrome 8 Ronny Stephenson. [address], [place], [place], [address] , [place]. tel:[phone] Referring Provider: Renetta Stokes [address], [place], [place], [address]. tel:[phone] OFFICE/OUTPA TIENT VISIT, [facility], [address], [place], [place], [address], [place] tel:[phone] [facility] chronic pain (chief complaint) tobacco1 (chief complaint) Chronic pain syndromeTobacco use 8 Ronny Stephenson. [address], [place], [place], [address] , [place]. tel:[phone] Referring Provider: Renetta Stokes [address], [place], [place], [address]. tel:[phone] OFFICE/OUTPA TIENT VISIT, [facility], [address], [place], [place], [address], [place] tel:[phone] [facility] chronic pain (chief complaint) ED1 (chief complaint) anxiety1 (chief complaint) tobacco1 (chief complaint) Chronic pain syndromeMale erectile dysfunction, unspecifiedGenerali zed Anxiety DisorderTobacco useFamily history of malignant neoplasm of prostate 8 Ronny Stephenson. [address], [place], [place], [address] , [place]. tel:[phone] Referring Provider: Renetta Stokes [address], [place], [place], [address]. tel:[phone] OFFICE/OUTPA TIENT VISIT, [facility], [address], [place], [place], [address], [place] tel:[phone] [facility] HLP (chief complaint) leukocytos is1 (chief complaint) chronic pain (chief complaint) HyperlipidemiaLeuko cytosisChronic pain syndromePain in right knee 8 Ronny Turner [address], [place], [place], [address] , [place]. tel:[phone] Referring Provider: Renetta Stokes [address], [place], [place], [address]. tel:[phone] OFFICE/OUTPA TIENT VISIT, [facility], [address], [place], [place], [address], [place] [phone] [facility] chronic pain1 (chief complaint) wbc1 (chief complaint) HLP (chief complaint) Body mass index (BMI) 29.0-29.9, adultChronic pain syndromeLeukocytosi sHyperlipidemia 8 Ronny Turner [address], [place], [place], [address] , [place]. tel:[phone] Referring Provider: Renetta Stokes [address], [place], [place], [address]. tel:[phone] OFFICE/OUTPA TIENT VISIT, [facility], [address], [place], [place], [address], [place] tel:[phone] [facility] chronic pain1 (chief complaint) knee pain1 (chief complaint) Chronic pain syndromePain in right knee 8 Ronny Turner [address], [place], [place], [address] , [place]. tel:[phone] Referring Provider: Renetta Stokes [address], [place], [place], [address]. tel:[phone] OFFICE/OUTPA TIENT VISIT, [facility], [address], [place], [place], [address], [place] tel:[phone] [facility] chronic pain (chief complaint) knee pain1 (chief complaint) Pain in right kneeChronic pain syndrome 8 Ronny Turner [address], [place], [place], [address] , [place]. [phone] Referring Provider: Renetta Stokes [address], [place], [place], [address]. tel:[phone] PREV VISIT, EST, AGE 40-64 [facility], [address], [place], [place], [address], [place] tel:[phone] [facility] physical (chief complaint) Encounter for general adult medical exam w abnormal findingsCoronary artery disease of three affiliated coronary artery without angina pectorisPain in right kneeRestless legs syndrome 8 Ronny Stephenson. [address], [place], [place], [address] , [place]. tel:[phone] Referring Provider: Renetta Stokes [address], [place], [place], [address]. tel:[phone] OFFICE/OUTPA TIENT VISIT, [facility], [address], [place], [place], [address], [place] tel:[phone] [facility] sick (chief complaint) Acute pharyngitis, unspecifiedAcute upper respiratory infection, unspecified 8 Ronny Stephenson. [address], [place], [place], [address] , [place]. tel:[phone] OFFICE/OUTPA TIENT VISIT, [facility], [address], [place], [place], [address], [place] tel:[phone] [facility] ED (chief complaint) HLP (chief complaint) chrnoic pain1 (chief complaint) knee pani1 (chief complaint) Coronary artery disease of three affiliated coronary artery without angina pectorisChronic pain syndromePain in right kneeMale erectile dysfunction, unspecified 8 Ronny Stephenson. [address], [place], [place], [address] , [place]. [phone] Referring Provider: Renetta Stokes [address], [place], [place], [address]. tel:[phone] OFFICE/OUTPA TIENT VISIT, [facility], [address], [place], [place], [address], [place] tel:[phone] [facility] CAD (chief complaint) back pain1 (chief complaint) Coronary artery disease of three affiliated coronary artery without angina pectorisChronic pain syndrome 7 Ronny Stephenson. [address], [place], [place], [address] , [place]. tel:[phone] Referring Provider: Renetta Stokes [address], [place], [place], [address]. tel:[phone] OFFICE/OUTPA TIENT VISIT, [facility], [address], [place], [place], [address], [place] tel:[phone] [facility] restless leg1 (chief complaint) chronic pain1 (chief complaint) insomnia1 (chief complaint) knee pain1 (chief complaint) Periodic limb movement disorderInsomniaChr onic pain syndromePain in right knee 7 Ronny Stephenson. [address], [place], [place], [address] , [place]. tel:[phone] Referring Provider: Renetta Stokes [address], [place], [place], [address]. tel:[phone] OFFICE/OUTPA TIENT VISIT, [facility], [address], [place], [address], [place] tel:[phone] [facility] insomnia1 (chief complaint) chronic pain (chief complaint) depression 1 (chief complaint) Periodic limb movement disorderGeneralized Anxiety DisorderChronic pain syndromeInsomnia 7 Ronny Stephenson. [address], [place], [place], [address] , [place]. tel:[phone] OFFICE/OUTPA TIENT VISIT, [facility], [address], [place], [place], [address], [place] tel:[phone] [facility] chornic pain (chief complaint) Chronic pain syndrome 7 Jefferson Sachin. [address], [place], [place], [address] , [place]. tel:[phone] Referring Provider: Renetta Stokes [address], [place], [place], [address]. tel:[phone] OFFICE/OUTPA TIENT VISIT, [facility], [address], [place], [place], [address], [place] tel:[phone] [facility] HLP (chief complaint) wbc (chief complaint) ED (chief complaint) chronic pain (chief complaint) HyperlipidemiaMale erectile dysfunction, unspecifiedChronic pain syndromeLeukocytosi s Ronny Turner [address], [place], [place], [address] , [place]. [phone] Referring Provider: Renetta Stokes [address], [place], [place], [address]. tel:[phone] OFFICE/OUTPA TIENT VISIT, [facility], [address], [place], [place], [address], [place] tel:[phone] [facility] limb (chief complaint) chronic pain1 (chief complaint) HLP (chief complaint) anxiety1 (chief complaint) Periodic limb movement disorderHyperlipide miaChronic pain syndromeGeneralized Anxiety Disorder 7 Ronny Jackson [address], [place], [place], [address] , [place]. tel:[phone] Referring Provider: Renetta Stokes [address], [place], [place], [address]. tel:[phone] OFFICE/OUTPA TIENT VISIT, [facility], [address], [place], [place], [address], [place] tel:[phone] [facility] back pain1 (chief complaint) eD1 (chief complaint) HLP (chief complaint) insomani1 (chief complaint) HyperlipidemiaMale erectile dysfunction, unspecifiedSleep apneaChronic pain syndrome 7 Ronny Stephenson. [address], [place], [place], [address] , [place]. tel:[phone] Referring Provider: Renetta Stokes [address], [place], [place], [address]. tel:[phone] OFFICE/OUTPA TIENT VISIT, [facility], [address], [place], [place], [address], [place] tel:[phone] [facility] HLP (chief complaint) back pain1 (chief complaint) ED (chief complaint) Mixed hyperlipidemiaChron ic pain syndromeMale erectile dysfunction, unspecified 7 Ronny Stephenson. [address], [place], [place], [address] , [place]. tel:[phone] Referring Provider: Renetta Stokes [address], [place], [place], [address]. tel:[phone] OFFICE/OUTPA TIENT VISIT, [facility], [address], [place], [place], [address], [place] tel:[phone] [facility] chronic pain (chief complaint) ED1 (chief complaint) blood in stool (chief complaint) HLP (chief complaint) Male erectile dysfunction, unspecifiedChronic pain syndromeMixed hyperlipidemiaCoron anh artery disease of three affiliated coronary artery without angina pectoris 7 Ronny Stephenson. [address], [place], [place], [address] , [place]. tel:[phone] Referring Provider: Renetta Stokes [address], [place], [place], [address]. tel:[phone] OFFICE/OUTPA TIENT VISIT, [facility], [address], [place], [place], [address], [place] tel:[phone] [facility] chronic pain1 (chief complaint) ED1 (chief complaint) ear pain1 (chief complaint) Actinic keratosisChronic pain syndromeMale erectile dysfunction, unspecifiedSick sinus syndrome Feb- 7 Ronny Stephenson. [address], [place], [place], [address] , [place]. tel:[phone] Referring Provider: Renetta Stokes [address], [place], [place], [address]. tel:[phone] OFFICE/OUTPA TIENT VISIT, [facility], [address], [place], [place], [address], [place] tel:[phone] [facility] HLP (chief complaint) chronic pain1 (chief complaint) ED1 (chief complaint) tobacco1 (chief complaint) Coronary artery disease of three affiliated coronary artery without angina pectorisChronic pain syndromeHyperlipide miaTobacco use 7 Ronny Stephenson. [address], [place], [place], [address] , [place]. [phone] Referring Provider: Renetta Stokes [address], [place], [place], [address]. tel:[phone] PREV VISIT, EST, AGE 40-64 [facility], [address], [place], [place], [address], [place] tel:[phone] [facility] Physical (chief complaint) Encounter for general adult medical exam w abnormal findingsHyperlipide miaChronic pain syndromeCoronary artery disease of three affiliated coronary artery without angina pectoris 7 Ronny Stephenson. [address], [place], [place], [address] , [place]. tel:[phone] Referring Provider: Renetta Stokes [address], [place], [place], [address]. tel:[phone] OFFICE/OUTPA TIENT VISIT, [facility], [address], [place], [place], [address], [place] tel:[phone] [facility] chronic pain (chief complaint) Chronic pain syndrome 7 Ronny Stephenson. [address], [place], [place], [address] , [place]. [phone] Referring Provider: Renetta Stokes [address], [place], [place], [address]. tel:[phone] OFFICE/OUTPA TIENT VISIT, [facility], [address], [place], [place], [address], [place] tel:[phone] [facility] chronic pain (chief complaint) HLP (chief complaint) tobacco (chief complaint) anxiety1 (chief complaint) Mixed hyperlipidemiaChron ic pain syndromeTobacco useGeneralized Anxiety Disorder 6 Ronny Stephenson. [address], [address], [place], [place], [address] , [place]. tel:[phone] Referring Provider: Sachin Jefferson, [address], [place], [place], [address]. tel:[phone] OFFICE/OUTPA TIENT VISIT, [facility], [address], [place], [place], [address], [place] tel:[phone] [facility] chronic pain1 (chief complaint) HLP (chief complaint) HyperlipidemiaChron ic pain syndrome 6 Ronny Stephenson. [address], [address], [place], [place], [address] , [place]. tel:[phone] Referring Provider: Sachin Jefferson, [address], [place], [place], [address]. tel:[phone] OFFICE/OUTPA TIENT VISIT, [facility], [address], [place], [place], [address], [place] tel:[phone] [facility] chronic pain (chief complaint) anxiety1 (chief complaint) Chronic pain syndromeDepression 6 Ronny Stephenson. [address], [place], [place], [address] , [place]. tel:[phone] Referring Provider: Renetta Stokes [address], [place], [place], [address]. tel:[phone] OFFICE/OUTPA TIENT VISIT, [facility], [address], [place], [place], [address], [place] tel:[phone] [facility] chronic pain (chief complaint) HLP (chief complaint) marijauna (chief complaint) HyperlipidemiaCanna bis abuse, uncomplicatedChroni c pain syndrome 6 Ronny Stephenson. [address], [place], [place], [address] , [place]. tel:[phone] Referring Provider: Renetta Stokes [address], [place], [place], [address]. tel:[phone] OFFICE/OUTPA TIENT VISIT, [facility], [address], [place], [place], [address], [place] tel:[phone] [facility] chronic pain (chief complaint) anxiety1 (chief complaint) Chronic pain syndromeDepression 6 Ronny Stephenson. [address], [place], [place], [address] , [place]. tel:[phone] Referring Provider: Renetta [address], [place], [place], [address]. tel:[phone] OFFICE/OUTPA TIENT VISIT, [facility], [address], [place], [place], [address], [place] tel:[phone] [facility] chronic pain (chief complaint) depression 1 (chief complaint) DepressionChronic pain syndromeCannabis abuse, uncomplicated 6 Ronny Stephenson. [address], [place], [place], [address] , [place]. tel:[phone] Referring Provider: Renetta Stokes [address], [place], [place], [address]. tel:[phone] OFFICE/OUTPA TIENT VISIT, [facility], [address], [place], [address], [place] tel:[phone] [facility] chronic pain (chief complaint) HLP (chief complaint) depression (chief complaint) depression 1 (chief complaint) HyperlipidemiaChron ic pain syndromeDepression 6 Ronny Stephenson. [address], [place], [place], [address] , [place]. tel:[phone] Referring Provider: Renetta Stokes [address], [place], [place], [address]. tel:[phone] OFFICE/OUTPA TIENT VISIT, [facility], [address], [place], [place], [address], [place] tel:[phone] [facility] chronic pain1 (chief complaint) CervicalgiaChronic pain syndrome 6 Ronny Stephenson. [address], [place], [place], [address] , [place]. tel:[phone] Referring Provider: Renetta Stokes [address], [place], [place], [address]. tel:[phone] OFFICE/OUTPA TIENT VISIT, [facility], [address], [place], [place], [address], [place] tel:[phone] [facility] chronic pain (chief complaint) HLP (chief complaint) Chronic pain syndromeHyperlipide js 6 Ronny Stephenson. [address], [place], [place], [address] , [place]. [phone] Referring Provider: Renetta Stokes [address], [place], [address]. tel:[phone] OFFICE/OUTPA TIENT VISIT, [facility], [address], [place], [place], [address], [place] tel:[phone] [facility] neck pain1 (chief complaint) HLP (chief complaint) back pain1 (chief complaint) Mixed hyperlipidemiaCervi calgiaLumbago with sciatica, left side 6 Ronny Stephenson. [address], [place], [place], [address] , [place]. tel:[phone] Referring Provider: Renetta Stokes [address], [place], [place], [address]. tel:[phone] OFFICE/OUTPA TIENT VISIT, [facility], [address], [place], [place], [address], [place] tel:[phone] [facility] chronic pain (chief complaint) HLP (chief complaint) Chronic pain syndromeMixed hyperlipidemia 6 Ronny Stephenson. [address], [place], [place], [address] , [place]. tel:[phone] Referring Provider: Renetta Stokes [address], [place], [place], [address]. tel:[phone] OFFICE/OUTPA TIENT VISIT, EST [facility], [address] [place], [address], [place] tel:[phone] [facility] chronic pain (chief complaint) HLP1 (chief complaint) low D (chief complaint) CAD1 (chief complaint) Mixed hyperlipidemiaChron ic pain syndromeVitamin D deficiency, unspecifiedCoronary artery disease of three affiliated coronary artery without angina pectoris 6 Ronny Turner [address], [place], [place], [address] , [place]. tel:[phone] Ref[facility]: [facility] [place], [place], [address]. tel:[phone] PREV VISIT, NEW, AGE 40-64 [facility], [facility] [address] [place] [place], [address], [place] tel:[phone] [facility] Physical1 (chief complaint) Encntr for general adult medical exam w/o abnormal findings 6 Ronny Stephenson. [address] [facility] [address], [place], [place], [address] , [place]. [phone] Referring Provider: [facility] Stokes [facility], [place], [place], [address]. tel:[phone] Family History Family Member Type Diagnosis Age At Onset Mother Problem (finding) Cancer, breast Sister Problem (finding) Cancer, breast Father Problem (finding) Cancer, prostate Mother Problem (finding) Diabetes mellitus type 2 Payers Payer name Insurance type Covered green party ID Authoraugustusa fredrick(s) [facility] [id number] Social History Type Description Quantity Date Captured Comments Alcohol Use Details Caffeine Use Details Unknown Tobacco Use Status Heavy cigarette smok er (20-39 cigs/day) Smoking Status Heavy tobacco smoker Sex Male Vital Signs Date / Time: Height Weight BMI Pulse Rate Blood Pressure Temperature Respiratory Rate Body Surface Area Head Circumference BMI percentile Pulse Ox Inhaled Ox 9:30 AM 73.00 in 213.20 lbs 28.1 3 kg/m eter (2) 75 /min 120/80 mm[Hg] 97.9 F 16 /min Chief Complaint And Reason For Visit From encounter dated '07/01/2025 09:30'. pain (chief complaint). Description: Pt has chronic neck and back and knee pain. Pt denies any lossof bladder control. Pt c/o persistent left sciatica and left leg burning and paresthesia. Pt is on norco and lyrica but has not been helping. Pt denies any saddle area paresthesia. Pt also has been having right lower back pain with bilateral upper leg numbness and tingling as well .Pt does have hist ory of renal stone and he had CT and ultrasound done recently by urology but was told no stones. Ptdid miss his destinee with urology recently Pt denies any urinary symptoms. Pt states that he feels thatboth of his legs feels weak and he almost fell several times. Plan Of Treatment Date Type Action Status [...] Pain in right knee) ordered Referral Ordered: Urology (related to Calculus of kidney with calculus of ureter) ordered Referral Ordered: Referrals: Urology. Evaluate and treat ordered Referral Ordered: Orthopedic Surgery (related to Pain in right knee) ordered Referral Ordered: Referrals: Orthopedic Surgery. Evaluate and treat ordered Referral Ordered: MRI LUMBAR SPINE W/O DYE ordered Referral Ordered: Physical Therapy (related to Lumbago with sciatica, left side) ordered Referral Ordered: Hematology (related to Acute lung embolism) ordered Referral Referred To: Maxwell HARPER, Jose Piña [address] [place], [place], [id number] Ordered: Referrals: Maxwell HARPER, Jose Piña. Evaluate and treat ordered Referral Ordered: UPPER GI ENDOSCOPY, BIOPSY ordered Referral Referred To: Tracey HARPER, Xiao Castillo [facility]
[address] [place] [address], [id number] Ordered: Referrals: Xiao Webb MD. Evaluate and treat ordered Referral Ordered: Donterll Fowler -Allopathic & Osteopathic Physicians : Orthopaedic [...] non-neoplastic) ordered Referral Referred To: Jed Kennedy [address] [address] [place], [place] [id number] Ordered: Referrals: [facility]opathic [facility] Osteopathic Physicians : Surgery. Jed Kennedy. Evaluate and treat ordered Referral Ordered: Physical Therapy (related to Lumbago with sciatica, left side) ordered Referral Ordered: Willam Godfrey -[facility]opathic Physicians : Internal Medicine : Cardiovascular Disease (related to Peripheral vascular disease, unspecified) ordered Referral Referred To: Willam Godfrey [address] [place], [place] [address] Ordered: Referrals: Allopathic & Osteopathic Physicians : Internal Medicine : Cardiovascular Disease. Willam Godfrey. Evaluate and treat ordered Referral Referred To: Physical Therapy Ordered: Referrals: Physical Therapy. Evaluate and treat ordered Referral Ordered: US ARTERIAL DOPPLER ordered Referral Ordered: Dontrell Fowler -[facility]opathic [facility]opathic Physicians : Orthopaedic Surgery (related to Pain in right knee) ordered Referral Referred To: Dontrell Fowler [address] [place], [place] [id number] Ordered: Referrals: Allopathic & Osteopathic Physicians : Orthopaedic Surgery. Dontrell Fowler. Evaluate and treat ordered Referral Ordered: CHEST X-RAY PA/LAT TWO-VIEWS ordered Referral Ordered: Dontrell Fowler (related to Pain in right knee) ordered Referral Referred To: Dontrell Fowler [address] [place], [place] [id number] Ordered: Referrals: Dontrell Fowler. 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
[address] [place], [place], [id number] Ordered: Referrals: XIAO CHAU. Evaluate and treat ordered Referral Ordered: KNEE XRAY, 3 VIEW Right ordered Referral Ordered: Mayo Allison (related to Pain in right knee) ordered Referral Referred To: Mayo Allison [address] [facility] [address] [facility] [address] [place], [place] [id number] Ordered: Referrals: Mayo Allison. Evaluate and treat ordered Referral Ordered: SLEEP STUDY, ATTENDED ordered Referral Ordered: Jed Kennedy (related to Actinic keratosis) ordered Referral Referred To: Jed Kennedy [address] [place], [id number] Ordered: Referrals: Jed Kennedy. Evaluate and treat [...] and paresthesia. Pt is on norco and lyrica but has not been helping. Pt denies any saddle area paresthesia. Pt also has been having right lower back pain with bilateral upper leg numbness and tingling as well .Pt does have history of renal stone and he had CT and ultrasound done recently by urology but was told no stones. Pt did miss his destinee with urology recently Pt denies any urinary symptoms. Pt states that he feels that both of his legs feels weak and he almost fell several times. pain Pt has chronic n tirso and [...] was told that he needs knee replacement. knee pain1 pt c/o chronic r ight knee pain Pt saw ortho at [facility] office and had injection right knee recently but the provider at [facility] office quit and he was told to find new ortho Pt denies any recent knee injury flank pain1 Pt c/o intermitt ent right flank pain. Pt denies any urinary symptoms Pt does have recurrent right kidney stone Pt is seeing urology and he just had CT scan done by urology early this week and he does not know the result yet. physical Pt needs annual physical pt has [...] not helped. Pt denies any other complaints renal stone1 Pt is s/p ureter stone removal with stent with removal last week. Pt doing much better .Pt denies any flank pain or any urinary symptoms or any blood in urine pain Pt has chronic n tirso and [...] was told that he needs knee replacement. HLP Pt has HLP ,Pt t eloisa binu and he denies any myalgia renal stone1 Pt has right jerri e renal stone Pt is on flomax Pt saw urology and he will have lithotripsy to remove the stone next week Pt denies any fever, chill, urinary symptoms pain Pt has chronic n tirso and [...] was told that he needs knee replacement. renal stone1 Pt c/o acute ons et of right flank pain since 5 days ago. Pt denies any fever, chill. Pt denies any urinary symptoms pt went to ER and he had Ct done which showed 5 mm right renal stone. Pt was given flomax. Pt has not seen the passage of the stone yet. Pt denies any nausea, vomiting. Pt was referred to urology but they do not take his insurance. bruising1 Pt notices some bruising plantar surface [...] was told that he needs knee replacement. pain Pt has chronic n tirso and [...] area paresthesia. HLP Pt has HLP Pt ariane schmid and his lipid profile is ok Pt [...] urine . HLP Pt has HLP Pt ta vazquez rochaor. Pt needs refilled. pain Pt has chronic [...] o f PE and DVT and his alumina refinery operator told him that he need to be [...] area paresthesia. HLP Pt has HLP pt ta vazquez Binu and his lipid profile is ok .Pt [...] or sob. Pt denies any calf pain. GERD Pt has not had a ny GERD [...] HLP Pt has HLP. Pt t eloisa schmid. Pt denies any myalgia. His lipid [...] refilled. HLP Pt has HLP Pt ariane shukla crestrayray .Pt denies any myalgia. His lipid profile [...] states that he has not heard from [facility] ortho yet lung nodule1 Pt had chest CT done which showed benign lung nodule recently by hematology. Pt denies any hemoptysis, sob or cough. Pt still smoking ED Pt has ED. Pt ariane keedna sildenafil PRN pt needs refill. Pt denies [...] doing better. HLP Pt has HLP Pt ariane schmid .Pt denies any myalgia. his lipid profile [...] HLP Pt has HLP Pt ta vazquez shcmid. Pt denies any myalgia. His lipid profile is ok glucose1 Pt has borderlin e high glucose Pt denies any polyuria ,polydipsia M spike1 Pt has history o f low total protein and low globulin, which resolved now but SPEP showed poorly defined band possible M spike on SPEP. globulin1 Pt has low total protein and [...] as bad. HLP Pt has HLP .Pt t akes crestor. Pt denies any myalgia BPH1 Pt has family hi story of prostate [...] doing ok Pt denies any worsening symptoms anxiety Pt has chronic a nxiety and [...] neurontin. Pt takes flexeril and doing ok Dec-11-2020 pain Pt has chronic n tirso and [...] more green vegetables. 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 Patient denies any [...] well HLP Pt has HLP Pt ta vazquez schmid. Pt denies any myalgia pain Pt has [...] of bladder control ED Pt states that h e could not afford viagra from [employer], which cost more than $500 for 9 [...] the process of getting epidural approved from [employer]. Pt has 8/10 neck and back apin [...] pain HLP Pt has HLP Pt ta vazquez zocor pt denies any myalgia. Pt is [...] management Related to Chr onic pain syndrome Quit smoking Related to Chron ic pain syndrome Special diet education Related t o Body mass index (BMI) 29.0-29.9, adult Special diet education Related t o Body mass index (BMI) 30.0-30.9, adult Special diet education Related t o Body mass index (BMI) 29.0-29.9, adult Quit smoking Related to Nevus , non-neoplastic Special diet education Related t o Body mass index (BMI) 29.0-29.9, adult Take medication as instructed. R elated to Peripheral vascular disease, unspecified Take medication as instructed. R elated to Peripheral vascular disease, unspecified Special diet education Related t o Body mass index (BMI) 29.0-29.9, adult Increase physical activity Relat ed to Lumbago [...] smoking Related to Chron ic pain syndrome Stop smoking. Related to Hyper lipidemia Special diet education Related t o Body mass index (BMI) 28.0-28.9, adult Prescribed dietary intake Relate d to [...] and Counseling Recommend gargling Related to Ac chitina pharyngitis, unspecified Prescribed Activity and Exercise Education Related to Dietary Surveillance and Counseling Prescribed Diet Educ ation/Lifestyle Education Regarding Diet Related to Dietary Surveillance and Counseling Quit smoking Related to Coron anh artery disease of three affiliated coronary artery without angina pectoris Prescribed Activity and Exercise Education Related to Dietary Surveillance and Counseling Prescribed Diet Educ ation/Lifestyle Education Regarding Diet Related to Dietary Surveillance and Counseling Increase physical activity Relat ed to 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
--- OUTSIDE RECORDS SUMMARY | 2025-07-10 13:35 | XMS_ITS | Clinical Summary ---
Author Organization [facility] Address [address] [place] [address] Care Team Providers Care Research Program Assistant Name Role Phone Sachin Jefferson MD Primary Care Provider [phone] Social History Tobacco Use Types Packs/Day Years Used Date Smoking Tobacco: Never Assessed Sex and Gender Information Value Date Recorded Sex Assigned at Not on file Legal Sex Male 8:55 PM SIDEHAND Gender Identity Not on file Sexual Orientation Not on file Plan of Treatment Health Maintenance Due Date Last Done Comments Colorectal Cancer Screening Colonoscopy (10 Years) 1969 Annual Physical 1972 Hepatitis C 1987 DTaP, Tdap and Td Vaccines ( 1 - Tdap) 1988 Hepatitis B Vaccines (1 of 3 - 19+ 3-dose series) 1988 Zoster Vaccines (1 of 2) 2019 Pneumococcal Vaccine: 50+ Years (2 of 2 - PPSV23) 10/22/2020 10/22/2019 COVID-19 Vaccine (3 - 2023-2 5 season) 2024 03/01/2021, 02/07/2021 Meningococcal B Vaccine Aged Out No l onger eligible based on patient's age to complete this topic Meningococcal Vaccine Aged Out No una shahzad eligible based on patient's age to complete this topic RSV Immunizations Under 20 Months Aged Out No longer eligible b ased on patient's age to complete this topic Insurance [employer] Care Teams Research Program Assistant Relationship Specialty Start Date End Date Sachin Jefferson MD PCP - General FAMILY PRACTICE 12/29/21
[2025-07-10 14:15] VITALS: BP 102/73; PULSE 73; RESP 16; TEMP 36.5; O2SAT 97
--- NOTE | 2025-07-10 14:52 | ED_ITS ---
HPI - Back Pain/Injury General Chief Complaint: Back Pain/Injury Stated Complaint: right back pain Time Seen by Provider: 07/10/25 14:23 History of Present Illness HPI Narrative: This is a 55-year-old male with history of arthritis, history of pacemaker Eliquis who presents to the ED for right back pain. Patient states that for the past year, he has been having intermittent back pain has been getting smaller. He was seen for this previously about a month ago when he had a CT scan that showed evidence kidney stones. He was seen by the urologist who reaffirmed this. Reports that he does get oxycodone from his PCP which has not been helping the pain. He also reports bilateral knee pain that has been getting worse. He has been evaluated orthopedics for this and is in the early stages of possible surgical planning for a right knee replacement. He states he has not tried Tylenol or ibuprofen for this. Related Data Home Medications ?Medication ?Instructions ?Recorded ?Confirmed ?Last Taken ?Type aspirin 81 mg chewable tablet 81 mg PO DAILY 11/26/19 08/07/24 08/07/24 05:00 History (Elba Chewable Low Dose Aspirin) cyclobenzaprine 10 mg tablet 10 mg PO BID PRN Muscle Spasm 11/26/19 08/07/24 08/07/24 05:00 History pregabalin 150 mg capsule 150 mg PO BID 07/29/21 08/07/24 08/07/24 05:00 History rosuvastatin 20 mg tablet 20 mg PO DAILY 07/29/21 08/07/24 08/07/24 05:00 History diclofenac sodium 75 mg 75 mg PO DAILY 07/30/21 08/07/24 08/07/24 05:00 History tablet,delayed release hydrocodone 10 mg-acetaminophen 1 tablet PO TID PRN Back Pain 11/15/21 08/07/24 08/07/24 05:00 History 325 mg tablet ferrous sulfate 325 mg (65 mg 325 mg PO DAILY 07/31/24 08/07/24 08/07/24 05:00 History iron) tablet (iron) Allergies Allergy/AdvReac Type Severity Reaction Status Date / Time No Known Allergies Allergy Verified 07/10/25 14:18 Review of Systems Review of Systems: Gen.: Denies fevers or chills Eyes: Denies eye pain or visual change ENT: Denies congestion Respiratory: Denies shortness of breath or cough CV: Denies chest pain or palpitations GI: Denies abdominal pain nausea, emesis or diarrhea denies burning, urgency, frequency or hematuria Musculoskeletal: Back pain, bilateral knee pain Neuro: Denies numbness, tingling, weakness or focal weakness Skin: Denies rash Except as documented, all other systems reviewed and negative [facility] Past Medical History Medical History Colon polyp Depression Chronic back pain Pacemaker Hyperlipidemia GERD (gastroesophageal reflux disease) Arthritis Myocardial infarct Chronic mental illness Surgical History Surgical History H/O knee surgery History of hip surgery H/O pelvic surgery History of back surgery H/O heart artery stent Family History Family History Father Malignant neoplasm of prostate Sibling Family history of malignant neoplasm of breast Mother Family history of malignant neoplasm of breast in first degree relative Family history of type 2 diabetes mellitus Social History Social History Social History: He is and has no children. He denies alcohol. He is unemployed. He continues to smoke daily. -code status full code Smoking packs per day: 2 Smoking cigarettes per day: 40.0 Years smoked: 40 Smoking pack-years: 80.00 Smoking status: Current every day smoker Tobacco type: cigarettes Additional smoking assessment comments: has smoked for 38 years 2PPD Alcohol intake: current Substance use: current Substance use type: marijuana Other substance usage details: SOCIALLY Last use: Daily Lack of Transportation: No Lack of Food: Never True Current Housing: I Have Housing Concerned About Future Housing: Decline to Answer Difficulty Paying Gas/Electric Bills: Decline to Answer Difficulty Paying for Meds: Decline to Answer Currently Unemployed: Decline to Answer Education: Decline to Answer Difficulty w/ Childcare or Family Care: Decline to Answer Living arrangements: with family Spiritual care concerns: No Exam Narrative: APPEARANCE: No acute distress, nontoxic, sitting in chair EYES: EOMI HEENT: Normocephalic, atraumatic, OMM RESPIRATORY: No respiratory distress Clear to auscultation bilaterally with no rhonchi wheezing or rales. CARDIOVASCULAR: Regular rate and rhythm without murmurs rubs or gallops. ABDOMINAL: Soft, nontender, nondistended, no rebound or guarding MUSCULOSKELETAl: No ttp to the midline C/T/L spine. TTP to the right paraspinal musculature. TTP to the bilateral suprapatellar knees with trace effusion NEURO: Awake and alert. Following commands, speech normal, no focal deficits SKIN:: Warm, dry. No rashes lesions or abrasions PSYCHIATRIC: Normal affect/mood, Course Vital Signs Vital signs: Vital Signs Temperature 97.7 F 07/10/25 13:34 Pulse Rate 87 07/10/25 13:34 Respiratory Rate 16 07/10/25 13:34 Blood Pressure 123/66 07/10/25 13:34 Pulse Oximetry 100 07/10/25 13:34 Oxygen Delivery Room Air 07/10/25 13:34 Temperature 97.7 F 07/10/25 14:15 Pulse Rate 73 07/10/25 14:15 Respiratory Rate 16 07/10/25 14:15 Blood Pressure 102/73 07/10/25 14:15 Pulse Oximetry 97 07/10/25 14:15 Oxygen Delivery Room Air 07/10/25 14:15 MDM - Back Pain/Injury MDM Narrative Medical decision making narrative: 55 yo male presents for back pain for 1 year, worse for the past month. No midline tenderness. Xray lumbar spine was obtained which showed severe arthritic changes. Patient was given toradol with significant improvement of his pain. Patient was given a referral to neurosurgery for further evaluation. Patient was agreeable to this plan. Given strict return precautions. Differential Diagnosis Differential diagnosis: Likely strain of lumbar region, thoracic back pain and other (arthritis) Imaging Data Radiologist's impression: Impressions Lumbar Spine X-Ray 07/10/25 15:09 IMPRESSION: Screw and plate fixation of the left sacrum. Multiple screws have backed out slightly, which is a chronic and stable finding. Stable multilevel grade 1 listheses. Severe multilevel lumbar degenerative disc disease. Lumbar scoliosis. Severe multilevel lumbar facet arthropathy. Discharge Plan Discharge Clinical Impression: Arthritis of lumbar spine Patient Disposition: Home Condition: Stable Instructions: Antibiotic Form, Arthritis (ED) Additional Instructions: Take ibuprofen 600 mg every 6 hours for your pain as well. Follow-up with neurosurgery/spine surgery for further evaluation. Patient Language: Citizen Of [place] Prescriptions: No Action rosuvastatin 20 mg Tablet 20 mg PO DAILY pregabalin 150 mg Capsule 150 mg PO BID diclofenac sodium 75 mg tablet,delayed release (DR/EC) 75 mg PO DAILY hydrocodone-acetaminophen 10-325 mg tablet 1 tablet PO TID PRN (Reason: Back Pain) ferrous sulfate [iron] 325 mg (65 mg iron) Tablet 325 mg PO DAILY Eliquis DVT-PE Treat 30D Start 5 mg (74 tabs) tablets,dose pack 5 mg PO BID Qty: 60 2RF ondansetron 4 mg tablet,disintegrating 4 mg PO Q8H PRN (Reason: nausea and vomiting) Qty: 14 0RF oxycodone-acetaminophen [Percocet] 5-325 mg tablet 1 tablet PO Q6H PRN (Reason: pain) Qty: 10 0RF tamsulosin [Flomax] 0.4 mg capsule 0.4 mg PO DAILY Qty: 20 0RF oxycodone 5 mg tablet 5 mg PO Q8H PRN (Reason: pain) Qty: 10 0RF acetaminophen [Tylenol Extra Strength] 500 mg tablet 1,000 mg PO TID PRN (Reason: pain) Qty: 30 0RF aspirin [Elba Chewable Aspirin] 81 mg tablet,chewable 81 mg PO DAILY cyclobenzaprine 10 mg tablet 10 mg PO BID PRN (Reason: Muscle Spasm) Follow-up/Referrals: Bello Aldana MD [Physician] - Sachin Jefferson MD [Primary Care Provider] -
--- OUTSIDE RECORDS SUMMARY | 2025-07-10 14:54 | XMS_ITS | Encounter Summary ---
Author Organization [facility] Address [address] [place] [address] Phone Care Team Providers Care Reservationist Name Role Phone Ronny Sachin Primary Care Provider Blas Levy MD Unavailable Kayden Luoie PAC Unavailable [phone] Giovani Boykin MD Unavailable [phone] Markie Alston MD Unavailable [phone] Encounter Details Date Type Department Care Team (Late st Contact Info) Description 03/18/2025 Telephone [facility] [place] [address] Markie Alston MD #[address] [address] Social History Tobacco Use Types [...] [facility] - [place] #2 [place] [address] Terrie Hsu MD #2 [facility] [address] [place] [address] 07/10/2026 10:30 AM CDT Office Visit [facility] #2 [place] [address] Markie Alston MD #2 [facility] [address] [place] [address] documented as of this encounter Visit Diagnoses Not on filedocumented in this encounter Additional Health Concerns Assessment Noted Time PHQ-9 Depression Total Score: 19 021 10:44 AM CDT documented as of this encounter Care Teams Reservationist Relationship Specialty Start Date End Date Sachin Jefferson [address] [place] [address] PCP - General Family Medicine 05/13/21 Blas Levy MD [address] [facility] [place] [phone] Consulting Physician Oncology 05/13/21 Kayden Louie PAC #2 [facility] [address] [place] [address] Physician Computer Networking Instructor Orthopaedic Surgery 01/30/25 Giovani Boykin MD #2 [facility] [address] [place] [address] Consulting Physician Urology 02/27/25 Markie Alston MD #2 [facility] [address] [place] [address] Consulting Physician Urology 06/03/25 documented as of this encounter
--- OUTSIDE RECORDS SUMMARY | 2025-07-10 14:54 | XMS_ITS | Encounter Summary ---
Author Organization [facility] Address [address] [place] [address] Phone Care Team Providers Care Electronic System Engineer Name Role Phone Ronny Sachin Primary Care Provider [phone] Blas Levy MD Unavailable [phone] Kayden Louie PAC Unavailable [phone] Giovani Boykin MD Unavailable Markie Alston MD Unavailable [phone] Encounter Details Date Type Department Care Team (Late st Contact Info) Description 06/06/2025 Telephone [facility] #[address] [place] [address] Markie Alston MD #[address] [address] Social History Tobacco Use Types [...] [facility] - [place] #2 [place] [address] Terrie Hsu MD #2 [facility] [address] [place] [address] 07/10/2026 10:30 AM CDT Office Visit [facility] #2 [place] [address] Markie Alston MD #2 [facility] [address] [place] [address] documented as of this encounter Visit Diagnoses Not on filedocumented in this encounter Additional Health Concerns Assessment Noted Time PHQ-9 Depression Total Score: 19 021 10:44 AM CDT documented as of this encounter Care Teams Electronic System Engineer Relationship Specialty Start Date End Date Sachin Jefferson [address] [place] [address] PCP - General Family Medicine 05/13/21 Blas Levy MD [address] [place] [address] Consulting Physician Oncology 05/13/21 Kayden Louie PAC #2 [facility] [address] Physician Tag Press Operator Orthopaedic Surgery 01/30/25 Giovani Boykin MD #2 [facility] [address] [place] [address] Consulting Physician Urology 02/27/25 Markie Alston MD [address] [address] Consulting Physician Urology 06/03/25 documented as of this encounter
--- OUTSIDE RECORDS SUMMARY | 2025-07-10 14:54 | XMS_ITS | Encounter Summary ---
Author Organization [facility] Address [address] [place] [address] Phone Care Team Providers Care Fire Inspector Name Role Phone Sachin Jefferson Primary Care Provider [phone] Blas Levy MD Unavailable Kayden Louie PAC Unavailable [phone] Giovani Boykin MD Unavailable [phone] Markie Alston MD Unavailable [phone] Encounter Details Date Type Department Care Team (Late st Contact Info) Description 11/01/2024 Telephone [facility] [address] [address] Blas Levy MD [address] [address] Social History Tobacco Use Types [...] appts and walked away with no reason/explanation. 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 Plan of Treatment Upcoming Encounters Date Type Department Care Team (Late st Contact Info) Description 08/04/2025 8:30 AM CDT Office Visit [facility] [place] #2 [place] [address] Terrie Hsu MD #2 [facility] [address] [place] [address] 07/10/2026 10:30 AM CDT Office Visit [facility] #2 [facility] [place] [address] Markie Alston MD #2 [facility] [address] [place] [address] documented as of this encounter Visit Diagnoses Not on filedocumented in this encounter Additional Health Concerns Assessment Noted Time PHQ-9 Depression Total Score: 19 08/20/ 021 10:44 AM CDT documented as of this encounter Care Teams Fire Inspector Relationship Specialty Start Date End Date Sachin Jefferson [address] [place] [address] PCP - General Family Medicine 05/13/21 Blas Levy MD [address] [place] [phone] Consulting Physician Oncology 05/13/21 Kayden Louie PAC #2 [facility] [address] [place] [address] Physician Auto Vinyl Top Installer Orthopaedic Surgery 01/30/25 Giovani Boykin MD #2 [facility] [address] [place] [address] Consulting Physician Urology 02/27/25 Markie Alston MD #2 [facility] [address] [place] [address] Consulting Physician Urology 06/03/25 documented as of this encounter
--- OUTSIDE RECORDS SUMMARY | 2025-07-10 14:54 | XMS_ITS | Clinical Summary ---
Author Organization [facility] Address [address], [facility] [address] [place] [address] Phone Care Team Providers Care Paper Slitter Name Role Phone Sachin Jefferson Primary Care Provider [phone] Blas Levy MD Unavailable [phone] Kayden Louie PAC Unavailable [phone] Giovani Boykin MD Unavailable [phone] Markie Alston MD Unavailable [phone] Allergies No known active allergies Medications rosuvastatin [...] Visit [facility] #2 [place] [address] Markie Alston MD Screening PSA (prostate specific antigen) (Primary Dx) Discharge Disposition: Discharged to home or Selfcare 07/04/2025 Results Follow-Up [facility] [facility] #2 [place] [address] Markie Alston MD PSA DIAGNOSTIC,TOTAL 07/04/2025 Travel 06/10/2025 Results Follow-Up [facility] #2 [place] [address] UROGRAPHY WO/W CONTRAST 06/06/2025 Telephone [facility] #2 [place] [address] Markie Alston MD 05/22/2025 7:39 AM CDT - 05/22/2025 11:59 PM CDT Hospital Encounter [facility] CT 1 [place] [address] Markie Alston MD Discharge Disposition: Discharged to home or Selfcare 05/22/2025 Travel 05/05/2025 Results Follow-Up [facility] #2 [place] [address] Markie Alston MD US RENAL COMPLETE 04/24/2025 10:11 AM CDT - 04/24/2025 11:59 PM CDT Hospital Encounter [facility] Ultrasound 1 [place] [address] Markie Alston MD Discharge Disposition: Discharged to home or Selfcare 04/24/2025 Travel 04/11/2025 Telephone [facility] #2 [place] [address] Markie Alston MD from Last 3 Months [...] [facility] - [place] #2 [place] [address] Terrie Hsu MD #2 [facility] [address] [place] [address] 07/10/2026 10:30 AM CDT Office Visit [facility] #2 [place] [address] Markie Alston MD #[address] [address] Health Maintenance Due Date Last Done Comments [...] this topic Medical Devices Implanted Type Area Crisis Specialist Device Identifier Shelf Expiration Date Model / Serial / Lot Stent Ureteral 6fr 2.1fr 28cm 2 Pigtail Curve 2 Durometer Taper Tip Loprfl Graduated Polaris Ultra - [id number] Implanted:Qty : 1 on 03/18/2025 by Markie Alston MD at [facility] IMPLANT Right: Ureter [employer] 01/02/2028 [id number] / [id number] / [id number] Description:NO STRINGS Procedures Procedure Name Priority Date/Time [...] 1.96 <4.00 ng/mL 07/04/2025 11:02 AM CDT [facility] Blood Venipuncture / Unknown 07/04/2025 9:40 AM CDT 07/04/2025 10:13 AM CDT Narrative [facility] - 07/04/2025 11:02 AM CDT PSA NOTE: The PSA value should be used in conjunction with information available from clinical evaluation and other diagnostic procedures. The SayduckNIGoBeMe Total PSA assay is a Chemiluminescent Microparticle Immunoassay (CMIA) for the quantitative determination of total PSA (both free PSA and PSA complexed to uhtxp-[id number]) in human serum. Total PSA values obtained with different assay methods, including Gilbert PSA assays, cannot be used interchangeably. us khadijah Herrera MD CHEMISTRY ORDERABLES Final Res ult [facility] #[address] [place] [address] * CT UROGRAPHY WO/W CONTRAST (05/22/2025 8:23 [...] Kristin Marion D.O. PS: BARRERA Report ID: [id number] Reading Location: [id number] Procedure Note Kristin Marion, DO - 06/08/2025 [...] Kristin Marion D.O. PS: BARRERA Report ID: [id number] Reading Location: [place] [address] IMPRESSION: 1. No definite evidence of filling [...] 1.3 mg/dL 05/22/2025 8:00 AM CDT [facility] Blood 05/22/2025 7:57 AM CDT 05/22/2025 8:00 AM CDT None Provider POINT OF CARE TESTING Final Resu lt [facility] #[address] [place] [address] * US RENAL COMPLETE (04/24/2025 10:32 AM [...] Gavin Pham M.D. LC: GHAZALA Report ID: [id number] Reading Location: [place] [address] Procedure Note Janet Pham MD - 05/04/2025 [...] signed by Gavin VIVAR: GHAZALA Report ID: [id number] Reading Location: [place] [address] IMPRESSION: No hydronephrosis of either kidney. Nonvisualization of left ureteral jet. Normal visualization of right ureteral jet. Scattered echogenic foci in the left kidney suggesting renal calculi. Markie Herrera MD [facility] ORDERABLES Final Result from Last 3 Months Insurance MEDICAID [place] Care Teams Paper Slitter Relationship Specialty Start Date End Date Sachin Jefferson [address] [place] [address] PCP - General Family Medicine 05/13/21 Blas Levy MD [address] [place] [phone] Consulting Physician Oncology 05/13/21 Kayden Louie PAC #2 [facility] [address] [place] [address] Physician Geophysical Prospector Orthopaedic Surgery 01/30/25 Giovani Boykin MD #2 [facility] [address] [place] [address] Consulting Physician Urology 02/27/25 Markie Alston MD #2 [facility] [address] [place] [address] Consulting Physician Urology 06/03/25
--- OUTSIDE RECORDS SUMMARY | 2025-07-10 14:54 | XMS_ITS | Encounter Summary ---
Author Organization [facility] Address [address] [place] [address] Phone Care Team Providers Care Electro Mechanic Name Role Phone Ronny Sachin Primary Care Provider [phone] Blas Levy MD Unavailable [phone] Kayden Louie PAC Unavailable [phone] Giovani Boykin MD Unavailable [phone] Markie Alston MD Unavailable [phone] Encounter Details Date Type Department Care Team (Late Contact Info) Description 06/10/2025 Results Follow-Up [facility] #[address] [place] [address] UROGRAPHY WO/W CONTRAST Social [...] [facility] - [place] #[address] [place] [address] Terrie Hsu MD #2 [facility] [address] [place] [address] 07/10/2026 10:30 AM CDT Office Visit [facility] #[address] [place] [address] Markie Alston MD #[address] [address] documented as of this encounter Visit Diagnoses Not on filedocumented in this encounter Additional Health Concerns Assessment Noted Time PHQ-9 Depression Total Score: 19 021 10:44 AM CDT documented as of this encounter Care Teams Electro Mechanic Relationship Specialty Start Date End Date Sachin Jefferson [address] [place] [address] PCP - General Family Medicine 05/13/21 Blas Levy MD [address] [place] [phone] Consulting Physician Oncology 05/13/21 Kayden Louie PAC #2 [facility] [address] [facility] [address] [place] [address] Physician Funeral Director/Embalmer/Owner Orthopaedic Surgery 01/30/25 Giovani Boykin MD #[address] [address] Consulting Physician Urology 02/27/25 Markie Alston MD #[address] [address] Consulting Physician Urology 06/03/25 documented as of this encounter
[2025-07-10] MEDS: KETOROLAC 30 MG/ML VIAL (*BKC) IM (14:55)
--- OUTSIDE RECORDS SUMMARY | 2025-07-10 14:55 | XMS_ITS | Encounter Summary ---
Author Organization [facility] Address [address] [place] [address] Phone Care Team Providers Care Soil Conservationist Name Role Phone Ronny Sachin Primary Care Provider [phone] Blas Levy MD Unavailable [phone] Kayden Louie PAC Unavailable [phone] Giovani Boykin MD Unavailable [phone] Markie Alston MD Unavailable [phone] Reason for Referral * Radiology Services (Routine) - Authorized Specialty Diagnoses / Procedures Referred By Contjeannette t Referred To Contact Radiology Diagnoses Calculus of upper urinary tract Procedures US RENAL COMPLETE Markie Alston MD #[address] [address] Phone: tel: fax: Referral ID Status Reason Start Date Expiration Date V isits Requested Visits Authorized [id number] Authorized 04/01/2025 1 1 Encounter Details Date Type Department Care Team (Late st Contact Info) Description 04/01/2025 Telephone [facility] #[address] [place] [address] Markie Alston MD #[address] [address] Social History Tobacco Use Types [...] Visit [facility] #2 [place] [address] Terrie Hsu MD #2 [facility] [address] [place] [address] 07/10/2026 10:30 AM CDT Office Visit [facility]Y #2 [place] [address] Markie Alston MD #2 [facility] [address] [place] [address] Scheduled Orders Name Type Priority Associated Diagnoses [...] documented as of this encounter Care Teams Soil Conservationist Relationship Specialty Start Date End Date Sachin Jefferson [address] [place] [address] PCP - General Family Medicine 05/13/21 Blas Levy MD [address] [place] [phone] Consulting Physician Oncology 05/13/21 Kayden Louie PAC #2 [facility] [place] [facility]. [address] [place] [address] Physician Health Policy Manager Orthopaedic Surgery 01/30/25 Giovani Boykin MD #2 [facility] [address] [place] [address] Consulting Physician Urology 02/27/25 Markie Alston MD #2 [facility] [address] [place] [address] Consulting Physician Urology 06/03/25 documented as of this encounter
--- OUTSIDE RECORDS SUMMARY | 2025-07-10 14:55 | XMS_ITS | Clinical Summary ---
Author Organization [facility] [address] Address [address] [place] [address] Care Team Providers Care Investment Accountant Name Role Phone Sachin Jefferson MD Primary [...] Hyperlipidemia 11/17/2017 Coronary artery disease invo lving ekuk coronary artery of ekuk heart without angina pectoris 11/08/2017 History of coronary artery stent placement 11/08 Presence of cardiac pacemaker 11/08/2017 Overview (07/30/2021): [employer] Dual Pacemaker-Accolade. Dx; SSS, AVB. Gen change [...] Description 05/14/2025 8:00 AM CDT Ancillary Procedure [facility] [address] [facility] [address] [place] [id number] Presence of cardiac pacemaker; Sick sinus [...] on file Legal Sex Male 1:56 AM ACCOUNTS PAYABLE LEAD Gender Identity Not on file Sexual Orientation Not on file Obstetrics History Last Filed Vital Signs Vital Sign Reading Time Taken Comments Blood Pressure 112/78 12/30/2024 8:07 AM ACCOUNTS PAYABLE LEAD Pulse 83 12/30/2024 8:07 AM ACCOUNTS PAYABLE LEAD Temperature - - Respiratory Rate - - Oxygen Saturation 96% 12/30/2024 8:07 AM ACCOUNTS PAYABLE LEAD Inhaled Oxygen Concentration - - Weight 101.2 kg (223 lb) 12/30/2024 8:07 AM ACCOUNTS PAYABLE LEAD Height 185.4 cm (6' 1) 12/30/2024 8:07 AM ACCOUNTS PAYABLE LEAD Body Mass Index 29.42 12/30/2024 8:07 AM ACCOUNTS PAYABLE LEAD Plan of Treatment Health Maintenance Due Date [...] history exists Medical Devices Implanted Type Area Bond Trader Device Identifier Shelf Expiration Date Model / Serial / Lot Pacemaker-2009 Implanted:0 05/2010 (Quantity not on file) Pacemaker Chest [employer] SSS, AVB ALTRUA [id number] / [id number] / Procedures Procedure Name Priority Date/Time Associated Diagnosis Comments DEVICE CHECK - REMOTE Routine 05/15/2025 12:23 PM CDT Presence of cardiac pacemaker Sick sinus syndrome (HCC) Complete heart block (HCC) from Last 3 Months Results * DEVICE CHECK - REMOTE (05/15/2025 12:23 PM CDT) Anatomical Region Laterality Modality Other Narrative 07/07/2025 7:35 AM CDT [employer] Dual Pacemaker-Accolade. Dx; SSS, AVB. Gen change 07/30/2021-Candac[employer], chronic leads 06/02/2010. [employer] remote monitoring. Routine DDDR Pacemaker Remote. Transmission attached. Battery status: OK , 5.5 years remaining battery life to SHANNAN. Stable lead impedances, pacing and sensing thresholds. Presenting rhythm: /VS AP-2 %, FRACTIONATING STILL OPERATOR-0% 160 AT/AF episodes noted, longest episode was 2 minutes and 33 seconds in duration, available IEGMs demonstrate SVT with 1 short episode of AFib. AF [place] < 1%. 41 Ventricular high rate episodes detected, available IEGMs demonstrate SVT. Medications: Eliquis 5 mg, ASA 81 mg See scanned report. Office pacemaker follow up: 09/30/25 Latitude remote f/u 08/13/25. Jose Sanchez RN Maxim Plascencia MD [facility] PROC EDURES Final Result from Last 3 Months Insurance [facility] [employer] COMPENSATION GENERIC Care Teams Investment Accountant Relationship Specialty Start Date End Date Sachin Jefferson MD PCP - General 02/24/17
--- OUTSIDE RECORDS SUMMARY | 2025-07-10 14:55 | XMS_ITS | Clinical Summary ---
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
--- OUTSIDE RECORDS SUMMARY | 2025-07-10 14:55 | XMS_ITS | Continuity of Care Document ---
Author Organization [facility] Address [address] [place] [address] [place] [address] Phone Care Team Providers Care Video Manager Name Role Phone Sachin Jefferson MD Unavailable [...] - Active avoid driving or operate machines cyclobenzaprine 10 mg [...] Providers Copied on Encounter OFFICE/OUTPA TIENT VISIT, [facility], [address], [place], [place], [address], [place] tel:[phone] [facility] pain (chief complaint) Chronic pain syndromeLower abdominal painCalculus of kidney with calculus of ureterWeakness Jun-0 5 Ronny Stephenson. [address], [place], [place], [address] , [place]. tel:[phone] OFFICE/OUTPA TIENT VISIT, EST [facility], [address], [place], [place], [address], [place] tel:[phone] [facility] pain (chief complaint) knee pain1 (chief complaint) flank pain1 (chief complaint) Chronic pain syndromePain in right kneeLower abdominal pain May-0 - 5 Ronny Stephenson. [address], [place], [place], [address] , [place]. tel:[phone] PREV VISIT, EST, AGE 40-64 [facility], [address], [place], [place], [address], [place] tel:[phone] [facility] physical (chief complaint) Encounter for general adult medical examination without abnormal findings 5 Ronny Stephenson. [address], [place], [place], [address] , [place]. tel:[phone] OFFICE/OUTPA TIENT VISIT, EST [facility] [place], [address], [place], [place], [address], [place] tel:[phone] [facility] pain (chief complaint) renal stone1 (chief complaint) Calculus of kidney with calculus of ureterChronic pain syndrome March-0 5 Ronny Stephenson. [address], [place], [place], [address] , [place]. tel:[phone] OFFICE/OUTPA TIENT VISIT, [facility], [address], [place], [place], [address], [place] tel:[phone] [facility] renal stone1 (chief complaint) pain (chief complaint) HLP (chief complaint) Chronic pain syndromeCalculus of kidney with calculus of ureterMixed hyperlipidemia Feb-0 5 Jefferson Sachin. [address], [place], [place], [address] , [place]. tel:[phone] OFFICE/OUTPA TIENT VISIT, [facility], [address], [place], [place], [address], [place] tel:[phone] [facility] [place] renal stone1 (chief complaint) Calculus of kidney with calculus of ureterBenign essential microscopic hematuria Feb-0 5 Ronny Sachin. [address], [place], [place], [address] , [place]. tel:[phone] OFFICE/OUTPA TIENT VISIT, [facility], [address], [place], [place], [address], [place] tel:[phone] [facility] [place] pain (chief complaint) bruising1 (chief complaint) Chronic pain syndromePain in right kneePersonal history of nicotine dependenceSpontaneo us ecchymoses 5 Ronny Sachin. [address], [place], [place], [address] , [place]. tel:[phone] OFFICE/OUTPA TIENT VISIT, [facility], [address], [place], [place], [address], [place] tel:[phone] [facility] [place] pain (chief complaint) hematurai1 (chief complaint) knee pain1 (chief complaint) Asymptomatic microscopic hematuriaChronic pain syndromePersonal history of nicotine dependencePain in right knee 5 Ronny Sachin. [address], [place], [place], [address] , [place]. tel:[phone] OFFICE/OUTPA TIENT VISIT, [facility], [address], [place], [place], [address], [place] tel:[phone] [facility] [place] PE (chief complaint) pain (chief complaint) hematuria1 (chief complaint) Asymptomatic microscopic hematuriaChronic pain syndromeAcute lung embolism 5 Ronny Sachin. [address], [place], [place], [address] , [place]. tel:[phone] OFFICE/OUTPA TIENT VISIT, [facility], [address], [place], [place], [address], [place] tel:[phone] [facility] [place] kcl (chief complaint) hematuria1 (chief complaint) pancreatit is1 (chief complaint) pain (chief complaint) ED (chief complaint) HLP (chief complaint) Acute pancreatitis without necrosisAsymptomati c microscopic hematuriaChronic pain syndromeHyperkalemi aMixed hyperlipidemiaMale erectile dysfunction, unspecified 4 Ronny Stephenson. [address], [place], [place], [address] , [place]. tel:[phone] OFFICE/OUTPA TIENT VISIT, [facility], [address], [place], [place], [address], [place] tel:[phone] [facility] [place] flank pain1 (chief complaint) hematuria1 (chief complaint) back pain1 (chief complaint) Asymptomatic microscopic hematuriaChronic pain syndromeAcute pancreatitis without necrosisKidney stoneInguinal hernia 4 Ronny Stephenson. [address], [place], [place], [address] , [place]. tel:[phone] OFFICE/OUTPA TIENT VISIT, [facility], [address], [place], [place], [address], [place] tel:[phone] [facility] [place] pain (chief complaint) Chronic pain syndrome 4 Ronny Stephenson. [address], [place], [place], [address] , [place]. tel:[phone] OFFICE/OUTPA TIENT VISIT, [facility], [address], [place], [place], [address], [place] tel:[phone] [facility] [place] pain (chief complaint) colon (chief complaint) Chronic pain syndromeDiverticulo sis of large intestine w/o perforation w/o bleeding 4 Ronny Stephenson. [address], [place], [place], [address] , [place]. tel:[phone] OFFICE/OUTPA TIENT VISIT, [facility], [address], [place], [place], [address], [place] tel:[phone] [facility] [place] renal stone1 (chief complaint) pain (chief complaint) HLP (chief complaint) Chronic pain syndromeMixed hyperlipidemiaCalcu amanda of kidneyAsymptomatic microscopic hematuria 4 Ronny Stephenson. [address], [place], [place], [address] , [place]. tel:[phone] OFFICE/OUTPA TIENT VISIT, [facility], [address], [place], [place], [address], [place] tel:[phone] [facility] [place] pain (chief complaint) Chronic pain syndrome 4 Ronny Stephenson. [address], [place], [place], [address] , [place]. tel:[phone] OFFICE/OUTPA TIENT VISIT, [facility], [address], [place], [place], [address], [place] tel:[phone] [facility] [place] back pain1 (chief complaint) blood (chief complaint) PE (chief complaint) Occult blood in stoolAcute lung embolismChronic pain syndrome 4 Ronny Stephenson. [address], [place], [place], [address] , [place]. tel:[phone] OFFICE/OUTPA TIENT VISIT, [facility], [address], [place], [place], [address], [place] tel:[phone] [facility] [place] blood in stool1 (chief complaint) pain (chief complaint) Occult blood in stoolPolyp of colonLumbago with sciatica, left side 4 Ronny Stephenson. [address], [place], [place], [address] , [place]. tel:[phone] OFFICE/OUTPA TIENT VISIT, [facility], [address], [place], [place], [address], [place] tel:[phone] [facility] pain (chief complaint) right flank pain1 (chief complaint) Lumbago with sciatica, left sideAbdominal pain 4 Ronny Stephenson. [address], [place], [place], [address] , [place]. tel:[phone] OFFICE/OUTPA TIENT VISIT, [facility], [address], [place], [place], [address], [place] tel:[phone] [facility] [place] PE (chief complaint) pain (chief complaint) polyp1 (chief complaint) Chronic pain syndromeAcute lung embolismPolyp of colon Jan- 4 Ronny Stephenson. [address], [place], [place], [address] , [place]. tel:[phone] OFFICE/OUTPA TIENT VISIT, [facility], [address] [place], [place], [address], [place] tel:[phone] [facility] [place] pain (chief complaint) tobacco1 (chief complaint) knee pain1 (chief complaint) Chronic pain syndromeTobacco usePain in right knee 4 Ronny Stephenson. [address], [place], [place], [address] , [place]. tel:[phone] OFFICE/OUTPA TIENT VISIT, [facility], [address] [place], [place], [address], [place] tel:[phone] [facility] [place] pain (chief complaint) PE (chief complaint) tobacco1 (chief complaint) Chronic pain syndromeAcute lung embolismTobacco use 4 Ronny Stephenson. [address], [place], [place], [address] , [place]. tel:[phone] OFFICE/OUTPA TIENT VISIT, [facility], [address] [place], [place], [address], [place] tel:[phone] [facility] [place] pain (chief complaint) Chronic pain syndrome 3 Ronny Stephenson. [address], [place], [place], [address] , [place]. tel:[phone] OFFICE/OUTPA TIENT VISIT, [facility], [address], [place], [place], [address], [place] tel:[phone] [facility] [place] pain (chief complaint) Chronic pain syndrome 3 Ronny Stephenson. [address], [place], [place], [address] , [place]. tel:[phone] OFFICE/OUTPA TIENT VISIT, [facility], [address], [place], [place], [address], [place] tel:[phone] [facility] [place] HLP (chief complaint) pain1 (chief complaint) Chronic pain syndromeMixed hyperlipidemia 3 Ronny Stephenson. [address], [place], [place], [address] , [place]. [phone] OFFICE/OUTPA TIENT VISIT, [facility], [address], [place], [place], [address], [place] tel:[phone] [facility] [place] presyncope 1 (chief complaint) Syncope and collapseLeukocytosi sHypotension 3 Ronny Stephenson. [address], [place], [place], [address] , [place]. tel:[phone] PREV VISIT, EST, AGE 40-64 [facility] [place], [address], [place], [place], [address], [place] tel:[phone] [facility] [place] physical (chief complaint) Encounter for general adult medical examination without abnormal findings 3 Ronny Stephenson. [address], [place], [place], [address] , [place]. tel:[phone] OFFICE/OUTPA TIENT VISIT, [facility], [address], [place], [place], [address], [place] tel:[phone] [facility] pain (chief complaint) syncope1 (chief complaint) ear1 (chief complaint) Chronic pain syndromeSyncope and collapseOtalgia, left ear 3 Ronny Stephenson. [address], [place], [place], [address] , [place]. tel:[phone] OFFICE/OUTPA TIENT VISIT, [facility], [address], [place], [place], [address], [place] tel:[phone] [facility] [place] pain (chief complaint) Chronic pain syndrome 3 Ronny Stephenson. [address], [place], [place], [address] , [place]. tel:[phone] OFFICE/OUTPA TIENT VISIT, [facility], [address], [place], [place], [address], [place] tel:[phone] [facility] [place] pain (chief complaint) anxiety1 (chief complaint) PE (chief complaint) allergy1 (chief complaint) Generalized Anxiety DisorderChronic pain syndromeAcute lung embolismAllergic rhinitis due to pollen 3 Ronny Stephenson. [address], [place], [place], [address] , [place]. tel:[phone] OFFICE/OUTPA TIENT VISIT, [facility], [address], [place], [place], [address], [place] tel:[phone] [facility] [place] pain (chief complaint) anxiety1 (chief complaint) Chronic pain syndromeGeneralized Anxiety Disorder 3 Ronny Stephenson. [address], [place], [place], [address] , [place]. tel:[phone] OFFICE/OUTPA TIENT VISIT, [facility], [address], [place], [place], [address], [place] tel:[phone] [facility] [place] pain (chief complaint) GERD1 (chief complaint) colon polyp1 (chief complaint) GERD w/o esophagitisPolyp of colonChronic pain syndrome 3 Ronny Stephenson. [address], [place], [place], [address] , [place]. tel:[phone] OFFICE/OUTPA TIENT VISIT, [facility], [address], [place], [place], [address], [place] tel:[phone] [facility] [place] PE (chief complaint) pneumonia1 (chief complaint) pain (chief complaint) ear1 (chief complaint) PneumoniaAcute lung embolismChronic pain syndromeOtitis media, unspecified, left ear 3 Ronny Turner [address], [place], [place], [address] , [place]. tel:[phone] OFFICE/OUTPA TIENT VISIT, [facility], [address], [place], [place], [address], [place] tel:[phone] [facility] [place] garrett (chief complaint) PE (chief complaint) pneumonia1 (chief complaint) Acute lung embolismPneumoniaCh ronic pain syndrome 3 Ronny Turner [address], [place], [place], [address] , [place]. tel:[phone] OFFICE/OUTPA TIENT VISIT, [facility], [address], [place], [place], [address], [place] tel:[phone] [facility] [place] PE (chief complaint) Acute lung embolism 3 Ronny Turner [address], [place], [place], [address] , [place]. tel:[phone] OFFICE/OUTPA TIENT VISIT, [facility], [address], [place], [place], [address], [place] tel:[phone] [facility] [place] pain (chief complaint) GERD1 (chief complaint) Chronic pain syndromeGERD w/o esophagitis 3 Ronny Turner [address], [place], [place], [address] , [place]. tel:[phone] OFFICE/OUTPA TIENT VISIT, [facility], [address], [place], [place], [address], [place] tel:[phone] [facility] [place] COVID (chief complaint) Viral infection 3 Jefferson Sachin. [address], [place], [place], [address] , [place]. tel:[phone] OFFICE/OUTPA TIENT VISIT, [facility], [address], [place], [place], [address], [place] tel:[phone] [facility] [place] pain (chief complaint) GERD1 (chief complaint) ED (chief complaint) GERD w/o esophagitisMale erectile dysfunction, unspecifiedChronic pain syndrome 2 Jefferson Sachin. [address], [place], [place], [address] , [place]. tel:[phone] OFFICE/OUTPA TIENT VISIT, [facility], [address], [place], [place], [address], [place] tel:[phone] [facility] [place] GERD1 (chief complaint) pain (chief complaint) HLP (chief complaint) anxiety1 (chief complaint) Chronic pain syndromeEsophagitis Mixed hyperlipidemiaGener alized Anxiety DisorderLateral epicondylitis, left elbow 2 Ronny Stephenson. [address], [place], [place], [address] , [place]. tel:[phone] OFFICE/OUTPA TIENT VISIT, [facility], [address], [place], [place], [address], [place] tel:[phone] [facility] [place] pain (chief complaint) GERD1 (chief complaint) elbow pain1 (chief complaint) Chronic pain syndromeEsophagitis Lateral epicondylitis, left elbow 2 Jefferson Sachin. [address], [place], [place], [address] , [place]. tel:[phone] OFFICE/OUTPA TIENT VISIT, [facility], [address], [place], [place], [address], [place] tel:[phone] [facility] [place] pain (chief complaint) ganglion cyst1 (chief complaint) GERD1 (chief complaint) GERD w/o esophagitisChronic pain syndromeGanglion, left wristTobacco use 2 Ronny Stephenson. [address], [place], [place], [address] , [place]. tel:[phone] PREV VISIT, EST, AGE 40-64 [facility] [place], [address], [place], [place], [address], [place] tel:[phone] [facility] physical (chief complaint) Encounter for general adult medical examination without abnormal findings 0 2 Ronny Stephenson. [address], [place], [place], [address] , [place]. tel: [phone] OFFICE/OUTPA TIENT VISIT, [facility], [address], [place], [place], [address], [place] tel:[phone] [facility] [place] ganglion cyst1 (chief complaint) pain (chief complaint) Ganglion, left wristChronic pain syndrome 2 Ronny Stephenson. [address], [place], [place], [address] , [place]. tel: [phone] OFFICE/OUTPA TIENT VISIT, EST [facility] [place], [address], [place], [place], [address], [place] tel:[phone] [facility] [place] pain (chief complaint) anxiety1 (chief complaint) Chronic pain syndromeGeneralized Anxiety Disorder 2 Ronny Stephenson. [address], [place], [place], [address] , [place]. tel:[phone] OFFICE/OUTPA TIENT VISIT, [facility], [address], [place], [place], [address], [place] tel:[phone] [facility] pain (chief complaint) HLP (chief complaint) Chronic pain syndromeHyperlipide js 2 Ronny Stephenson. [address], [place], [place], [address] , [place]. tel:[phone] OFFICE/OUTPA TIENT VISIT, [facility], [address], [place], [place], [address], [place] tel:[phone] [facility] pain (chief complaint) Chronic pain syndrome 2 Ronny Stephenson. [address], [place], [place], [address] , [place]. tel:[phone] OFFICE/OUTPA TIENT VISIT, [facility], [address], [place], [place], [address], [place] tel:[phone] [facility] [place] pain (chief complaint) lung nodule1 (chief complaint) ED (chief complaint) Chronic pain syndromePain in right kneeMale erectile dysfunction, unspecifiedSolitary lung nodule 2 Ronny Stephenson. [address], [place], [place], [address] , [place]. tel:[phone] OFFICE/OUTPA TIENT VISIT, [facility], [address], [place], [place], [address], [place] tel:[phone] [facility] pain (chief complaint) tobacco1 (chief complaint) tobacco1 (chief complaint) Chronic pain syndromeTobacco use 2 Ronny Stephenson. [address], [place], [place], [address] , [place]. tel:[phone] OFFICE/OUTPA TIENT VISIT, [facility], [address], [place], [place], [address], [place] tel:[phone] [facility] pain (chief complaint) RLS (chief complaint) Chronic pain syndromeRestless legs syndrome 2 Ronny Stephenson. [address], [place], [place], [address] , [place]. tel:[phone] OFFICE/OUTPA TIENT VISIT, [facility], [address], [place], [place], [address], [place] tel:[phone] [facility] [place] pain1 (chief complaint) Chronic pain syndromeOther spondylosis, lumbar region 2 Ronny Stephenson. [address], [place], [place], [address] , [place]. tel: [phone] OFFICE/OUTPA TIENT VISIT, [facility], [address], [place], [place], [address], [place] [phone] [facility] pain (chief complaint) Chronic pain syndrome Dec-0 3 1 Ronny Turner [address], [place], [place], [address] , [place]. tel: [phone] OFFICE/OUTPA TIENT VISIT, [facility], [address], [place], [place], [address], [place] tel:[phone] [facility] pain (chief complaint) folate1 (chief complaint) Folate deficiencyChronic pain syndrome Sep-0 1 Ronny Turner [address], [place], [place], [address] , [place]. tel: [phone] OFFICE/OUTPA TIENT VISIT, [facility], [address], [place], [place], [address], [place] tel:[phone] [facility] pain (chief complaint) Chronic pain syndromePain in right knee Aug-0 1 Ronny Turner [address], [place], [place], [address] , [place]. tel: [phone] OFFICE/OUTPA TIENT VISIT, [facility], [address], [place], [place], [address], [place] tel:[phone] [facility] pain (chief complaint) HLP (chief complaint) M protein (chief complaint) Chronic pain syndromeMonoclonal gammopathyHyperlipi demiaPain in right knee Sep-0 1 Ronny Turner [address], [place], [place], [address] , [place]. tel:[phone] PREV VISIT, EST, AGE 40-64 [facility] [place], [address], [place], [place], [address], [place] tel:[phone] [facility] physical (chief complaint) Encounter for general adult medical examination without abnormal findings 1 Ronny Stephenson. [address], [place], [place], [address] , [place]. tel:[phone] OFFICE/OUTPA TIENT VISIT, [facility], [address], [place], [place], [address], [place] tel:[phone] [facility] [place] pain (chief complaint) M protein1 (chief complaint) Chronic pain syndromeMonoclonal gammopathy 1 Ronny Stephenson. [address], [place], [place], [address] , [place]. tel:[phone] OFFICE/OUTPA TIENT VISIT, [facility], [address], [place], [place], [address], [place] tel:[phone] [facility] [place] HLP (chief complaint) pain (chief complaint) glucose1 (chief complaint) M spike1 (chief complaint) Monoclonal gammopathyChronic pain syndromeHyperlipide miaTobacco useHyperglycemia 1 Ronny Stephenson. [address], [place], [place], [address] , [place]. tel:[phone] OFFICE/OUTPA TIENT VISIT, [facility], [address], [place], [place], [address], [place] tel:[phone] [facility] [place] pain (chief complaint) globulin1 (chief complaint) HLP (chief complaint) BPH1 (chief complaint) Chronic pain syndromeTobacco useAbnormality of globulinBPH w/o lower urinary tract symptomHyperlipidem ia 1 Ronny Stephenson. [address], [place], [place], [address] , [place]. tel:[phone] OFFICE/OUTPA TIENT VISIT, [facility], [address], [place], [place], [address], [place] tel:[phone] [facility] [place] pain (chief complaint) HLP (chief complaint) anxiety1 (chief complaint) tobacco1 (chief complaint) Chronic pain syndromeGeneralized Anxiety DisorderHyperlipide miaTobacco use Feb- 1 Ronny Stephenson. [address], [place], [place], [address] , [place]. tel:[phone] OFFICE/OUTPA TIENT VISIT, [facility], [address], [place], [place], [address], [place] tel:[phone] [facility] pain (chief complaint) Lumbago with sciatica, left sideNeuropathy 1 Ronny Stephenson. [address], [place], [place], [address] , [place]. tel:[phone] OFFICE/OUTPA TIENT VISIT, [facility], [address], [place], [place], [address], [place] tel:[phone] [facility] pain (chief complaint) Lumbago with sciatica, left side Fe 1 Ronny Stephenson. [address], [place], [place], [address] , [place]. tel:[phone] OFFICE/OUTPA TIENT VISIT, [facility], [address], [place], [place], [address], [place] tel:[phone] [facility], [place] anxiety1 (chief complaint) pain (chief complaint) RLS (chief complaint) Chronic pain syndromeGeneralized Anxiety DisorderRestless legs syndrome 1 Ronny Stephenson. [address], [place], [place], [address] , [place]. tel:[phone] OFFICE/OUTPA TIENT VISIT, [facility], [address], [place], [place], [address], [place] tel:[phone] [facility], [place] pain (chief complaint) Chronic pain syndrome 0 Ronny Stephenson. [address], [place], [place], [address] , [place]. tel:[phone] OFFICE/OUTPA TIENT VISIT, [facility], [address], [place], [place], [address], [place] tel:[phone] [facility] Medicine pain (chief complaint) ED (chief complaint) Chronic pain syndromeMale erectile dysfunction, unspecified 0 Ronny Stephenson. [address], [place], [place], [address] , [place]. [phone] OFFICE/OUTPA TIENT VISIT, [facility], [address], [place], [place], [address], [place] tel:[phone] [facility] [place] folate1 (chief complaint) globulin1 (chief complaint) HLP (chief complaint) anxiety1 (chief complaint) Generalized Anxiety DisorderFolate deficiencyHyperlipi demiaAbnormality of globulinChronic pain syndrome 0 Ronny Stephenson. [address], [place], [place], [address] , [place]. [phone] OFFICE/OUTPA TIENT VISIT, [facility], [address], [place], [place], [address], [place] tel:[phone] [facility] [place] HLP (chief complaint) folate (chief complaint) Anxiety 1 (chief complaint) Chronic pain (chief complaint) HyperlipidemiaFolat e deficiencyChronic pain syndromeGeneralized Anxiety Disorder 0 Ronny Stephenson. [address], [place], [place], [address] , [place]. tel:[phone] OFFICE/OUTPA TIENT VISIT, [facility], [address] [place] [place], [place], [address], [place] tel:[phone] [facility] [place] pain (chief complaint) Chronic pain syndrome 0 Ronny Stephenson. [address], [place], [place], [address] , [place]. tel:[phone] OFFICE/OUTPA TIENT VISIT, [facility], [address], [place], [place], [address], [place] tel:[phone] [facility] [place] HLP (chief complaint) pain (chief complaint) HyperlipidemiaChron ic pain syndrome 0 Ronny Turner [address], [place], [place], [address] , [place]. tel:[phone] OFFICE/OUTPA TIENT VISIT, [facility], [address], [place], [place], [address], [place] tel:[phone] [facility] [place] folate1 (chief complaint) HLP (chief complaint) a1c (chief complaint) pain (chief complaint) Folate deficiencyHyperlipi demiaHyperglycemiaC hronic pain syndromeFamily history of malignant neoplasm of prostate 0 Ronny Turner [address], [place], [place], [address] , [place]. tel:[phone] PREV VISIT, EST, AGE 40-64 [facility], [place], [address], [place], [place], [address], [place] tel:[phone] [facility] [place] physical (chief complaint) Encntr for general adult medical exam w/o abnormal findings 0 Ronny Turner [address], [place], [place], [address] , [place]. tel:[phone] OFFICE/OUTPA TIENT VISIT, EST [facility], [place], [address], [place], [place], [address], [place] tel:[phone] [facility] [place] pain (chief complaint) anxiety1 (chief complaint) Chronic pain syndromeGeneralized Anxiety Disorder 0 Ronny Turner [address], [place], [place], [address] , [place]. tel:[phone] OFFICE/OUTPA TIENT VISIT, [facility], [address], [place], [place], [address], [place] tel:[phone] [facility] Medicine physical (chief complaint) Chronic pain syndrome Jan- 0 Ronny Turner [address], [place], [place], [address] , [place]. tel:[phone] Referring Provider: Sachin Jefferson, [address], [place], [place], [address]. tel:[phone] OFFICE/OUTPA TIENT VISIT, [facility], [address], [place], [place], [address], [place] tel:[phone] [facility] [place] pain (chief complaint) anxiety1 (chief complaint) ED (chief complaint) RLS (chief complaint) Generalized Anxiety DisorderMale erectile dysfunction, unspecifiedChronic pain syndromeRestless legs syndrome 0 Ronny Stephenson. [address], [place], [place], [address] , [place]. tel:[phone] Referring Provider: Renetta Stokes [address], [place], [place], [address]. tel:[phone] OFFICE/OUTPA TIENT VISIT, [facility], [address], [place], [place], [address], [place] tel:[phone] [facility] [place] pain1 (chief complaint) polyp1 (chief complaint) anxiety1 (chief complaint) Polyp of colonChronic pain syndromeGeneralized Anxiety DisorderPresence of cardiac pacemaker 0 Ronny Stephenson. [address], [place], [place], [address] , [place]. tel:[phone] Referring Provider: Renetta Stokes [address], [place], [place], [address]. tel:[phone] OFFICE/OUTPA TIENT VISIT, [facility], [address], [place], [place], [address], [place] tel:[phone] [facility] [place] chronic pain (chief complaint) polyp (chief complaint) Chronic pain syndromePolyp of colon 0201 9 Ronny Stephenson. [address], [place], [place], [address] , [place]. tel:[phone] Referring Provider: Renetta Stokes [address], [place], [place], [address]. tel:[phone] OFFICE/OUTPA TIENT VISIT, [facility], [address], [place], [place], [address], [place] tel:[phone] [facility] [place] chronic pain1 (chief complaint) Chronic pain syndrome 9 Ronny Stephenson. [address], [place], [place], [address] , [place]. tel:[phone] Referring Provider: Sachin Jefferson, [address], [place], [place], [address]. tel:[phone] OFFICE/OUTPA TIENT VISIT, [facility], [address], [place], [place], [address], [place] tel:[phone] [facility] [place] chronic pain1 (chief complaint) ED (chief complaint) Chronic pain syndromeMale erectile dysfunction, unspecified 9 Ronny Stephenson. [address], [place], [place], [address] , [place]. tel:[phone] Referring Provider: Sachin Jefferson, [address], [place], [place], [address]. tel:[phone] OFFICE/OUTPA TIENT VISIT, [facility], [address], [place], [place], [address], [place] tel:[phone] [facility] [place] pain1 (chief complaint) Chronic pain syndrome 9 Ronny Stephenson. [address], [place], [place], [address] , [place]. tel:[phone] OFFICE/OUTPA TIENT VISIT, [facility], [address], [place], [place], [address], [place] tel:[phone] [facility] [place] chronic pain (chief complaint) PAD (chief complaint) screening1 (chief complaint) Chronic pain syndromePeripheral vascular disease, unspecifiedEncounte r for screening for malignant neoplasm of prostateEncounter for screening for malignant neoplasm of colon 9 Ronny Stephenson. [address], [place], [place], [address] , [place]. tel:[phone] OFFICE/OUTPA TIENT VISIT, [facility], [address], [place], [place], [address], [place] tel:[phone] [facility] [place] chronic pain1 (chief complaint) PAD (chief complaint) nevus1 (chief complaint) anxiety1 (chief complaint) Nevus, non-neoplasticPerip heral vascular disease, unspecifiedChronic pain syndromeGeneralized Anxiety Disorder 9 Ronny Stephenson. [address], [place], [place], [address] , [place]. tel:[phone] Referring Provider: Sachin Jefferson [address], [place], [place], [address]. tel:[phone] OFFICE/OUTPA TIENT VISIT, [facility], [address], [place], [place], [address], [place] tel:[phone] [facility] [place] chronic pain (chief complaint) tobacco (chief complaint) Peripheral vascular disease, unspecifiedChronic pain syndrome 9 Ronny Stephenson. [address], [place], [place], [address] , [place]. tel:[phone] OFFICE/OUTPA TIENT VISIT, [facility], [address], [place], [place], [address], [place] tel:[phone] [facility] [place] leg pain1 (chief complaint) chronic pain1 (chief complaint) tobacco1 (chief complaint) Lumbago with sciatica, left sidePeripheral vascular disease, unspecifiedTobacco use 0 9 Ronny Stephenson. [address], [place], [place], [address] , [place]. tel:[phone] Referring Provider: Renetta Stokes [address], [place], [place], [address]. tel:[phone] OFFICE/OUTPA TIENT VISIT, [facility], [address], [place], [place], [address], [place] tel:[phone] [facility] [place] back pain1 (chief complaint) ed (chief complaint) chronic pain1 (chief complaint) Chronic pain syndromeMale erectile dysfunction, unspecifiedTobacco useSpinal stenosis, lumbar region with neurogenic claudication 9 Ronny Turner [address], [place], [place], [address] , [place]. [phone] OFFICE/OUTPA TIENT VISIT, EST [facility] [place], [address], [place], [place], [address], [place] tel:[phone] [facility] Medicine glucose1 (chief complaint) folate (chief complaint) chronic pain1 (chief complaint) HyperglycemiaFolate deficiencyHyperlipi demiaChronic pain syndrome Feb- 9 Ronny Turner [address], [place], [place], [address] , [place]. tel:[phone] Referring Provider: Renetta [address], [place], [place], [address]. tel:[phone] PREV VISIT, EST, AGE 40-64 [facility] [place], [address], [place], [place], [address], [place] tel:[phone] [facility] Medicine Physical (chief complaint) Encounter for general adult medical exam w abnormal findingsRestless legs syndromeChronic pain syndromeCoronary artery disease of [place] coronary artery without angina pectorisHyperlipide js 9 Ronny Turner [address], [place], [place], [address] , [place]. tel:[phone] OFFICE/OUTPA TIENT VISIT, EST [facility], [address], [place], [place], [address], [place] [phone] [facility] [place] chronic pain1 (chief complaint) restless (chief complaint) Chronic pain syndromeRestless legs syndrome 9 Ronny Turner [address], [place], [place], [address] , [place]. tel:[phone] OFFICE/OUTPA TIENT VISIT, [facility], [address], [place], [place], [address], [place] tel:[phone] [facility] [place] chronic pain1 (chief complaint) Chronic pain syndrome 9 Ronny Stephenson. [address], [place], [place], [address] , [place]. [phone] OFFICE/OUTPA TIENT VISIT, [facility], [address], [place], [place], [address], [place] tel:[phone] [facility] [place] chronic pain (chief complaint) knee pain1 (chief complaint) ED (chief complaint) Chronic pain syndromePain in right kneeMale erectile dysfunction, unspecified 8 Ronny Stephenson. [address], [place], [place], [address] , [place]. [phone] Referring Provider: Renetta Stokes [address], [place], [place], [address]. tel:[phone] OFFICE/OUTPA TIENT VISIT, [facility], [address], [place], [place], [address], [place] tel:[phone] [facility] [place] chronic pain (chief complaint) thumb1 (chief complaint) Chronic pain syndromeParesthesia of skin 8 Ronny Stephenson. [address], [place], [place], [address] , [place]. tel:[phone] Referring Provider: Renetta [address], [place], [place], [address]. tel:[phone] OFFICE/OUTPA TIENT VISIT, [facility], [address], [place], [place], [address], [place] tel:[phone] [facility] [place] chronic pain1 (chief complaint) thumb numbness1 (chief complaint) Chronic pain syndromeParesthesia of skin 8 Ronny Stephenson. [address], [place], [place], [address] , [place]. tel:[phone] Referring Provider: Renetta Stokes [address], [place], [place], [address]. tel:[phone] OFFICE/OUTPA TIENT VISIT, [facility], [address], [place], [place], [address], [place] tel:[phone] [facility] Medicine RLS (chief complaint) chronic pain (chief complaint) Chronic pain syndromeRestless legs syndrome 8 Ronny Stephenson. [address], [place], [place], [address] , [place]. tel:[phone] Referring Provider: Renetta Stokes [address], [place], [place], [address]. tel:[phone] OFFICE/OUTPA TIENT VISIT, [facility], [address], [place], [place], [address], [place] tel:[phone] [facility] [place] chronic pain (chief complaint) tobacco1 (chief complaint) Chronic pain syndromeTobacco use 8 Ronny Stephenson. [address], [place], [place], [address] , [place]. tel:[phone] Referring Provider: Renetta Stokes [address], [place], [place], [address]. tel:[phone] OFFICE/OUTPA TIENT VISIT, [facility], [address], [place], [place], [address], [place] tel:[phone] [facility] [place] chronic pain (chief complaint) ED1 (chief complaint) anxiety1 (chief complaint) tobacco1 (chief complaint) Chronic pain syndromeMale erectile dysfunction, unspecifiedGenerali zed Anxiety DisorderTobacco useFamily history of malignant neoplasm of prostate 8 Ronny Stephenson. [address], [place], [place], [address] , [place]. tel:[phone] Referring Provider: Renetta Stokes [address], [place], [place], [address]. tel:[phone] OFFICE/OUTPA TIENT VISIT, [facility], [address], [place], [place], [address], [place] tel:[phone] [facility] HLP (chief complaint) leukocytos is1 (chief complaint) chronic pain (chief complaint) HyperlipidemiaLeuko cytosisChronic pain syndromePain in right knee 8 Ronny Turner [address], [place], [place], [address] , [place]. tel:[phone] Referring Provider: Renetta Stokes [address], [place], [place], [address]. tel:[phone] OFFICE/OUTPA TIENT VISIT, [facility], [address], [place], [place], [address], [place] [phone] [facility] [place] chronic pain1 (chief complaint) wbc1 (chief complaint) HLP (chief complaint) Body mass index (BMI) 29.0-29.9, adultChronic pain syndromeLeukocytosi sHyperlipidemia 8 Ronny Turner [address], [place], [place], [address] , [place]. tel:[phone] Referring Provider: Renetta Stokes [address], [place], [place], [address]. tel:[phone] OFFICE/OUTPA TIENT VISIT, [facility], [address], [place], [place], [address], [place] tel:[phone] [facility] [place] chronic pain1 (chief complaint) knee pain1 (chief complaint) Chronic pain syndromePain in right knee 8 Ronny Turner [address], [place], [place], [address] , [place]. tel:[phone] Referring Provider: Renetta Stokes [address], [place], [place], [address]. tel:[phone] OFFICE/OUTPA TIENT VISIT, [facility], [address], [place], [address], [place] tel:[phone] [facility] Medicine chronic pain (chief complaint) knee pain1 (chief complaint) Pain in right kneeChronic pain syndrome 8 Ronny Turner [address], [place], [place], [address] , [place]. [phone] Referring Provider: Renetta Stokes [address], [place], [place], [address]. tel:[phone] PREV VISIT, EST, AGE 40-64 [facility], [address], [place], [place], [address], [place] tel:[phone] [facility] Medicine physical (chief complaint) Encounter for general adult medical exam w abnormal findingsCoronary artery disease of [place] coronary artery without angina pectorisPain in right kneeRestless legs syndrome 8 Ronny Stephenson. [address], [place], [place], [address] , [place]. tel:[phone] Referring Provider: Renetta Stokes [address], [place], [place], [address]. tel:[phone] OFFICE/OUTPA TIENT VISIT, [facility], [address], [place], [place], [address], [place] tel:[phone] [facility] Medicine sick (chief complaint) Acute pharyngitis, unspecifiedAcute upper respiratory infection, unspecified 8 Ronny Stephenson. [address], [place], [place], [address] , [place]. tel:[phone] OFFICE/OUTPA TIENT VISIT, [facility], [address], [place], [place], [address], [place] tel:[phone] [facility] [place] ED (chief complaint) HLP (chief complaint) chrnoic pain1 (chief complaint) knee pani1 (chief complaint) Coronary artery disease of [place] coronary artery without angina pectorisChronic pain syndromePain in right kneeMale erectile dysfunction, unspecified 8 Ronny Stephenson. [address], [place], [address] , [place]. [phone] Referring Provider: Renetta Stokes [address], [place], [place], [address]. tel:[phone] OFFICE/OUTPA TIENT VISIT, [facility], [address], [place], [place], [address], [place] tel:[phone] [facility] [place] CAD (chief complaint) back pain1 (chief complaint) Coronary artery disease of [place] coronary artery without angina pectorisChronic pain syndrome 7 Ronny Stephenson. [address], [place], [place], [address] , [place]. tel:[phone] Referring Provider: Renetta Stokes [address], [place], [place], [address]. tel:[phone] OFFICE/OUTPA TIENT VISIT, [facility], [address], [place], [place], [address], [place] tel:[phone] [facility] [place] restless leg1 (chief complaint) chronic pain1 (chief complaint) insomnia1 (chief complaint) knee pain1 (chief complaint) Periodic limb movement disorderInsomniaChr onic pain syndromePain in right knee 7 Ronny Stephenson. [address], [place], [place], [address] , [place]. tel:[phone] Referring Provider: Renetta Stokes [address], [place], [place], [address]. tel:[phone] OFFICE/OUTPA TIENT VISIT, [facility], [address], [place], [place], [address], [place] tel:[phone] [facility] [place] insomnia1 (chief complaint) chronic pain (chief complaint) depression 1 (chief complaint) Periodic limb movement disorderGeneralized Anxiety DisorderChronic pain syndromeInsomnia 7 Ronny Stephenson. [address], [place], [place], [address] , [place]. tel:[phone] OFFICE/OUTPA TIENT VISIT, [facility], [address], [place], [place], [address], [place] tel:[phone] [facility] [place] chornic pain (chief complaint) Chronic pain syndrome 7 Jefferson Sachin. [address], [place], [place], [address] , [place]. tel:[phone] Referring Provider: Renetta Stokes [address], [place], [place], [address]. tel:[phone] OFFICE/OUTPA TIENT VISIT, [facility], [address], [place], [place], [address], [place] tel:[phone] [facility] [place] HLP (chief complaint) wbc (chief complaint) ED (chief complaint) chronic pain (chief complaint) HyperlipidemiaMale erectile dysfunction, unspecifiedChronic pain syndromeLeukocytosi s Ronny Turner [address], [place], [place], [address] , [place]. [phone] Referring Provider: Renetta Stokes [address], [place], [place], [address]. tel:[phone] OFFICE/OUTPA TIENT VISIT, [facility], [address], [place], [place], [address], [place] tel:[phone] [facility] [place] limb (chief complaint) chronic pain1 (chief complaint) HLP (chief complaint) anxiety1 (chief complaint) Periodic limb movement disorderHyperlipide miaChronic pain syndromeGeneralized Anxiety Disorder 7 Ronny Jackson [address], [place], [place], [address] , [place]. tel:[phone] Referring Provider: Renetta Stokes [address], [place], [place], [address]. tel:[phone] OFFICE/OUTPA TIENT VISIT, [facility], [address], [place], [place], [address], [place] tel:[phone] [facility] [place] back pain1 (chief complaint) eD1 (chief complaint) HLP (chief complaint) insomani1 (chief complaint) HyperlipidemiaMale erectile dysfunction, unspecifiedSleep apneaChronic pain syndrome 7 Ronny Stephenson. [address], [place], [place], [address] , [place]. tel:[phone] Referring Provider: Renetta Stokes [address], [place], [place], [address]. tel:[phone] OFFICE/OUTPA TIENT VISIT, [facility], [address], [place], [place], [address], [place] tel:[phone] [facility] [place] HLP (chief complaint) back pain1 (chief complaint) ED (chief complaint) Mixed hyperlipidemiaChron ic pain syndromeMale erectile dysfunction, unspecified 7 Ronny Stephenson. [address], [place], [place], [address] , [place]. tel:[phone] Referring Provider: Renetta Stokes [address], [place], [place], [address]. tel:[phone] OFFICE/OUTPA TIENT VISIT, [facility], [address], [place], [place], [address], [place] tel:[phone] [facility] [place] chronic pain (chief complaint) ED1 (chief complaint) blood in stool (chief complaint) HLP (chief complaint) Male erectile dysfunction, unspecifiedChronic pain syndromeMixed hyperlipidemiaCoron anh artery disease of [place] coronary artery without angina pectoris 7 Ronny Stephenson. [address], [place], [place], [address] , [place]. tel:[phone] Referring Provider: Renetta Stokes [address], [place], [place], [address]. tel:[phone] OFFICE/OUTPA TIENT VISIT, [facility], [address], [place], [place], [address], [place] tel:[phone] [facility] [place] chronic pain1 (chief complaint) ED1 (chief complaint) ear pain1 (chief complaint) Actinic keratosisChronic pain syndromeMale erectile dysfunction, unspecifiedSick sinus syndrome Feb- 7 Ronny Stephenson. [address], [place], [place], [address] , [place]. tel:[phone] Referring Provider: Renetta Stokes [address], [place], [place], [address]. tel:[phone] OFFICE/OUTPA TIENT VISIT, [facility], [address], [place], [place], [address], [place] tel:[phone] [facility] HLP (chief complaint) chronic pain1 (chief complaint) ED1 (chief complaint) tobacco1 (chief complaint) Coronary artery disease of [place] coronary artery without angina pectorisChronic pain syndromeHyperlipide miaTobacco use 7 Ronny Stephenson. [address], [place], [place], [address] , [place]. [phone] Referring Provider: Renetta Stokes [address], [place], [place], [address]. tel:[phone] PREV VISIT, EST, AGE 40-64 [facility] [place], [address] [address], [place], [place], [address], [place] tel:[phone] [facility] Medicine Physical (chief complaint) Encounter for general adult medical exam w abnormal findingsHyperlipide miaChronic pain syndromeCoronary artery disease of [place] coronary artery without angina pectoris 7 Ronny Stephenson. [address], [place], [place], [address] , [place]. tel:[phone] Referring Provider: Renetta Stokes [address], [place], [place], [address]. tel:[phone] OFFICE/OUTPA TIENT VISIT, [facility], [address], [place], [place], [address], [place] tel:[phone] [facility] Medicine chronic pain (chief complaint) Chronic pain syndrome 7 Ronny Stephenson. [address], [place], [place], [address] , [place]. [phone] Referring Provider: Renetta Stokes [address], [place], [place], [address]. tel:[phone] OFFICE/OUTPA TIENT VISIT, [facility], [address], [place], [place], [address], [place] tel:[phone] [facility], [place] chronic pain (chief complaint) HLP (chief complaint) tobacco (chief complaint) anxiety1 (chief complaint) Mixed hyperlipidemiaChron ic pain syndromeTobacco useGeneralized Anxiety Disorder 6 Ronny Stephenson. [address], [place], [place], [address] , [place]. tel:[phone] Referring Provider: Sachin Jefferson, [address], [place], [place], [address]. tel:[phone] OFFICE/OUTPA TIENT VISIT, [facility], [address], [place], [place], [address], [place] tel:[phone] [facility], [place] chronic pain1 (chief complaint) HLP (chief complaint) HyperlipidemiaChron ic pain syndrome 6 Ronny Stephenson. [address], [place], [place], [address] , [place]. tel:[phone] Referring Provider: Sachin Jefferson, [address], [place], [place], [address]. tel:[phone] OFFICE/OUTPA TIENT VISIT, [facility], [address], [place], [place], [address], [place] tel:[phone] [facility] [place] chronic pain (chief complaint) anxiety1 (chief complaint) Chronic pain syndromeDepression 6 Ronny Stephenson. [address], [place], [place], [address] , [place]. tel:[phone] Referring Provider: Renetta Stokes [address], [place], [place], [address]. tel:[phone] OFFICE/OUTPA TIENT VISIT, [facility], [address], [place], [place], [address], [place] tel:[phone] [facility] [place] chronic pain (chief complaint) HLP (chief complaint) marijauna (chief complaint) HyperlipidemiaCanna bis abuse, uncomplicatedChroni c pain syndrome 6 Ronny Stephenson. [address], [place], [place], [address] , [place]. tel:[phone] Referring Provider: Renetta Stokes [address], [place], [place], [address]. tel:[phone] OFFICE/OUTPA TIENT VISIT, [facility], [address], [place], [place], [address], [place] tel:[phone] [facility], [place] chronic pain (chief complaint) anxiety1 (chief complaint) Chronic pain syndromeDepression 6 Ronny Stephenson. [address], [place], [place], [address] , [place]. tel:[phone] Referring Provider: Renetta [address], [place], [place], [address]. tel:[phone] OFFICE/OUTPA TIENT VISIT, [facility], [address], [place], [place], [address], [place] tel:[phone] [facility] [place] chronic pain (chief complaint) depression 1 (chief complaint) DepressionChronic pain syndromeCannabis abuse, uncomplicated 6 Ronny Stephenson. [address], [place], [place], [address] , [place]. tel:[phone] Referring Provider: Renetta [address], [place], [place], [address]. tel:[phone] OFFICE/OUTPA TIENT VISIT, [facility], [address], [place], [place], [address], [place] tel:[phone] [facility] [place] chronic pain (chief complaint) HLP (chief complaint) depression (chief complaint) depression 1 (chief complaint) HyperlipidemiaChron ic pain syndromeDepression 6 Ronny Stephenson. [address], [place], [place], [address] , [place]. tel:[phone] Referring Provider: Renetta Stokes [address], [place], [place], [address]. tel:[phone] OFFICE/OUTPA TIENT VISIT, [facility], [address], [place], [place], [address], [place] tel:[phone] [facility] [place] chronic pain1 (chief complaint) CervicalgiaChronic pain syndrome 6 Ronny Stephenson. [address], [place], [place], [address] , [place]. tel:[phone] Referring Provider: Renetta Stokes [address], [place], [place], [address]. tel:[phone] OFFICE/OUTPA TIENT VISIT, [facility], [address], [place], [place], [address], [place] tel:[phone] [facility] [place] chronic pain (chief complaint) HLP (chief complaint) Chronic pain syndromeHyperlipide js 6 Ronny Stephenson. [address], [place], [place], [address] , [place]. [phone] Referring Provider: Renetta Stokes [address], [place], [place], [address]. tel:[phone] OFFICE/OUTPA TIENT VISIT, [facility], [address], [place], [place], [address], [place] tel:[phone] [facility] [place] neck pain1 (chief complaint) HLP (chief complaint) back pain1 (chief complaint) Mixed hyperlipidemiaCervi calgiaLumbago with sciatica, left side 6 Ronny Stephenson. [address], [place], [place], [address] , [place]. tel:[phone] Referring Provider: Renetta Stokes [address], [place], [place], [address]. tel:[phone] OFFICE/OUTPA TIENT VISIT, [facility], [address], [place], [place], [address], [place] tel:[phone] [facility] [place] chronic pain (chief complaint) HLP (chief complaint) Chronic pain syndromeMixed hyperlipidemia 6 Ronny Stephenson. [address], [place], [place], [address] , [place]. tel:[phone] Referring Provider: Renetta [address], [place], [place], [address]. tel:[phone] OFFICE/OUTPA TIENT VISIT, EST [facility] [place], [address] [place], [place], [address], [place] tel:[phone] [facility] [place] chronic pain (chief complaint) HLP1 (chief complaint) low D (chief complaint) CAD1 (chief complaint) Mixed hyperlipidemiaChron ic pain syndromeVitamin D deficiency, unspecifiedCoronary artery disease of [place] coronary artery without angina pectoris 6 Ronny Turner [address], [place], [place], [address] , [place]. tel:[phone] Ref[facility] [place], [address]. tel:[phone] PREV VISIT, NEW, AGE 40-64 [facility] [place], [facility] [address] [place], [place], [address], [place] tel:[phone] [facility] [place] Physical1 (chief complaint) Encntr for general adult medical exam w/o abnormal findings 6 Ronny Stephenson. [address] [facility] [place], [place], [address] , [place]. [phone] Referring Provider: [facility] Stokes [facility] [place], [place], [address]. tel:[phone] Family History Family Member Type Diagnosis Age At Onset Mother Problem (finding) Cancer, breast Sister Problem (finding) Cancer, breast Father Problem (finding) Cancer, prostate Mother Problem (finding) Diabetes mellitus type 2 Payers Payer name Insurance type Covered republican ID Authoraugustusa fredrick(s) [facility] [id number] Social History Type Description Quantity Date Captured [...] Piña [address]
[place] [address] [place], [place], [id number] Ordered: Referrals: Maxwell HARPER, Jose Piña. Evaluate and treat ordered Referral Ordered: UPPER GI ENDOSCOPY, BIOPSY ordered Referral Referred To: Tracey HARPER, Xiao Castillo [facility]
[address] [place] [address], [id number] Ordered: Referrals: Xiao Webb MD. Evaluate and [...] non-neoplastic) ordered Referral Referred To: Jed Kennedy [place] [address] [place] [address] [place], [place] [id number] Ordered: Referrals: Allopathic & Osteopathic Physicians : Surgery. Jed Kenndey. Evaluate and treat ordered Referral Ordered: Physical Therapy (related to Lumbago with sciatica, left side) ordered Referral Ordered: Willam Godfrey -Allopathic & Osteopathic Physicians : Internal Medicine : Cardiovascular Disease (related to Peripheral vascular disease, unspecified) ordered Referral Referred To: Willam Godfrey [address] [place], [place] [id number] Ordered: Referrals: Allopathic & Osteopathic Physicians : Internal Medicine : Cardiovascular Disease. Willam Godfrey. Evaluate and treat ordered Referral Referred To: Physical Therapy Ordered: Referrals: Physical Therapy. Evaluate and treat ordered Referral Ordered: [place] ARTERIAL DOPPLER ordered Referral Ordered: Dontrell Fowler -Allopathic & Osteopathic Physicians : Orthopaedic Surgery (related to Pain in right knee) ordered Referral Referred To: Dontrell Fowler [address] [place], [place] [phone] Ordered: Referrals: Allopathic & Osteopathic Physicians : Orthopaedic Surgery. Dontrell Fowler. Evaluate and treat ordered Referral Ordered: CHEST X-RAY PA/LAT TWO-VIEWS ordered Referral Ordered: Dontrell Fowler (related to Pain in right knee) ordered Referral Referred To: Dontrell Fowler [address] [place], [place] [phone] Ordered: Referrals: Dontrell Fowler. 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
[address] [place], [place], [phone] Ordered: Referrals: XIAO CHAU. Evaluate and treat ordered Referral Ordered: KNEE XRAY, 3 VIEW Right ordered Referral Ordered: Mayo Allison (related to Pain in right knee) ordered Referral Referred To: Mayo Allison [address] [facility] [address] [place], [place] [id number] Ordered: Referrals: Mayo Allison. Evaluate and treat ordered Referral Ordered: SLEEP STUDY, ATTENDED ordered Referral Ordered: Jed Kennedy (related to Actinic keratosis) ordered Referral Referred To: Jed Kennedy [address] [place], [phone] Ordered: Referrals: Jed Kennedy. Evaluate and treat [...] ight knee pain Pt saw ortho at [facility] office and had injection right knee recently but the provider at [facility] office quit and he was told to [...] o f PE and DVT and his program director substance abuse told him that he need to be [...] states that he has not heard from [facility] ortho yet lung nodule1 Pt had chest [...] more green vegetables. Anxiety 1 Patient has hedis nurse kristofer anxiety and depression. Patient denies any [...] h e could not afford viagra from [employer], which cost more than $500 for 9 [...] the process of getting epidural approved from [employer]. Pt has 8/10 neck and back apin [...] time HLP Pt has HLP. Pt t leoisa zocor. Pt denies any myalgia. back pain1 [...] and Counseling Recommend gargling Related to Ac chehalis pharyngitis, unspecified Prescribed Activity and Exercise Education Related to Dietary Surveillance and Counseling Prescribed Diet Educ ation/Lifestyle Education Regarding Diet Related to Dietary Surveillance and Counseling Quit smoking Related to Coron anh artery disease of [place] coronary artery without angina pectoris Prescribed Activity and Exercise Education Related to Dietary Surveillance and Counseling Prescribed Diet Educ ation/Lifestyle Education Regarding Diet Related to Dietary Surveillance and Counseling Increase physical activity Relat ed to 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
--- OUTSIDE RECORDS SUMMARY | 2025-07-10 14:55 | XMS_ITS | Clinical Summary ---
Author Organization [facility] [employer] Address [address] [place] [address] Care Team Providers Care Communications Strategist Name Role Phone Sachin Jefferson MD Primary Care Provider [phone] Source Comments [facility] [employer],non-owned Affiliates and Associated Physician Practices is amultiple site organization consisting of ambulatory clinics and hospital sitesin [place], [place], [place] and [place]. This disclosure is being madepursuant to the Care Everywhere program and may not contain all information available regarding this patient. Last updated 18.[facility] [employer] Allergies No known active allergies Medications * [...] block 11/08/2017 Coronary artery disease invo lving [place] coronary artery of [place] heart without angina pectoris 11/08/2017 History of coronary artery stent placement 11/08 Presence of cardiac pacemaker 11/08/2017 Overview (08/19/2021): Overview: [place] [employer] Dual Pacemaker. Dx; SSS, AVB. DOI 06/02/2010. Declines remote monitoring. Office pacemaker checks Q6 mo. Presence of cardiac pacemaker 11/08/2017 Overview (09/03/2021): [place] [employer] Dual Pacemaker-[employer]. Dx; SSS, AVB. Gen [...] Comments Blood Pressure 107/84 01/24/2023 10:25 AM RN FLOAT Pulse 96 01/24/2023 10:25 AM RN FLOAT Temperature - - Respiratory Rate 16 09/11/2023 3:16 PM CDT Oxygen Saturation 96% 09/11/2023 3:16 PM CDT Inhaled Oxygen Concentration - - Weight 103.9 kg (229 lb) 12/20/2018 11:56 AM RN FLOAT Height 185.4 cm (6' 1) 12/20/2018 11:56 AM RN FLOAT Body Mass Index 30.21 12/20/2018 11:56 AM RN FLOAT Plan of Treatment Health Maintenance Due Date [...] patient's age to complete this topic Insurance [facility] Care Teams Communications Strategist Relationship Specialty Start Date End Date Sachin Jefferson MD PCP - General 12/20/18
--- OUTSIDE RECORDS SUMMARY | 2025-07-10 14:55 | XMS_ITS | Encounter Summary ---
Author Organization [facility] Address [address] [place] [address] Care Team Providers Care Senior Production Planner Name Role Phone Sachin Jefferson MD Primary Care Provider [phone] Encounter Details Date Type Department Care Team (Late st Contact Info) Description 03/29/2017 Orders Only [facility] ProviderNika MD [address] [place] [address] Social History Tobacco Use Types Packs/Day Years Used Date Smoking Tobacco: Every Day Comments:Smoking History Pac ks/day: 1 Packs Alcohol Use Standard Drinks/Week Comments No 0 (1 standard drink = 0.6 oz pur e alcohol) Sex and Gender Information Value Date Recorded Sex Assigned at Not on file Legal Sex Male 1:56 AM APPEALS EXAMINER Gender Identity Not on file Sexual Orientation [...] on filedocumented in this encounter Care Teams Senior Production Planner Relationship Specialty Start Date End Date Sachin Jefferson MD PCP - General 02/24/17 documented as of this encounter
== END 2025-07-10 16:01 | disposition home or self-care (01) ==
PROVIDERS: Emergency Provider Student in an Organized Health Care Education/Training Program; PCP Emergency Medicine
DX: M47.816 Spondylosis without myelopathy or radiculopathy, lumbar region (principal); I25.2 Old myocardial infarction; E78.5 Hyperlipidemia, unspecified; M19.90 Unspecified osteoarthritis, unspecified site; K21.9 Gastro-esophageal reflux disease without esophagitis; F17.210 Nicotine dependence, cigarettes, uncomplicated; Z95.0 Presence of cardiac pacemaker; Z95.5 Presence of coronary angioplasty implant and graft; Z86.0100 Personal history of colon polyps, unspecified; Z79.01 Long term (current) use of anticoagulants; Z79.82 Long term (current) use of aspirin; Z79.899 Other long term (current) drug therapy; M51.369 Other intervertebral disc degeneration, lumbar region without mention of lumbar back pain or lower extremity pain; M41.9 Scoliosis, unspecified; M51.35 Other intervertebral disc degeneration, thoracolumbar region
CPT/HCPCS: 72100; 96372; 99283; J1885